=== PATIENT | male | born 1980 | race American Indian/Alaskan Native ===

== ENCOUNTER 2020-02-29 18:09 | Inpatient (IN) | payer OTHER ==
[2020-02-29] MEDS ORDERED: DEXTROSE 50% IN WATER (25GM) 50 ML SYRINGE IV ONE ×2 (18:51→20:23)
[2020-02-29] MEDS ORDERED: SODIUM CHLORIDE 0.9% 1000 ML 1,000 ML ONE (18:55)
[2020-02-29] MEDS ORDERED: SODIUM CHLORIDE 0.9% 1000 ML 1,000 ML IV ONE ×2 (19:04→19:39)
--- NOTE | 2020-02-29 19:17 | Emergency Department Report ---
HPI - General Chief Complaint: Medical Clearance Time Seen by Provider: 02/29/20 18:36 - HPI HPI: 40-year-old -Hungarian male presents to the emergency department via EMS after the patient was found by his roommates slightly altered and surrounded by both urine and blood. At the time of my examination the patient is awake and oriented to person, place and time. Patient says that he cut his left arm with a semi automatic sewing machine operator's knife on Saturday evening, 2 nights ago, because he was trying to "cut the infection out and I did it." The patient says that he previously had some type of knee infection that "spread throughout my body." 2 nights ago the patient once again started having some knee pain and allegedly some swelling and this is why he says he cut himself. He denies any past medical or psychiatric history. The patient denies wanting to end his life and is adamant that he cut himself to try and treat himself of this infection. He presents pale, hypotensive and hypoglycemic. He is a tobacco smoker but denies any illicit drug use. He does drink alcohol but says he did not consume any this evening. The patient says that he got out of the shower and "I collapsed" and then he asked his roommates to call 911. ED Past Medical Hx - Past Medical History Previous Medical History?: No - Surgical History Past Surgical History?: No - Social History Smoking Status: Current Every Day Smoker Substance Use Type: Alcohol - Medications Home Medications: Home Medications Medication Instructions Recorded Confirmed Last Taken Type No Known Home Medications [No 03/01/20 03/01/20 Unknown History Reported Home Medications] ED Review of Systems ROS: Stated complaint: KNEE PAIN/ETOH Other details as noted in HPI Comment: All other systems reviewed and negative Constitutional: weakness. denies: fever Eyes: denies: eye pain, vision change ENT: denies: ear pain, throat pain Respiratory: denies: cough, shortness of breath Cardiovascular: syncope (??). denies: chest pain Gastrointestinal: denies: abdominal pain, vomiting Genitourinary: denies: dysuria, discharge Musculoskeletal: denies: back pain, arthralgia Skin: other (lacerations). denies: rash, lesions Neurological: weakness. denies: headache Physical Exam - Physical Exam Vital Signs: Vital Signs 02/29/20 02/29/20 02/29/20 18:40 18:46 18:53 Pulse Rate 102 H Respiratory 16 Rate Blood Pressure 88/55 88/55 O2 Sat by Pulse 62 L Oximetry 02/29/20 02/29/20 19:00 19:06 Pulse Rate 96 H 93 H Respiratory 21 35 H Rate Blood Pressure 74/39 74/39 O2 Sat by Pulse Oximetry Physical Exam: GENERAL: Patient is ill-appearing. HENT: Normocephalic. Atraumatic. Patient has moist mucous membranes. EYES: Extraocular motions are intact. Pupils equal reactive to light bilaterally. NECK: Supple. Trachea is midline. CHEST/LUNGS: Clear to auscultation. There is no respiratory distress noted. HEART/CARDIOVASCULAR: Regular. There is mild tachycardia. There is no murmur. ABDOMEN: Abdomen is soft, nontender. Patient has normal bowel sounds. There is no abdominal distention. SKIN: Patient is pale and appears jaundiced. Patient has a large linear and moderately deep laceration just distal to the left antecubital fossa and another to the mid forearm. NEURO: The patient is awake, alert, and oriented. The patient is cooperative. The patient has no focal neurologic deficits. Normal speech. MUSCULOSKELETAL: There is no tenderness to palpation. There is no limitation range of motion. Radial pulse +2/4 and capillary refill less than 2 seconds to the affected left upper extremity. ED Course Vital Signs 02/29/20 02/29/20 02/29/20 18:40 18:46 18:53 Pulse Rate 102 H Respiratory 16 Rate Blood Pressure 88/55 88/55 O2 Sat by Pulse 62 L Oximetry 02/29/20 02/29/20 19:00 19:06 Pulse Rate 96 H 93 H Respiratory 21 35 H Rate Blood Pressure 74/39 74/39 O2 Sat by Pulse Oximetry - Consultations Consultation #1: 02/29/20 20:32 I spoke with the tapeman on-call, Dr. Travis, who has requested the patient be placed on a sodium bicarb drip on top of the hyperkalemia cocktail already ordered. He suggested getting an osmolality so we can check for any osmolar gap and [facility] will consult on this patient. ED Medical Decision Making - Lab Data Result diagrams: 03/03/20 04:38 03/03/20 04:38 - EKG Data -: EKG Interpreted by Me EKG shows normal: sinus rhythm, axis, intervals, QRS complexes (LVH), ST-T waves (T wave inversions inversions to the lateral leads V5 and V6) Rate: tachycardia (103 bpm) - EKG Data When compared to previous EKG there are: previous EKG unavailable Interpretation: other (Sinus rhythm with mild tachycardia, normal axis, normal intervals, LVH, T wave inversions to V5 and V6) - Radiology Data Radiology results: report reviewed ULTRASOUND ABDOMEN, LIMITED (RIGHT UPPER QUADRANT) INDICATION: liver failure, jaundice. COMPARISON: None available. FINDINGS: Pancreas: Poorly visualized secondary to bowel gas. Liver: Moderate coarse increased echotexture characteristic for steatosis. Liver measures 16.4 cm in length. Gallbladder: Moderate amount of gallbladder sludge without shadowing gallstones. Mildly thickened gallbladder wall measures 3 mm. Bile ducts: Normal. Common Bile Duct measures 1 mm. Free fluid: None. Additional Findings: None. IMPRESSION: 1. Moderate gallbladder sludge without visualized stones. 2. Pancreas poorly visualized. 3. Moderate hepatic steatosis ULTRASOUND RENAL INDICATION: acute renal failure. COMPARISON: No relevant prior imaging study available. FINDINGS: RIGHT KIDNEY: Size: 11.9 cm. Echogenicity: Normal. Cortical thickness: Normal. Hydronephrosis: None. Cyst or mass: None. Stones: None. LEFT KIDNEY: Size: 11.1 cm. Echogenicity: Normal. Cortical thickness: Normal. Hydronephrosis: None. Cyst or mass: None. Stones: None. Urinary Bladder: Moderately distended urinary bladder.. Free Fluid: Moderate amount of free fluid within left mid abdomen.. Additional Findings: None. IMPRESSION 1. No acute sonographic abnormality of the kidneys. 2. Moderate amount of fluid within left mid abdomen. - Medical Decision Making This patient presented to the emergency department after he was found slightly altered in a room with urine, blood, and a knife having cut himself in the arm. The patient denies any suicidal ideations and says that he cut himself in order to get out some infection he felt was inside of his body. The patient does have 2 different lacerations to the left upper extremity, one at the antecubital fossa and another to the mid forearm. The patient appeared pale and jaundiced. He had some hypotension and hypoglycemia. He was given IV fluid resuscitation, an amp of D50 and some orange juice. He did require a second liter of IV fluid before the blood pressure normalized. An EKG was done that showed some lateral T wave inversions but otherwise no morphology consistent with ST elevation [place]. Patient's blood work shows multiple abnormalities including acute renal failure, acute liver failure with elevated LFTs and coags, hyperkalemia with a potassium of 7, hyponatremia, leukocytosis of 26,000, anemia with a hemoglobin of about 8. Nephrology was contacted and consulted. The patient has received multiple medications for hyperkalemia including a sodium bicarbonate drip. A renal ultrasound was done that did not show any acute process. Abdominal ultrasound shows gallbladder sludge without cholecystitis or cholelithiasis, and moderate hepatic steatosis. Urinalysis did not show any UTI but there is a reading of large blood without any significant amount of RBC's. A CK level is pending but I have a high suspicion of rhabdomyolysis. Patient is also having a CT scan of the abdomen and pelvis without contrast and the results of that are currently pending. The patient will be admitted to the [facility] for further evaluation and treatment. A consult has been placed for nephrology and gastroenterology. The patient has been accepted for admission by the hospitalist, Dr. Car. Critical Care Time: Yes Critical care time in (mins) excluding proc time.: 45 Critical care attestation.: If time is entered above; I have spent that time in minutes in the direct care of this critically ill patient, excluding procedure time. Due to the immediate potential for life-threatening deterioration due to underlying renal, hepatic, and metabolic conditions, I spent 45 minutes of critical care time with the patient. Critical Care Time: 45 minutes ED Disposition Clinical Impression: Hyperkalemia, SIRS (systemic inflammatory response syndrome), Transaminitis, Lactic acidosis, Hyponatremia syndrome Acute renal failure Qualifiers: Acute renal failure type: unspecified Qualified Code(s): N17.9 - Acute kidney failure, unspecified Acute liver failure Qualifiers: Hepatic coma status: without hepatic coma Qualified Code(s): K72.00 - Acute and subacute hepatic failure without coma Anemia Qualifiers: Anemia type: unspecified type Qualified Code(s): D64.9 - Anemia, unspecified Disposition: OP ADMIT IP TO THIS HOSP Is pt being admited?: Yes Condition: Serious Time of Disposition: 23:27
[2020-02-29 19:42] LABS: Hematocrit 24.8 % (35.5-45.6); Hemoglobin 8.3 gm/dl (11.8-15.2); Mean Corpuscular HGB Conc 34 % (32-34); Mean Corpuscular Volume 95 fl (84-94); Platelet Count 409 K/mm3 (140-440)
[2020-02-29 20:00] LABS: Albumin 2.4 g/dL (3.9-5); Calcium 7.3 mg/dL (8.4-10.2)
[2020-02-29] MEDS ORDERED: SODIUM POLYSTYRENE 15 GM/60 ML ORAL LIQD PO ONE (20:22)
[2020-02-29] MEDS ORDERED: CALCIUM GLUCONATE 1,000 MG in SODIUM CHLORIDE 0.9% 100 ML IV ONE (20:22)
[2020-02-29] MEDS ORDERED: ALBUTEROL 2.5 MG/3 ML NEBU IH ONE (20:22)
[2020-02-29] MEDS ORDERED: INSULIN REGULAR, HUMAN 100 UNITS/1 ML IV ONE (20:23)
[2020-02-29] MEDS ORDERED: SODIUM BICARBONATE 150 MEQ in DEXTROSE 5% IN WATER 1,000 ML IV ONE (20:32)
[2020-02-29 21:25] LABS: Anisocytosis 1+; Basophils % (Manual) 0 % (0.0-1.8); Eosinophils % (Manual) 0 % (0.0-4.3); Macrocytosis Few; Monocytes % (Manual) 0 % (0.0-7.3); Total Cells Counted 100
[2020-02-29 21:26] LABS: Burr Cells Few; Large Platelets Few; Platelet Estimate Consistent w Auto; Schistocytes Rare
[2020-02-29] MEDS ORDERED: ONDANSETRON 4 MG/2 ML INJ ONE (21:26)
[2020-02-29] MEDS ORDERED: ONDANSETRON 4 MG/2 ML INJ IV ONE (21:27)
[2020-02-29 23:16] LABS: ABG Base Excess -5.3 mmol/L (-2.0-3.0); ABG HCO3 18.1 mmol/L (20.0-26.0); ABG Methemoglobin 0.4 % (0.0-1.5); ABG Oxygen Saturation 97.6 % (95.0-99.0); ABG PCO2 28.1 mm Hg; ABG PH 7.427 pH Units (7.350-7.450); ABG PO2 96.3 mm Hg (80.0-90.0)
--- NOTE | 2020-02-29 23:22 | Ultrasound Report ---
ULTRASOUND ABDOMEN, LIMITED (RIGHT UPPER QUADRANT) INDICATION: liver failure, jaundice. COMPARISON: None available. FINDINGS: Pancreas: Poorly visualized secondary to bowel gas. Liver: Moderate coarse increased echotexture characteristic for steatosis. Liver measures 16.4 cm in length. Gallbladder: Moderate amount of gallbladder sludge without shadowing gallstones. Mildly thickened gal lbladder wall measures 3 mm. Bile ducts: Normal. Common Bile Duct measures 1 mm. Free fluid: None. Additional Findings: None. IMPRESSION: 1. Moderate gallbladder sludge without visualized stones. 2. Pancreas poorly visualized. 3. Moderate hepatic steatosis Signer Name: Donovan Ga MD Signed: 02/29/2020 11:18 PM Workstation Name: [email or web address]
--- NOTE | 2020-02-29 23:23 | Ultrasound Report ---
ULTRASOUND RENAL INDICATION: acute renal failure. COMPARISON: No relevant prior imaging study available. FINDINGS: RIGHT KIDNEY: Size: 11.9 cm. Echogenicity: Normal. Cortical thickness: Normal. Hydronephrosis: None. Cyst or mass: None. Stones: None. LEFT KIDNEY: Size: 11.1 cm. Echogenicity: Normal. Cortical thickness: Normal. Hydronephrosis: None. Cyst or mass: None. Stones: None. Urinary Bladder: Moderately distended urinary bladder.. Free Fluid: Moderate amount of free fluid within left mid abdomen.. Additional Findings: None. IMPRESSION 1. No acute sonographic abnormality of the kidneys. 2. Moderate amount of fluid within left mid abdomen. Signer Name: Donovan Ga MD Signed: 02/29/2020 11:19 PM Workstation Name: [id number]
[2020-02-29] MEDS ORDERED: VANCOMYCIN/NS 1 GM/250 ML 1 GM/250 ML BAG IV ONE (23:25)
[2020-02-29] MEDS ORDERED: MAGNESIUM HYDROXIDE (MOM) ORAL LIQD UDC PO PRN (23:56)
[2020-02-29] MEDS ORDERED: ONDANSETRON 4 MG/2 ML INJ IV PRN (23:56)
[2020-03-01] MEDS ORDERED: VANCOMYCIN 1,500 MG in SODIUM CHLORIDE 0.9% 500 ML 500 ML IV ONE (00:05)
--- NOTE | 2020-03-01 00:08 | History and Physical Report ---
History of Present Illness Date of examination: 02/29/20 Date of admission: 02/29/20 23:27 Chief complaint: Altered mental status History of present illness: 40-year-old -Malaysian male with no significant past medical history was brought into the emergency room today by EMS because of changes in mental status. Roommate was said to have noticed that patient was smelling of urine and also was covered with blood and was also said to have collapsed after get ting out of the shower and therefore called EMS. Patient indicates that he used a home performance consultant knife over the past weekend to cut his left because he was trying to get rid of an infection in the left arm. He claims he had some infection in his left knee most probably spreading throughout his body including the left arm and therefore he tried to get rid of it. Patient denies any homicidal or suicidal ideations and denies having any mental illness. Upon arrival in the emergency room he was found to be pale, hypotensive and hypoglycemic. Work-up in the emergency room reveals hyperkalemia, renal and liver failure, and elevated CK levels. He was started on IV fluid, empiric IV antibiotics and medications given for his hyperkalemia. Past History Past Medical History: No medical history Past Surgical History: No surgical history Social history: no significant social history Family history: no significant family history Medications and Allergies Allergies Allergy/AdvReac Type Severity Reaction Status Date / Time No Known Allergies Allergy Unverified 02/29/20 18:25 Home Medications Medication Instructions Recorded Confirmed Last Taken Type Amoxicillin/Potassium Clav 1 each PO BID #20 tablet 05/22/18 Unknown Rx [Augmentin 875-125 Tablet] Ibuprofen 800 mg PO TID PRN #30 tablet 05/22/18 Unknown Rx Moxifloxacin HCl [Moxifloxacin] 1 drop OP TID 7 Days #3 ml 05/22/18 Unknown Rx Active Meds: Active Medications Sodium Bicarbonate 150 meq/ (Dextrose) 1,150 mls @ 75 mls/hr IV DIRECT ONE Stop: 03/01/20 11:51 Last Admin: 02/29/20 21:13 Dose: 75 mls/hr Documented by: Vancomycin HCl 1,500 mg/ (Sodium Chloride) 530 mls @ 333.333 mls/hr IV ONCE ONE Stop: 03/01/20 01:40 Review of Systems Constitutional: no fever, no chills Ears, nose, mouth and throat: no nasal congestion, no sore throat Cardiovascular: no chest pain, no syncope Respiratory: no cough, no shortness of breath Gastrointestinal: no abdominal pain, no nausea, no vomiting, no diarrhea, no BRBPR Genitourinary Male: no dysuria, no hematuria, no flank pain Musculoskeletal: no neck pain, no low back pain Integumentary: no rash, no pruritis Neurological: no headaches, no confusion Psychiatric: no anxiety, no depression Exam - Constitutional Vitals: Temp Pulse Resp BP Pulse Ox 96 F L 99 H 28 H 170/48 100 02/29/20 19:24 02/29/20 22:56 02/29/20 22:56 02/29/20 22:56 02/29/20 22:56 General appearance: Present: no acute distress, well-nourished - EENT Eyes: Present: PERRL, EOM intact ENT: hearing intact, clear oral mucosa, dentition normal - Neck Neck: Present: supple, normal ROM - Respiratory Respiratory effort: normal Respiratory: bilateral: CTA - Cardiovascular Rhythm: regular Heart Sounds: Present: S1 & S2. Absent: gallop, systolic murmur, diastolic mur mur, rub - Extremities Extremities: no ischemia, pulses intact, pulses symmetrical (Dressing over left elbow), No edema, Full ROM Extremity abnormal: other (Dressing over left elbow) Peripheral Pulses: within normal limits - Abdominal General gastrointestinal: Present: soft, non-tender, normal bowel sounds. Absent: mass - Integumentary Integumentary: Present: clear, warm, dry, normal turgor. Absent: jaundice, rash - Musculoskeletal Musculoskeletal: strength equal bilaterally - Psychiatric Psychiatric: appropriate mood/affect, intact judgment & insight, memory intact, cooperative - Neurologic Neurologic: CNII-XII intact, moves all extremities Results - Labs CBC & Chem 7: 02/29/20 19:11 02/29/20 19:11 Labs: Abnormal lab results 02/29/20 02/29/20 02/29/20 Range/Units 18:58 19:11 19:11 WBC 26.6 H (4.5-11.0) K/mm3 RBC 2.60 L (3.65-5.03) M/mm3 Hgb 8.3 L (11.8-15.2) gm/dl Hct 24.8 L (35.5-45.6) % MCV 95 H (84-94) fl Seg Neuts % (Manual) 94.0 H (40.0-70.0) % Lymphocytes % (Manual) 5.0 L (13.4-35.0) % Seg Neutrophils # Man 25.0 H (1.8-7.7) K/mm3 PT (12.2-14.9) Sec. INR (0.87-1.13) APTT (24.2-36.6) Sec. ABG pO2 (80.0-90.0) mm Hg ABG HCO3 (20.0-26.0) mmol/L ABG Base Excess (-2.0-3.0) mmol/L ABG Hemoglobin (14.0-18.0) gm/dl Sodium 124 L (137-145) mmol/L Potassium 7.0 H* (3.6-5.0) mmol/L Chloride 75.9 L (98-107) mmol/L Carbon Dioxide 8 L* (22-30) mmol/L BUN 45 H (9-20) mg/dL Creatinine 3.9 H (0.8-1.5) mg/dL Glucose 160 H (75-100) mg/dL POC Glucose < 40 L (70-105) Lactic Acid (0.7-2.0) mmol/L Calcium 7.3 L (8.4-10.2) mg/dL AST 1885 H (5-40) units/L ALT 680 H (7-56) units/L Total Protein 6.1 L (6.3-8.2) g/dL Albumin 2.4 L (3.9-5) g/dL Salicylates (2.8-20.0) mg/dL Acetaminophen (10.0-30.0) ug/mL 02/29/20 02/29/20 02/29/20 Range/Units 19:11 19:15 19:23 WBC (4.5-11.0) K/mm3 RBC (3.65-5.03) M/mm3 Hgb (11.8-15.2) gm/dl Hct (35.5-45.6) % MCV (84-94) fl Seg Neuts % (Manual) (40.0-70.0) % Lymphocytes % (Manual) (13.4-35.0) % Seg Neutrophils # Man (1.8-7.7) K/mm3 PT 30.3 H (12.2-14.9) Sec. INR 3.00 H (0.87-1.13) APTT 44.0 H (24.2-36.6) Sec. ABG pO2 (80.0-90.0) mm Hg ABG HCO3 (20.0-26.0) mmol/L ABG Base Excess (-2.0-3.0) mmol/L ABG Hemoglobin (14.0-18.0) gm/dl Sodium (137-145) mmol/L Potassium (3.6-5.0) mmol/L Chloride (98-107) mmol/L Carbon Dioxide (22-30) mmol/L BUN (9-20) mg/dL Creatinine (0.8-1.5) mg/dL Glucose (75-100) mg/dL POC Glucose 139 H (70-105) Lactic Acid 18.00 H* (0.7-2.0) mmol/L Calcium (8.4-10.2) mg/dL AST (5-40) units/L ALT (7-56) units/L Total Protein (6.3-8.2) g/dL Albumin (3.9-5) g/dL Salicylates (2.8-20.0) mg/dL Acetaminophen (10.0-30.0) ug/mL 02/29/20 02/29/20 02/29/20 Range/Units 20:35 20:35 20:35 WBC (4.5-11.0) K/mm3 RBC (3.65-5.03) M/mm3 Hgb (11.8-15.2) gm/dl Hct (35.5-45.6) % MCV (84-94) fl Seg Neuts % (Manual) (40.0-70.0) % Lymphocytes % (Manual) (13.4-35.0) % Seg Neutrophils # Man (1.8-7.7) K/mm3 PT (12.2-14.9) Sec. INR (0.87-1.13) APTT (24.2-36.6) Sec. ABG pO2 (80.0-90.0) mm Hg ABG HCO3 (20.0-26.0) mmol/L ABG Base Excess (-2.0-3.0) mmol/L ABG Hemoglobin (14.0-18.0) gm/dl Sodium (137-145) mmol/L Potassium (3.6-5.0) mmol/L Chloride (98-107) mmol/L Carbon Dioxide (22-30) mmol/L BUN (9-20) mg/dL Creatinine (0.8-1.5) mg/dL Glucose (75-100) mg/dL POC Glucose (70-105) Lactic Acid 10.80 H* (0.7-2.0) mmol/L Calcium (8.4-10.2) mg/dL AST (5-40) units/L ALT (7-56) units/L Total Protein (6.3-8.2) g/dL Albumin (3.9-5) g/dL Salicylates 1.7 L (2.8-20.0) mg/dL Acetaminophen < 5.0 L (10.0-30.0) ug/mL 02/29/20 Range/Units 23:09 WBC (4.5-11.0) K/mm3 RBC (3.65-5.03) M/mm3 Hgb (11.8-15.2) gm/dl Hct (35.5-45.6) % MCV (84-94) fl Seg Neuts % (Manual) (40.0-70.0) % Lymphocytes % (Manual) (13.4-35.0) % Seg Neutrophils # Man (1.8-7.7) K/mm3 PT (12.2-14.9) Sec. INR (0.87-1.13) APTT (24.2-36.6) Sec. ABG pO2 96.3 H (80.0-90.0) mm Hg ABG HCO3 18.1 L (20.0-26.0) mmol/L ABG Base Excess -5.3 L (-2.0-3.0) mmol/L ABG Hemoglobin 9.2 L (14.0-18.0) gm/dl Sodium (137-145) mmol/L Potassium (3.6-5.0) mmol/L Chloride (98-107) mmol/L Carbon Dioxide (22-30) mmol/L BUN (9-20) mg/dL Creatinine (0.8-1.5) mg/dL Glucose (75-100) mg/dL POC Glucose (70-105) Lactic Acid (0.7-2.0) mmol/L Calcium (8.4-10.2) mg/dL AST (5-40) units/L ALT (7-56) units/L Total Protein (6.3-8.2) g/dL Albumin (3.9-5) g/dL Salicylates (2.8-20.0) mg/dL Acetaminophen (10.0-30.0) ug/mL Assessment and Plan - Patient Problems (1) Sepsis Current Visit: Yes Status: Acute Plan to address problem: Patient placed on IV fluid and empiric IV antibiotics. We await blood culture results. (2) Acute liver failure Current Visit: Yes Status: Acute Qualifiers: Hepatic coma status: without hepatic coma Qualified Code(s): K72.00 - Acute and subacute hepatic failure without coma Plan to address problem: We will place a consult to gastroenterology for further evaluation. Will m onitor liver enzymes. (3) Acute renal failure Current Visit: Yes Status: Acute Qualifiers: Acute renal failure type: unspecified Qualified Code(s): N17.9 - Acute kidney failure, unspecified Plan to address problem: Probably prerenal. We will continue IV fluid and monitor BUN and creatinine. We appreciate evaluation by nephrology. (4) Anemia Current Visit: Yes Status: Acute Qualifiers: Anemia type: unspecified type Qualified Code(s): D64.9 - Anemia, unspecified Plan to address problem: Probably secondary to blood loss. Will monitor CBC. We will transfuse with packed red blood cells if needed. (5) Hyperkalemia Current Visit: Yes Status: Acute (6) Lactic acidosis Current Visit: Yes Status: Acute Plan to address problem: Probably secondary to underlying sepsis. We will continue to monitor chemistry. We will continue antibiotics and IV fluid. (7) Rhabdomyolysis Current Visit: Yes Status: Acute Plan to address problem: We will continue on IV fluid normal saline and monitor creatinine kinase levels. (8) DVT prophylaxis Current Visit: Yes Status: Acute Plan to address problem: Patient placed on sequential compression device. (9) Full code status Current Visit: Yes Status: Acute
[2020-03-01 00:10] LABS: Bilirubin,Urine NEG (Negative); Blood,Urine LG (Negative); Color,Urine Yellow (Yellow); Mucus,Urine 1+ /HPF; Urobilinogen,Urine < 2.0 mg/dL (<2.0)
[2020-03-01 00:16] LABS: Amphetamine Screen,Urine PRESUMPTIVE NEGATIVE; Benzodiazepines Screen,Urine PRESUMPTIVE NEGATIVE; Cannabinoid Screen,Urine PRESUMPTIVE NEGATIVE; Cocaine Screen,Urine PRESUMPTIVE NEGATIVE; Methadone Screen,Urine PRESUMPTIVE NEGATIVE; Opiate Screen,Urine PRESUMPTIVE NEGATIVE
[2020-03-01] MEDS ORDERED: MORPHINE 4 MG/1 ML INJ IV ONE (00:26)
[2020-03-01] MEDS ORDERED: ONDANSETRON 4 MG/2 ML INJ ONE (00:30)
[2020-03-01] MEDS ORDERED: MORPHINE 2 MG/1 ML INJ ONE (00:30)
--- NOTE | 2020-03-01 00:42 | Cat Scan Report ---
CT ABDOMEN AND PELVIS WITHOUT CONTRAST INDICATION: Pt complains of abd pain. Pt has renal failure, liver failure.. TECHNIQUE: Axial CT images were obtained through the abdomen and pelvis without IV contrast. All CT scans at [facility] location are performed using CT dose reduction for ALARA by means of automated exposure control. COMPARISON: None available. FINDINGS: LOWER CHEST: No significant abnormality. LIVER: No significant abnormality. GALLBLADDER: No significant abnormality. BILE DUCTS: No significant abnormality. PANCREAS: No significant abnormality. SPLEEN: No significant abnormality. ADRENALS: No significant abnormality. RIGHT KIDNEY and URETER: No significant abnormality. LEFT KIDNEY and URETER: No significant abnormality. STOMACH and SMALL BOWEL: Moderately dilated stomach suggestive for gastric outlet obstruction and/or gastroparesis. No bowel obstruction. COLON: No significant abnormality. APPENDIX: No significant abnormality. PERITONEUM: No free fluid. No free air. No fluid collection. LYMPH NODES: No significant adenopathy. AORTA and ARTERIES: No significant abnormality. IVC and VEINS: No significant abnormality. URINARY BLADDER: No significant abnormality. REPRODUCTIVE ORGANS: No significant abnormality. ADDITIONAL FINDINGS: None. SKELETAL SYSTEM: Moderate discogenic degenerative disease L5-S1. IMPRESSION: 1. Moderately dilated fluid-filled stomach may be secondary to gastroparesis or gastric outlet obstru ction. 2. No urinary tract calculi or hydronephrosis. Signer Name: Donovan Ga MD Signed: 03/01/2020 12:38 AM Workstation Name: [email or web address]
[2020-03-01] MEDS ORDERED: VANCOMYCIN PHARMACY TO DOSE IV SCH (01:00)
[2020-03-01] MEDS ORDERED: SODIUM CHLORIDE 0.9% 1000 ML 1,000 ML ONE (01:38)
[2020-03-01] MEDS: SODIUM CHLORIDE 0.9% 1000 ML 1,000 ML IV SCH ×2 (02:06→18:54)
[2020-03-01] MEDS ORDERED: SODIUM BICARB 8.4% 50 MEQ/50 ML SYRINGE IV ONE ×2 (04:50→08:31)
[2020-03-01] MEDS ORDERED: PIPERACIL-TAZO 2.25 GM/50 ML 2.25 GM/50 ML BAG IV SCH ×2 (06:00→14:00)
[2020-03-01] MEDS ORDERED: HEPARIN 5,000 UNIT/1 ML VIAL SUB-Q SCH ×2 (06:00→14:00)
[2020-03-01] MEDS ORDERED: PIPERACIL/TAZOBACTA 4.5/NS 100 4.5 GM/100 ML VIAL IV SCH (06:00)
[2020-03-01] MEDS ORDERED: HEPARIN 5,000 UNIT/1 ML VIAL ONE (06:18)
[2020-03-01] MEDS ORDERED: PIPERACIL-TAZO 2.25 GM/50 ML 2.25 GM/50 ML BAG IV ONE (06:18)
[2020-03-01 06:22] LABS: Hematocrit 25.5 % (35.5-45.6); Hemoglobin 8.7 gm/dl (11.8-15.2); Mean Corpuscular HGB Conc 34 % (32-34); Mean Corpuscular Volume 90 fl (84-94); Platelet Count 466 K/mm3 (140-440); Red Blood Count 2.83 M/mm3 (3.65-5.03); Red Cell Distribution Width 13.6 % (13.2-15.2)
[2020-03-01 06:34] LABS: INR 2.16 (0.87-1.13)
[2020-03-01 06:38] LABS: Calcium 6.9 mg/dL (8.4-10.2)
[2020-03-01 06:40] LABS: Albumin 2.8 g/dL (3.9-5)
[2020-03-01 06:41] LABS: Bilirubin,Direct < 0.2 mg/dL (0-0.2)
[2020-03-01 06:53] LABS: Alanine Aminotransferase 1090 units/L (7-56)
--- NOTE | 2020-03-01 07:57 | XRay Report ---
CHEST 1 VIEW INDICATION: cough. COMPARISON: None FINDINGS: Support devices: None. Heart: Within normal limits. Lungs/Pleura: No acute air space or interstitial disease. Additional findings: None. IMPRESSION: No acute findings. Signer Name: Igor Rose Jr, MD Signed: 03/01/2020 7:52 AM Workstation Name: [id number]
[2020-03-01] MEDS ORDERED: SODIUM BICARB 4.2% 5 MEQ/10 ML SYRINGE ONE (08:30)
[2020-03-01 08:36] LABS: Anisocytosis 1+; Band Neutrophils # (Manual) 1.6 K/mm3; Basophils % (Manual) 0 % (0.0-1.8); Eosinophils % (Manual) 0 % (0.0-4.3); Total Cells Counted 100
[2020-03-01 08:37] LABS: Hypochromasia 1+; Macrocytosis Few; Platelet Estimate Consistent w Auto; Target Cells 1+
[2020-03-01] MEDS ORDERED: HYDROmorphone 1 MG/1 ML INJ ONE ×2 (08:40→12:26)
[2020-03-01] MEDS: HYDROmorphone 1 MG/1 ML INJ IV PRN ×3 (08:50→18:53)
[2020-03-01] MEDS ORDERED: SODIUM POLYSTYRENE 15 GM/60 ML ORAL LIQD PR NR (10:11)
--- NOTE | 2020-03-01 10:14 | Consultation ---
History of Present Illness - Reason for Consult Consult date: 03/01/20 acute renal failure, hyperkalemia, metabolic acidosis Requesting physician: TOMMY MAURER - History of Present Illness 40-year-old -[place] male with no significant past medical history was brought into the emergency room today by EMS because of changes in mental status. Roommate was said to have noticed that patient was smelling of urine and also was covered with blood and was also said to have collapsed after getting out of the shower and therefore called EMS. Patient indicates that he used a assessment nurse knife over the past weekend to cut his left because he was trying to get rid of an infection in the left arm. He claims he had some infection in his left knee most probably spreading throughout his body including the left arm and therefore he tried to get rid of it. Patient denies any homicidal or suicidal ideations and denies having any mental illness. Upon arrival in the emergency room he was found to be pale, hypotensive and hypoglycemic. Work-up in the emergency room reveals hyperkalemia, renal and liver failure, and elevated CK levels. He was started on IV fluid, empiric IV antibiotics and medications given for his hyperkalemia. Past History Past Medical History: No medical history Past Surgical History: No surgical history Social history: no significant social history Family history: no significant family history Review of Systems Constitutional: no fever, no chills Ears, nose, mouth and throat: no nasal congestion, no sore throat Cardiovascular: no chest pain, no syncope Respiratory: no cough, no shortness of breath Gastrointestinal: no abdominal pain, no nausea, no vomiting, no diarrhea, no B RBPR Genitourinary Male: no dysuria, no hematuria, no flank pain Musculoskeletal: no neck pain, no low back pain Integumentary: no rash, no pruritis Neurological: no headaches, no confusion Psychiatric: no anxiety, no depression Past History Past Medical History: No medical history Past Surgical History: No surgical history Social history: no significant social history Family history: no significant family history Medications and Allergies Allergies Allergy/AdvReac Type Severity Reaction Status Date / Time No Known Allergies Allergy Unverified 02/29/20 18:25 Home Medications Medication Instructions Recorded Confirmed Last Taken Type Amoxicillin/Potassium Clav 1 each PO BID #20 tablet 05/22/18 Unknown Rx [Augmentin 875-125 Tablet] Ibuprofen 800 mg PO TID PRN #30 tablet 05/22/18 Unknown Rx Moxifloxacin HCl [Moxifloxacin] 1 drop OP TID 7 Days #3 ml 05/22/18 Unknown Rx Active Meds: Active Medications Heparin Sodium (Porcine) (Heparin) 5,000 unit SUB-Q Q8HR [facility] Last Admin: 03/01/20 08:24 Dose: 5,000 unit Documented by: Hydromorphone HCl (Dilaudid) 0.5 mg IV Q3H PRN PRN Reason: Pain , Severe (7-10) Last Admin: 03/01/20 08:50 Dose: 0.5 mg Documented by: Sodium Bicarbonate 150 meq/ (Dextrose) 1,150 mls @ 75 mls/hr IV DIRECT ONE Stop: 03/01/20 11:51 Last Admin: 02/29/20 21:13 Dose: 75 mls/hr Documented by: Sodium Chloride (Nacl 0.9% 1000 Ml) 1,000 mls @ 125 mls/hr IV DIRECT JOSE RAMON Last Admin: 03/01/20 02:06 Dose: 125 mls/hr Documented by: Piperacillin Sod/Tazobactam Sod (Zosyn/Ns 2.25 Gm/50ml) 2.25 gm in 50 mls @ 100 mls/hr IV Q6HR [facility] Last Admin: 03/01/20 08:25 Dose: 100 mls/hr Documented by: Magnesium Hydroxide (Milk Of Magnesia) 30 ml PO Q4H PRN PRN Reason: Constipation Ondansetron HCl (Zofran) 4 mg IV Q8H PRN PRN Reason: Nausea And Vomiting Last Admin: 03/01/20 00:33 Dose: 4 mg Documented by: Sodium Chloride (Sodium Chloride Flush Syringe 10 Ml) 10 ml IV BID [facility] Sodium Chloride (Sodium Chloride Flush Syringe 10 Ml) 10 ml IV PRN PRN PRN Reason: LINE FLUSH Sodium Polystyrene Sulfonate (Kionex) 60 gm UT ONCE ONE Stop: 03/01/20 10:12 Exam - Vital Signs Vital signs: Vital Signs Pulse Ox 62 L 02/29/20 18:40 - Physical Exam Narrative exam: General appearance: Present: no acute distress, well-nourished - EENT Eyes: Present: PERRL, EOM intact ENT: hearing intact, clear oral mucosa, dentition normal - Neck Neck: Present: supple, normal ROM - Respiratory Respiratory effort: normal Respiratory: bilateral: CTA - Cardiovascular Rhythm: regular Heart Sounds: Present: S1 & S2. Absent: gallop, systolic murmur, diastolic murmur, rub - Extremities Extremities: no ischemia, pulses intact, pulses symmetrical (Dressing over left elbow), No edema, Full ROM Extremity abnormal: other (Dressing over left elbow) Peripheral Pulses: within normal limits - Abdominal General gastrointestinal: Present: soft, non-tender, normal bowel sounds. Absent: mass - Integumentary Integumentary: Present: clear, warm, dry, normal turgor. Absent: jaundice, rash - Musculoskeletal Musculoskeletal: strength equal bilaterally - Psychiatric Psychiatric: appropriate mood/affect, intact judgment & insight, memory intact, cooperative - Neurologic Neurologic: CNII-XII intact, moves all extremities Results - Lab Results 03/01/20 05:49 03/01/20 05:49 Most recent lab results ABG pH 7.427 pH Units (7.350-7.450) 02/29/20 23:09 ABG pCO2 28.1 mm Hg 02/29/20 23:09 ABG pO2 96.3 mm Hg (80.0-90.0) H 02/29/20 23:09 ABG HCO3 18.1 mmol/L (20.0-26.0) L 02/29/20 23:09 ABG O2 Saturation 97.6 % (95.0-99.0) 02/29/20 23:09 Calcium 6.9 mg/dL (8.4-10.2) L 03/01/20 05:49 Assessment and Plan Impression: * BHARTI with atn * Metabolic acidosis * hyperkalemia * hyponatremia * acute liver failure * rhabdomyolysis * encephalopathy Plan: * follow up ethylene glycol leves, with anion and osm gap * intiate LEAD APPLIER for presumed injestion and refractory hyperkalemia * avoid nephrotoxins * strict i/os * daily lytes * follow up ck levels
[2020-03-01] MEDS ORDERED: EPOETIN ALFA 10,000 UNIT/1 ML INJ IV PRN (10:16)
[2020-03-01] MEDS ORDERED: SODIUM CHLORIDE 0.9% 100 ML IV PRN (10:16)
[2020-03-01] MEDS ORDERED: ALBUMIN HUMAN 25% (25 GM/100 ML) INJ IV PRN (10:16)
[2020-03-01 11:54] LABS: Hepatitis B Surface Antigen Non-Reactive (Negative); Hepatitis C Virus Antibody Non-Reactive (NonReactive)
[2020-03-01] MEDS ORDERED: LIDOCAINE 1%/EPINEPHRINE 1:100,000 VIAL (20 ML) INFILTRATI ONE (13:07)
[2020-03-01] MEDS ORDERED: HEPARIN/NS 5000 UNIT/500ML 500 ML IR ONE (13:07)
[2020-03-01] MEDS ORDERED: SODIUM CHLORIDE 0.9% 250ML 250 ML ONE (13:07)
[2020-03-01] MEDS: HEPARIN 10,000 UNITS/10 ML VIAL ONE ×3 (13:40→13:45)
[2020-03-01] MEDS ORDERED: METOCLOPRAMIDE 10 MG/2 ML INJ IV PRN (13:57)
[2020-03-01] MEDS ORDERED: ONDANSETRON 4 MG/2 ML INJ IV PRN (13:57)
[2020-03-01] MEDS ORDERED: ENOXAPARIN 40 MG/0.4 ML INJ SUB-Q SCH (14:00)
--- NOTE | 2020-03-01 14:14 | Operative Report ---
Operative Report Operative Report: EXAM: 1. Ultrasound-guided puncture of the right internal jugular vein 2. Fluoroscopic-guided placement of a right internal jugular nontunneled noncuffed hemodialysis catheter. DATE: 03/01/2020 INDICATION: Acute renal failure requiring hemodialysis. MEDICATIONS: Please see nursing report for full details. DEVICES: 15 cm dual lumen hemodialysis catheter LAW WRITER: AISHWARYA PHILLIPS MD CONTRAST: None PROCEDURE: The risks, benefits, and alternatives were discussed and informed consent was obtained. The patient was transported to the angiography suite in satisfactory/stable condition and was transported onto the angiography table. The patient's right internal jugular vein was assessed with ultrasound and determined to be patent prior to procedure. The patient was prepped and draped in a sterile fashion. The puncture site was anesthetized. The right internal jugular vein was patent on ultrasound. Under sonographic guidance, the right internal jugular vein was punctured with a 21-gauge micropuncture needle and a 0.018 inch wire was advanced through the needle. Needle was exchanged for transitional dilator. The inner dilator and wire was removed and a 0.035 inch wire was advanced through the transitional dilator into the inferior vena cava. Over the 0.035 inch wire, serial dilatation was performed. The catheter was advanced over the wire and positioned centrally under fluoroscopic guidance. 2-0 nylon suture was used to secure the catheter. The catheter was charged with heparin 1000 units/mL of space. Sterile dressing and Biopatch applied. The patient was transferred from the angiography suite back to the floor in stable condition. FNDINGS: 1. Excellent flow was obtained through the dialysis catheter with 20 mL syringes. 2. The catheter tip is in the right atrium. IMPRESSION: 1. Successful sonographically and fluoroscopically guided placement of a right internal jugular nontunneled noncuffed hemodialysis catheter.
[2020-03-01] MEDS ORDERED: CALCIUM GLUCONATE 2,000 MG in SODIUM CHLORIDE 0.9% 100 ML IV ONE (14:18)
--- NOTE | 2020-03-01 14:30 | Progress Note ---
Assessment and Plan The high probability OF a clinically significant sudden or life-threatening deterioration of the cardiorespiratory system and endocrine system required my full and direct attention, intervention and postoperative management. The aggregate critical care time was 40 minutes. The time is in addition to time spent performing reported procedures but includes the followin: Data review and interpretation 2: Patient assessment and monitoring of vital signs 3: Documentation 4:: Medication orders and management + - Patient Problems (1) Acute liver failure Current Visit: Yes Status: Acute Qualifiers: Hepatic coma status: without hepatic coma Qualified Code(s): K72.00 - Acute and subacute hepatic failure without coma Plan to address problem: Liver enzymes have worsened from 1885 of AST and ALT of 682 2867 and 1090 respectively Discussed with GI Possible ischemic injury to the liver secondary to exsanguination (2) Acute renal failure Current Visit: Yes Status: Acute Qualifiers: Acute renal failure type: unspecified Qualified Code(s): N17.9 - Acute kidney failure, unspecified Plan to address problem: ATN BUN/creatinine improved from 45 and 3.9-62 and 3.4 (3) Hyperkalemia Current Visit: Yes Status: Acute (4) Hyponatremia syndrome Current Visit: Yes Status: Acute Plan to address problem: Improved (5) Lactic acidosis Current Visit: Yes Status: Acute (6) Rhabdomyolysis Current Visit: Yes Status: Acute Qualifiers: Rhabdomyolysis type: non-traumatic Qualified Code(s): M62.82 - Rhabdomyolysis Plan to address problem: Creatinine kinase improving (7) Sepsis Current Visit: Yes Status: Acute Plan to address problem: Possibly from the left knee infection Leukocytosis IV Unasyn and IV vancomycin ID consult requested (8) Transaminitis Current Visit: Yes Status: Acute Plan to address problem: Improved (9) DVT prophylaxis Current Visit: Yes Status: Acute Plan to address problem: On heparin and GI prophylaxis Subjective Date of service: 03/01/20 Principal diagnosis: Hypertensive emergency, acute liver failure, acute renal renal failure, rha Interval history: 40-year-old -[place]ian male with no significant past medical history was brought into the emergency room today by EMS because of changes in mental status. Roommate was said to have noticed that patient was smelling of urine and also was covered with blood and was also said to have collapsed after getting out of the shower and therefore called EMS. Patient indicates that he used a manager of community relations knife over the past weekend to cut his left because he was trying to get rid of an infection in the left arm. He claims he had some infection in his left knee most probably spreading throughout his body including the left arm and therefore he tried to get rid of it. Patient denies any homicidal or suicidal ideations and denies having any mental illness. Upon arrival in the emergency room he was found to be pale, hypotensive and hypoglycemic. Work-up in the emergency room reveals hyperkalemia, renal and liver failure, and elevated CK levels. He was started on IV fluid, empiric IV antibiotics and medications given for his hyperkalemia. Patient has severe transaminitis Discussed with the GI Possible acute ischemic liver injury secondary to exsanguination Objective - Constitutional Vitals: Vital Signs - 12hr 03/01/20 03/01/20 03/01/20 02:26 02:30 03:00 Temperature Pulse Rate 95 H 95 H 91 H Respiratory 31 H 27 H 28 H Rate Blood Pressure 165/103 165/103 166/101 Blood Pressure [right arm] O2 Sat by Pulse 100 100 99 Oximetry 03/01/20 03/01/20 03/01/20 04:00 05:00 05:49 Temperature Pulse Rate 93 H Respiratory 27 H 11 L Rate Blood Pressure 162/90 180/100 Blood Pressure 145/97 [right arm] O2 Sat by Pulse 100 Oximetry 03/01/20 03/01/20 03/01/20 06:00 06:07 07:00 Temperature 99.5 F Pulse Rate 101 H 95 H Respiratory 15 27 H Rate Blood Pressure 180/100 180/100 Blood Pressure [right arm] O2 Sat by Pulse 78 L 100 Oximetry 03/01/20 03/01/20 03/01/20 08:00 08:22 08:50 Temperature Pulse Rate 102 H 96 H Respiratory 18 24 22 Rate Blood Pressure 180/100 Blood Pressure 157/82 [right arm] O2 Sat by Pulse 98 100 Oximetry 03/01/20 03/01/20 03/01/20 08:55 09:00 10:00 Temperature Pulse Rate 94 H 102 H Respiratory 22 22 17 Rate Blood Pressure 157/93 157/74 Blood Pressure [right arm] O2 Sat by Pulse 96 96 Oximetry 03/01/20 03/01/20 03/01/20 10:05 11:00 11:29 Temperature Pulse Rate 100 H 103 H Respiratory 20 30 H 20 Rate Blood Pressure 168/98 Blood Pressure 157/72 168/98 [right arm] O2 Sat by Pulse 100 98 99 Oximetry 03/01/20 03/01/20 12:00 13:00 Temperature Pulse Rate 100 H 106 H Respiratory 33 H 13 Rate Blood Pressure 161/81 160/88 Blood Pressure 160/86 [right arm] O2 Sat by Pulse 98 Oximetry General appearance: Present: no acute distress, well-nourished - EENT Eyes: PERRL, EOM intact ENT: hearing intact, clear oral mucosa Ears: bilateral: normal - Neck Neck: supple, normal ROM - Respiratory Respiratory effort: normal Respiratory: bilateral: CTA - Breasts Breasts: normal - Cardiovascular Rhythm: regular Heart Sounds: Present: S1 & S2. Absent: gallop, rub Extremities: pulses intact, No edema, normal color, Full ROM - Gastrointestinal General gastrointestinal: Present: soft, non-tender, non-distended, normal bowel sounds - Genitourinary Male genitourinary: normal - Integumentary Integumentary: clear, warm, dry - Musculoskeletal Musculoskeletal: 1, strength equal bilaterally - Neurologic Neurologic: moves all extremities - Psychiatric Psychiatric: memory intact, appropriate mood/affect, intact judgment & insight - Labs CBC & Chem 7: 03/08/20 04:16 03/08/20 04:16 Labs: Abnormal lab results 02/29/20 02/29/20 02/29/20 Range/Units 18:58 19:11 19:11 WBC 26.6 H (4.5-11.0) K/mm3 RBC 2.60 L (3.65-5.03) M/mm3 Hgb 8.3 L (11.8-15.2) gm/dl Hct 24.8 L (35.5-45.6) % MCV 95 H (84-94) fl Plt Count (140-440) K/mm3 Seg Neuts % (Manual) 94.0 H (40.0-70.0) % Lymphocytes % (Manual) 5.0 L (13.4-35.0) % Seg Neutrophils # Man 25.0 H (1.8-7.7) K/mm3 Lymphocytes # (Manual) (1.2-5.4) K/mm3 PT (12.2-14.9) Sec. INR (0.87-1.13) APTT (24.2-36.6) Sec. ABG pO2 (80.0-90.0) mm Hg ABG HCO3 (20.0-26.0) mmol/L ABG Base Excess (-2.0-3.0) mmol/L ABG Hemoglobin (14.0-18.0) gm/dl Sodium 124 L (137-145) mmol/L Potassium 7.0 H* (3.6-5.0) mmol/L Chloride 75.9 L (98-107) mmol/L Carbon Dioxide 8 L* (22-30) mmol/L BUN 45 H (9-20) mg/dL Creatinine 3.9 H (0.8-1.5) mg/dL Glucose 160 H (75-100) mg/dL POC Glucose < 40 L (70-105) Lactic Acid (0.7-2.0) mmol/L Calcium 7.3 L (8.4-10.2) mg/dL AST 1885 H (5-40) units/L ALT 680 H (7-56) units/L Total Creatine Kinase (55-170) units/L Total Protein 6.1 L (6.3-8.2) g/dL Albumin 2.4 L (3.9-5) g/dL Salicylates (2.8-20.0) mg/dL Acetaminophen (10.0-30.0) ug/mL 02/29/20 02/29/20 02/29/20 Range/Units 19:11 19:15 19:23 WBC (4.5-11.0) K/mm3 RBC (3.65-5.03) M/mm3 Hgb (11.8-15.2) gm/dl Hct (35.5-45.6) % MCV (84-94) fl Plt Count (140-440) K/mm3 Seg Neuts % (Manual) (40.0-70.0) % Lymphocytes % (Manual) (13.4-35.0) % Seg Neutrophils # Man (1.8-7.7) K/mm3 Lymphocytes # (Manual) (1.2-5.4) K/mm3 PT 30.3 H (12.2-14.9) Sec. INR 3.00 H (0.87-1.13) APTT 44.0 H (24.2-36.6) Sec. ABG pO2 (80.0-90.0) mm Hg ABG HCO3 (20.0-26.0) mmol/L ABG Base Excess (-2.0-3.0) mmol/L ABG Hemoglobin (14.0-18.0) gm/dl Sodium (137-145) mmol/L Potassium (3.6-5.0) mmol/L Chloride (98-107) mmol/L Carbon Dioxide (22-30) mmol/L BUN (9-20) mg/dL Creatinine (0.8-1.5) mg/dL Glucose (75-100) mg/dL POC Glucose 139 H (70-105) Lactic Acid 18.00 H* (0.7-2.0) mmol/L Calcium (8.4-10.2) mg/dL AST (5-40) units/L ALT (7-56) units/L Total Creatine Kinase (55-170) units/L Total Protein (6.3-8.2) g/dL Albumin (3.9-5) g/dL Salicylates (2.8-20.0) mg/dL Acetaminophen (10.0-30.0) ug/mL 02/29/20 02/29/20 02/29/20 Range/Units 20:35 20:35 20:35 WBC (4.5-11.0) K/mm3 RBC (3.65-5.03) M/mm3 Hgb (11.8-15.2) gm/dl Hct (35.5-45.6) % MCV (84-94) fl Plt Count (140-440) K/mm3 Seg Neuts % (Manual) (40.0-70.0) % Lymphocytes % (Manual) (13.4-35.0) % Seg Neutrophils # Man (1.8-7.7) K/mm3 Lymphocytes # (Manual) (1.2-5.4) K/mm3 PT (12.2-14.9) Sec. INR (0.87-1.13) APTT (24.2-36.6) Sec. ABG pO2 (80.0-90.0) mm Hg ABG HCO3 (20.0-26.0) mmol/L ABG Base Excess (-2.0-3.0) mmol/L ABG Hemoglobin (14.0-18.0) gm/dl Sodium (137-145) mmol/L Potassium (3.6-5.0) mmol/L Chloride (98-107) mmol/L Carbon Dioxide (22-30) mmol/L BUN (9-20) mg/dL Creatinine (0.8-1.5) mg/dL Glucose (75-100) mg/dL POC Glucose (70-105) Lactic Acid 10.80 H* (0.7-2.0) mmol/L Calcium (8.4-10.2) mg/dL AST (5-40) units/L ALT (7-56) units/L Total Creatine Kinase (55-170) units/L Total Protein (6.3-8.2) g/dL Albumin (3.9-5) g/dL Salicylates 1.7 L (2.8-20.0) mg/dL Acetaminophen < 5.0 L (10.0-30.0) ug/mL 02/29/20 02/29/20 02/29/20 Range/Units 23:09 23:20 23:41 WBC (4.5-11.0) K/mm3 RBC (3.65-5.03) M/mm3 Hgb (11.8-15.2) gm/dl Hct (35.5-45.6) % MCV (84-94) fl Plt Count (140-440) K/mm3 Seg Neuts % (Manual) (40.0-70.0) % Lymphocytes % (Manual) (13.4-35.0) % Seg Neutrophils # Man (1.8-7.7) K/mm3 Lymphocytes # (Manual) (1.2-5.4) K/mm3 PT (12.2-14.9) Sec. INR (0.87-1.13) APTT (24.2-36.6) Sec. ABG pO2 96.3 H (80.0-90.0) mm Hg ABG HCO3 18.1 L (20.0-26.0) mmol/L ABG Base Excess -5.3 L (-2.0-3.0) mmol/L ABG Hemoglobin 9.2 L (14.0-18.0) gm/dl Sodium (137-145) mmol/L Potassium (3.6-5.0) mmol/L Chloride (98-107) mmol/L Carbon Dioxide (22-30) mmol/L BUN (9-20) mg/dL Creatinine (0.8-1.5) mg/dL Glucose (75-100) mg/dL POC Glucose 122 H (70-105) Lactic Acid 5.50 H* (0.7-2.0) mmol/L Calcium (8.4-10.2) mg/dL AST (5-40) units/L ALT (7-56) units/L Total Creatine Kinase (55-170) units/L Total Protein (6.3-8.2) g/dL Albumin (3.9-5) g/dL Salicylates (2.8-20.0) mg/dL Acetaminophen (10.0-30.0) ug/mL 02/29/20 03/01/20 03/01/20 Range/Units 23:41 01:09 05:49 WBC 18.3 H (4.5-11.0) K/mm3 RBC 2.83 L (3.65-5.03) M/mm3 Hgb 8.7 L (11.8-15.2) gm/dl Hct 25.5 L (35.5-45.6) % MCV (84-94) fl Plt Count 466 H (140-440) K/mm3 Seg Neuts % (Manual) 87.0 H (40.0-70.0) % Lymphocytes % (Manual) 1.0 L (13.4-35.0) % Seg Neutrophils # Man 15.9 H (1.8-7.7) K/mm3 Lymphocytes # (Manual) 0.2 L (1.2-5.4) K/mm3 PT (12.2-14.9) Sec. INR (0.87-1.13) APTT (24.2-36.6) Sec. ABG pO2 (80.0-90.0) mm Hg ABG HCO3 (20.0-26.0) mmol/L ABG Base Excess (-2.0-3.0) mmol/L ABG Hemoglobin (14.0-18.0) gm/dl Sodium (137-145) mmol/L Potassium (3.6-5.0) mmol/L Chloride (98-107) mmol/L Carbon Dioxide (22-30) mmol/L BUN (9-20) mg/dL Creatinine (0.8-1.5) mg/dL Glucose (75-100) mg/dL POC Glucose (70-105) Lactic Acid 3.20 H* (0.7-2.0) mmol/L Calcium (8.4-10.2) mg/dL AST (5-40) units/L ALT (7-56) units/L Total Creatine Kinase 55761 H (55-170) units/L Total Protein (6.3-8.2) g/dL Albumin (3.9-5) g/dL Salicylates (2.8-20.0) mg/dL Acetaminophen (10.0-30.0) ug/mL 03/01/20 03/01/20 03/01/20 Range/Units 05:49 05:49 05:49 WBC (4.5-11.0) K/mm3 RBC (3.65-5.03) M/mm3 Hgb (11.8-15.2) gm/dl Hct (35.5-45.6) % MCV (84-94) fl Plt Count (140-440) K/mm3 Seg Neuts % (Manual) (40.0-70.0) % Lymphocytes % (Manual) (13.4-35.0) % Seg Neutrophils # Man (1.8-7.7) K/mm3 Lymphocytes # (Manual) (1.2-5.4) K/mm3 PT 23.5 H (12.2-14.9) Sec. INR 2.16 H (0.87-1.13) APTT (24.2-36.6) Sec. ABG pO2 (80.0-90.0) mm Hg ABG HCO3 (20.0-26.0) mmol/L ABG Base Excess (-2.0-3.0) mmol/L ABG Hemoglobin (14.0-18.0) gm/dl Sodium 129 L (137-145) mmol/L Potassium 6.3 H* (3.6-5.0) mmol/L Chloride 88.0 L (98-107) mmol/L Carbon Dioxide (22-30) mmol/L BUN 62 H (9-20) mg/dL Creatinine 3.4 H (0.8-1.5) mg/dL Glucose 108 H (75-100) mg/dL POC Glucose (70-105) Lactic Acid 2.30 H* (0.7-2.0) mmol/L Calcium 6.9 L (8.4-10.2) mg/dL AST (5-40) units/L ALT (7-56) units/L Total Creatine Kinase (55-170) units/L Total Protein (6.3-8.2) g/dL Albumin (3.9-5) g/dL Salicylates (2.8-20.0) mg/dL Acetaminophen (10.0-30.0) ug/mL 03/01/20 03/01/20 03/01/20 Range/Units 05:49 09:42 12:41 WBC (4.5-11.0) K/mm3 RBC (3.65-5.03) M/mm3 Hgb (11.8-15.2) gm/dl Hct (35.5-45.6) % MCV (84-94) fl Plt Count (140-440) K/mm3 Seg Neuts % (Manual) (40.0-70.0) % Lymphocytes % (Manual) (13.4-35.0) % Seg Neutrophils # Man (1.8-7.7) K/mm3 Lymphocytes # (Manual) (1.2-5.4) K/mm3 PT (12.2-14.9) Sec. INR (0.87-1.13) APTT (24.2-36.6) Sec. ABG pO2 (80.0-90.0) mm Hg ABG HCO3 (20.0-26.0) mmol/L ABG Base Excess (-2.0-3.0) mmol/L ABG Hemoglobin (14.0-18.0) gm/dl Sodium (137-145) mmol/L Potassium (3.6-5.0) mmol/L Chloride (98-107) mmol/L Carbon Dioxide (22-30) mmol/L BUN (9-20) mg/dL Creatinine (0.8-1.5) mg/dL Glucose (75-100) mg/dL POC Glucose (70-105) Lactic Acid 2.30 H* 2.70 H* (0.7-2.0) mmol/L Calcium (8.4-10.2) mg/dL AST 2867 H (5-40) units/L ALT 1090 H (7-56) units/L Total Creatine Kinase (55-170) units/L Total Protein 5.9 L (6.3-8.2) g/dL Albumin 2.8 L (3.9-5) g/dL Salicylates (2.8-20.0) mg/dL Acetaminophen (10.0-30.0) ug/mL
[2020-03-01] MEDS ORDERED: PANTOPRAZOLE 40 MG INJ IV SCH (15:00)
[2020-03-01] MEDS ORDERED: EPOETIN ALFA 10,000 UNIT/1 ML INJ ONE (15:09)
[2020-03-01] MEDS ORDERED: SODIUM CHLORIDE*PRIMING MACHINE ONLY FOR DIALYSIS MC ONE (15:09)
--- NOTE | 2020-03-01 16:56 | Consultation ---
History of Present Illness - Reason for Consult Consult date: 03/01/20 Reason for consult: MHE Requesting physician: TOMMY MAURER - Chief Complaint Chief complaint: Altered mental status - History of Present Psychiatric Illness Per ED Provider: 40-year-old -[place] male presents to the emergency department via EMS after the patient was found by his roommates slightly altered and surrounded by both urine and blood. At the time of my examination the patient is awake and oriented to person, place and time. 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 He denies any past medical or psychiatric history. The patient denies wanting to end his life and is adamant that he cut himself to try and treat himself of this infection. He presents pale, hypotensive and hypoglycemic. He is a tobacco smoker but denies any illicit drug use. He does drink alcohol but says he did not consume any this evening. The patient says that he got out of the shower and "I collapsed" and then he asked his roommates to call 911. Per ED admission Note: 53-year-old female with history of CHF, diabetes, hy pertension, presents to the ED with complaint of abdominal pain, nausea vomiting, and chest pain. Patient states she has been having lower abdominal pain and intermittent diarrhea over the last 2 weeks. She states she began having nausea, vomiting, and chest pain on yesterday. Patient states she is unable to keep anything down. She reports intermittent, substernal "heaviness." No aggravating or alleviating factors. Pt scheduled to have cardiac cath on 03/[address] Forbes. PSYCH HPI Patient was not in ER room, had been taking to radiology, pt admitted to floor but patient gone for dialysis. will evaluate tomorw PAST PSYCHIATRIC HISTORY unable to obtain PAST MEDICAL HISTORY: CKD and CHF Family Psychiatric History: None reported or documented SOCIAL HISTORY unable to obtain REVIEW OF SYSTEMS unable to obtian MENTAL STATUS EXAMINATION unable to obtian RECOMMENDATIONS Will evaluate tomorrow Medications and Allergies Allergies Allergy/AdvReac Type Severity Reaction Status Date / Time No Known Allergies Allergy Unverified 02/29/20 18:25 Home Medications Medication Instructions Recorded Confirmed Last Taken Type No Known Home Medications [No 03/01/20 03/01/20 Unknown History Reported Home Medications] Active Meds: Active Medications Acetaminophen (Tylenol) 650 mg PO Q4H PRN PRN Reason: Pain MILD(1-3)/Fever >100.5/OLIVERA Albumin Human (Alburx 25% (Albumin)) 25 gm IV NITZA PRN PRN Reason: Hypotension Carvedilol (Coreg) 6.25 mg PO BID JOSE RAMON Epoetin Brad (Procrit) 10,000 unit IV NITZA PRN PRN Reason: hemodialysis Last Admin: 03/01/20 15:14 Dose: 10,000 unit Documented by: Hydralazine HCl (Apresoline) 50 mg PO Q8HR JOSE RAMON Hydromorphone HCl (Dilaudid) 0.5 mg IV Q3H PRN PRN Reason: Pain , Severe (7-10) Last Admin: 03/01/20 12:44 Dose: 0.5 mg Documented by: Sodium Chloride (Nacl 0.9% 1000 Ml) 1,000 mls @ 125 mls/hr IV DIRECT JOSE RAMON Last Admin: 03/01/20 02:06 Dose: 125 mls/hr Documented by: Sodium Chloride (Nacl 0.9%) 100 mls @ 999 mls/hr IV NITZA PRN PRN Reason: Hypotension Piperacillin Sod/Tazobactam Sod (Zosyn/Ns 2.25 Gm/50ml) 2.25 gm in 50 mls @ 100 mls/hr IV Q8HR JOSE RAMON Magnesium Hydroxide (Milk Of Magnesia) 30 ml PO Q4H PRN PRN Reason: Constipation Metoclopramide HCl (Reglan) 10 mg IV Q6H PRN PRN Reason: Nausea And Vomiting Ondansetron HCl (Zofran) 4 mg IV Q8H PRN PRN Reason: Nausea And Vomiting Last Admin: 03/01/20 00:33 Dose: 4 mg Documented by: Ondansetron HCl (Zofran) 4 mg IV Q8H PRN PRN Reason: Nausea And Vomiting Oxycodone/Acetaminophen (Percocet 5/325) 1 tab PO Q6H PRN PRN Reason: Pain, Moderate (4-6) Pantoprazole Sodium (Protonix) 40 mg IV BID JOSE RAMON Sodium Chloride (Sodium Chloride Flush Syringe 10 Ml) 10 ml IV BID JOSE RAMON Last Admin: 03/01/20 12:44 Dose: 10 ml Documented by: Sodium Chloride (Sodium Chloride Flush Syringe 10 Ml) 10 ml IV PRN PRN PRN Reason: LINE FLUSH Sodium Chloride (Sodium Chloride Flush Syringe 10 Ml) 10 ml IV BID JOSE RAMON Sodium Chloride (Sodium Chloride Flush Syringe 10 Ml) 10 ml IV PRN PRN PRN Reason: LINE FLUSH Mental Status Exam - Vital signs Last Vital Signs Temp 100.9 F H 03/01/20 14:15 Pulse 97 H 03/01/20 16:30 Resp 18 03/01/20 15:42 BP 160/82 03/01/20 16:30 Pulse Ox 98 03/01/20 15:42 Results Result Diagrams: 03/01/20 05:49 03/01/20 05:49 Abnormal lab results 02/29/20 02/29/20 02/29/20 Range/Units 18:58 19:11 19:11 WBC 26.6 H (4.5-11.0) K/mm3 RBC 2.60 L (3.65-5.03) M/mm3 Hgb 8.3 L (11.8-15.2) gm/dl Hct 24.8 L (35.5-45.6) % MCV 95 H (84-94) fl Plt Count (140-440) K/mm3 Seg Neuts % (Manual) 94.0 H (40.0-70.0) % Lymphocytes % (Manual) 5.0 L (13.4-35.0) % Seg Neutrophils # Man 25.0 H (1.8-7.7) K/mm3 Lymphocytes # (Manual) (1.2-5.4) K/mm3 PT (12.2-14.9) Sec. INR (0.87-1.13) APTT (24.2-36.6) Sec. ABG pO2 (80.0-90.0) mm Hg ABG HCO3 (20.0-26.0) mmol/L ABG Base Excess (-2.0-3.0) mmol/L ABG Hemoglobin (14.0-18.0) gm/dl Sodium 124 L (137-145) mmol/L Potassium 7.0 H* (3.6-5.0) mmol/L Chloride 75.9 L (98-107) mmol/L Carbon Dioxide 8 L* (22-30) mmol/L BUN 45 H (9-20) mg/dL Creatinine 3.9 H (0.8-1.5) mg/dL Glucose 160 H (75-100) mg/dL POC Glucose < 40 L (70-105) Lactic Acid (0.7-2.0) mmol/L Calcium 7.3 L (8.4-10.2) mg/dL AST 1885 H (5-40) units/L ALT 680 H (7-56) units/L Total Creatine Kinase (55-170) units/L Total Protein 6.1 L (6.3-8.2) g/dL Albumin 2.4 L (3.9-5) g/dL Salicylates (2.8-20.0) mg/dL Acetaminophen (10.0-30.0) ug/mL 02/29/20 02/29/20 02/29/20 Range/Units 19:11 19:15 19:23 WBC (4.5-11.0) K/mm3 RBC (3.65-5.03) M/mm3 Hgb (11.8-15.2) gm/dl Hct (35.5-45.6) % MCV (84-94) fl Plt Count (140-440) K/mm3 Seg Neuts % (Manual) (40.0-70.0) % Lymphocytes % (Manual) (13.4-35.0) % Seg Neutrophils # Man (1.8-7.7) K/mm3 Lymphocytes # (Manual) (1.2-5.4) K/mm3 PT 30.3 H (12.2-14.9) Sec. INR 3.00 H (0.87-1.13) APTT 44.0 H (24.2-36.6) Sec. ABG pO2 (80.0-90.0) mm Hg ABG HCO3 (20.0-26.0) mmol/L ABG Base Excess (-2.0-3.0) mmol/L ABG Hemoglobin (14.0-18.0) gm/dl Sodium (137-145) mmol/L Potassium (3.6-5.0) mmol/L Chloride (98-107) mmol/L Carbon Dioxide (22-30) mmol/L BUN (9-20) mg/dL Creatinine (0.8-1.5) mg/dL Glucose (75-100) mg/dL POC Glucose 139 H (70-105) Lactic Acid 18.00 H* (0.7-2.0) mmol/L Calcium (8.4-10.2) mg/dL AST (5-40) units/L ALT (7-56) units/L Total Creatine Kinase (55-170) units/L Total Protein (6.3-8.2) g/dL Albumin (3.9-5) g/dL Salicylates (2.8-20.0) mg/dL Acetaminophen (10.0-30.0) ug/mL 02/29/20 02/29/20 02/29/20 Range/Units 20:35 20:35 20:35 WBC (4.5-11.0) K/mm3 RBC (3.65-5.03) M/mm3 Hgb (11.8-15.2) gm/dl Hct (35.5-45.6) % MCV (84-94) fl Plt Count (140-440) K/mm3 Seg Neuts % (Manual) (40.0-70.0) % Lymphocytes % (Manual) (13.4-35.0) % Seg Neutrophils # Man (1.8-7.7) K/mm3 Lymphocytes # (Manual) (1.2-5.4) K/mm3 PT (12.2-14.9) Sec. INR (0.87-1.13) APTT (24.2-36.6) Sec. ABG pO2 (80.0-90.0) mm Hg ABG HCO3 (20.0-26.0) mmol/L ABG Base Excess (-2.0-3.0) mmol/L ABG Hemoglobin (14.0-18.0) gm/dl Sodium (137-145) mmol/L Potassium (3.6-5.0) mmol/L Chloride (98-107) mmol/L Carbon Dioxide (22-30) mmol/L BUN (9-20) mg/dL Creatinine (0.8-1.5) mg/dL Glucose (75-100) mg/dL POC Glucose (70-105) Lactic Acid 10.80 H* (0.7-2.0) mmol/L Calcium (8.4-10.2) mg/dL AST (5-40) units/L ALT (7-56) units/L Total Creatine Kinase (55-170) units/L Total Protein (6.3-8.2) g/dL Albumin (3.9-5) g/dL Salicylates 1.7 L (2.8-20.0) mg/dL Acetaminophen < 5.0 L (10.0-30.0) ug/mL 02/29/20 02/29/20 02/29/20 Range/Units 23:09 23:20 23:41 WBC (4.5-11.0) K/mm3 RBC (3.65-5.03) M/mm3 Hgb (11.8-15.2) gm/dl Hct (35.5-45.6) % MCV (84-94) fl Plt Count (140-440) K/mm3 Seg Neuts % (Manual) (40.0-70.0) % Lymphocytes % (Manual) (13.4-35.0) % Seg Neutrophils # Man (1.8-7.7) K/mm3 Lymphocytes # (Manual) (1.2-5.4) K/mm3 PT (12.2-14.9) Sec. INR (0.87-1.13) APTT (24.2-36.6) Sec. ABG pO2 96.3 H (80.0-90.0) mm Hg ABG HCO3 18.1 L (20.0-26.0) mmol/L ABG Base Excess -5.3 L (-2.0-3.0) mmol/L ABG Hemoglobin 9.2 L (14.0-18.0) gm/dl Sodium (137-145) mmol/L Potassium (3.6-5.0) mmol/L Chloride (98-107) mmol/L Carbon Dioxide (22-30) mmol/L BUN (9-20) mg/dL Creatinine (0.8-1.5) mg/dL Glucose (75-100) mg/dL POC Glucose 122 H (70-105) Lactic Acid 5.50 H* (0.7-2.0) mmol/L Calcium (8.4-10.2) mg/dL AST (5-40) units/L ALT (7-56) units/L Total Creatine Kinase (55-170) units/L Total Protein (6.3-8.2) g/dL Albumin (3.9-5) g/dL Salicylates (2.8-20.0) mg/dL Acetaminophen (10.0-30.0) ug/mL 02/29/20 03/01/20 03/01/20 Range/Units 23:41 01:09 05:49 WBC 18.3 H (4.5-11.0) K/mm3 RBC 2.83 L (3.65-5.03) M/mm3 Hgb 8.7 L (11.8-15.2) gm/dl Hct 25.5 L (35.5-45.6) % MCV (84-94) fl Plt Count 466 H (140-440) K/mm3 Seg Neuts % (Manual) 87.0 H (40.0-70.0) % Lymphocytes % (Manual) 1.0 L (13.4-35.0) % Seg Neutrophils # Man 15.9 H (1.8-7.7) K/mm3 Lymphocytes # (Manual) 0.2 L (1.2-5.4) K/mm3 PT (12.2-14.9) Sec. INR (0.87-1.13) APTT (24.2-36.6) Sec. ABG pO2 (80.0-90.0) mm Hg ABG HCO3 (20.0-26.0) mmol/L ABG Base Excess (-2.0-3.0) mmol/L ABG Hemoglobin (14.0-18.0) gm/dl Sodium (137-145) mmol/L Potassium (3.6-5.0) mmol/L Chloride (98-107) mmol/L Carbon Dioxide (22-30) mmol/L BUN (9-20) mg/dL Creatinine (0.8-1.5) mg/dL Glucose (75-100) mg/dL POC Glucose (70-105) Lactic Acid 3.20 H* (0.7-2.0) mmol/L Calcium (8.4-10.2) mg/dL AST (5-40) units/L ALT (7-56) units/L Total Creatine Kinase 80201 H (55-170) units/L Total Protein (6.3-8.2) g/dL Albumin (3.9-5) g/dL Salicylates (2.8-20.0) mg/dL Acetaminophen (10.0-30.0) ug/mL 03/01/20 03/01/20 03/01/20 Range/Units 05:49 05:49 05:49 WBC (4.5-11.0) K/mm3 RBC (3.65-5.03) M/mm3 Hgb (11.8-15.2) gm/dl Hct (35.5-45.6) % MCV (84-94) fl Plt Count (140-440) K/mm3 Seg Neuts % (Manual) (40.0-70.0) % Lymphocytes % (Manual) (13.4-35.0) % Seg Neutrophils # Man (1.8-7.7) K/mm3 Lymphocytes # (Manual) (1.2-5.4) K/mm3 PT 23.5 H (12.2-14.9) Sec. INR 2.16 H (0.87-1.13) APTT (24.2-36.6) Sec. ABG pO2 (80.0-90.0) mm Hg ABG HCO3 (20.0-26.0) mmol/L ABG Base Excess (-2.0-3.0) mmol/L ABG Hemoglobin (14.0-18.0) gm/dl Sodium 129 L (137-145) mmol/L Potassium 6.3 H* (3.6-5.0) mmol/L Chloride 88.0 L (98-107) mmol/L Carbon Dioxide (22-30) mmol/L BUN 62 H (9-20) mg/dL Creatinine 3.4 H (0.8-1.5) mg/dL Glucose 108 H (75-100) mg/dL POC Glucose (70-105) Lactic Acid 2.30 H* (0.7-2.0) mmol/L Calcium 6.9 L (8.4-10.2) mg/dL AST (5-40) units/L ALT (7-56) units/L Total Creatine Kinase (55-170) units/L Total Protein (6.3-8.2) g/dL Albumin (3.9-5) g/dL Salicylates (2.8-20.0) mg/dL Acetaminophen (10.0-30.0) ug/mL 03/01/20 03/01/20 03/01/20 Range/Units 05:49 09:42 12:41 WBC (4.5-11.0) K/mm3 RBC (3.65-5.03) M/mm3 Hgb (11.8-15.2) gm/dl Hct (35.5-45.6) % MCV (84-94) fl Plt Count (140-440) K/mm3 Seg Neuts % (Manual) (40.0-70.0) % Lymphocytes % (Manual) (13.4-35.0) % Seg Neutrophils # Man (1.8-7.7) K/mm3 Lymphocytes # (Manual) (1.2-5.4) K/mm3 PT (12.2-14.9) Sec. INR (0.87-1.13) APTT (24.2-36.6) Sec. ABG pO2 (80.0-90.0) mm Hg ABG HCO3 (20.0-26.0) mmol/L ABG Base Excess (-2.0-3.0) mmol/L ABG Hemoglobin (14.0-18.0) gm/dl Sodium (137-145) mmol/L Potassium (3.6-5.0) mmol/L Chloride (98-107) mmol/L Carbon Dioxide (22-30) mmol/L BUN (9-20) mg/dL Creatinine (0.8-1.5) mg/dL Glucose (75-100) mg/dL POC Glucose (70-105) Lactic Acid 2.30 H* 2.70 H* (0.7-2.0) mmol/L Calcium (8.4-10.2) mg/dL AST 2867 H (5-40) units/L ALT 1090 H (7-56) units/L Total Creatine Kinase (55-170) units/L Total Protein 5.9 L (6.3-8.2) g/dL Albumin 2.8 L (3.9-5) g/dL Salicylates (2.8-20.0) mg/dL Acetaminophen (10.0-30.0) ug/mL 03/01/20 03/01/20 Range/Units 16:14 Unknown WBC (4.5-11.0) K/mm3 RBC (3.65-5.03) M/mm3 Hgb (11.8-15.2) gm/dl Hct (35.5-45.6) % MCV (84-94) fl Plt Count (140-440) K/mm3 Seg Neuts % (Manual) (40.0-70.0) % Lymphocytes % (Manual) (13.4-35.0) % Seg Neutrophils # Man (1.8-7.7) K/mm3 Lymphocytes # (Manual) (1.2-5.4) K/mm3 PT (12.2-14.9) Sec. INR (0.87-1.13) APTT (24.2-36.6) Sec. ABG pO2 (80.0-90.0) mm Hg ABG HCO3 (20.0-26.0) mmol/L ABG Base Excess (-2.0-3.0) mmol/L ABG Hemoglobin (14.0-18.0) gm/dl Sodium (137-145) mmol/L Potassium (3.6-5.0) mmol/L Chloride (98-107) mmol/L Carbon Dioxide (22-30) mmol/L BUN (9-20) mg/dL Creatinine (0.8-1.5) mg/dL Glucose (75-100) mg/dL POC Glucose (70-105) Lactic Acid 2.40 H* (0.7-2.0) mmol/L Calcium (8.4-10.2) mg/dL AST (5-40) units/L ALT (7-56) units/L Total Creatine Kinase 48645 H (55-170) units/L Total Protein (6.3-8.2) g/dL Albumin (3.9-5) g/dL Salicylates (2.8-20.0) mg/dL Acetaminophen (10.0-30.0) ug/mL All other labs normal.
--- NOTE | 2020-03-01 17:25 | Consultation ---
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 He states he has a 2 wk hx of L knee pain which gradually spread up his leg. He was treating himself with ibuprofen (2 bottles total) and cold compresses. He then felt like the infection spread through his body, and decided to bleed himself by cutting his L arm. He states that he felt better as regards his infection, but lost too much blood, and became weak and dizzy, and asked his roommate to call EMS. He was brought to the ER, and found to be acute renal failure, and diagnosed with rhabdomyolysis. His LFTs were elevated, and increasing, and GI consult is called. Pt denies prior hx of liver disease. He drinks EtOH in moderation. No abd pain, N/V, GI bleed. Meds reviewed. Past History Past Medical History: No medical history Past Surgical History: No surgical history Social history: no significant social history Family history: no significant family history Medications and Allergies Allergies Allergy/AdvReac Type Severity Reaction Status Date / Time No Known Allergies Allergy Unverified 02/29/20 18:25 Home Medications Medication Instructions Recorded Confirmed Last Taken Type No Known Home Medications [No 03/01/20 03/01/20 Unknown History Reported Home Medications] Active Meds: Active Medications Acetaminophen (Tylenol) 650 mg PO Q4H PRN PRN Reason: Pain MILD(1-3)/Fever >100.5/OLIVERA Albumin Human (Alburx 25% (Albumin)) 25 gm IV NITZA PRN PRN Reason: Hypotension Carvedilol (Coreg) 6.25 mg PO BID JOSE RAMON Epoetin Brad (Procrit) 10,000 unit IV NITZA PRN PRN Reason: hemodialysis Last Admin: 03/01/20 15:14 Dose: 10,000 unit Documented by: Hydralazine HCl (Apresoline) 50 mg PO Q8HR JOSE RAMON Hydromorphone HCl (Dilaudid) 0.5 mg IV Q3H PRN PRN Reason: Pain , Severe (7-10) Last Admin: 03/01/20 12:44 Dose: 0.5 mg Documented by: Sodium Chloride (Nacl 0.9% 1000 Ml) 1,000 mls @ 125 mls/hr IV DIRECT JOSE RAMON Last Admin: 03/01/20 02:06 Dose: 125 mls/hr Documented by: Sodium Chloride (Nacl 0.9%) 100 mls @ 999 mls/hr IV NITZA PRN PRN Reason: Hypotension Piperacillin Sod/Tazobactam Sod (Zosyn/Ns 2.25 Gm/50ml) 2.25 gm in 50 mls @ 100 mls/hr IV Q8HR [facility] Magnesium Hydroxide (Milk Of Magnesia) 30 ml PO Q4H PRN PRN Reason: Constipation Metoclopramide HCl (Reglan) 10 mg IV Q6H PRN PRN Reason: Nausea And Vomiting Ondansetron HCl (Zofran) 4 mg IV Q8H PRN PRN Reason: Nausea And Vomiting Last Admin: 03/01/20 00:33 Dose: 4 mg Documented by: Ondansetron HCl (Zofran) 4 mg IV Q8H PRN PRN Reason: Nausea And Vomiting Oxycodone/Acetaminophen (Percocet 5/325) 1 tab PO Q6H PRN PRN Reason: Pain, Moderate (4-6) Pantoprazole Sodium (Protonix) 40 mg IV BID [facility] Sodium Chloride (Sodium Chloride Flush Syringe 10 Ml) 10 ml IV BID [facility] Last Admin: 03/01/20 12:44 Dose: 10 ml Documented by: Sodium Chloride (Sodium Chloride Flush Syringe 10 Ml) 10 ml IV PRN PRN PRN Reason: LINE FLUSH Sodium Chloride (Sodium Chloride Flush Syringe 10 Ml) 10 ml IV BID [facility] Sodium Chloride (Sodium Chloride Flush Syringe 10 Ml) 10 ml IV PRN PRN PRN Reason: LINE FLUSH Review of Systems All systems: negative (as per HPI) Exam - Constitutional Vitals: Temp Pulse Resp BP Pulse Ox 100.9 F H 122 H 18 128/63 98 03/01/20 14:15 03/01/20 17:00 03/01/20 15:42 03/01/20 17:00 03/01/20 15:42 General appearance: Present: no acute distress (seen in dialysis unit) - EENT Eyes: Present: PERRL (Only the L pupil. R cornea cloudy after injury.), EOM intact ENT: hearing intact - Neck Neck: Present: supple - Respiratory Respiratory effort: normal Respiratory: bilateral: CTA - Cardiovascular Rhythm: regular Heart Sounds: Present: S1 & S2 - Extremities Extremities: abnormal (LLE is edematous and swollen at knee and proximally, and warm. RLE is normal.) - Abdominal General gastrointestinal: Present: soft, non-tender Results - Labs CBC & Chem 7: 03/01/20 05:49 03/01/20 05:49 Labs: Abnormal lab results 02/29/20 02/29/20 02/29/20 Range/Units 18:58 19:11 19:11 WBC 26.6 H (4.5-11.0) K/mm3 RBC 2.60 L (3.65-5.03) M/mm3 Hgb 8.3 L (11.8-15.2) gm/dl Hct 24.8 L (35.5-45.6) % MCV 95 H (84-94) fl Plt Count (140-440) K/mm3 Seg Neuts % (Manual) 94.0 H (40.0-70.0) % Lymphocytes % (Manual) 5.0 L (13.4-35.0) % Seg Neutrophils # Man 25.0 H (1.8-7.7) K/mm3 Lymphocytes # (Manual) (1.2-5.4) K/mm3 PT (12.2-14.9) Sec. INR (0.87-1.13) APTT (24.2-36.6) Sec. ABG pO2 (80.0-90.0) mm Hg ABG HCO3 (20.0-26.0) mmol/L ABG Base Excess (-2.0-3.0) mmol/L ABG Hemoglobin (14.0-18.0) gm/dl Sodium 124 L (137-145) mmol/L Potassium 7.0 H* (3.6-5.0) mmol/L Chloride 75.9 L (98-107) mmol/L Carbon Dioxide 8 L* (22-30) mmol/L BUN 45 H (9-20) mg/dL Creatinine 3.9 H (0.8-1.5) mg/dL Glucose 160 H (75-100) mg/dL POC Glucose < 40 L (70-105) Lactic Acid (0.7-2.0) mmol/L Calcium 7.3 L (8.4-10.2) mg/dL AST 1885 H (5-40) units/L ALT 680 H (7-56) units/L Total Creatine Kinase (55-170) units/L Total Protein 6.1 L (6.3-8.2) g/dL Albumin 2.4 L (3.9-5) g/dL Salicylates (2.8-20.0) mg/dL Acetaminophen (10.0-30.0) ug/mL 02/29/20 02/29/20 02/29/20 Range/Units 19:11 19:15 19:23 WBC (4.5-11.0) K/mm3 RBC (3.65-5.03) M/mm3 Hgb (11.8-15.2) gm/dl Hct (35.5-45.6) % MCV (84-94) fl Plt Count (140-440) K/mm3 Seg Neuts % (Manual) (40.0-70.0) % Lymphocytes % (Manual) (13.4-35.0) % Seg Neutrophils # Man (1.8-7.7) K/mm3 Lymphocytes # (Manual) (1.2-5.4) K/mm3 PT 30.3 H (12.2-14.9) Sec. INR 3.00 H (0.87-1.13) APTT 44.0 H (24.2-36.6) Sec. ABG pO2 (80.0-90.0) mm Hg ABG HCO3 (20.0-26.0) mmol/L ABG Base Excess (-2.0-3.0) mmol/L ABG Hemoglobin (14.0-18.0) gm/dl Sodium (137-145) mmol/L Potassium (3.6-5.0) mmol/L Chloride (98-107) mmol/L Carbon Dioxide (22-30) mmol/L BUN (9-20) mg/dL Creatinine (0.8-1.5) mg/dL Glucose (75-100) mg/dL POC Glucose 139 H (70-105) Lactic Acid 18.00 H* (0.7-2.0) mmol/L Calcium (8.4-10.2) mg/dL AST (5-40) units/L ALT (7-56) units/L Total Creatine Kinase (55-170) units/L Total Protein (6.3-8.2) g/dL Albumin (3.9-5) g/dL Salicylates (2.8-20.0) mg/dL Acetaminophen (10.0-30.0) ug/mL 02/29/20 02/29/20 02/29/20 Range/Units 20:35 20:35 20:35 WBC (4.5-11.0) K/mm3 RBC (3.65-5.03) M/mm3 Hgb (11.8-15.2) gm/dl Hct (35.5-45.6) % MCV (84-94) fl Plt Count (140-440) K/mm3 Seg Neuts % (Manual) (40.0-70.0) % Lymphocytes % (Manual) (13.4-35.0) % Seg Neutrophils # Man (1.8-7.7) K/mm3 Lymphocytes # (Manual) (1.2-5.4) K/mm3 PT (12.2-14.9) Sec. INR (0.87-1.13) APTT (24.2-36.6) Sec. ABG pO2 (80.0-90.0) mm Hg ABG HCO3 (20.0-26.0) mmol/L ABG Base Excess (-2.0-3.0) mmol/L ABG Hemoglobin (14.0-18.0) gm/dl Sodium (137-145) mmol/L Potassium (3.6-5.0) mmol/L Chloride (98-107) mmol/L Carbon Dioxide (22-30) mmol/L BUN (9-20) mg/dL Creatinine (0.8-1.5) mg/dL Glucose (75-100) mg/dL POC Glucose (70-105) Lactic Acid 10.80 H* (0.7-2.0) mmol/L Calcium (8.4-10.2) mg/dL AST (5-40) units/L ALT (7-56) units/L Total Creatine Kinase (55-170) units/L Total Protein (6.3-8.2) g/dL Albumin (3.9-5) g/dL Salicylates 1.7 L (2.8-20.0) mg/dL Acetaminophen < 5.0 L (10.0-30.0) ug/mL 02/29/20 02/29/20 02/29/20 Range/Units 23:09 23:20 23:41 WBC (4.5-11.0) K/mm3 RBC (3.65-5.03) M/mm3 Hgb (11.8-15.2) gm/dl Hct (35.5-45.6) % MCV (84-94) fl Plt Count (140-440) K/mm3 Seg Neuts % (Manual) (40.0-70.0) % Lymphocytes % (Manual) (13.4-35.0) % Seg Neutrophils # Man (1.8-7.7) K/mm3 Lymphocytes # (Manual) (1.2-5.4) K/mm3 PT (12.2-14.9) Sec. INR (0.87-1.13) APTT (24.2-36.6) Sec. ABG pO2 96.3 H (80.0-90.0) mm Hg ABG HCO3 18.1 L (20.0-26.0) mmol/L ABG Base Excess -5.3 L (-2.0-3.0) mmol/L ABG Hemoglobin 9.2 L (14.0-18.0) gm/dl Sodium (137-145) mmol/L Potassium (3.6-5.0) mmol/L Chloride (98-107) mmol/L Carbon Dioxide (22-30) mmol/L BUN (9-20) mg/dL Creatinine (0.8-1.5) mg/dL Glucose (75-100) mg/dL POC Glucose 122 H (70-105) Lactic Acid 5.50 H* (0.7-2.0) mmol/L Calcium (8.4-10.2) mg/dL AST (5-40) units/L ALT (7-56) units/L Total Creatine Kinase (55-170) units/L Total Protein (6.3-8.2) g/dL Albumin (3.9-5) g/dL Salicylates (2.8-20.0) mg/dL Acetaminophen (10.0-30.0) ug/mL 02/29/20 03/01/20 03/01/20 Range/Units 23:41 01:09 05:49 WBC 18.3 H (4.5-11.0) K/mm3 RBC 2.83 L (3.65-5.03) M/mm3 Hgb 8.7 L (11.8-15.2) gm/dl Hct 25.5 L (35.5-45.6) % MCV (84-94) fl Plt Count 466 H (140-440) K/mm3 Seg Neuts % (Manual) 87.0 H (40.0-70.0) % Lymphocytes % (Manual) 1.0 L (13.4-35.0) % Seg Neutrophils # Man 15.9 H (1.8-7.7) K/mm3 Lymphocytes # (Manual) 0.2 L (1.2-5.4) K/mm3 PT (12.2-14.9) Sec. INR (0.87-1.13) APTT (24.2-36.6) Sec. ABG pO2 (80.0-90.0) mm Hg ABG HCO3 (20.0-26.0) mmol/L ABG Base Excess (-2.0-3.0) mmol/L ABG Hemoglobin (14.0-18.0) gm/dl Sodium (137-145) mmol/L Potassium (3.6-5.0) mmol/L Chloride (98-107) mmol/L Carbon Dioxide (22-30) mmol/L BUN (9-20) mg/dL Creatinine (0.8-1.5) mg/dL Glucose (75-100) mg/dL POC Glucose (70-105) Lactic Acid 3.20 H* (0.7-2.0) mmol/L Calcium (8.4-10.2) mg/dL AST (5-40) units/L ALT (7-56) units/L Total Creatine Kinase 22145 H (55-170) units/L Total Protein (6.3-8.2) g/dL Albumin (3.9-5) g/dL Salicylates (2.8-20.0) mg/dL Acetaminophen (10.0-30.0) ug/mL 03/01/20 03/01/20 03/01/20 Range/Units 05:49 05:49 05:49 WBC (4.5-11.0) K/mm3 RBC (3.65-5.03) M/mm3 Hgb (11.8-15.2) gm/dl Hct (35.5-45.6) % MCV (84-94) fl Plt Count (140-440) K/mm3 Seg Neuts % (Manual) (40.0-70.0) % Lymphocytes % (Manual) (13.4-35.0) % Seg Neutrophils # Man (1.8-7.7) K/mm3 Lymphocytes # (Manual) (1.2-5.4) K/mm3 PT 23.5 H (12.2-14.9) Sec. INR 2.16 H (0.87-1.13) APTT (24.2-36.6) Sec. ABG pO2 (80.0-90.0) mm Hg ABG HCO3 (20.0-26.0) mmol/L ABG Base Excess (-2.0-3.0) mmol/L ABG Hemoglobin (14.0-18.0) gm/dl Sodium 129 L (137-145) mmol/L Potassium 6.3 H* (3.6-5.0) mmol/L Chloride 88.0 L (98-107) mmol/L Carbon Dioxide (22-30) mmol/L BUN 62 H (9-20) mg/dL Creatinine 3.4 H (0.8-1.5) mg/dL Glucose 108 H (75-100) mg/dL POC Glucose (70-105) Lactic Acid 2.30 H* (0.7-2.0) mmol/L Calcium 6.9 L (8.4-10.2) mg/dL AST (5-40) units/L ALT (7-56) units/L Total Creatine Kinase (55-170) units/L Total Protein (6.3-8.2) g/dL Albumin (3.9-5) g/dL Salicylates (2.8-20.0) mg/dL Acetaminophen (10.0-30.0) ug/mL 03/01/20 03/01/20 03/01/20 Range/Units 05:49 09:42 12:41 WBC (4.5-11.0) K/mm3 RBC (3.65-5.03) M/mm3 Hgb (11.8-15.2) gm/dl Hct (35.5-45.6) % MCV (84-94) fl Plt Count (140-440) K/mm3 Seg Neuts % (Manual) (40.0-70.0) % Lymphocytes % (Manual) (13.4-35.0) % Seg Neutrophils # Man (1.8-7.7) K/mm3 Lymphocytes # (Manual) (1.2-5.4) K/mm3 PT (12.2-14.9) Sec. INR (0.87-1.13) APTT (24.2-36.6) Sec. ABG pO2 (80.0-90.0) mm Hg ABG HCO3 (20.0-26.0) mmol/L ABG Base Excess (-2.0-3.0) mmol/L ABG Hemoglobin (14.0-18.0) gm/dl Sodium (137-145) mmol/L Potassium (3.6-5.0) mmol/L Chloride (98-107) mmol/L Carbon Dioxide (22-30) mmol/L BUN (9-20) mg/dL Creatinine (0.8-1.5) mg/dL Glucose (75-100) mg/dL POC Glucose (70-105) Lactic Acid 2.30 H* 2.70 H* (0.7-2.0) mmol/L Calcium (8.4-10.2) mg/dL AST 2867 H (5-40) units/L ALT 1090 H (7-56) units/L Total Creatine Kinase (55-170) units/L Total Protein 5.9 L (6.3-8.2) g/dL Albumin 2.8 L (3.9-5) g/dL Salicylates (2.8-20.0) mg/dL Acetaminophen (10.0-30.0) ug/mL 03/01/20 03/01/20 Range/Units 16:14 Unknown WBC (4.5-11.0) K/mm3 RBC (3.65-5.03) M/mm3 Hgb (11.8-15.2) gm/dl Hct (35.5-45.6) % MCV (84-94) fl Plt Count (140-440) K/mm3 Seg Neuts % (Manual) (40.0-70.0) % Lymphocytes % (Manual) (13.4-35.0) % Seg Neutrophils # Man (1.8-7.7) K/mm3 Lymphocytes # (Manual) (1.2-5.4) K/mm3 PT (12.2-14.9) Sec. INR (0.87-1.13) APTT (24.2-36.6) Sec. ABG pO2 (80.0-90.0) mm Hg ABG HCO3 (20.0-26.0) mmol/L ABG Base Excess (-2.0-3.0) mmol/L ABG Hemoglobin (14.0-18.0) gm/dl Sodium (137-145) mmol/L Potassium (3.6-5.0) mmol/L Chloride (98-107) mmol/L Carbon Dioxide (22-30) mmol/L BUN (9-20) mg/dL Creatinine (0.8-1.5) mg/dL Glucose (75-100) mg/dL POC Glucose (70-105) Lactic Acid 2.40 H* (0.7-2.0) mmol/L Calcium (8.4-10.2) mg/dL AST (5-40) units/L ALT (7-56) units/L Total Creatine Kinase 76799 H (55-170) units/L Total Protein (6.3-8.2) g/dL Albumin (3.9-5) g/dL Salicylates (2.8-20.0) mg/dL Acetaminophen (10.0-30.0) ug/mL - Imaging and Cardiology CT scan - abdomen: report reviewed (Stomach distended with fluid, o/w normal CT) US - abdomen: report reviewed (GB sludge, fatty liver) Assessment and Plan 1. Abnormal transaminases - etiology unclear. Could be acute ischemic he patopathy from blood loss, vs NSAID-induced toxicity. May well be related to LLE pathology. Hepatitis serologies negative. CT and U/S show no obvious obstruction or liver pathology other than fatty liver. INR has improved to 2.16, from 3. - monitor LFTs, and watch for improvement as other ailments treated - vit K and monitor INR - if worsens, check Doppler U/S to ensure adequate blood flow - will defer other serologic testing for now 2. LLE edema - ?infection. Defer to Hospitalist. 3. ARF - per Nephrology.
[2020-03-01] MEDS: carvediloL 6.25 MG TAB PO SCH (22:37)
[2020-03-01] MEDS: hydrALAZINE 25 MG TAB PO SCH (22:37)
[2020-03-02 02:51] LABS: Basophils % (Auto) 0.1 % (0.0-1.8); Eosinophils % (Auto) 0.1 % (0.0-4.3); Hematocrit 23.2 % (35.5-45.6); Lymphocytes # (Auto) 0.6 K/mm3 (1.2-5.4); Mean Corpuscular HGB Conc 34 % (32-34); Mean Corpuscular Volume 88 fl (84-94); Monocytes # (Auto) 0.9 K/mm3 (0.0-0.8); Monocytes % (Auto) 6.1 % (0.0-7.3); Platelet Count 456 K/mm3 (140-440); Red Blood Count 2.62 M/mm3 (3.65-5.03); Red Cell Distribution Width 13.6 % (13.2-15.2)
[2020-03-02 03:11] LABS: Albumin 2.3 g/dL (3.9-5); Calcium 7.9 mg/dL (8.4-10.2)
[2020-03-02] MEDS: oxyCODONE /ACETAMINOPHEN 5-325MG TAB PO PRN ×3 (03:27→20:45)
[2020-03-02] MEDS: ACETAMINOPHEN 325 MG TAB PO PRN ×2 (05:08→22:19)
--- NOTE | 2020-03-02 10:55 | Progress Note ---
Assessment and Plan 1. Abnormal transaminases - Much improved. Likely acute ischemic hepatopathy from blood loss, and AST elevation in part due to rhabdomyolysis. NSAID-induced toxicity is a remote possibility. Doubt related to LLE pathology. Hepatitis se rologies negative. CT and U/S show no obvious obstruction or liver pathology other than fatty liver. INR has improved to 2.16, from 3. - monitor LFTs, and watch for continued improvement as other ailments treated - continue treatment of underlying infection of LLE 2. LLE edema - ?infection. Defer to Hospitalist. 3. ARF - per Nephrology. No other GI recommendations. Please call as needed. May f/u with us as outpatient if LFTs fail to normalize. Subjective Date of service: 03/02/20 Principal diagnosis: Hypertensive emergency, acute liver failure, acute renal renal failure, rha Interval history: Pt feels better. Concerned about his LLE and timeline. Objective - Constitutional Vitals: Vital Signs - 12hr 03/01/20 03/01/20 03/01/20 23:35 23:46 23:50 Temperature 98.7 F Pulse Rate 97 H 72 84 Respiratory 18 17 Rate Blood Pressure 138/84 137/79 149/91 O2 Sat by Pulse 97 97 Oximetry 03/02/20 03/02/20 03/02/20 00:00 00:10 00:20 Temperature Pulse Rate 68 67 77 Respiratory 21 22 22 Rate Blood Pressure 143/86 143/86 143/86 O2 Sat by Pulse 99 99 99 Oximetry 03/02/20 03/02/20 03/02/20 00:30 00:40 01:48 Temperature Pulse Rate 75 102 H 73 Respiratory 21 23 13 Rate Blood Pressure 146/89 146/89 146/89 O2 Sat by Pulse 99 99 Oximetry 03/02/20 03/02/20 03/02/20 01:50 02:00 02:10 Temperature Pulse Rate 73 75 Respiratory 17 9 L 15 Rate Blood Pressure 146/89 146/89 146/89 O2 Sat by Pulse 99 99 Oximetry 03/02/20 03/02/20 03/02/20 02:20 02:30 02:40 Temperature Pulse Rate 76 74 Respiratory 22 16 25 H Rate Blood Pressure 146/89 146/89 100/56 O2 Sat by Pulse 100 96 Oximetry 03/02/20 03/02/20 03/02/20 02:50 03:00 07:36 Temperature 100.0 F H 99.0 F Pulse Rate 76 103 H 95 H Respiratory 26 H 16 16 Rate Blood Pressure 100/56 148/72 114/67 O2 Sat by Pulse 96 97 97 Oximetry General appearance: Present: no acute distress - EENT Eyes: PERRL, EOM intact ENT: hearing intact - Respiratory Respiratory effort: normal - Gastrointestinal General gastrointestinal: Present: soft, non-tender - Labs CBC & Chem 7: 03/02/20 02:30 03/02/20 02:30 Labs: Abnormal lab results 03/01/20 03/01/20 03/01/20 Range/Units 12:41 16:14 Unknown WBC (4.5-11.0) K/mm3 RBC (3.65-5.03) M/mm3 Hgb (11.8-15.2) gm/dl Hct (35.5-45.6) % Plt Count (140-440) K/mm3 Lymph % (Auto) (13.4-35.0) % Lymph # (1.2-5.4) K/mm3 Sherman # (0.0-0.8) K/mm3 Seg Neutrophils % (40.0-70.0) % Seg Neutrophils # (1.8-7.7) K/mm3 Sodium (137-145) mmol/L Chloride (98-107) mmol/L BUN (9-20) mg/dL Creatinine (0.8-1.5) mg/dL Glucose (75-100) mg/dL Lactic Acid 2.70 H* 2.40 H* (0.7-2.0) mmol/L Calcium (8.4-10.2) mg/dL AST (5-40) units/L ALT (7-56) units/L Total Creatine Kinase 95021 H (55-170) units/L Total Protein (6.3-8.2) g/dL Albumin (3.9-5) g/dL 03/02/20 03/02/20 03/02/20 Range/Units 02:30 02:30 02:30 WBC 14.4 H (4.5-11.0) K/mm3 RBC 2.62 L (3.65-5.03) M/mm3 Hgb 8.0 L (11.8-15.2) gm/dl Hct 23.2 L (35.5-45.6) % Plt Count 456 H (140-440) K/mm3 Lymph % (Auto) 4.0 L (13.4-35.0) % Lymph # 0.6 L (1.2-5.4) K/mm3 Sherman # 0.9 H (0.0-0.8) K/mm3 Seg Neutrophils % 89.7 H (40.0-70.0) % Seg Neutrophils # 12.9 H (1.8-7.7) K/mm3 Sodium 131 L (137-145) mmol/L Chloride 92.1 L (98-107) mmol/L BUN 36 H (9-20) mg/dL Creatinine 1.9 H (0.8-1.5) mg/dL Glucose 117 H (75-100) mg/dL Lactic Acid (0.7-2.0) mmol/L Calcium 7.9 L (8.4-10.2) mg/dL AST 1075 H (5-40) units/L ALT 621 H (7-56) units/L Total Creatine Kinase 45445 H (55-170) units/L Total Protein 6.0 L (6.3-8.2) g/dL Albumin 2.3 L (3.9-5) g/dL Medications & Allergies - Medications Allergies/Adverse Reactions: Allergies No Known Allergies Allergy (Unverified 02/29/20 18:25) Home Medications: Home Medications Medication Instructions Recorded Confirmed Last Taken Type No Known Home Medications [No 03/01/20 03/01/20 Unknown History Reported Home Medications] Active Medications: Generic Name Dose Route Start Last Admin Trade Name Braxton PRN Reason Stop Dose Admin Acetaminophen 650 mg 03/01/20 13:57 03/02/20 05:08 Tylenol PO 650 mg Q4H PRN Administration Pain MILD(1-3)/Fever >100.5/OLIVERA Albumin Human 25 gm 03/01/20 10:16 Alburx 25% (Albumin) IV NITZA PRN Hypotension Carvedilol 6.25 mg 03/01/20 15:00 03/01/20 22:37 Coreg PO 6.25 mg BID JOSE RAMON Administration Epoetin Brad 10,000 unit 03/01/20 10:16 03/01/20 15:14 Procrit IV 10,000 unit NITZA PRN Administration hemodialysis Hydralazine HCl 50 mg 03/01/20 15:00 03/01/20 22:37 Apresoline PO 50 mg Q8HR JOSE RAMON Administration Hydromorphone HCl 0.5 mg 03/01/20 08:35 03/01/20 18:53 Dilaudid IV 0.5 mg Q3H PRN Administration Pain , Severe (7-10) Sodium Chloride 1,000 mls @ 125 mls/hr 02/29/20 23:45 03/01/20 18:54 Nacl 0.9% 1000 Ml IV 125 mls/hr DIRECT JOSE RAMON Administration Sodium Chloride 100 mls @ 999 mls/hr 03/01/20 10:16 Nacl 0.9% IV NITZA PRN Hypotension Piperacillin Sod/Tazobactam Sod 2.25 gm in 50 mls @ 100 mls/hr 03/01/20 14:00 03/01/20 22:39 Zosyn/Ns 2.25 Gm/50ml IV 100 mls/hr Q8HR JOSE RAMON Administration Magnesium Hydroxide 30 ml 02/29/20 23:56 Milk Of Magnesia PO Q4H PRN Constipation Metoclopramide HCl 10 mg 03/01/20 13:57 Reglan IV Q6H PRN Nausea And Vomiting Ondansetron HCl 4 mg 02/29/20 23:56 03/01/20 00:33 Zofran IV 4 mg Q8H PRN Administration Nausea And Vomiting Ondansetron HCl 4 mg 03/01/20 13:57 Zofran IV Q8H PRN Nausea And Vomiting Oxycodone/Acetaminophen 1 tab 03/01/20 13:57 03/02/20 03:27 Percocet 5/325 PO 1 tab Q6H PRN Administration Pain, Moderate (4-6) Pantoprazole Sodium 40 mg 03/01/20 15:00 03/01/20 22:38 Protonix IV 40 mg BID JOSE RAMON Administration Sodium Chloride 10 ml 03/01/20 10:00 03/01/20 22:40 Sodium Chloride Flush Syringe 10 Ml IV 10 ml BID JOSE RAMON Administration Sodium Chloride 10 ml 02/29/20 23:56 Sodium Chloride Flush Syringe 10 Ml IV PRN PRN LINE FLUSH Sodium Chloride 10 ml 03/01/20 22:00 03/01/20 22:40 Sodium Chloride Flush Syringe 10 Ml IV Not Given BID JOSE RAMON Sodium Chloride 10 ml 03/01/20 13:57 Sodium Chloride Flush Syringe 10 Ml IV PRN PRN LINE FLUSH
--- NOTE | 2020-03-02 12:39 | Progress Note ---
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 and refractory hyperkalemia, better today, will follow up on ethylene glycol levels, hd prn, no indication for environmental compliance officer today * avoid nephrotoxins * strict i/os * daily lytes * follow up ck levels * continue bicarb gtt for rhabdomyolysis, co2 noted Subjective Date of service: 03/02/20 Principal diagnosis: Hypertensive emergency, acute liver failure, acute renal renal failure, rha Interval history: resting in bed today Objective - Exam Narrative Exam: General appearance: Present: no acute distress, well-nourished - EENT Eyes: Present: PERRL, EOM intact ENT: hearing intact, clear oral mucosa, dentition normal - Neck Neck: Present: supple, normal ROM - Respiratory Respiratory effort: normal Respiratory: bilateral: CTA - Cardiovascular Rhythm: regular Heart Sounds: Present: S1 & S2. Absent: gallop, systolic murmur, diastolic murmur, rub - Extremities Extremities: no ischemia, pulses intact, pulses symmetrical (Dressing over left elbow), No edema, Full ROM Extremity abnormal: other (Dressing over left elbow) Peripheral Pulses: within normal limits - Abdominal General gastrointestinal: Present: soft, non-tender, normal bowel sounds. Abs ent: mass - Integumentary Integumentary: Present: clear, warm, dry, normal turgor. Absent: jaundice, rash - Musculoskeletal Musculoskeletal: strength equal bilaterally - Psychiatric Psychiatric: appropriate mood/affect, intact judgment & insight, memory intact, cooperative - Neurologic Neurologic: CNII-XII intact, moves all extremities - Vital Signs Vital signs: Vital Signs - 12hr 03/02/20 03/02/20 03/02/20 00:40 01:48 01:50 Temperature Pulse Rate 102 H 73 73 Respiratory 23 13 17 Rate Blood Pressure 146/89 146/89 146/89 O2 Sat by Pulse 99 Oximetry 03/02/20 03/02/20 03/02/20 02:00 02:10 02:20 Temperature Pulse Rate 75 Respiratory 9 L 15 22 Rate Blood Pressure 146/89 146/89 146/89 O2 Sat by Pulse 99 99 100 Oximetry 03/02/20 03/02/20 03/02/20 02:30 02:40 02:50 Temperature Pulse Rate 76 74 76 Respiratory 16 25 H 26 H Rate Blood Pressure 146/89 100/56 100/56 O2 Sat by Pulse 96 96 Oximetry 03/02/20 03/02/20 03/02/20 03:00 07:36 11:24 Temperature 100.0 F H 99.0 F 98.0 F Pulse Rate 103 H 95 H 97 H Respiratory 16 16 20 Rate Blood Pressure 148/72 114/67 144/71 O2 Sat by Pulse 97 97 98 Oximetry - Lab 03/02/20 02:30 03/02/20 02:30 Most recent lab results ABG pH 7.427 pH Units (7.350-7.450) 02/29/20 23:09 ABG pCO2 28.1 mm Hg 02/29/20 23:09 ABG pO2 96.3 mm Hg (80.0-90.0) H 02/29/20 23:09 ABG HCO3 18.1 mmol/L (20.0-26.0) L 02/29/20 23:09 ABG O2 Saturation 97.6 % (95.0-99.0) 02/29/20 23:09 Calcium 7.9 mg/dL (8.4-10.2) L 03/02/20 02:30 Medications & Allergies - Medications Allergies/Adverse Reactions: Allergies No Known Allergies Allergy (Unverified 02/29/20 18:25) Home Medications: Home Medications Medication Instructions Recorded Confirmed Last Taken Type No Known Home Medications [No 03/01/20 03/01/20 Unknown History Reported Home Medications] Active Medications: Generic Name Dose Route Start Last Admin Trade Name Braxton PRN Reason Stop Dose Admin Acetaminophen 650 mg 03/01/20 13:57 03/02/20 05:08 Tylenol PO 650 mg Q4H PRN Administration Pain MILD(1-3)/Fever >100.5/OLIVERA Albumin Human 25 gm 03/01/20 10:16 Alburx 25% (Albumin) IV NITZA PRN Hypotension Carvedilol 6.25 mg 03/01/20 15:00 03/01/20 22:37 Coreg PO 6.25 mg BID JOSE RAMON Administration Epoetin Brad 10,000 unit 03/01/20 10:16 03/01/20 15:14 Procrit IV 10,000 unit NITZA PRN Administration hemodialysis Hydralazine HCl 50 mg 03/01/20 15:00 03/01/20 22:37 Apresoline PO 50 mg Q8HR JOSE RAMON Administration Hydromorphone HCl 0.5 mg 03/01/20 08:35 03/01/20 18:53 Dilaudid IV 0.5 mg Q3H PRN Administration Pain , Severe (7-10) Sodium Chloride 1,000 mls @ 125 mls/hr 02/29/20 23:45 03/01/20 18:54 Nacl 0.9% 1000 Ml IV 125 mls/hr DIRECT JOSE RAMON Administration Sodium Chloride 100 mls @ 999 mls/hr 03/01/20 10:16 Nacl 0.9% IV NITZA PRN Hypotension Vancomycin HCl 1 gm in 250 mls @ 167.007 mls/hr 03/02/20 22:00 Vancomycin/Ns 1 Gm/250 Ml IV Q24H JOSE RAMON Piperacillin Sod/Tazobactam Sod 4.5 gm in 100 mls @ 200 mls/hr 03/02/20 14:00 Zosyn/Ns 4.5gm/100ml IV Q8HR [facility] Protocol Magnesium Hydroxide 30 ml 02/29/20 23:56 Milk Of Magnesia PO Q4H PRN Constipation Metoclopramide HCl 10 mg 03/01/20 13:57 Reglan IV Q6H PRN Nausea And Vomiting Ondansetron HCl 4 mg 02/29/20 23:56 03/01/20 00:33 Zofran IV 4 mg Q8H PRN Administration Nausea And Vomiting Ondansetron HCl 4 mg 03/01/20 13:57 Zofran IV Q8H PRN Nausea And Vomiting Oxycodone/Acetaminophen 1 tab 03/01/20 13:57 03/02/20 03:27 Percocet 5/325 PO 1 tab Q6H PRN Administration Pain, Moderate (4-6) Pantoprazole Sodium 40 mg 03/01/20 15:00 03/01/20 22:38 Protonix IV 40 mg BID JOSE RAMON Administration Sodium Chloride 10 ml 03/01/20 10:00 03/01/20 22:40 Sodium Chloride Flush Syringe 10 Ml IV 10 ml BID JOSE RAMON Administration Sodium Chloride 10 ml 02/29/20 23:56 Sodium Chloride Flush Syringe 10 Ml IV PRN PRN LINE FLUSH Sodium Chloride 10 ml 03/01/20 22:00 03/01/20 22:40 Sodium Chloride Flush Syringe 10 Ml IV Not Given BID JOSE RAMON Sodium Chloride 10 ml 03/01/20 13:57 Sodium Chloride Flush Syringe 10 Ml IV PRN PRN LINE FLUSH
[2020-03-02] MEDS: carvediloL 6.25 MG TAB PO SCH ×3 (12:41→22:22)
[2020-03-02] MEDS ORDERED: SODIUM BICARBONATE 150 MEQ in DEXTROSE 5% IN WATER 1,000 ML IV SCH (13:00)
[2020-03-02] MEDS: hydrALAZINE 25 MG TAB PO SCH ×2 (13:43→22:23)
--- NOTE | 2020-03-02 15:53 | Progress Note ---
Subjective - Reason for Consult Consult date: 03/02/20 Reason for consult: MHE Requesting physician: TOMMY MAURER - Chief Complaint Chief complaint: PSYCH HPI Patient is a 40 year old unemployed, single male with no known past psychiatric history and no known prior medical conditions admitted for AMS, sepsis and rhabdomyolysis with psych consult for MHE. Patient reports residing in a home with other roommates, says he lost his job to [employer] some weeks ago and has been at home. He reports a tendon injury some couple of weeks back resulting in pain in his legs, had tried avoiding hospital due to covid and att empted home therapy. Patient states he did notice his left leg swelling, and had tried some home remedies including cutting himself but attributed it to his sickness because things were not very clear to him. Patient also denies history of drug use or depressed mood. Patient is currently alert and oriented, score above 25 on minimental status exam, has a negative UDS screen but positive clinical findings for sepsis Patient denies SI, HI and AVH. He reports family is in [place] and keeps communication. Pt provided information. PAST PSYCHIATRIC HISTORY Diagnoses: none reported Suicide attempts or Self-harm behavior: No Prior psychiatric hospitalizations: none reported Substance Abuse history: none reported Previous psychiatric medications tried: none reported Outpatient treatment: none reported PAST MEDICAL HISTORY: none reported ( new Diagnosis) Family Psychiatric History: None reported or documented SOCIAL HISTORY Marital Status: Single Living Arrangements: With roommates Employment Status: unemployed Access to guns/weapons: none reported Education: High school History of Abuse: None reported Legal History: DUI REVIEW OF SYSTEMS Constitutional: Negative for weight loss ENT: Negative for stridor Respiratory: Negative for cough or hemoptysis All other systems reviewed and are negative MENTAL STATUS EXAMINATION General Appearance and Behavior: Age appropriate, fair hygiene, wearing appropriate clothes, good eye contact, lying in bed, cooperative with questioning and polite Cooperation: Participating and cooperative Psychomotor Behavior: No Psychomotor agitation Mood: "good" Affect and affective range: congruent with mood Thought Process: logical Thought Content: Within reality Speech: normal volume, soft volume Suicidal Ideation: Denies SI Homicidal Ideation: Denies HI Impulse Control: Unimpaired Insight and Judgment: Good insight and judgment Memory: Intact Attention: normal Orientation: Alert, oriented, anxious. RECOMMENDATIONS Patient is currently alert and oriented, score above 25 on minimental status exam, has a negative UDS screen but positive clinical findings for sepsis. No thought disorder present at the moment during my interview Patient AMS most likely due to metabollic encephalopathy stemming from his untreated medical condition while he was at home. Severity of his medical condition worsen without seeking medical help may have resulted in altered ment al status. Patient diagnosed with sepsis, rhabdo and metabollic abnormality. I will continue to follow and reassess patient orientation and mental status as treatment improves to rule out underlying psych disorder if any that may be contributing to overall wellbeing MEDICATIONS:Continue your home meds Risks, benefits and alternatives of medications discussed with the patient, questions answered and consent obtained from patient. PSYCHOTHERAPY: Supportive psychotherapy provided MEDICAL: Per primary team DELIRIUM PRECAUTIONS: Please re-orient patient frequently, keep lights on during the day, and minimize benzodiazepines and opiates as these medications could worsen patient's confusion. 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 Please contact with any questions and/or concerns. Mental Status Exam - Vital signs Last Vital Signs Temp 98.0 F 03/02/20 11:24 Pulse 102 H 03/02/20 13:43 Resp 20 03/02/20 11:24 BP 144/71 03/02/20 11:24 Pulse Ox 98 03/02/20 11:24 Assessment and Plan - Patient Problems (1) Metabolic encephalopathy Current Visit: Yes Status: Acute
--- NOTE | 2020-03-02 17:45 | Progress Note ---
Assessment and Plan The high probability OF a clinically significant sudden or life-threatening deterioration of the cardiorespiratory system and endocrine system required my full and direct attention, intervention and postoperative management. The aggregate critical care time was 40 minutes. The time is in addition to time spent performing reported procedures but includes the followin: Data review and interpretation 2: Patient assessment and monitoring of vital signs 3: Documentation 4:: Medication orders and management Day #2 Worsening liver enzymes BHARTI improved Day #3 Liver enzymes improving BHARTI improved White blood cell count increasing + - Patient Problems (1) Acute liver failure Current Visit: Yes Status: Acute Qualifiers: Hepatic coma status: without hepatic coma Qualified Code(s): K72.00 - Acute and subacute hepatic failure without coma Plan to address problem: Liver enzymes have worsened from 1885 of AST and ALT of 682 2867 and 1090 respectively Discussed with GI Possible ischemic injury to the liver secondary to exsanguination (2) Acute renal failure Current Visit: Yes Status: Acute Qualifiers: Acute renal failure type: unspecified Qualified Code(s): N17.9 - Acute kidney failure, unspecified Plan to address problem: ATN BUN/creatinine improved from 45 and 3.9-62 and 3.4 (3) Hyperkalemia Current Visit: Yes Status: Acute (4) Hyponatremia syndrome Current Visit: Yes Status: Acute Plan to address problem: Improved (5) Lactic acidosis Current Visit: Yes Status: Acute (6) Rhabdomyolysis Current Visit: Yes Status: Acute Qualifiers: Rhabdomyolysis type: non-traumatic Qualified Code(s): M62.82 - Rhabdomyolysis Plan to address problem: Creatinine kinase improving (7) Sepsis Current Visit: Yes Status: Acute Plan to address problem: Possibly from the left knee infection Leukocytosis IV Unasyn and IV vancomycin ID consult requested (8) Transaminitis Current Visit: Yes Status: Acute Plan to address problem: Improved (9) DVT prophylaxis Current Visit: Yes Status: Acute Plan to address problem: On heparin and GI prophylaxis Subjective Date of service: 03/02/20 Principal diagnosis: Hypertensive emergency, acute liver failure, acute renal renal failure, rha Interval history: 40-year-old -Guyanese male with no significant past medical history was brought into the emergency room today by EMS because of changes in mental status. Roommate was said to have noticed that patient was smelling of urine and also was covered with blood and was also said to have collapsed after getting out of the shower and therefore called EMS. Patient indicates that he used a head athletic trainer knife over the past weekend to cut his left because he was trying to get rid of an infection in the left arm. He claims he had some infection in his left knee most probably spreading throughout his body including the left arm and therefore he tried to get rid of it. Patient denies any homicidal or suicidal ideations and denies having any mental illness. Upon arrival in the emergency room he was found to be pale, hypotensive and hypoglycemic. Work-up in the emergency room reveals hyperkalemia, renal and liver failure, and elevated CK levels. He was started on IV fluid, empiric IV antibiotics and medications given for his hyperkalemia. Patient has severe transaminitis Discussed with the GI Possible acute ischemic liver injury secondary to exsanguination Objective - Constitutional Vitals: Vital Signs - 12hr 03/02/20 03/02/20 03/02/20 07:36 08:27 11:24 Temperature 99.0 F 98.0 F Pulse Rate 95 H 97 H Respiratory 16 18 20 Rate Blood Pressure 114/67 144/71 O2 Sat by Pulse 97 98 Oximetry 03/02/20 03/02/20 03/02/20 12:41 13:43 15:51 Temperature 100.2 F H Pulse Rate 102 H 102 H 96 H Respiratory 20 Rate Blood Pressure 114/53 O2 Sat by Pulse 96 Oximetry General appearance: Present: no acute distress, well-nourished - EENT Eyes: PERRL, EOM intact ENT: hearing intact, clear oral mucosa Ears: bilateral: normal - Neck Neck: supple, normal ROM - Respiratory Respiratory effort: normal Respiratory: bilateral: CTA - Breasts Breasts: normal - Cardiovascular Heart rate: 78 Rhythm: regular Heart Sounds: Present: S1 & S2. Absent: gallop, rub Extremities: pulses intact, No edema, normal color, Full ROM - Gastrointestinal General gastrointestinal: Present: soft, non-tender, non-distended, normal bowel sounds - Genitourinary Male genitourinary: normal - Integumentary Integumentary: clear, warm, dry - Musculoskeletal Musculoskeletal: 1, strength equal bilaterally - Neurologic Neurologic: moves all extremities - Psychiatric Psychiatric: memory intact, appropriate mood/affect, intact judgment & insight - Labs CBC & Chem 7: 03/08/20 04:16 03/08/20 04:16 Labs: Abnormal lab results 03/02/20 03/02/20 03/02/20 Range/Units 02:30 02:30 02:30 WBC 14.4 H (4.5-11.0) K/mm3 RBC 2.62 L (3.65-5.03) M/mm3 Hgb 8.0 L (11.8-15.2) gm/dl Hct 23.2 L (35.5-45.6) % Plt Count 456 H (140-440) K/mm3 Lymph % (Auto) 4.0 L (13.4-35.0) % Lymph # 0.6 L (1.2-5.4) K/mm3 Roberts # 0.9 H (0.0-0.8) K/mm3 Seg Neutrophils % 89.7 H (40.0-70.0) % Seg Neutrophils # 12.9 H (1.8-7.7) K/mm3 Sodium 131 L (137-145) mmol/L Chloride 92.1 L (98-107) mmol/L BUN 36 H (9-20) mg/dL Creatinine 1.9 H (0.8-1.5) mg/dL Glucose 117 H (75-100) mg/dL Calcium 7.9 L (8.4-10.2) mg/dL AST 1075 H (5-40) units/L ALT 621 H (7-56) units/L Total Creatine Kinase 70620 H (55-170) units/L Total Protein 6.0 L (6.3-8.2) g/dL Albumin 2.3 L (3.9-5) g/dL 03/02/20 Range/Units 13:58 WBC (4.5-11.0) K/mm3 RBC (3.65-5.03) M/mm3 Hgb (11.8-15.2) gm/dl Hct (35.5-45.6) % Plt Count (140-440) K/mm3 Lymph % (Auto) (13.4-35.0) % Lymph # (1.2-5.4) K/mm3 Roberts # (0.0-0.8) K/mm3 Seg Neutrophils % (40.0-70.0) % Seg Neutrophils # (1.8-7.7) K/mm3 Sodium (137-145) mmol/L Chloride (98-107) mmol/L BUN (9-20) mg/dL Creatinine (0.8-1.5) mg/dL Glucose (75-100) mg/dL Calcium (8.4-10.2) mg/dL AST (5-40) units/L ALT (7-56) units/L Total Creatine Kinase 74420 H (55-170) units/L Total Protein (6.3-8.2) g/dL Albumin (3.9-5) g/dL
[2020-03-02] MEDS ORDERED: VANCOMYCIN/NS 1 GM/250 ML 1 GM/250 ML BAG IV SCH (22:00)
[2020-03-02] MEDS: PANTOPRAZOLE 40 MG TAB PO SCH (22:22)
[2020-03-02] MEDS: PIPERACIL/TAZOBACTA 4.5/NS 100 4.5 GM/100 ML VIAL IV SCH (22:26)
[2020-03-02] MEDS: HYDROmorphone 1 MG/1 ML INJ IV PRN (23:58)
[2020-03-03 04:59] LABS: Hemoglobin 6.4 gm/dl (11.8-15.2); Mean Corpuscular HGB Conc 35 % (32-34); Mean Corpuscular Volume 89 fl (84-94); Platelet Count 362 K/mm3 (140-440); Red Blood Count 2.08 M/mm3 (3.65-5.03); Red Cell Distribution Width 13.9 % (13.2-15.2)
[2020-03-03 05:02] LABS: Hematocrit 18.5 % (35.5-45.6)
[2020-03-03] MEDS ORDERED: SODIUM CHLORIDE 0.9% 500 ML 500 ML IV ONE (05:22)
[2020-03-03 05:23] LABS: Alanine Aminotransferase 418 units/L (7-56); Albumin 1.9 g/dL (3.9-5); BUN/Creatinine Ratio 21; Blood Urea Nitrogen 30 mg/dL (9-20); Calcium 7.6 mg/dL (8.4-10.2); Hemolysis Index 13
[2020-03-03] MEDS: hydrALAZINE 25 MG TAB PO SCH ×4 (05:37→22:45)
[2020-03-03] MEDS: PIPERACIL/TAZOBACTA 4.5/NS 100 4.5 GM/100 ML VIAL IV SCH ×3 (05:38→22:42)
[2020-03-03 06:15] LABS: Band Neutrophils # (Manual) 1.4 K/mm3; Basophils % (Manual) 0 % (0.0-1.8); Eosinophils % (Manual) 0 % (0.0-4.3); Total Cells Counted 100
[2020-03-03 06:21] LABS: Platelet Estimate Consistent w Auto
[2020-03-03] MEDS: oxyCODONE /ACETAMINOPHEN 5-325MG TAB PO PRN ×3 (09:00→22:43)
[2020-03-03] MEDS: PANTOPRAZOLE 40 MG TAB PO SCH ×2 (09:00→22:44)
[2020-03-03] MEDS: carvediloL 6.25 MG TAB PO SCH ×2 (09:00→22:44)
[2020-03-03] MEDS ORDERED: SODIUM CHLORIDE 0.9% 500 ML 500 ML ONE (09:08)
--- NOTE | 2020-03-03 09:55 | Progress Note ---
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, better today, will follow up on ethylene glycol levels, * will dc vasc cath today * replete k and mag prn * avoid nephrotoxins * strict i/os * daily lytes * cr is better today * follow up ck levels--better * continue bicarb gtt for rhabdomyolysis, ck improving, co2 noted Subjective Date of service: 03/03/20 Principal diagnosis: Hypertensive emergency, acute liver failure, acute renal renal failure, rha Interval history: resting in bed today Objective - Exam Narrative Exam: General appearance: Present: no acute distress, well-nourished - EENT Eyes: Present: PERRL, EOM intact ENT: hearing intact, clear oral mucosa, dentition normal - Neck Neck: Present: supple, normal ROM - Respiratory Respiratory effort: normal Respiratory: bilateral: CTA - Cardiovascular Rhythm: regular Heart Sounds: Present: S1 & S2. Absent: gallop, systolic murmur, diastolic murmur, rub - Extremities Extremities: no ischemia, pulses intact, pulses symmetrical (Dressing over left elbow), No edema, Full ROM Extremity abnormal: other (Dressing over left elbow) Peripheral Pulses: within normal limits - Abdominal General gastrointestinal: Present: soft, non-tender, normal bowel sounds. Absent: mass - Integumentary Integumentary: Present: clear, warm, dry, normal turgor. Absent: jaundice, rash - Musculoskeletal Musculoskeletal: strength equal bilaterally - Psychiatric Psychiatric: appropriate mood/affect, intact judgment & insight, memory intact, cooperative - Neurologic Neurologic: CNII-XII intact, moves all extremities - Vital Signs Vital signs: Vital Signs - 12hr 03/02/20 03/02/20 03/02/20 22:00 22:22 22:23 Temperature Pulse Rate 100 H 100 H 100 H Respiratory Rate Blood Pressure 105/45 105/45 O2 Sat by Pulse Oximetry 03/02/20 03/03/20 03/03/20 23:22 04:56 05:37 Temperature 100.0 F H 99.1 F Pulse Rate 96 H 103 H 103 H Respiratory 18 20 Rate Blood Pressure 106/45 122/44 122/44 O2 Sat by Pulse 95 97 Oximetry 03/03/20 09:00 Temperature Pulse Rate 102 H Respiratory Rate Blood Pressure O2 Sat by Pulse Oximetry - Lab 03/03/20 04:38 03/03/20 04:38 Most recent lab results ABG pH 7.427 pH Units (7.350-7.450) 02/29/20 23:09 ABG pCO2 28.1 mm Hg 02/29/20 23:09 ABG pO2 96.3 mm Hg (80.0-90.0) H 02/29/20 23:09 ABG HCO3 18.1 mmol/L (20.0-26.0) L 02/29/20 23:09 ABG O2 Saturation 97.6 % (95.0-99.0) 02/29/20 23:09 Calcium 7.6 mg/dL (8.4-10.2) L 03/03/20 04:38 Medications & Allergies - Medications Allergies/Adverse Reactions: Allergies No Known Allergies Allergy (Unverified 02/29/20 18:25) Home Medications: Home Medications Medication Instructions Recorded Confirmed Last Taken Type No Known Home Medications [No 03/01/20 03/01/20 Unknown History Reported Home Medications] Active Medications: Generic Name Dose Route Start Last Admin Trade Name rBaxton PRN Reason Stop Dose Admin Acetaminophen 650 mg 03/01/20 13:57 03/02/20 22:19 Tylenol PO 650 mg Q4H PRN Administration Pain MILD(1-3)/Fever >100.5/OLIVERA Albumin Human 25 gm 03/01/20 10:16 Alburx 25% (Albumin) IV NITZA PRN Hypotension Carvedilol 6.25 mg 03/01/20 15:00 03/03/20 09:00 Coreg PO 6.25 mg BID JOSE RAMON Administration Epoetin Brad 10,000 unit 03/01/20 10:16 03/01/20 15:14 Procrit IV 10,000 unit NITZA PRN Administration hemodialysis Hydralazine HCl 50 mg 03/01/20 15:00 03/03/20 05:37 Apresoline PO 50 mg Q8HR JOSE RAMON Administration Hydromorphone HCl 0.5 mg 03/01/20 08:35 03/02/20 23:58 Dilaudid IV 0.5 mg Q3H PRN Administration Pain , Severe (7-10) Sodium Chloride 100 mls @ 999 mls/hr 03/01/20 10:16 Nacl 0.9% IV NITZA PRN Hypotension Piperacillin Sod/Tazobactam Sod 4.5 gm in 100 mls @ 200 mls/hr 03/02/20 14:00 03/03/20 05:38 Zosyn/Ns 4.5gm/100ml IV 03/05/20 13:59 200 mls/hr Q8HR JOSE RAMON Administration Protocol Sodium Bicarbonate 150 meq/ 1,150 mls @ 75 mls/hr 03/02/20 13:00 03/02/20 14:27 Dextrose IV 75 mls/hr DIRECT JOSE RAMON Administration Magnesium Hydroxide 30 ml 02/29/20 23:56 Milk Of Magnesia PO Q4H PRN Constipation Metoclopramide HCl 10 mg 03/01/20 13:57 Reglan IV Q6H PRN Nausea And Vomiting Ondansetron HCl 4 mg 03/01/20 13:57 Zofran IV Q8H PRN Nausea And Vomiting Oxycodone/Acetaminophen 1 tab 03/01/20 13:57 03/03/20 09:00 Percocet 5/325 PO 1 tab Q6H PRN Administration Pain, Moderate (4-6) Pantoprazole Sodium 40 mg 03/02/20 22:00 03/03/20 09:00 Protonix PO 40 mg BID JOSE RAMON Administration Sodium Chloride 10 ml 03/01/20 22:00 03/03/20 09:01 Sodium Chloride Flush Syringe 10 Ml IV 10 ml BID JOSE RAMON Administration Sodium Chloride 10 ml 03/01/20 13:57 Sodium Chloride Flush Syringe 10 Ml IV PRN PRN LINE FLUSH
--- NOTE | 2020-03-03 13:27 | Progress Note ---
Subjective - Reason for Consult Consult date: 03/03/20 Reason for consult: MHE Requesting physician: TOMMY MAURER - Chief Complaint Chief complaint: PSYCH HPI REVIEW OF SYSTEMS Constitutional: Negative for weight loss ENT: Negative for stridor Respiratory: Negative for cough or hemoptysis All other systems reviewed and are negative MENTAL STATUS EXAMINATION General Appearance and Behavior: Age appropriate, fair hygiene, wearing appropriate clothes, good eye contact, lying in bed, cooperative with questioning and polite Cooperation: Participating and cooperative Psychomotor Behavior: No Psychomotor agitation Mood: "good" Affect and affective range: congruent with mood Thought Process: logical Thought Content: Within reality Speech: normal volume, soft volume Suicidal Ideation: Denies SI Homicidal Ideation: Denies HI Impulse Control: Unimpaired Insight and Judgment: Good insight and judgment Memory: Intact Attention: normal Orientation: Alert, oriented, anxious. RECOMMENDATIONS Patient records reviewed, Low Hg, anemic, Will sign off, consult request can be placed when medically stable if concerns for Psychological interference in beh avior Patient AMS most likely due to metabollic encephalopathy stemming from his untreated medical condition while he was at home. Severity of his medical condition worsen without seeking medical help may have resulted in altered mental status. Patient diagnosed with sepsis, rhabdo and metabollic abnormality. I will continue to follow and reassess patient orientation and mental status as treatment improves to rule out underlying psych disorder if any that may be contributing to overall wellbeing MEDICATIONS:Continue your home meds Risks, benefits and alternatives of medications discussed with the patient, questions answered and consent obtained from patient. PSYCHOTHERAPY: Supportive psychotherapy provided MEDICAL: Per primary team DELIRIUM PRECAUTIONS: Please re-orient patient frequently, keep lights on during the day, and minimize benzodiazepines and opiates as these medications could worsen patient's confusion. 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 C Thank you for the consult. Please contact with any questions and/or concerns. Mental Status Exam - Vital signs Last Vital Signs Temp 99.1 F 03/03/20 04:56 Pulse 102 H 03/03/20 09:00 Resp 20 03/03/20 04:56 BP 122/44 03/03/20 05:37 Pulse Ox 97 03/03/20 04:56 Assessment and Plan - Patient Problems (1) Metabolic encephalopathy Current Visit: Yes Status: Acute
[2020-03-03] MEDS: ACETAMINOPHEN 325 MG TAB PO PRN (15:07)
[2020-03-03] MEDS: POTASSIUM CHLORIDE IV SCH (15:12)
[2020-03-03] MEDS: DEXTROSE 5% IV SCH (15:12)
[2020-03-03] MEDS: WATER IV SCH (15:12)
[2020-03-03] MEDS: SODIUM BICARBONATE IV SCH (15:12)
--- NOTE | 2020-03-03 17:47 | Progress Note ---
Assessment and Plan The high probability OF a clinically significant sudden or life-threatening deterioration of the cardiorespiratory system and endocrine system required my full and direct attention, intervention and postoperative management. The aggregate critical care time was 40 minutes. The time is in addition to time spent performing reported procedures but includes the followin: Data review and interpretation 2: Patient assessment and monitoring of vital signs 3: Documentation 4:: Medication orders and management Day #2 Worsening liver enzymes BHARTI improved Day #3 Liver enzymes improving BHARTI improved White blood cell count increasing Day #4 liver enzymes are improving Improved to 635/418 creatinine kinase also improving + - Patient Problems (1) Acute liver failure Current Visit: Yes Status: Acute Qualifiers: Hepatic coma status: without hepatic coma Qualified Code(s): K72.00 - Acute and subacute hepatic failure without coma Plan to address problem: Liver enzymes have worsened from 1885 of AST and ALT of 682 2867 and 1090 respectively Discussed with GI Possible ischemic injury to the liver secondary to exsanguination Liver enzymes improving AST of 2867 2 615 ALT from 1092 418 (2) Acute renal failure Current Visit: Yes Status: Acute Qualifiers: Acute renal failure type: unspecified Qualified Code(s): N17.9 - Acute kidney failure, unspecified Plan to address problem: ATN BUN/creatinine improved from 45 and 3.9-62 and 3.4 Improved compared to yesterday (3) Hyperkalemia Current Visit: Yes Status: Acute (4) Hyponatremia syndrome Current Visit: Yes Status: Acute (5) Lactic acidosis Current Visit: Yes Status: Acute (6) Rhabdomyolysis Current Visit: Yes Status: Acute Qualifiers: Rhabdomyolysis type: non-traumatic Qualified Code(s): M62.82 - Rhabdomyolysis Plan to address problem: Creatinine kinase improving Improving from 23,000-9516 (7) Sepsis Current Visit: Yes Status: Acute Plan to address problem: Possibly from the left knee infection Leukocytosis IV Unasyn and IV vancomycin ID consult requested (8) Transaminitis Current Visit: Yes Status: Acute Plan to address problem: Improved (9) DVT prophylaxis Current Visit: Yes Status: Acute Plan to address problem: On heparin and GI prophylaxis Subjective Date of service: 03/03/20 Principal diagnosis: Hypertensive emergency, acute liver failure, acute renal renal failure, rha Interval history: 40-year-old -[place] male with no significant past medical history was brought into the emergency room today by EMS because of changes in mental status. Roommate was said to have noticed that patient was smelling of urine and also was covered with blood and was also said to have collapsed after getting out of the shower and therefore called EMS. 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 He claims he had some infection in his left knee most probably spreading throughout his body including the left arm and therefore he tried to get rid of it. Patient denies any homicidal or suicidal ideations and denies having any mental illness. Upon arrival in the emergency room he was found to be pale, hypotensive and hypoglycemic. Work-up in the emergency room reveals hyperkalemia, renal and liver failure, and elevated CK levels. He was started on IV fluid, empiric IV antibiotics and medications given for his hyperkalemia. Patient has severe transaminitis Discussed with the GI Possible acute ischemic liver injury secondary to exsanguination Symptomatically better Objective - Constitutional Vitals: Vital Signs - 12hr 03/03/20 03/03/20 03/03/20 09:00 10:00 14:32 Temperature 99.1 F Pulse Rate 102 H 114 H 106 H Respiratory 18 Rate Blood Pressure 123/55 O2 Sat by Pulse 98 Oximetry 03/03/20 03/03/20 03/03/20 14:39 14:54 15:18 Temperature 99.4 F 100.0 F H Pulse Rate 102 H 104 H 103 H Respiratory 16 18 Rate Blood Pressure 133/67 126/62 133/66 O2 Sat by Pulse 100 98 Oximetry General appearance: Present: no acute distress, well-nourished - EENT Eyes: PERRL, EOM intact ENT: hearing intact, clear oral mucosa Ears: bilateral: normal - Neck Neck: supple, normal ROM - Respiratory Respiratory effort: normal Respiratory: bilateral: CTA - Breasts Breasts: normal - Cardiovascular Heart rate: 78 Rhythm: regular Heart Sounds: Present: S1 & S2. Absent: gallop, rub Extremities: pulses intact, No edema, normal color, Full ROM - Gastrointestinal General gastrointestinal: Present: soft, non-tender, non-distended, normal bowel sounds - Genitourinary Male genitourinary: normal - Integumentary Integumentary: clear, warm, dry - Musculoskeletal Musculoskeletal: 1, strength equal bilaterally - Neurologic Neurologic: moves all extremities - Psychiatric Psychiatric: memory intact, appropriate mood/affect, intact judgment & insight - Labs CBC & Chem 7: 03/08/20 04:16 03/08/20 04:16 Labs: Abnormal lab results 02/29/20 03/03/20 03/03/20 Range/Units 19:11 04:38 04:38 WBC 15.2 H (4.5-11.0) K/mm3 RBC 2.08 L (3.65-5.03) M/mm3 Hgb 6.4 L (11.8-15.2) gm/dl Hct 18.5 L* (35.5-45.6) % MCHC 35 H (32-34) % Seg Neuts % (Manual) 77.0 H (40.0-70.0) % Lymphocytes % (Manual) 7.0 L (13.4-35.0) % Seg Neutrophils # Man 11.7 H (1.8-7.7) K/mm3 Lymphocytes # (Manual) 1.1 L (1.2-5.4) K/mm3 Monocytes # (Manual) 1.1 H (0.0-0.8) K/mm3 Sodium (137-145) mmol/L Potassium (3.6-5.0) mmol/L Chloride (98-107) mmol/L BUN (9-20) mg/dL Glucose (75-100) mg/dL Calcium (8.4-10.2) mg/dL AST (5-40) units/L ALT (7-56) units/L Total Creatine Kinase 9516 H (55-170) units/L Total Protein (6.3-8.2) g/dL Albumin (3.9-5) g/dL Crossmatch See Detail 03/03/20 Range/Units 04:38 WBC (4.5-11.0) K/mm3 RBC (3.65-5.03) M/mm3 Hgb (11.8-15.2) gm/dl Hct (35.5-45.6) % MCHC (32-34) % Seg Neuts % (Manual) (40.0-70.0) % Lymphocytes % (Manual) (13.4-35.0) % Seg Neutrophils # Man (1.8-7.7) K/mm3 Lymphocytes # (Manual) (1.2-5.4) K/mm3 Monocytes # (Manual) (0.0-0.8) K/mm3 Sodium 133 L (137-145) mmol/L Potassium 3.2 L D (3.6-5.0) mmol/L Chloride 94.0 L (98-107) mmol/L BUN 30 H (9-20) mg/dL Glucose 115 H (75-100) mg/dL Calcium 7.6 L (8.4-10.2) mg/dL AST 635 H (5-40) units/L ALT 418 H (7-56) units/L Total Creatine Kinase (55-170) units/L Total Protein 5.9 L (6.3-8.2) g/dL Albumin 1.9 L (3.9-5) g/dL Crossmatch
[2020-03-03] MEDS: HYDROmorphone 1 MG/1 ML INJ IV PRN (18:11)
[2020-03-04] MEDS: HYDROmorphone 1 MG/1 ML INJ IV PRN ×3 (02:38→17:02)
[2020-03-04] MEDS: ACETAMINOPHEN 325 MG TAB PO PRN ×4 (04:41→23:30)
[2020-03-04] MEDS: oxyCODONE /ACETAMINOPHEN 5-325MG TAB PO PRN ×2 (04:54→11:33)
[2020-03-04 05:33] LABS: Alanine Aminotransferase 300 units/L (7-56); Albumin 1.8 g/dL (3.9-5); BUN/Creatinine Ratio 15; Blood Urea Nitrogen 19 mg/dL (9-20); Hemolysis Index 3
[2020-03-04 05:39] LABS: Mean Corpuscular HGB Conc 34 % (32-34); Mean Corpuscular Volume 87 fl (84-94); Platelet Count 337 K/mm3 (140-440); Red Blood Count 2.26 M/mm3 (3.65-5.03); Red Cell Distribution Width 14.1 % (13.2-15.2)
[2020-03-04 05:40] LABS: Hematocrit 19.6 % (35.5-45.6); Hemoglobin 6.6 gm/dl (11.8-15.2)
[2020-03-04] MEDS ORDERED: SODIUM CHLORIDE 0.9% 500 ML 500 ML IV ONE (06:01)
[2020-03-04] MEDS: hydrALAZINE 25 MG TAB PO SCH ×4 (06:17→22:41)
[2020-03-04] MEDS: PIPERACIL/TAZOBACTA 4.5/NS 100 4.5 GM/100 ML VIAL IV SCH ×3 (06:18→22:36)
[2020-03-04 06:50] LABS: Basophils % (Manual) 0 % (0.0-1.8); Eosinophils % (Manual) 0 % (0.0-4.3); Hypochromasia 2+; Total Cells Counted 100
[2020-03-04 06:51] LABS: Platelet Estimate Consistent w Auto
[2020-03-04] MEDS: PANTOPRAZOLE 40 MG TAB PO SCH ×2 (09:07→22:30)
[2020-03-04] MEDS: carvediloL 6.25 MG TAB PO SCH ×2 (09:07→22:30)
--- NOTE | 2020-03-04 10:35 | Progress Note ---
Assessment and Plan Impression: * BHARTI with atn * Metabolic acidosis * hyperkalemia * hyponatremia * acute liver failure * rhabdomyolysis * anemia * encephalopathy * injestion--admits to drinking febreeze Plan: * follow up ethylene glycol leves, with anion and osm gap, admits to drinking febreeze * prn prbcs, ? 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 refractory hyperkalemia, better today, will follow up on ethylene glycol levels, no further hd needed * removed vasc cath * replete k and mag prn * avoid nephrotoxins * strict i/os * daily lytes * cr is better today * follow up ck levels--better * continue bicarb gtt for rhabdomyolysis, ck improving, co2 noted Subjective Date of service: 03/04/20 Principal diagnosis: Hypertensive emergency, acute liver failure, acute renal renal failure, rha Interval history: resting in bed today Objective - Exam Narrative Exam: General appearance: Present: no acute distress, well-nourished - EENT Eyes: Present: PERRL, EOM intact ENT: hearing intact, clear oral mucosa, dentition normal - Neck Neck: Present: supple, normal ROM - Respiratory Respiratory effort: normal Respiratory: bilateral: CTA - Cardiovascular Rhythm: regular Heart Sounds: Present: S1 & S2. Absent: gallop, systolic murmur, diastolic murmur, rub - Extremities Extremities: no ischemia, pulses intact, pulses symmetrical (Dressing over left elbow), No edema, Full ROM Extremity abnormal: other (Dressing over left elbow) Peripheral Pulses: within normal limits - Abdominal General gastrointestinal: Present: soft, non-tender, normal bowel sounds. Absent: mass - Integumentary Integumentary: Present: clear, warm, dry, normal turgor. Absent: jaundice, rash - Musculoskeletal Musculoskeletal: strength equal bilaterally - Psychiatric Psychiatric: appropriate mood/affect, intact judgment & insight, memory intact, cooperative - Neurologic Neurologic: CNII-XII intact, moves all extremities - Vital Signs Vital signs: Vital Signs - 12hr 03/03/20 03/03/20 03/03/20 22:44 22:45 23:36 Temperature 98.5 F Pulse Rate 106 H 106 H 116 H Respiratory 20 Rate Blood Pressure 135/62 135/62 122/50 O2 Sat by Pulse 96 Oximetry 03/04/20 03/04/20 03/04/20 01:31 04:21 06:17 Temperature 102.5 F H Pulse Rate 108 H Respiratory 20 20 Rate Blood Pressure 132/53 132/53 O2 Sat by Pulse 97 Oximetry 03/04/20 03/04/20 08:05 09:07 Temperature 99.7 F H Pulse Rate 112 H 112 H Respiratory 17 Rate Blood Pressure 130/65 130/65 O2 Sat by Pulse 94 Oximetry - Lab 03/04/20 04:36 03/04/20 04:36 Most recent lab results ABG pH 7.427 pH Units (7.350-7.450) 02/29/20 23:09 ABG pCO2 28.1 mm Hg 02/29/20 23:09 ABG pO2 96.3 mm Hg (80.0-90.0) H 02/29/20 23:09 ABG HCO3 18.1 mmol/L (20.0-26.0) L 02/29/20 23:09 ABG O2 Saturation 97.6 % (95.0-99.0) 02/29/20 23:09 Calcium 8.0 mg/dL (8.4-10.2) L 03/04/20 04:36 Medications & Allergies - Medications Allergies/Adverse Reactions: Allergies No Known Allergies Allergy (Unverified 02/29/20 18:25) Home Medications: Home Medications Medication Instructions Recorded Confirmed Last Taken Type No Known Home Medications [No 03/01/20 03/01/20 Unknown History Reported Home Medications] Active Medications: Generic Name Dose Route Start Last Admin Trade Name Jorgeq PRN Reason Stop Dose Admin Acetaminophen 650 mg 03/01/20 13:57 03/04/20 04:41 Tylenol PO 650 mg Q4H PRN Administration Pain MILD(1-3)/Fever >100.5/OLIVERA Albumin Human 25 gm 03/01/20 10:16 Alburx 25% (Albumin) IV NITZA PRN Hypotension Carvedilol 6.25 mg 03/01/20 15:00 03/04/20 09:07 Coreg PO 6.25 mg BID JOSE RAMON Administration Epoetin Brad 10,000 unit 03/01/20 10:16 03/01/20 15:14 Procrit IV 10,000 unit NITZA PRN Administration hemodialysis Hydralazine HCl 50 mg 03/01/20 15:00 03/04/20 06:17 Apresoline PO 50 mg Q8HR JOSE RAMON Administration Hydromorphone HCl 0.5 mg 03/01/20 08:35 03/04/20 09:07 Dilaudid IV 0.5 mg Q3H PRN Administration Pain , Severe (7-10) Sodium Chloride 100 mls @ 999 mls/hr 03/01/20 10:16 Nacl 0.9% IV NITZA PRN Hypotension Piperacillin Sod/Tazobactam Sod 4.5 gm in 100 mls @ 200 mls/hr 03/02/20 14:00 03/04/20 06:18 Zosyn/Ns 4.5gm/100ml IV 03/05/20 13:59 200 mls/hr Q8HR JOSE RAMON Administration Protocol Potassium Chloride 40 meq/ 1,120 mls @ 125 mls/hr 03/03/20 11:00 03/03/20 15:12 Sodium Bicarbonate 100 meq/ IV 125 mls/hr Dextrose DIRECT JOSE RAMON Administration Levofloxacin/Dextrose 750 mg in 150 mls @ 100 mls/hr 03/04/20 04:32 03/04/20 04:42 Levaquin 750mg/150ml IV 100 mls/hr Q24HR JOSE RAMON Administration Protocol Metoclopramide HCl 10 mg 03/01/20 13:57 Reglan IV Q6H PRN Nausea And Vomiting Ondansetron HCl 4 mg 03/01/20 13:57 Zofran IV Q8H PRN Nausea And Vomiting Oxycodone/Acetaminophen 1 tab 03/01/20 13:57 03/04/20 04:54 Percocet 5/325 PO 1 tab Q6H PRN Administration Pain, Moderate (4-6) Pantoprazole Sodium 40 mg 03/02/20 22:00 03/04/20 09:07 Protonix PO 40 mg BID JOSE RAMON Administration Sodium Chloride 10 ml 03/01/20 22:00 03/03/20 22:48 Sodium Chloride Flush Syringe 10 Ml IV 10 ml BID JOSE RAMON Administration Sodium Chloride 10 ml 03/01/20 13:57 Sodium Chloride Flush Syringe 10 Ml IV PRN PRN LINE FLUSH
[2020-03-04] MEDS ORDERED: SODIUM CHLORIDE 0.9% 500 ML 500 ML IV SCH (11:30)
[2020-03-04] MEDS: IBUPROFEN 400 MG TAB PO PRN (13:52)
[2020-03-04 17:49] LABS: Hematocrit 20.2 % (35.5-45.6); Mean Corpuscular HGB Conc 35 % (32-34); Mean Corpuscular Volume 89 fl (84-94); Platelet Count 355 K/mm3 (140-440); Red Blood Count 2.28 M/mm3 (3.65-5.03); Red Cell Distribution Width 14.1 % (13.2-15.2)
[2020-03-05] MEDS: SODIUM BICARBONATE IV SCH (02:15)
[2020-03-05] MEDS: DEXTROSE 5% IV SCH (02:15)
[2020-03-05] MEDS: WATER IV SCH (02:15)
[2020-03-05] MEDS: POTASSIUM CHLORIDE IV SCH (02:15)
[2020-03-05] MEDS: ACETAMINOPHEN 325 MG TAB PO PRN (03:43)
[2020-03-05] MEDS: hydrALAZINE 25 MG TAB PO SCH ×3 (05:35→21:23)
[2020-03-05] MEDS: PIPERACIL/TAZOBACTA 4.5/NS 100 4.5 GM/100 ML VIAL IV SCH (05:36)
[2020-03-05 07:30] LABS: Hematocrit 22.9 % (35.5-45.6); Hemoglobin 7.7 gm/dl (11.8-15.2); Mean Corpuscular HGB Conc 34 % (32-34); Mean Corpuscular Volume 86 fl (84-94); Platelet Count 386 K/mm3 (140-440); Red Blood Count 2.66 M/mm3 (3.65-5.03)
[2020-03-05 07:35] LABS: Alanine Aminotransferase 234 units/L (7-56); Albumin 2.1 g/dL (3.9-5); BUN/Creatinine Ratio 16; Blood Urea Nitrogen 18 mg/dL (9-20); Calcium 8.4 mg/dL (8.4-10.2); Hemolysis Index 0
--- NOTE | 2020-03-05 08:12 | Progress Note ---
Assessment and Plan Impression: * BHARTI with atn * Metabolic acidosis * hyperkalemia * hyponatremia * acute liver failure * rhabdomyolysis * anemia * encephalopathy * microscopic hematuria * injestion--admits to drinking febreeze Plan: * follow up ethylene glycol leves, with anion and osm gap, admits to drinking febreeze * prn prbcs, ? 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, better today, will follow up on ethylene glycol levels, no further hd needed * removed vasc cath * replete k and mag prn * avoid nephrotoxins * strict i/os * daily lytes * cr is better today * follow up ck levels--better * ivfs to continue until ck levels improved Subjective Date of service: 03/05/20 Principal diagnosis: Hypertensive emergency, acute liver failure, acute renal r enal failure, rha Interval history: resting in bed today Objective - Exam Narrative Exam: General appearance: Present: no acute distress, well-nourished - EENT Eyes: Present: PERRL, EOM intact ENT: hearing intact, clear oral mucosa, dentition normal - Neck Neck: Present: supple, normal ROM - Respiratory Respiratory effort: normal Respiratory: bilateral: CTA - Cardiovascular Rhythm: regular Heart Sounds: Present: S1 & S2. Absent: gallop, systolic murmur, diastolic murmur, rub - Extremities Extremities: no ischemia, pulses intact, pulses symmetrical (Dressing over left elbow), No edema, Full ROM Extremity abnormal: other (Dressing over left elbow) Peripheral Pulses: within normal limits - Abdominal General gastrointestinal: Present: soft, non-tender, normal bowel sounds. Absent: mass - Integumentary Integumentary: Present: clear, warm, dry, normal turgor. Absent: jaundice, rash - Musculoskeletal Musculoskeletal: strength equal bilaterally - Psychiatric Psychiatric: appropriate mood/affect, intact judgment & insight, memory intact, cooperative - Neurologic Neurologic: CNII-XII intact, moves all extremities - Vital Signs Vital signs: Vital Signs - 12hr 03/04/20 03/04/20 03/05/20 20:23 23:30 00:00 Temperature 98.6 F 101.6 F H 99.7 F H Pulse Rate 107 H 107 H 113 H Respiratory 18 22 20 Rate Blood Pressure 128/79 128/68 128/69 O2 Sat by Pulse 91 95 99 Oximetry 03/05/20 03/05/20 03:43 05:01 Temperature 98.6 F Pulse Rate 114 H Respiratory 20 18 Rate Blood Pressure 142/81 O2 Sat by Pulse 98 Oximetry - Lab 03/05/20 06:56 03/05/20 06:56 Most recent lab results ABG pH 7.427 pH Units (7.350-7.450) 02/29/20 23:09 ABG pCO2 28.1 mm Hg 02/29/20 23:09 ABG pO2 96.3 mm Hg (80.0-90.0) H 02/29/20 23:09 ABG HCO3 18.1 mmol/L (20.0-26.0) L 02/29/20 23:09 ABG O2 Saturation 97.6 % (95.0-99.0) 02/29/20 23:09 Calcium 8.4 mg/dL (8.4-10.2) 03/05/20 06:56 Medications & Allergies - Medications Allergies/Adverse Reactions: Allergies No Known Allergies Allergy (Unverified 02/29/20 18:25) Home Medications: Home Medications Medication Instructions Recorded Confirmed Last Taken Type No Known Home Medications [No 03/01/20 03/01/20 Unknown History Reported Home Medications] Active Medications: Generic Name Dose Route Start Last Admin Trade Name Braxton PRN Reason Stop Dose Admin Acetaminophen 650 mg 03/01/20 13:57 03/05/20 03:43 Tylenol PO 650 mg Q4H PRN Administration Pain MILD(1-3)/Fever >100.5/OLIVERA Albumin Human 25 gm 03/01/20 10:16 Alburx 25% (Albumin) IV NITZA PRN Hypotension Carvedilol 6.25 mg 03/01/20 15:00 03/04/20 22:30 Coreg PO 6.25 mg BID JOSE RAMON Administration Epoetin Brad 10,000 unit 03/01/20 10:16 03/01/20 15:14 Procrit IV 10,000 unit NITZA PRN Administration hemodialysis Hydralazine HCl 50 mg 03/01/20 15:00 03/05/20 05:35 Apresoline PO 50 mg Q8HR JOSE RAMON Administration Hydromorphone HCl 0.5 mg 03/01/20 08:35 03/04/20 17:02 Dilaudid IV 0.5 mg Q3H PRN Administration Pain , Severe (7-10) Sodium Chloride 100 mls @ 999 mls/hr 03/01/20 10:16 Nacl 0.9% IV NITZA PRN Hypotension Piperacillin Sod/Tazobactam Sod 4.5 gm in 100 mls @ 200 mls/hr 03/02/20 14:00 03/05/20 05:36 Zosyn/Ns 4.5gm/100ml IV 03/05/20 13:59 200 mls/hr Q8HR JOSE RAMON Administration Protocol Potassium Chloride 40 meq/ 1,120 mls @ 125 mls/hr 03/03/20 11:00 03/05/20 02:15 Sodium Bicarbonate 100 meq/ IV 125 mls/hr Dextrose DIRECT JOSE RAMON Administration Levofloxacin/Dextrose 750 mg in 150 mls @ 100 mls/hr 03/04/20 04:32 03/04/20 04:42 Levaquin 750mg/150ml IV 100 mls/hr Q24HR JOSE RAMON Administration Protocol Ibuprofen 400 mg 03/04/20 13:32 03/04/20 13:52 Ibuprofen PO 400 mg Q6H PRN Administration Non Cardiac Pain or Temp>100.5 Metoclopramide HCl 10 mg 03/01/20 13:57 Reglan IV Q6H PRN Nausea And Vomiting Ondansetron HCl 4 mg 03/01/20 13:57 Zofran IV Q8H PRN Nausea And Vomiting Oxycodone/Acetaminophen 1 tab 03/01/20 13:57 03/04/20 11:33 Percocet 5/325 PO 1 tab Q6H PRN Administration Pain, Moderate (4-6) Pantoprazole Sodium 40 mg 03/02/20 22:00 03/04/20 22:30 Protonix PO 40 mg BID JOSE RAMON Administration Sodium Chloride 10 ml 03/01/20 22:00 03/04/20 22:30 Sodium Chloride Flush Syringe 10 Ml IV 10 ml BID JOSE RAMON Administration Sodium Chloride 10 ml 03/01/20 13:57 Sodium Chloride Flush Syringe 10 Ml IV PRN PRN LINE FLUSH
[2020-03-05] MEDS: oxyCODONE /ACETAMINOPHEN 5-325MG TAB PO PRN (08:36)
[2020-03-05 09:32] LABS: Band Neutrophils # (Manual) 1.1 K/mm3; Basophils % (Manual) 0 % (0.0-1.8); Hypochromasia 2+; Total Cells Counted 100
[2020-03-05 09:33] LABS: Platelet Estimate Consistent w Auto
[2020-03-05] MEDS: PANTOPRAZOLE 40 MG TAB PO SCH ×2 (10:57→21:24)
[2020-03-05] MEDS: carvediloL 6.25 MG TAB PO SCH ×2 (10:57→21:24)
--- NOTE | 2020-03-05 12:37 | Consultation ---
History of Present Illness - Reason for Consult Consult date: 03/05/20 Reason for consult: psych consult - History of Present Psychiatric Illness Darius Mccullough is a 40y/o male patient who psych services were re-consulted. The patient was admitted after the roommate found him unresponsive and altered mental status, per medical record. During my interview the patient was lying in bed awake. He is a/ox 3. He is calm and cooperative. He is unsure why psych services were consulted. The patient states, "they asked me these same questions before. Is that just protocol?" He then says, "the EMT that came to my house last week asked me about psych problems." He says, "I've never had that." The patient denies any SI/HI, stating, "never." The patient also denies any psyc hiatric history in the past including past psych medications. He denies every seeing a psychiatrist in the past. He denies hallucinations of any kind. He describes his mood as "alright." He says he slept "okay with pain meds." He denies any illicit drug use, and says he drinks "occasionally." He says he "does tobacco sometimes." The patient refuses nicotine patch. PAST PSYCHIATRIC HISTORY Diagnoses: Denies Suicide attempts or Self-harm behavior: Denies Prior psychiatric hospitalizations: Denies Substance Abuse history: Denies Previous psychiatric medications tried: Denies Outpatient treatment: Denies PAST MEDICAL HISTORY: Family Psychiatric History: Not available SOCIAL HISTORY Marital Status: "single" Living Arrangements: [facility] Employment Status: Unemployed Access to guns/weapons: Denies Education: High School History of Abuse: None reported Legal History: Denies REVIEW OF SYSTEMS Constitutional: Negative for weight loss ENT: Negative for stridor Respiratory: Negative for cough or hemoptysis All other systems reviewed and are negative MENTAL STATUS EXAMINATION General Appearance: Dressed appropriately Behavior: Calm, cooperative. Good eye contact Mood: "alright" Affect: Congruent with stated mood Speech: Normal tone and pace Thought Process: Goal directed Thought Content: Suicidal Ideation: Denies Homicidal Ideation: Denies Hallucinations: Denies Delusions: Denies Insight/Judgment: Good Memory/Cognition: Good Assessment and Plan Altered Mental Status RECOMMENDATIONS No medications at this time Risks, benefits and alternatives of medications discussed with the patient, questions answered and consent obtained from patient. PSYCHOTHERAPY: Supportive psychotherapy provided MEDICAL: Per primary team DELIRIUM PRECAUTIONS: Please re-orient patient frequently, keep lights on during the day, and minimize benzodiazepines and opiates as these medications could worsen patient's confusion. 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 He may discharge home once medically clear. Will sign off. Thank you for the consult. Please contact with any questions and/or concerns. Medications and Allergies Allergies Allergy/AdvReac Type Severity Reaction Status Date / Time No Known Allergies Allergy Unverified 02/29/20 18:25 Home Medications Medication Instructions Recorded Confirmed Last Taken Type No Known Home Medications [No 03/01/20 03/01/20 Unknown History Reported Home Medications] Active Meds: Active Medications Acetaminophen (Tylenol) 650 mg PO Q4H PRN PRN Reason: Pain MILD(1-3)/Fever >100.5/OLIVERA Last Admin: 03/05/20 03:43 Dose: 650 mg Documented by: Albumin Human (Alburx 25% (Albumin)) 25 gm IV NITZA PRN PRN Reason: Hypotension Carvedilol (Coreg) 6.25 mg PO BID [facility] Last Admin: 03/05/20 10:57 Dose: 6.25 mg Documented by: Epoetin Brad (Procrit) 10,000 unit IV NITZA PRN PRN Reason: hemodialysis Last Admin: 03/01/20 15:14 Dose: 10,000 unit Documented by: Hydralazine HCl (Apresoline) 50 mg PO Q8HR [facility] Last Admin: 03/05/20 05:35 Dose: 50 mg Documented by: Hydromorphone HCl (Dilaudid) 0.5 mg IV Q3H PRN PRN Reason: Pain , Severe (7-10) Last Admin: 03/04/20 17:02 Dose: 0.5 mg Documented by: Sodium Chloride (Nacl 0.9%) 100 mls @ 999 mls/hr IV NITZA PRN PRN Reason: Hypotension Piperacillin Sod/Tazobactam Sod (Zosyn/Ns 4.5gm/100ml) 4.5 gm in 100 mls @ 200 mls/hr IV Q8HR [facility]; Protocol Stop: 03/05/20 13:59 Last Admin: 03/05/20 05:36 Dose: 200 mls/hr Documented by: Ibuprofen (Ibuprofen) 400 mg PO Q6H PRN PRN Reason: Non Cardiac Pain or Temp>100.5 Last Admin: 03/04/20 13:52 Dose: 400 mg Documented by: Metoclopramide HCl (Reglan) 10 mg IV Q6H PRN PRN Reason: Nausea And Vomiting Ondansetron HCl (Zofran) 4 mg IV Q8H PRN PRN Reason: Nausea And Vomiting Oxycodone/Acetaminophen (Percocet 5/325) 1 tab PO Q6H PRN PRN Reason: Pain, Moderate (4-6) Last Admin: 03/05/20 08:36 Dose: 1 tab Documented by: Pantoprazole Sodium (Protonix) 40 mg PO BID [facility] Last Admin: 03/05/20 10:57 Dose: 40 mg Documented by: Sodium Chloride (Sodium Chloride Flush Syringe 10 Ml) 10 ml IV BID [facility] Last Admin: 03/05/20 10:58 Dose: 10 ml Documented by: Sodium Chloride (Sodium Chloride Flush Syringe 10 Ml) 10 ml IV PRN PRN PRN Reason: LINE FLUSH Mental Status Exam - Vital signs Last Vital Signs Temp 100.2 F H 03/05/20 08:33 Pulse 111 H 03/05/20 11:00 Resp 20 03/05/20 08:33 BP 167/87 03/05/20 08:33 Pulse Ox 99 03/05/20 08:33 Results Result Diagrams: 03/05/20 06:56 03/05/20 06:56 Abnormal lab results 02/29/20 03/04/20 03/04/20 Range/Units 19:11 06:23 15:34 WBC (4.5-11.0) K/mm3 RBC (3.65-5.03) M/mm3 Hgb (11.8-15.2) gm/dl Hct (35.5-45.6) % MCHC (32-34) % Seg Neuts % (Manual) (40.0-70.0) % Lymphocytes % (Manual) (13.4-35.0) % Nucleated RBC % (0.0-0.9) % Seg Neutrophils # Man (1.8-7.7) K/mm3 Lymphocytes # (Manual) (1.2-5.4) K/mm3 Sodium (137-145) mmol/L Chloride (98-107) mmol/L Glucose (75-100) mg/dL AST (5-40) units/L ALT (7-56) units/L Alkaline Phosphatase (35-129) units/L Total Creatine Kinase 5262 H (55-170) units/L Total Protein (6.3-8.2) g/dL Albumin (3.9-5) g/dL Crossmatch See Detail See Detail 03/04/20 03/05/20 03/05/20 Range/Units 17:39 01:47 06:56 WBC 20.0 H 22.0 H (4.5-11.0) K/mm3 RBC 2.28 L 2.66 L (3.65-5.03) M/mm3 Hgb 7.0 L 7.7 L (11.8-15.2) gm/dl Hct 20.2 L 22.9 L (35.5-45.6) % MCHC 35 H (32-34) % Seg Neuts % (Manual) 89.0 H (40.0-70.0) % Lymphocytes % (Manual) 2.0 L (13.4-35.0) % Nucleated RBC % 1.0 H (0.0-0.9) % Seg Neutrophils # Man 19.6 H (1.8-7.7) K/mm3 Lymphocytes # (Manual) 0.4 L (1.2-5.4) K/mm3 Sodium (137-145) mmol/L Chloride (98-107) mmol/L Glucose (75-100) mg/dL AST (5-40) units/L ALT (7-56) units/L Alkaline Phosphatase (35-129) units/L Total Creatine Kinase 4224 H (55-170) units/L Total Protein (6.3-8.2) g/dL Albumin (3.9-5) g/dL Crossmatch 03/05/20 Range/Units 06:56 WBC (4.5-11.0) K/mm3 RBC (3.65-5.03) M/mm3 Hgb (11.8-15.2) gm/dl Hct (35.5-45.6) % MCHC (32-34) % Seg Neuts % (Manual) (40.0-70.0) % Lymphocytes % (Manual) (13.4-35.0) % Nucleated RBC % (0.0-0.9) % Seg Neutrophils # Man (1.8-7.7) K/mm3 Lymphocytes # (Manual) (1.2-5.4) K/mm3 Sodium 135 L (137-145) mmol/L Chloride 96.2 L (98-107) mmol/L Glucose 125 H (75-100) mg/dL AST 295 H (5-40) units/L ALT 234 H (7-56) units/L Alkaline Phosphatase 133 H (35-129) units/L Total Creatine Kinase (55-170) units/L Total Protein 6.2 L (6.3-8.2) g/dL Albumin 2.1 L (3.9-5) g/dL Crossmatch All other labs normal.
[2020-03-05] MEDS: HYDROmorphone 1 MG/1 ML INJ IV PRN (21:24)
[2020-03-06] MEDS: oxyCODONE /ACETAMINOPHEN 5-325MG TAB PO PRN ×4 (00:24→21:42)
[2020-03-06] MEDS: hydrALAZINE 25 MG TAB PO SCH ×3 (06:02→21:32)
[2020-03-06 06:30] LABS: Hematocrit 24.7 % (35.5-45.6); Hemoglobin 8.3 gm/dl (11.8-15.2); Mean Corpuscular HGB Conc 34 % (32-34); Mean Corpuscular Volume 87 fl (84-94); Platelet Count 442 K/mm3 (140-440); Red Blood Count 2.83 M/mm3 (3.65-5.03); Red Cell Distribution Width 15.1 % (13.2-15.2)
[2020-03-06 06:55] LABS: Alanine Aminotransferase 201 units/L (7-56); BUN/Creatinine Ratio 18; Blood Urea Nitrogen 18 mg/dL (9-20); Calcium 8.6 mg/dL (8.4-10.2); Hemolysis Index 5
[2020-03-06] MEDS ORDERED: FLU VACC QUAD 2019-20 (3 YR UP)/PF 60 MCG/0.5 ML SYRINGE IM ONE (08:12)
--- NOTE | 2020-03-06 09:03 | Progress Note ---
Assessment and Plan Day #2 Worsening liver enzymes BHARTI improved Day #3 Liver enzymes improving BHARTI improved White blood cell count increasing Day #4 liver enzymes are improving Improved to 635/418 creatinine kinase also improving Day #5 Complaining of left knee pain Started on IV antibiotics Possible septic arthritis Day #6 Liver enzymes in the 200 range Improved from 2000 CK near normal Left knee pain persists + - Patient Problems (1) Acute liver failure Current Visit: Yes Status: Acute Qualifiers: Hepatic coma status: without hepatic coma Qualified Code(s): K72.00 - Acute and subacute hepatic failure without coma (2) Acute renal failure Current Visit: Yes Status: Acute Qualifiers: Acute renal failure type: unspecified Qualified Code(s): N17.9 - Acute kidney failure, unspecified (3) DVT prophylaxis Current Visit: Yes Status: Acute (4) Hyperkalemia Current Visit: Yes Status: Acute (5) Hyponatremia syndrome Current Visit: Yes Status: Acute (6) Lactic acidosis Current Visit: Yes Status: Acute (7) Rhabdomyolysis Current Visit: Yes Status: Acute Qualifiers: Rhabdomyolysis type: non-traumatic Qualified Code(s): M62.82 - Rhabdomyolysis (8) Sepsis Current Visit: Yes Status: Acute (9) Transaminitis Current Visit: Yes Status: Acute Subjective Date of service: 03/04/20 Principal diagnosis: Hypertensive emergency, acute liver failure, acute renal renal failure, rha Interval history: 40-year-old -Finnish male with no significant past medical history was brought into the emergency room today by EMS because of changes in mental status. Roommate was said to have noticed that patient was smelling of urine and also was covered with blood and was also said to have collapsed after getting out of the shower and therefore called EMS. Patient indicates that he used a dye colorist dyer knife over the past weekend to cut his left because he was trying to get rid of an infection in the left arm. He claims he had some infection in his left knee most probably spreading throughout his body including the left arm and therefore he tried to get rid of it. Patient denies any homicidal or suicidal ideations and denies having any mental illness. Upon arrival in the emergency room he was found to be pale, hypotensive and hypoglycemic. Work-up in the emergency room reveals hyperkalemia, renal and liver failure, and elevated CK levels. He was started on IV fluid, empiric IV antibiotics and medications given for his hyperkalemia. Patient has severe transaminitis Discussed with the GI Possible acute ischemic liver injury secondary to exsanguination Symptomatically better Objective - Constitutional Vitals: Vital Signs - 12hr 03/05/20 03/05/20 03/05/20 21:23 21:24 22:00 Temperature Pulse Rate 103 H 103 H 103 H Respiratory Rate Blood Pressure 139/84 139/84 O2 Sat by Pulse Oximetry 03/05/20 03/06/20 03/06/20 23:48 04:56 04:59 Temperature 99.6 F 99.0 F Pulse Rate 103 H 100 H Respiratory 20 18 Rate Blood Pressure 153/86 152/90 O2 Sat by Pulse 99 100 Oximetry 03/06/20 06:02 Temperature Pulse Rate 100 H Respiratory Rate Blood Pressure 152/90 O2 Sat by Pulse Oximetry General appearance: Present: no acute distress, well-nourished - EENT Eyes: PERRL, EOM intact ENT: hearing intact, clear oral mucosa Ears: bilateral: normal - Neck Neck: supple, normal ROM - Respiratory Respiratory effort: normal Respiratory: bilateral: CTA - Breasts Breasts: normal - Cardiovascular Rhythm: regular Heart Sounds: Present: S1 & S2. Absent: gallop, rub Extremities: pulses intact, No edema, normal color, Full ROM - Gastrointestinal General gastrointestinal: Present: soft, non-tender, non-distended, normal bowel sounds - Genitourinary Male genitourinary: normal - Integumentary Integumentary: clear, warm, dry - Musculoskeletal Musculoskeletal: 1, strength equal bilaterally - Neurologic Neurologic: moves all extremities - Psychiatric Psychiatric: memory intact, appropriate mood/affect, intact judgment & insight - Labs CBC & Chem 7: 03/08/20 04:16 03/08/20 04:16 Labs: Abnormal lab results 03/05/20 03/06/20 03/06/20 Range/Units 06:56 05:49 05:49 WBC 26.1 H (4.5-11.0) K/mm3 RBC 2.83 L (3.65-5.03) M/mm3 Hgb 8.3 L (11.8-15.2) gm/dl Hct 24.7 L (35.5-45.6) % Plt Count 442 H (140-440) K/mm3 Seg Neuts % (Manual) 89.0 H (40.0-70.0) % Lymphocytes % (Manual) 2.0 L (13.4-35.0) % Nucleated RBC % 1.0 H (0.0-0.9) % Seg Neutrophils # Man 19.6 H (1.8-7.7) K/mm3 Lymphocytes # (Manual) 0.4 L (1.2-5.4) K/mm3 Sodium 135 L (137-145) mmol/L Glucose 102 H (75-100) mg/dL AST 215 H (5-40) units/L ALT 201 H (7-56) units/L Alkaline Phosphatase 141 H (35-129) units/L Total Creatine Kinase (55-170) units/L Albumin 2.0 L (3.9-5) g/dL 03/06/20 Range/Units 06:45 WBC (4.5-11.0) K/mm3 RBC (3.65-5.03) M/mm3 Hgb (11.8-15.2) gm/dl Hct (35.5-45.6) % Plt Count (140-440) K/mm3 Seg Neuts % (Manual) (40.0-70.0) % Lymphocytes % (Manual) (13.4-35.0) % Nucleated RBC % (0.0-0.9) % Seg Neutrophils # Man (1.8-7.7) K/mm3 Lymphocytes # (Manual) (1.2-5.4) K/mm3 Sodium (137-145) mmol/L Glucose (75-100) mg/dL AST (5-40) units/L ALT (7-56) units/L Alkaline Phosphatase (35-129) units/L Total Creatine Kinase 1165 H (55-170) units/L Albumin (3.9-5) g/dL
--- NOTE | 2020-03-06 09:05 | Progress Note ---
Assessment and Plan Day #2 Worsening liver enzymes BHARTI improved Day #3 Liver enzymes improving BHARTI improved White blood cell count increasing Day #4 liver enzymes are improving Improved to 635/418 creatinine kinase also improving Day #5 Complaining of left knee pain Started on IV antibiotics Possible septic arthritis + - Patient Problems (1) Acute liver failure Current Visit: Yes Status: Acute Qualifiers: Hepatic coma status: without hepatic coma Qualified Code(s): K72.00 - Acute and subacute hepatic failure without coma Plan to address problem: Liver enzymes have worsened from 1885 of AST and ALT of 682 2867 and 1090 respectively Discussed with GI Possible ischemic injury to the liver secondary to exsanguination Liver enzymes improving AST of 2867 2 615 ALT from 1092 418 Still improving (2) Acute renal failure Current Visit: Yes Status: Acute Qualifiers: Acute renal failure type: unspecified Qualified Code(s): N17.9 - Acute kidney failure, unspecified Plan to address problem: ATN BUN/creatinine improved from 45 and 3.9-62 and 3.4 Improved compared to yesterday Normal BUN/creatinine (3) Hyperkalemia Current Visit: Yes Status: Acute (4) Hyponatremia syndrome Current Visit: Yes Status: Acute Plan to address problem: Improved (5) Lactic acidosis Current Visit: Yes Status: Acute (6) Rhabdomyolysis Current Visit: Yes Status: Acute Qualifiers: Rhabdomyolysis type: non-traumatic Qualified Code(s): M62.82 - Rhabdomyolysis Plan to address problem: Creatinine kinase improving Improving from 23,000-9516 Improving every day (7) Sepsis Current Visit: Yes Status: Acute Plan to address problem: Possibly from the left knee infection Leukocytosis IV Unasyn and IV vancomycin ID consult requested (8) Transaminitis Current Visit: Yes Status: Acute Plan to address problem: Improved (9) DVT prophylaxis Current Visit: Yes Status: Acute Plan to address problem: On heparin and GI prophylaxis Subjective Date of service: 03/04/20 Principal diagnosis: Hypertensive emergency, acute liver failure, acute renal renal failure, rha Interval history: 40-year-old -Af[place] male with no significant past medical history was brought into the emergency room today by EMS because of changes in mental status. Roommate was said to have noticed that patient was smelling of urine and also was covered with blood and was also said to have collapsed after ge tting out of the shower and therefore called EMS. Patient indicates that he used a sanitation truck cleaner knife over the past weekend to cut his left because he was trying to get rid of an infection in the left arm. He claims he had some infection in his left knee most probably spreading throughout his body including the left arm and therefore he tried to get rid of it. Patient denies any homicidal or suicidal ideations and denies having any mental illness. Upon arrival in the emergency room he was found to be pale, hypotensive and hypoglycemic. Work-up in the emergency room reveals hyperkalemia, renal and liver failure, and elevated CK levels. He was started on IV fluid, empiric IV antibiotics and medications given for his hyperkalemia. Patient has severe transaminitis Discussed with the GI Possible acute ischemic liver injury secondary to exsanguination Symptomatically better Objective - Constitutional Vitals: Vital Signs - 12hr 03/05/20 03/05/20 03/05/20 21:23 21:24 22:00 Temperature Pulse Rate 103 H 103 H 103 H Respiratory Rate Blood Pressure 139/84 139/84 O2 Sat by Pulse Oximetry 03/05/20 03/06/20 03/06/20 23:48 04:56 04:59 Temperature 99.6 F 99.0 F Pulse Rate 103 H 100 H Respiratory 20 18 Rate Blood Pressure 153/86 152/90 O2 Sat by Pulse 99 100 Oximetry 03/06/20 06:02 Temperature Pulse Rate 100 H Respiratory Rate Blood Pressure 152/90 O2 Sat by Pulse Oximetry General appearance: Present: no acute distress, well-nourished - EENT Eyes: PERRL, EOM intact ENT: hearing intact, clear oral mucosa Ears: bilateral: normal - Neck Neck: supple, normal ROM - Respiratory Respiratory effort: normal Respiratory: bilateral: CTA - Breasts Breasts: normal - Cardiovascular Heart rate: 68 Rhythm: regular Heart Sounds: Present: S1 & S2. Absent: gallop, rub Extremities: no ischemia, pulses intact, No edema, normal color, Full ROM - Gastrointestinal General gastrointestinal: Present: soft, non-tender, non-distended, normal bowel sounds - Genitourinary Male genitourinary: normal - Integumentary Integumentary: clear, warm, dry - Musculoskeletal Musculoskeletal: 1, strength equal bilaterally - Neurologic Neurologic: moves all extremities - Psychiatric Psychiatric: memory intact, appropriate mood/affect, intact judgment & insight - Labs CBC & Chem 7: 03/08/20 04:16 03/08/20 04:16 Labs: Abnormal lab results 03/05/20 03/06/20 03/06/20 Range/Units 06:56 05:49 05:49 WBC 26.1 H (4.5-11.0) K/mm3 RBC 2.83 L (3.65-5.03) M/mm3 Hgb 8.3 L (11.8-15.2) gm/dl Hct 24.7 L (35.5-45.6) % Plt Count 442 H (140-440) K/mm3 Seg Neuts % (Manual) 89.0 H (40.0-70.0) % Lymphocytes % (Manual) 2.0 L (13.4-35.0) % Nucleated RBC % 1.0 H (0.0-0.9) % Seg Neutrophils # Man 19.6 H (1.8-7.7) K/mm3 Lymphocytes # (Manual) 0.4 L (1.2-5.4) K/mm3 Sodium 135 L (137-145) mmol/L Glucose 102 H (75-100) mg/dL AST 215 H (5-40) units/L ALT 201 H (7-56) units/L Alkaline Phosphatase 141 H (35-129) units/L Total Creatine Kinase (55-170) units/L Albumin 2.0 L (3.9-5) g/dL 03/06/20 Range/Units 06:45 WBC (4.5-11.0) K/mm3 RBC (3.65-5.03) M/mm3 Hgb (11.8-15.2) gm/dl Hct (35.5-45.6) % Plt Count (140-440) K/mm3 Seg Neuts % (Manual) (40.0-70.0) % Lymphocytes % (Manual) (13.4-35.0) % Nucleated RBC % (0.0-0.9) % Seg Neutrophils # Man (1.8-7.7) K/mm3 Lymphocytes # (Manual) (1.2-5.4) K/mm3 Sodium (137-145) mmol/L Glucose (75-100) mg/dL AST (5-40) units/L ALT (7-56) units/L Alkaline Phosphatase (35-129) units/L Total Creatine Kinase 1165 H (55-170) units/L Albumin (3.9-5) g/dL
--- NOTE | 2020-03-06 09:10 | Discharge Summary ---
Providers - Providers Date of Admission: 02/29/20 23:27 Date of discharge: 03/06/20 Attending physician: RODRIGUEZ PRIETO 02/29/20 20:26 Consult to Physician [CONS] Routine Comment: Consulting Provider: APARNA SHANNON Physician Instructions: Reason For Exam: hyperkalemia, acute renal failure 02/29/20 23:24 Consult to Physician [CONS] Routine Comment: Consulting Provider: VIMAL LAZO Physician Instructions: Reason For Exam: acute liver failure 02/29/20 23:57 Consult to Dietitian/Nutrition [CONS] Routine Physician Instructions: Reason For Exam: Reason for Consult: Diet education 03/01/20 10:09 Consult to Physician [CONS] Routine Comment: Consulting Provider: AISHWARYA GIRON Physician Instructions: Reason For Exam: vasc cath, refractory hyperkalemia with injestion 03/01/20 19:25 Consult to Wound/ET Nurse [CONS] Routine Reason For Exam: wound eval/left forearm lacerations 03/04/20 15:04 Consult to Mental Health [CONS] Routine Reason For Exam: psych clearance Primary care physician: MOLD YARN SUPERVISOR Hospitalization Condition: Serious Disposition: DC-30 STILL A PATIENT - Discharge Diagnoses (1) Acute liver failure Status: Acute Qualifiers: Hepatic coma status: without hepatic coma Qualified Code(s): K72.00 - Acute and subacute hepatic failure without coma (2) Acute renal failure Status: Acute Qualifiers: Acute renal failure type: unspecified Qualified Code(s): N17.9 - Acute kidney failure, unspecified (3) DVT prophylaxis Status: Acute (4) Hyperkalemia Status: Acute (5) Hyponatremia syndrome Status: Acute (6) Lactic acidosis Status: Acute (7) Rhabdomyolysis Status: Acute (8) Sepsis Status: Acute (9) Transaminitis Status: Acute Exam - Constitutional Vitals: Temp Pulse Resp BP Pulse Ox 99.0 F 100 H 18 152/90 100 03/06/20 04:59 03/06/20 06:02 03/06/20 04:56 03/06/20 06:02 03/06/20 04:56 Plan Follow up with: PRIMARY CAREMD [Primary Care Provider] - 7 Days
[2020-03-06] MEDS ORDERED: VANCOMYCIN 1,250 MG in SODIUM CHLORIDE 0.9% 250ML 250 ML IV SCH (09:45)
[2020-03-06] MEDS ORDERED: VANCOMYCIN PHARMACY TO DOSE IV SCH (10:00)
--- NOTE | 2020-03-06 10:02 | Progress Note ---
Assessment and Plan Impression: * BHARTI with atn * Metabolic acidosis * hyperkalemia * hyponatremia * acute liver failure * rhabdomyolysis * anemia * encephalopathy * microscopic hematuria * injestion--admits to drinking febreeze Plan: * follow up ethylene glycol levels normal, admits to drinking febreeze * prn prbcs, ? source of anemia * negative vasculitis workup * do not give NSAIDS, stopped ibuprofen * intiated [employer] for presumed injestion and refractory hyperkalemia, better today, will follow up on ethylene glycol levels, no further hd needed * removed vasc cath * replete k and mag prn * avoid nephrotoxins * strict i/os * daily lytes * cr is better today * follow up ck levels--better * can stop ivfs,-- ck levels improved * ok to dc from renal standpoint Subjective Date of service: 03/06/20 Principal diagnosis: Hypertensive emergency, acute liver failure, acute renal renal failure, rha Interval history: resting in bed today Objective - Exam Narrative Exam: General appearance: Present: no acute distress, well-nourished - EENT Eyes: Present: PERRL, EOM intact ENT: hearing intact, clear oral mucosa, dentition normal - Neck Neck: Present: supple, normal ROM - Respiratory Respiratory effort: normal Respiratory: bilateral: CTA - Cardiovascular Rhythm: regular Heart Sounds: Present: S1 & S2. Absent: gallop, systolic murmur, diastolic murmur, rub - Extremities Extremities: no ischemia, pulses intact, pulses symmetrical (Dressing over left elbow), No edema, Full ROM Extremity abnormal: other (Dressing over left elbow) Peripheral Pulses: within normal limits - Abdominal General gastrointestinal: Present: soft, non-tender, normal bowel sounds. Absent: mass - Integumentary Integumentary: Present: clear, warm, dry, normal turgor. Absent: jaundice, rash - Musculoskeletal Musculoskeletal: strength equal bilaterally - Psychiatric Psychiatric: appropriate mood/affect, intact judgment & insight, memory intact, cooperative - Neurologic Neurologic: CNII-XII intact, moves all extremities - Vital Signs Vital signs: Vital Signs - 12hr 03/05/20 03/06/20 03/06/20 23:48 04:56 04:59 Temperature 99.6 F 99.0 F Pulse Rate 103 H 100 H Respiratory 20 18 Rate Blood Pressure 153/86 152/90 O2 Sat by Pulse 99 100 Oximetry 03/06/20 06:02 Temperature Pulse Rate 100 H Respiratory Rate Blood Pressure 152/90 O2 Sat by Pulse Oximetry - Lab 03/06/20 05:49 03/06/20 05:49 Most recent lab results ABG pH 7.427 pH Units (7.350-7.450) 02/29/20 23:09 ABG pCO2 28.1 mm Hg 02/29/20 23:09 ABG pO2 96.3 mm Hg (80.0-90.0) H 02/29/20 23:09 ABG HCO3 18.1 mmol/L (20.0-26.0) L 02/29/20 23:09 ABG O2 Saturation 97.6 % (95.0-99.0) 02/29/20 23:09 Calcium 8.6 mg/dL (8.4-10.2) 03/06/20 05:49 Medications & Allergies - Medications Allergies/Adverse Reactions: Allergies No Known Allergies Allergy (Unverified 02/29/20 18:25) Home Medications: Home Medications Medication Instructions Recorded Confirmed Last Taken Type No Known Home Medications [No 03/01/20 03/01/20 Unknown History Reported Home Medications] Active Medications: Generic Name Dose Route Start Last Admin Trade Name Freq PRN Reason Stop Dose Admin Acetaminophen 650 mg 03/01/20 13:57 03/05/20 03:43 Tylenol PO 650 mg Q4H PRN Administration Pain MILD(1-3)/Fever >100.5/OLIVERA Albumin Human 25 gm 03/01/20 10:16 Alburx 25% (Albumin) IV NITZA PRN Hypotension Carvedilol 6.25 mg 03/01/20 15:00 03/05/20 21:24 Coreg PO 6.25 mg BID JOSE RAMON Administration Epoetin Brad 10,000 unit 03/01/20 10:16 03/01/20 15:14 Procrit IV 10,000 unit NITZA PRN Administration hemodialysis Hydralazine HCl 50 mg 03/01/20 15:00 03/06/20 06:02 Apresoline PO 50 mg Q8HR JOSE RAMON Administration Hydromorphone HCl 0.5 mg 03/01/20 08:35 03/05/20 21:24 Dilaudid IV 0.5 mg Q3H PRN Administration Pain , Severe (7-10) Sodium Chloride 100 mls @ 999 mls/hr 03/01/20 10:16 Nacl 0.9% IV NITZA PRN Hypotension Ampicillin Sodium/Sulbactam Sodium 3 gm in 100 mls @ 100 mls/hr 03/06/20 12:00 Unasyn/Ns 3 Gm/100 Ml IV Q6HR [facility] Protocol Vancomycin HCl 1,250 mg/ 275 mls @ 166.667 mls/hr 03/06/20 09:45 Sodium Chloride IV Q8H JOSE RAMON Ibuprofen 400 mg 03/04/20 13:32 03/04/20 13:52 Ibuprofen PO 400 mg Q6H PRN Administration Non Cardiac Pain or Temp>100.5 Metoclopramide HCl 10 mg 03/01/20 13:57 Reglan IV Q6H PRN Nausea And Vomiting Ondansetron HCl 4 mg 03/01/20 13:57 Zofran IV Q8H PRN Nausea And Vomiting Oxycodone/Acetaminophen 1 tab 03/01/20 13:57 03/06/20 06:02 Percocet 5/325 PO 1 tab Q6H PRN Administration Pain, Moderate (4-6) Pantoprazole Sodium 40 mg 03/02/20 22:00 03/05/20 21:24 Protonix PO 40 mg BID JOSE RAMON Administration Sodium Chloride 10 ml 03/01/20 22:00 03/06/20 00:25 Sodium Chloride Flush Syringe 10 Ml IV 10 ml BID JOSE RAMON Administration Sodium Chloride 10 ml 03/01/20 13:57 Sodium Chloride Flush Syringe 10 Ml IV PRN PRN LINE FLUSH
[2020-03-06 10:14] LABS: Anisocytosis 1+; Basophils % (Manual) 0 % (0.0-1.8); Total Cells Counted 100
[2020-03-06 10:15] LABS: Platelet Estimate Consistent w Auto
[2020-03-06] MEDS: PANTOPRAZOLE 40 MG TAB PO SCH ×2 (10:42→21:32)
[2020-03-06] MEDS: carvediloL 6.25 MG TAB PO SCH ×2 (10:42→21:33)
[2020-03-06] MEDS: PIPERACIL/TAZOBACTA 4.5/NS 100 4.5 GM/100 ML VIAL IV SCH (10:54)
[2020-03-06] MEDS: AMPICILLIN/SULBACTA 3GM/100ML 3 GM/100 ML BAG IV SCH ×2 (12:18→17:48)
[2020-03-06] MEDS: HYDROmorphone 1 MG/1 ML INJ IV PRN (20:08)
--- NOTE | 2020-03-06 20:33 | Progress Note ---
Assessment and Plan Day #2 Worsening liver enzymes BHARTI improved Day #3 Liver enzymes improving BHARTI improved White blood cell count increasing Day #4 liver enzymes are improving Improved to 635/418 creatinine kinase also improving Day #5 Complaining of left knee pain Started on IV antibiotics Possible septic arthritis Day #6 Liver enzymes in the 200 range Improved from 2000 CK near normal Left knee pain persists Day #7 Liver enzymes improved to AST/ALT of 215/201 Creatinine kinase improved to 1165 from 23,000 Acute kidney injury improved to normal Left knee pain persists Orthopedic consult pending ID consult if necessary + - Patient Problems (1) Septic arthritis Current Visit: Yes Status: Acute Qualifiers: Septic arthritis location: knee Laterality: left Plan to address problem: Initiated on IV vancomycin and Unasyn (2) Acute liver failure Current Visit: Yes Status: Acute Qualifiers: Hepatic coma status: without hepatic coma Qualified Code(s): K72.00 - Acute and subacute hepatic failure without coma Plan to address problem: Liver enzymes have worsened from 1885 of AST and ALT of 682 2867 and 1090 respectively Discussed with GI Possible ischemic injury to the liver secondary to exsanguination Liver enzymes improving AST of 2867 2 615 ALT from 1092 418 Still improving (3) Acute renal failure Current Visit: Yes Status: Acute Qualifiers: Acute renal failure type: unspecified Qualified Code(s): N17.9 - Acute kidney failure, unspecified Plan to address problem: ATN BUN/creatinine improved from 45 and 3.9-62 and 3.4 Improved compared to yesterday Normal BUN/creatinine (4) Hyperkalemia Current Visit: Yes Status: Acute Plan to address problem: Hyperkalemia resolved (5) Hyponatremia syndrome Current Visit: Yes Status: Acute Plan to address problem: Improved (6) Lactic acidosis Current Visit: Yes Status: Acute (7) Rhabdomyolysis Current Visit: Yes Status: Acute Qualifiers: Rhabdomyolysis type: non-traumatic Qualified Code(s): M62.82 - Rhabdomyolysis Plan to address problem: Creatinine kinase improving Improving from 23,000-9516 Improving every day Improved to 1165 from 23,000 (8) Sepsis Current Visit: Yes Status: Acute Plan to address problem: Possibly from the left knee infection Leukocytosis IV Unasyn and IV vancomycin ID consult requested (9) Transaminitis Current Visit: Yes Status: Acute Plan to address problem: Improved (10) DVT prophylaxis Current Visit: Yes Status: Acute Plan to address problem: On heparin and GI prophylaxis Subjective Date of service: 03/06/20 Principal diagnosis: Hypertensive emergency, acute liver failure, acute renal renal failure, rha Interval history: 40-year-old -Greek male with no significant past medical history was brought into the emergency room today by EMS because of changes in mental st atus. Roommate was said to have noticed that patient was smelling of urine and also was covered with blood and was also said to have collapsed after getting out of the shower and therefore called EMS. Patient indicates that he used a professor of architecture knife over the past weekend to cut his left because he was trying to get rid of an infection in the left arm. He claims he had some infection in his left knee most probably spreading throughout his body including the left arm and therefore he tried to get rid of it. Patient denies any homicidal or suicidal ideations and denies having any mental illness. Upon arrival in the emergency room he was found to be pale, hypotensive and hypoglycemic. Work-up in the emergency room reveals hyperkalemia, renal and liver failure, and elevated CK levels. He was started on IV fluid, empiric IV antibiotics and medications given for his hyperkalemia. Patient has severe transaminitis Discussed with the GI Possible acute ischemic liver injury secondary to exsanguination Symptomatically better Left knee pain persists Objective - Constitutional Vitals: Vital Signs - 12hr 03/06/20 03/06/20 03/06/20 15:13 15:45 15:50 Temperature 99.9 F H 98.5 F Pulse Rate 67 61 Respiratory 18 18 Rate Blood Pressure 141/75 125/50 O2 Sat by Pulse 87 Oximetry 03/06/20 20:08 Temperature Pulse Rate Respiratory 18 Rate Blood Pressure O2 Sat by Pulse Oximetry General appearance: Present: no acute distress, well-nourished - EENT Eyes: PERRL, EOM intact ENT: hearing intact, clear oral mucosa Ears: bilateral: normal - Neck Neck: supple, normal ROM - Respiratory Respiratory effort: normal Respiratory: bilateral: CTA - Breasts Breasts: normal - Cardiovascular Heart rate: 78 Rhythm: regular Heart Sounds: Present: S1 & S2. Absent: gallop, rub Extremities: pulses intact, No edema, normal color, Full ROM, abnormal (Left knee tender and painful range of motion warm to touch) Extremity abnormal: other - Gastrointestinal General gastrointestinal: Present: soft, non-tender, non-distended, normal bowel sounds - Genitourinary Male genitourinary: deferred, normal - Integumentary Integumentary: clear, warm, dry - Musculoskeletal Musculoskeletal: 1, strength equal bilaterally - Neurologic Neurologic: moves all extremities - Psychiatric Psychiatric: memory intact, appropriate mood/affect, intact judgment & insight - Labs CBC & Chem 7: 03/08/20 04:16 03/08/20 04:16 Labs: Abnormal lab results 03/06/20 03/06/20 03/06/20 Range/Units 05:49 05:49 06:45 WBC 26.1 H (4.5-11.0) K/mm3 RBC 2.83 L (3.65-5.03) M/mm3 Hgb 8.3 L (11.8-15.2) gm/dl Hct 24.7 L (35.5-45.6) % Plt Count 442 H (140-440) K/mm3 Seg Neuts % (Manual) 88.0 H (40.0-70.0) % Lymphocytes % (Manual) 7.0 L (13.4-35.0) % Seg Neutrophils # Man 23.0 H (1.8-7.7) K/mm3 Monocytes # (Manual) 1.0 H (0.0-0.8) K/mm3 Sodium 135 L (137-145) mmol/L Glucose 102 H (75-100) mg/dL AST 215 H (5-40) units/L ALT 201 H (7-56) units/L Alkaline Phosphatase 141 H (35-129) units/L Total Creatine Kinase 1165 H (55-170) units/L Albumin 2.0 L (3.9-5) g/dL
[2020-03-06] MEDS: VANCOMYCIN 1,250 MG in SODIUM CHLORIDE 0.9% 250ML 250 ML IV SCH (21:31)
[2020-03-07] MEDS: AMPICILLIN/SULBACTA 3GM/100ML 3 GM/100 ML BAG IV SCH ×4 (00:22→18:12)
[2020-03-07 05:01] LABS: Hematocrit 22.9 % (35.5-45.6); Hemoglobin 7.6 gm/dl (11.8-15.2); Mean Corpuscular HGB Conc 33 % (32-34); Mean Corpuscular Volume 86 fl (84-94); Platelet Count 510 K/mm3 (140-440); Red Blood Count 2.65 M/mm3 (3.65-5.03); Red Cell Distribution Width 15.3 % (13.2-15.2)
[2020-03-07 05:28] LABS: Alanine Aminotransferase 217 units/L (7-56); BUN/Creatinine Ratio 20; Blood Urea Nitrogen 18 mg/dL (9-20); Calcium 8.4 mg/dL (8.4-10.2); Hemolysis Index 1
[2020-03-07 06:09] LABS: Basophils % (Manual) 0 % (0.0-1.8); Eosinophils % (Manual) 0 % (0.0-4.3); Hypochromasia 2+; Total Cells Counted 100
[2020-03-07 06:10] LABS: Anisocytosis Few; Platelet Estimate Consistent w Auto
[2020-03-07] MEDS: hydrALAZINE 25 MG TAB PO SCH ×3 (06:53→21:40)
[2020-03-07] MEDS: VANCOMYCIN 1,250 MG in SODIUM CHLORIDE 0.9% 250ML 250 ML IV SCH ×3 (07:56→21:46)
--- NOTE | 2020-03-07 09:31 | Progress Note ---
Assessment and Plan Impression: * BHARTI with ATN * Metabolic acidosis * hyperkalemia * hyponatremia * acute liver failure * rhabdomyolysis * anemia * encephalopathy * microscopic hematuria * ingestion--admits to drinking febreze Plan: * follow up ethylene glycol levels normal after Febreze ingestion * CK downtrended * Reviewed other toxicologies * Renal function WNL now * negative vasculitis workup * avoid nephrotoxins including NSAIDs * S/p [employer] for presumed ingestion and refractory hyperkalemia, no further HD is needed based on repeat labs and clinical scenario * Vasc cath removed, appreciated * replete lytes prn * avoid nephrotoxins * strict i/os * Daily lytes * Anemia workup per primary * Liver workup/management per primary Subjective Date of service: 03/07/20 Principal diagnosis: Hypertensive emergency, acute liver failure, acute renal renal failure, rha Interval history: No acute events noted. Sleeping this AM Objective - Exam Narrative Exam: General appearance: no acute distress, well-nourished; sleeping with blanket covering face Eyes: PERRL, EOM intact ENT: hearing intact Neck: supple Respiratory: CTA Heart: regular rate noted Extremities: No edema, Full ROM Gastrointestinal: soft, non-tender Integumentary: clear, warm, dry, normal turgor Musculoskeletal: strength equal bilaterally Psychiatric: appropriate mood/affect, intact judgment & insight, memory intact, cooperative Neurologic: CNII-XII intact, moves all extremities spontaneously - Vital Signs Vital signs: Vital Signs - 12hr 03/06/20 03/06/20 03/06/20 21:32 21:33 21:42 Temperature Pulse Rate 97 H 97 H Respiratory 18 Rate Respiratory Rate [denies] Blood Pressure 135/87 135/87 Blood Pressure [right arm] O2 Sat by Pulse Oximetry 03/06/20 03/06/20 03/07/20 22:00 23:59 03:00 Temperature 99.5 F Pulse Rate 90 90 Respiratory 20 Rate Respiratory 20 Rate [denies] Blood Pressure Blood Pressure 136/79 [right arm] O2 Sat by Pulse 100 96 Oximetry 03/07/20 03/07/20 04:10 06:53 Temperature 99.6 F Pulse Rate 93 H 97 H Respiratory 20 Rate Respiratory Rate [denies] Blood Pressure 129/78 129/78 Blood Pressure [right arm] O2 Sat by Pulse 99 Oximetry - Lab 03/07/20 04:47 03/07/20 04:47 Most recent lab results ABG pH 7.427 pH Units (7.350-7.450) 02/29/20 23:09 ABG pCO2 28.1 mm Hg 02/29/20 23:09 ABG pO2 96.3 mm Hg (80.0-90.0) H 02/29/20 23:09 ABG HCO3 18.1 mmol/L (20.0-26.0) L 02/29/20 23:09 ABG O2 Saturation 97.6 % (95.0-99.0) 02/29/20 23:09 Calcium 8.4 mg/dL (8.4-10.2) 03/07/20 04:47 Medications & Allergies - Medications Allergies/Adverse Reactions: Allergies No Known Allergies Allergy (Unverified 02/29/20 18:25) Home Medications: Home Medications Medication Instructions Recorded Confirmed Last Taken Type No Known Home Medications [No 03/01/20 03/01/20 Unknown History Reported Home Medications] Active Medications: Generic Name Dose Route Start Last Admin Trade Name Braxton PRN Reason Stop Dose Admin Acetaminophen 650 mg 03/01/20 13:57 03/05/20 03:43 Tylenol PO 650 mg Q4H PRN Administration Pain MILD(1-3)/Fever >100.5/OLIVERA Albumin Human 25 gm 03/01/20 10:16 Alburx 25% (Albumin) IV NITZA PRN Hypotension Carvedilol 6.25 mg 03/01/20 15:00 03/06/20 21:33 Coreg PO 6.25 mg BID JOSE RAMON Administration Epoetin Brad 10,000 unit 03/01/20 10:16 03/01/20 15:14 Procrit IV 10,000 unit NITZA PRN Administration hemodialysis Hydralazine HCl 50 mg 03/01/20 15:00 03/07/20 06:53 Apresoline PO 50 mg Q8HR JOSE RAMON Administration Hydromorphone HCl 0.5 mg 03/01/20 08:35 03/06/20 20:08 Dilaudid IV 0.5 mg Q3H PRN Administration Pain , Severe (7-10) Sodium Chloride 100 mls @ 999 mls/hr 03/01/20 10:16 Nacl 0.9% IV NITZA PRN Hypotension Ampicillin Sodium/Sulbactam Sodium 3 gm in 100 mls @ 100 mls/hr 03/06/20 12:00 03/07/20 07:56 Unasyn/Ns 3 Gm/100 Ml IV Not Given Q6HR JOSE RAMON Protocol Vancomycin HCl 1,250 mg/ 275 mls @ 166.667 mls/hr 03/06/20 21:00 03/07/20 07:56 Sodium Chloride IV Not Given Q8H JOSE RAMON Ibuprofen 400 mg 03/04/20 13:32 03/04/20 13:52 Ibuprofen PO 400 mg Q6H PRN Administration Non Cardiac Pain or Temp>100.5 Metoclopramide HCl 10 mg 03/01/20 13:57 Reglan IV Q6H PRN Nausea And Vomiting Ondansetron HCl 4 mg 03/01/20 13:57 Zofran IV Q8H PRN Nausea And Vomiting Oxycodone/Acetaminophen 1 tab 03/01/20 13:57 03/06/20 21:42 Percocet 5/325 PO 1 tab Q6H PRN Administration Pain, Moderate (4-6) Pantoprazole Sodium 40 mg 03/02/20 22:00 03/06/20 21:32 Protonix PO 40 mg BID JOSE RAMON Administration Sodium Chloride 10 ml 03/01/20 22:00 03/06/20 21:34 Sodium Chloride Flush Syringe 10 Ml IV 10 ml BID JOSE RAMON Administration Sodium Chloride 10 ml 03/01/20 13:57 03/07/20 00:23 Sodium Chloride Flush Syringe 10 Ml IV 10 ml PRN PRN Administration LINE FLUSH
[2020-03-07] MEDS: oxyCODONE /ACETAMINOPHEN 5-325MG TAB PO PRN ×2 (09:34→18:12)
[2020-03-07] MEDS: carvediloL 6.25 MG TAB PO SCH ×2 (09:34→21:39)
[2020-03-07] MEDS: PANTOPRAZOLE 40 MG TAB PO SCH ×2 (09:34→21:38)
--- NOTE | 2020-03-07 20:42 | Progress Note ---
Assessment and Plan Day #7 - Patient Problems (1) Septic arthritis Current Visit: Yes Status: Acute Qualifiers: Septic arthritis location: knee Laterality: left Plan to address problem: Left knee septic arthritis Orthopedic consult requested IV Unasyn and IV vancomycin initiated yesterday (2) Acute liver failure Current Visit: Yes Status: Acute Qualifiers: Hepatic coma status: without hepatic coma Qualified Code(s): K72.00 - Acute and subacute hepatic failure without coma Plan to address problem: Improved Liver enzymes improved from around 18 100-200 (3) Acute renal failure Current Visit: Yes Status: Acute Qualifiers: Acute renal failure type: unspecified Qualified Code(s): N17.9 - Acute kidney failure, unspecified (4) Hyperkalemia Current Visit: Yes Status: Acute (5) Hyponatremia syndrome Current Visit: Yes Status: Acute (6) Lactic acidosis Current Visit: Yes Status: Acute (7) Rhabdomyolysis Current Visit: Yes Status: Acute (8) Sepsis Current Visit: Yes Status: Acute Plan to address problem: Possibly from the left knee infection Leukocytosis IV Unasyn and IV vancomycin ID consult requested (9) Transaminitis Current Visit: Yes Status: Acute Plan to address problem: Improved (10) DVT prophylaxis Current Visit: Yes Status: Acute Plan to address problem: On heparin and GI prophylaxis Subjective Date of service: 03/07/20 Principal diagnosis: Hypertensive emergency, acute liver failure, acute renal renal failure, rha Interval history: Patient admitted for acute liver failure secondary to ischemia because of exsanguination, hypertensive emergency and acute kidney injury improving but developed left knee swelling and severe pain. Patient being treated for septic arthritis of the left knee orthopedics consult requested Objective - Constitutional Vitals: Vital Signs - 12hr 03/07/20 09:52 Pulse Rate 101 H Respiratory 20 Rate [denies] General appearance: Present: no acute distress, well-nourished - EENT Eyes: PERRL, EOM intact ENT: hearing intact, clear oral mucosa Ears: bilateral: normal - Neck Neck: supple, normal ROM - Respiratory Respiratory effort: normal Respiratory: bilateral: CTA - Breasts Breasts: normal - Cardiovascular Rhythm: regular Heart Sounds: Present: S1 & S2. Absent: gallop, rub Extremities: pulses intact, No edema, normal color, Full ROM, abnormal (Left knee swollen and warm to touch and painful range of motion) - Gastrointestinal General gastrointestinal: Present: soft, non-tender, non-distended, normal bowel sounds - Genitourinary Male genitourinary: normal - Integumentary Integumentary: clear, warm, dry - Musculoskeletal Musculoskeletal: 1, strength equal bilaterally - Neurologic Neurologic: moves all extremities - Psychiatric Psychiatric: memory intact, appropriate mood/affect, intact judgment & insight - Labs CBC & Chem 7: 03/08/20 04:16 03/08/20 04:16 Labs: Abnormal lab results 03/07/20 03/07/20 Range/Units 04:47 04:47 WBC 28.3 H (4.5-11.0) K/mm3 RBC 2.65 L (3.65-5.03) M/mm3 Hgb 7.6 L (11.8-15.2) gm/dl Hct 22.9 L (35.5-45.6) % RDW 15.3 H (13.2-15.2) % Plt Count 510 H (140-440) K/mm3 Seg Neuts % (Manual) 89.0 H (40.0-70.0) % Lymphocytes % (Manual) 8.0 L (13.4-35.0) % Seg Neutrophils # Man 25.2 H (1.8-7.7) K/mm3 Sodium 136 L (137-145) mmol/L AST 237 H (5-40) units/L ALT 217 H (7-56) units/L Alkaline Phosphatase 151 H (35-129) units/L Albumin 2.0 L (3.9-5) g/dL
[2020-03-07] MEDS: IBUPROFEN 400 MG TAB PO PRN (21:38)
[2020-03-08] MEDS: AMPICILLIN/SULBACTA 3GM/100ML 3 GM/100 ML BAG IV SCH ×4 (01:40→18:05)
[2020-03-08 04:46] LABS: Hemoglobin 6.9 gm/dl (11.8-15.2); Mean Corpuscular HGB Conc 33 % (32-34); Mean Corpuscular Volume 89 fl (84-94); Platelet Count 595 K/mm3 (140-440); Red Blood Count 2.38 M/mm3 (3.65-5.03); Red Cell Distribution Width 15.4 % (13.2-15.2)
[2020-03-08 05:07] LABS: Alanine Aminotransferase 211 units/L (7-56); Albumin 2.2 g/dL (3.9-5); BUN/Creatinine Ratio 19; Blood Urea Nitrogen 17 mg/dL (9-20); Calcium 8.3 mg/dL (8.4-10.2); Hemolysis Index 0
[2020-03-08 05:43] LABS: Band Neutrophils # (Manual) 0.3 K/mm3; Basophils % (Manual) 0 % (0.0-1.8); Total Cells Counted 100
[2020-03-08 05:44] LABS: Anisocytosis 1+
[2020-03-08 05:45] LABS: Hypochromasia 1+; Large Platelets Few; Platelet Estimate Consistent w Auto; Target Cells Few
[2020-03-08] MEDS: hydrALAZINE 25 MG TAB PO SCH ×4 (06:07→21:29)
[2020-03-08] MEDS: oxyCODONE /ACETAMINOPHEN 5-325MG TAB PO PRN ×3 (06:07→22:24)
[2020-03-08] MEDS: VANCOMYCIN 1,250 MG in SODIUM CHLORIDE 0.9% 250ML 250 ML IV SCH ×3 (06:12→20:17)
--- NOTE | 2020-03-08 09:08 | Progress Note ---
Assessment and Plan Impression: * BHARTI with ATN * Metabolic acidosis * hyperkalemia * hyponatremia * acute liver failure * rhabdomyolysis * anemia * encephalopathy * microscopic hematuria * ingestion--admits to drinking febreze Plan: * follow up ethylene glycol levels normal after Febreze ingestion * CK downtrended * Reviewed other toxicologies * Renal function WNL now * negative vasculitis workup * avoid nephrotoxins including NSAIDs * S/p [employer] for presumed ingestion and refractory hyperkalemia, no further HD is needed based on repeat labs and clinical scenario * Vasc cath removed, appreciated * replete lytes prn * avoid nephrotoxins * strict i/os * Daily lytes * Anemia workup per primary; transfuse PRBCs prn given hemoglobin <7 * Liver workup/management per primary * Abx per primary, awaiting ortho recs Subjective Date of service: 03/08/20 Principal diagnosis: Hypertensive emergency, acute liver failure, acute renal renal failure, rha Interval history: No acute events noted. Having joint pains concerning for septic arthritis, ortho consulted Objective - Exam Narrative Exam: General appearance: no acute distress, well-nourished; sleeping with blanket covering face Eyes: PERRL, EOM intact ENT: hearing intact Neck: supple Respiratory: CTA Heart: regular rate noted Extremities: No edema, Full ROM Gastrointestinal: soft, non-tender Integumentary: clear, warm, dry, normal turgor Musculoskeletal: strength equal bilaterally Psychiatric: appropriate mood/affect, intact judgment & insight, memory intact, cooperative Neurologic: CNII-XII intact, moves all extremities spontaneously - Vital Signs Vital signs: Vital Signs - 12hr 03/07/20 03/07/20 03/07/20 21:38 21:39 21:40 Temperature Pulse Rate 97 H 97 H Respiratory 18 Rate Blood Pressure 139/71 139/71 O2 Sat by Pulse Oximetry 03/07/20 03/07/20 03/08/20 22:00 23:04 06:07 Temperature 99.7 F H Pulse Rate 97 H 89 89 Respiratory 18 20 Rate Blood Pressure 133/59 133/59 O2 Sat by Pulse 97 Oximetry - Lab 03/08/20 04:16 03/08/20 04:16 Most recent lab results ABG pH 7.427 pH Units (7.350-7.450) 02/29/20 23:09 ABG pCO2 28.1 mm Hg 02/29/20 23:09 ABG pO2 96.3 mm Hg (80.0-90.0) H 02/29/20 23:09 ABG HCO3 18.1 mmol/L (20.0-26.0) L 02/29/20 23:09 ABG O2 Saturation 97.6 % (95.0-99.0) 02/29/20 23:09 Calcium 8.3 mg/dL (8.4-10.2) L 03/08/20 04:16 Medications & Allergies - Medications Allergies/Adverse Reactions: Allergies No Known Allergies Allergy (Unverified 02/29/20 18:25) Home Medications: Home Medications Medication Instructions Recorded Confirmed Last Taken Type No Known Home Medications [No 03/01/20 03/01/20 Unknown History Reported Home Medications] Active Medications: Generic Name Dose Route Start Last Admin Trade Name Freq PRN Reason Stop Dose Admin Acetaminophen 650 mg 03/01/20 13:57 03/05/20 03:43 Tylenol PO 650 mg Q4H PRN Administration Pain MILD(1-3)/Fever >100.5/OLIVERA Albumin Human 25 gm 03/01/20 10:16 Alburx 25% (Albumin) IV NITZA PRN Hypotension Carvedilol 6.25 mg 03/01/20 15:00 03/07/20 21:39 Coreg PO 6.25 mg BID JOSE RAMON Administration Epoetin Brad 10,000 unit 03/01/20 10:16 03/01/20 15:14 Procrit IV 10,000 unit NITZA PRN Administration hemodialysis Hydralazine HCl 50 mg 03/01/20 15:00 03/08/20 06:07 Apresoline PO 50 mg Q8HR JOSE RAMON Administration Hydromorphone HCl 0.5 mg 03/01/20 08:35 03/06/20 20:08 Dilaudid IV 0.5 mg Q3H PRN Administration Pain , Severe (7-10) Sodium Chloride 100 mls @ 999 mls/hr 03/01/20 10:16 Nacl 0.9% IV NITZA PRN Hypotension Ampicillin Sodium/Sulbactam Sodium 3 gm in 100 mls @ 100 mls/hr 03/06/20 12:00 03/08/20 06:05 Unasyn/Ns 3 Gm/100 Ml IV 100 mls/hr Q6HR JOSE RAMON Administration Protocol Vancomycin HCl 1,250 mg/ 275 mls @ 166.667 mls/hr 03/06/20 21:00 03/08/20 06: 12 Sodium Chloride IV 166.667 mls/hr Q8H JOSE RAMON Administration Ibuprofen 400 mg 03/04/20 13:32 03/07/20 21:38 Ibuprofen PO 400 mg Q6H PRN Administration Non Cardiac Pain or Temp>100.5 Metoclopramide HCl 10 mg 03/01/20 13:57 Reglan IV Q6H PRN Nausea And Vomiting Ondansetron HCl 4 mg 03/01/20 13:57 Zofran IV Q8H PRN Nausea And Vomiting Oxycodone/Acetaminophen 1 tab 03/01/20 13:57 03/08/20 06:07 Percocet 5/325 PO 1 tab Q6H PRN Administration Pain, Moderate (4-6) Pantoprazole Sodium 40 mg 03/02/20 22:00 03/07/20 21:38 Protonix PO 40 mg BID JOSE RAMON Administration Sodium Chloride 10 ml 03/01/20 22:00 03/07/20 21:41 Sodium Chloride Flush Syringe 10 Ml IV 10 ml BID JOSE RAMON Administration Sodium Chloride 10 ml 03/01/20 13:57 03/08/20 06:12 Sodium Chloride Flush Syringe 10 Ml IV 10 ml PRN PRN Administration LINE FLUSH
[2020-03-08] MEDS: HYDROmorphone 1 MG/1 ML INJ IV PRN ×7 (10:01→17:20)
[2020-03-08] MEDS: PANTOPRAZOLE 40 MG TAB PO SCH ×2 (10:01→21:29)
[2020-03-08] MEDS: carvediloL 6.25 MG TAB PO SCH ×2 (10:01→21:29)
--- NOTE | 2020-03-08 10:05 | Consultation ---
History of Present Illness - HPI Consult date: 03/08/20 Consult reason: joint pain (40-year-old male who complains of left knee pain swelling and stiffness) Past History Past Medical History: No medical history Past Surgical History: No surgical history Social history: no significant social history Family history: no significant family history Medications and Allergies Allergies Allergy/AdvReac Type Severity Reaction Status Date / Time No Known Allergies Allergy Unverified 02/29/20 18:25 Home Medications Medication Instructions Recorded Confirmed Last Taken Type No Known Home Medications [No 03/01/20 03/01/20 Unknown History Reported Home Medications] Active Meds: Active Medications Acetaminophen (Tylenol) 650 mg PO Q4H PRN PRN Reason: Pain MILD(1-3)/Fever >100.5/OLIVERA Last Admin: 03/05/20 03:43 Dose: 650 mg Documented by: Albumin Human (Alburx 25% (Albumin)) 25 gm IV NITZA PRN PRN Reason: Hypotension Carvedilol (Coreg) 6.25 mg PO BID [facility] Last Admin: 03/07/20 21:39 Dose: 6.25 mg Documented by: Epoetin Brad (Procrit) 10,000 unit IV NITZA PRN PRN Reason: hemodialysis Last Admin: 03/01/20 15:14 Dose: 10,000 unit Documented by: Hydralazine HCl (Apresoline) 50 mg PO Q8HR [facility] Last Admin: 03/08/20 06:07 Dose: 50 mg Documented by: Hydromorphone HCl (Dilaudid) 0.5 mg IV Q3H PRN PRN Reason: Pain , Severe (7-10) Last Admin: 03/06/20 20:08 Dose: 0.5 mg Documented by: Sodium Chloride (Nacl 0.9%) 100 mls @ 999 mls/hr IV NITZA PRN PRN Reason: Hypotension Ampicillin Sodium/Sulbactam Sodium (Unasyn/Ns 3 Gm/100 Ml) 3 gm in 100 mls @ 100 mls/hr IV Q6HR [facility]; Protocol Last Admin: 03/08/20 06:05 Dose: 100 mls/hr Documented by: Vancomycin HCl 1,250 mg/ (Sodium Chloride) 275 mls @ 166.667 mls/hr IV Q8H [facility] Last Admin: 03/08/20 06:12 Dose: 166.667 mls/hr Documented by: Ibuprofen (Ibuprofen) 400 mg PO Q6H PRN PRN Reason: Non Cardiac Pain or Temp>100.5 Last Admin: 03/07/20 21:38 Dose: 400 mg Documented by: Metoclopramide HCl (Reglan) 10 mg IV Q6H PRN PRN Reason: Nausea And Vomiting Ondansetron HCl (Zofran) 4 mg IV Q8H PRN PRN Reason: Nausea And Vomiting Oxycodone/Acetaminophen (Percocet 5/325) 1 tab PO Q6H PRN PRN Reason: Pain, Moderate (4-6) Last Admin: 03/08/20 06:07 Dose: 1 tab Documented by: Pantoprazole Sodium (Protonix) 40 mg PO BID [facility] Last Admin: 03/07/20 21:38 Dose: 40 mg Documented by: Sodium Chloride (Sodium Chloride Flush Syringe 10 Ml) 10 ml IV BID [facility] Last Admin: 03/07/20 21:41 Dose: 10 ml Documented by: Sodium Chloride (Sodium Chloride Flush Syringe 10 Ml) 10 ml IV PRN PRN PRN Reason: LINE FLUSH Last Admin: 03/08/20 06:12 Dose: 10 ml Documented by: Physical Examination - Physical exam Narrative exam: On physical exam significant musculoskeletal findings relates to the left lower extremity patient is noted to have the knee in a flexed position there is moderate swelling overlying the distal thigh proximal calf region passive range of motion decreased secondary to pain there is some fluctuance noted in the anterior compartment of the leg there is good pulses distally Eyes: PERRL ENT: Positive: clear oral mucosa Respiratory effort: normal Respiratory: bilateral: CTA Rhythm: regular Heart Sounds: Positive: S1 & S2 General gastrointestinal: Positive: soft, non-tender, non-distended, normal bowel sounds Integumentary: clear, warm, dry Neurologic: Positive: CNII-XII intact, moves all extremities, gait normal. Negative: focal deficits - Cervical Spine Neck pain: none Tenderness with palpation: none Full ROM: yes ROM: flexion: normal ROM: extension: normal ROM: rotation right: normal ROM: rotation left: normal ROM: lateral flexion right: normal ROM: lateral flexion left: normal - Lumbar Spine Back pain: none Tenderness with palpation: none Appearance: normal Full ROM: yes ROM: flexion: normal ROM: extension: normal ROM: rotation right: normal ROM: rotation left: normal ROM: lateral flexion right: normal ROM: lateral flexion left: normal Assessment and Plan Left knee pain and swelling rule out sepsis Left knee aspirated with small amount of blood, with fluid will be sent to microbiology for analysis He may require surgical lavage
[2020-03-08] MEDS ORDERED: SODIUM CHLORIDE 0.9% 500 ML 500 ML IV NR (10:11)
--- NOTE | 2020-03-08 10:52 | XRay Report ---
LEFT KNEE 3 VIEWS INDICATION: pain and swelling. COMPARISON: No relevant prior imaging study available. FINDINGS: There is scattered soft tissue gas about the left knee primarily in the posterior soft tissues. This is both superficial and deep. In addition, there is suggestion of gas anteriorly within the joint spa ce. There is associated diffuse soft tissue swelling. No acute fracture or dislocation. There is subtle loss of cortex along the lateral tibial plateau per ipherally. IMPRESSION: 1. Diffuse soft tissue swelling with soft tissue gas. These findings are concerning for infection. Th ere is suggestion of a trace amount of intra-articular gas as well which would suggest septic joint. 2. There is subtle loss of cortex along the periphery of the lateral tibial plateau. While this could be artifactual related to adjacent soft tissue gas, this is concerning for osteomyelitis. MRI without and with intravenous contrast is recommended. Signer Name: Amado Gipson MD Signed: 03/08/2020 10:47 AM Workstation Name: [id number]
--- NOTE | 2020-03-08 11:58 | Consultation ---
History of Present Illness - Reason for Consult Consult date: 03/08/20 persistent leukocytosis Requesting physician: MINNIE AGUSTIN - History of Present Illness 40 years old male without any medical history, admitted on 02/29/2020 due to 3- week history of intermittent fever and left leg edema, erythema and tenderness, associated with weakness, urine odor and syncope. Patient denies any trauma. 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 He reported his been fighting a left knee infection for several weeks. He believes the infection is spreading throughout his left arm. He seems like patient used a email marketing assistant knife, the weekend before admission, to cut off the left arm infection. On arrival, temperature 96, HR 102, O2 sats 62, RR 16, BP 88/55. Initial WBC 26. Hemoglobin 8.3. Platelets 409. Blood culture 02/29/2020 no growth. INR was 3. Sodium 124. Potassium 7. Albumin 3.9. Lactate 18. AST 1885. ALT 680. Urinalysis negative. Chest x-ray no acute changes. CT of abdomen showed distended stomach. Ultrasound shows gallbladder sludge, steatosis. X-ray of the neck shows diffuse soft tissue swelling and gas issue on intra-articularly. Patient was finally taken to the OR on 03/08/2020 found to have a left septic knee joint. Review of Systems: positive in bold print General: Malaise Cutaneous: rash, pruritus Head: headaches or injury Eyes: changes in vision, eye pain, double vision Ears: ear pain, ear discharge, ringing or hearing loss Nose: nose bleeding, stuffiness Mouth & throat: bleeding gums, horseness, no dental problems, or swollen glands Neck: no pain, node enlargement/lumps, tyroid enlargement or tenderness Respiratory: SOB, cough, CARY, wheezing, sputum, hemoptysis, pleuritic chest pain Cardiovascular: chest pain, leg edema, cyanosis, CARY, orthopnea Musculoskeletal: Left leg and arm edema, erythema and tenderness Gastrointestinal: nausea, vomiting, hematemesis, diarrhea, constipation, melena, bright red blood in stools, fecal incontinence, jaundice Genitourinary/Reproductive: frequent urination, dysuria, hematuria, incontinence Neurogical: seizures, headaches, weakness, paresthesias, loss of speech or vision; memory loss, vertigo, tremors, numbness Psychiatric: stable mood; excessive anxiety, sadness or moodiness Ge Past History Past Medical History: No medical history Past Surgical History: No surgical history Social history: no significant social history Family history: no significant family history Medications and Allergies Allergies Allergy/AdvReac Type Severity Reaction Status Date / Time No Known Allergies Allergy Unverified 02/29/20 18:25 Home Medications Medication Instructions Recorded Confirmed Last Taken Type No Known Home Medications [No 03/01/20 03/01/20 Unknown History Reported Home Medications] Active Meds: Active Medications Acetaminophen (Tylenol) 650 mg PO Q4H PRN PRN Reason: Pain MILD(1-3)/Fever >100.5/OLIVERA Last Admin: 03/05/20 03:43 Dose: 650 mg Documented by: Albumin Human (Alburx 25% (Albumin)) 25 gm IV NITZA PRN PRN Reason: Hypotension Carvedilol (Coreg) 6.25 mg PO BID JOSE RAMON Last Admin: 03/08/20 10:01 Dose: 6.25 mg Documented by: Epoetin Brad (Procrit) 10,000 unit IV NITZA PRN PRN Reason: hemodialysis Last Admin: 03/01/20 15:14 Dose: 10,000 unit Documented by: Hydralazine HCl (Apresoline) 50 mg PO Q8HR JOSE RAMON Last Admin: 03/08/20 06:07 Dose: 50 mg Documented by: Hydromorphone HCl (Dilaudid) 0.5 mg IV Q3H PRN PRN Reason: Pain , Severe (7-10) Last Admin: 03/08/20 10:01 Dose: 0.5 mg Documented by: Sodium Chloride (Nacl 0.9%) 100 mls @ 999 mls/hr IV NITZA PRN PRN Reason: Hypotension Ampicillin Sodium/Sulbactam Sodium (Unasyn/Ns 3 Gm/100 Ml) 3 gm in 100 mls @ 100 mls/hr IV Q6HR JOSE RAMON; Protocol Last Admin: 03/08/20 11:06 Dose: 100 mls/hr Documented by: Vancomycin HCl 1,250 mg/ (Sodium Chloride) 275 mls @ 166.667 mls/hr IV Q8H JOSE RAMON Last Admin: 03/08/20 06:12 Dose: 166.667 mls/hr Documented by: Ibuprofen (Ibuprofen) 400 mg PO Q6H PRN PRN Reason: Non Cardiac Pain or Temp>100.5 Last Admin: 03/07/20 21:38 Dose: 400 mg Documented by: Metoclopramide HCl (Reglan) 10 mg IV Q6H PRN PRN Reason: Nausea And Vomiting Ondansetron HCl (Zofran) 4 mg IV Q8H PRN PRN Reason: Nausea And Vomiting Oxycodone/Acetaminophen (Percocet 5/325) 1 tab PO Q6H PRN PRN Reason: Pain, Moderate (4-6) Last Admin: 03/08/20 11:55 Dose: 1 tab Documented by: Pantoprazole Sodium (Protonix) 40 mg PO BID [facility] Last Admin: 03/08/20 10:01 Dose: 40 mg Documented by: Sodium Chloride (Sodium Chloride Flush Syringe 10 Ml) 10 ml IV BID [facility] Last Admin: 03/08/20 10:01 Dose: 10 ml Documented by: Sodium Chloride (Sodium Chloride Flush Syringe 10 Ml) 10 ml IV PRN PRN PRN Reason: LINE FLUSH Last Admin: 03/08/20 06:12 Dose: 10 ml Documented by: Physical Examination - Physical Exam Narrative exam: General appearance: Alert in NAD Eyes: anicteric sclerae, moist conjunctivae; no lid-lag; left corneal opacity HENT: Atraumatic; oropharynx clear with moist mucous membranes and no oral thrush; normal hard and soft palate. Lungs: CTA, with normal respiratory effort and no intercostal retractions CV: RRR no murmur Abdomen: Soft, non-tender; no masses or hepatosplenomegaly Extremities: Extensive left leg edema, erythema and tenderness surrounding the left knee Skin: No rash. Psych: Appropriate affect, alert and oriented to person, place and time. Neuro: alert and oriented x 3. Moving all extermities - Constitutional Vitals: Vital Signs Temp Pulse Resp BP Pulse Ox 99.7 F H 89 20 133/59 97 03/07/20 23:04 03/08/20 06:07 03/08/20 06:07 03/08/20 06:07 03/07/20 23:04 Temperature -Last 24 Hours Temperature 99.7 F Temperature 99.0 F Results - Labs CBC & Chem 7: 03/08/20 04:16 03/08/20 04:16 Labs: Abnormal lab results 03/04/20 03/08/20 03/08/20 Range/Units 06:23 04:16 04:16 WBC 28.1 H (4.5-11.0) K/mm3 RBC 2.38 L (3.65-5.03) M/mm3 Hgb 6.9 L (11.8-15.2) gm/dl Hct 21.0 L (35.5-45.6) % RDW 15.4 H (13.2-15.2) % Plt Count 595 H (140-440) K/mm3 Seg Neuts % (Manual) 83.0 H (40.0-70.0) % Lymphocytes % (Manual) 4.0 L (13.4-35.0) % Monocytes % (Manual) 10.0 H (0.0-7.3) % Seg Neutrophils # Man 23.3 H (1.8-7.7) K/mm3 Lymphocytes # (Manual) 1.1 L (1.2-5.4) K/mm3 Monocytes # (Manual) 2.8 H (0.0-0.8) K/mm3 Calcium 8.3 L (8.4-10.2) mg/dL AST 195 H (5-40) units/L ALT 211 H (7-56) units/L Alkaline Phosphatase 155 H (35-129) units/L Total Creatine Kinase (55-170) units/L Albumin 2.2 L (3.9-5) g/dL Crossmatch See Detail 03/08/20 Range/Units 04:16 WBC (4.5-11.0) K/mm3 RBC (3.65-5.03) M/mm3 Hgb (11.8-15.2) gm/dl Hct (35.5-45.6) % RDW (13.2-15.2) % Plt Count (140-440) K/mm3 Seg Neuts % (Manual) (40.0-70.0) % Lymphocytes % (Manual) (13.4-35.0) % Monocytes % (Manual) (0.0-7.3) % Seg Neutrophils # Man (1.8-7.7) K/mm3 Lymphocytes # (Manual) (1.2-5.4) K/mm3 Monocytes # (Manual) (0.0-0.8) K/mm3 Calcium (8.4-10.2) mg/dL AST (5-40) units/L ALT (7-56) units/L Alkaline Phosphatase (35-129) units/L Total Creatine Kinase 346 H (55-170) units/L Albumin (3.9-5) g/dL Crossmatch Assessment and Plan Cultures: Blood culture 02/29/2020 no growth. Assessment: 40 years old male without any medical history, admitted on 02/29/2020 due to 3-week history of intermittent fever and left leg edema, erythema and tenderness, associated with weakness, urine odor and syncope: #Severe sepsis: Present on admission with hypothermia, tachycardia, hypotension, leukocytosis, severely elevated lactate; secondary to severe left knee infection. #Left knee septic arthritis with extensive leg cellulitis ? Necrotic site infection: Patient was taken to the operating room underwent drainage knee washout on 03/08/2020 #Elevated LFTs: Likely due to sepsis, shock liver #Anemia #Coagulopathy: Likely due to sepsis #Hyponatremia: Per primary team #Acute kidney injury: Secondary to sepsis, resolved Recommendations: Follow-up OR cultures Continue vancomycin with PK consult Stop Unasyn Start cefepime 2 g IV every 12 hours Start clindamycin 900 g IV every 8 hours Will follow. Yvette Das MD Infectious Diseases [employer] [facility] M [phone] O [phone]
[2020-03-08] MEDS ORDERED: ONDANSETRON 4 MG/2 ML INJ IV PRN (13:30)
--- NOTE | 2020-03-08 13:30 | Anesthesia Day of Surgery ---
Anesthesia Day of Surgery - Day of Surgery Patient Examined: Yes Patient H&P Reviewed: Yes Patient is NPO: Yes (last solids/liquids 03/08/20 0830)
--- NOTE | 2020-03-08 13:30 | Anesthesia Consultation ---
Anesthesia Consult and Med Hx Date of service: 03/08/20 - Airway Anesthetic Teeth Evaluation: Good ROM Head & Neck: Adequate Mental/Hyoid Distance: Adequate Mallampati Class: Class III Intubation Access Assessment: Possibly Difficult - Pulmonary Exam CTA: Yes - Cardiac Exam Cardiac Exam: RRR - Pre-Operative Health Status ASA Pre-Surgery Classification: ASA3 Proposed Anesthetic Plan: General - Pulmonary Hx Smoking: Yes (2-4 cigars/day) Hx Respiratory Symptoms: No - Cardiovascular System Hx Hypertension: No Hx Heart Attack/AMI: No Hx Percutaneous Transluminal Coronary Angioplasty (PTCA): No Hx Cardia Arrhythmia: No - Central Nervous System CVA: No - Gastrointestinal Hx Gastroesophageal Reflux Disease: No - Endocrine Hx Renal Disease: Yes (acute renal failure on admission now improved) Hx Liver Disease: Yes (acute liver failure on admission; improving) Hx Insulin Dependent Diabetes: No Hx Non-Insulin Dependent Diabetes: No Hx Thyroid Disease: No - Hematic Hx Anemia: Yes - Other Systems Hx Obesity: No - Additional Comments Anesthesia Medical History Comments: No significant PMH prior to admission. Admitted after syncopal episode and found to have sepsis, anemia, acute liver and renal failure, significant elecatrolyte derrangements. Neg tox screen. Kidney and renal function improving. Scheduled for knee arthroscopy for septic arthritis. Hb 6.9 so 1 unit pRBCs ordered.
[2020-03-08] MEDS ORDERED: MIDAZOLAM 2 MG/2 ML INJ IV NR (14:00)
[2020-03-08] MEDS ORDERED: BUPIVACAINE-EPINEPHRINE/PF 0.5%-1:200,000 (30 ML) VIAL INFILTRATI ONE (14:18)
[2020-03-08] MEDS ORDERED: methylPREDNISolone ACETATE 40 MG/1 ML INJ ONE (14:19)
[2020-03-08] MEDS ORDERED: propofoL 200 MG/20 ML VIAL IV ONE (14:34)
[2020-03-08] MEDS ORDERED: HYDROmorphone 1 MG/1 ML INJ ONE (14:34)
[2020-03-08] MEDS ORDERED: LIDOCAINE MPF (2%) 20 MG/1 ML VIAL 5 ML ONE (14:35)
--- NOTE | 2020-03-08 15:37 | Event Note ---
Date: 03/08/20 Intraoperative consultation called by Dr. Lay. Per Dr. Lay the patient was found to have a septic left knee with a left knee x-ray showing soft tissue gas anterior and posterior to the knee. Question concerning underlying abscess. When I presented to the operating room, the patient was already intubated and under general anesthesia. His left lower extremity was noted to be edematous, cellulitic. There was no obvious fluctuant areas. Using the bedside mind ray ultrasound, I examined the left lower extremity. There was evidence of severe soft tissue edema. In the area of the popliteal fossa, there was a possibility for a deep fluid collection. Therefore, using ultrasound guidance a 18-gauge spinal needle was inserted into that area. Great care was taken to avoid the surrounding blood vessels. No fluid was able to be aspirated. Likely, soft tissue gas is related to the septic left knee. Dr. Lay did aspirate the knee at the bedside and there was pus in the aspirate. Dr. Lay to perform left knee arthroscopy and debridement. If the patient does not improve clinically after this, recommend a CT scan of the left lower extremity. Pt was left in the OR stable condition.
[2020-03-08] MEDS ORDERED: SODIUM CHLORIDE 0.9% IRRIG SOLN 3000 ML IR ONE (15:50)
--- NOTE | 2020-03-08 16:15 | Progress Note ---
History Interval history: No new issues overnight Hospitalist Physical - Constitutional Vitals: Temp Pulse Resp BP Pulse Ox 100.2 F H 97 H 18 123/63 97 03/08/20 14:45 03/08/20 14:45 03/08/20 14:45 03/08/20 14:45 03/08/20 14:45 General appearance: Present: no acute distress, well-nourished - EENT Eyes: Present: PERRL, EOM intact ENT: hearing intact, clear oral mucosa, dentition normal - Neck Neck: Present: supple, normal ROM - Respiratory Respiratory effort: normal Respiratory: bilateral: CTA - Cardiovascular Rhythm: regular Heart Sounds: Present: S1 & S2. Absent: gallop, rub - Extremities Extremities: no ischemia, No edema, Full ROM - Abdominal General gastrointestinal: soft, non-tender, non-distended, normal bowel sounds - Integumentary Integumentary: Present: clear, warm, dry - Neurologic Neurologic: CNII-XII intact, moves all extremities Results - Labs CBC & Chem 7: 03/08/20 04:16 03/08/20 04:16 Labs: Laboratory Last Values WBC 28.1 K/mm3 (4.5-11.0) H 03/08/20 04:16 RBC 2.38 M/mm3 (3.65-5.03) L 03/08/20 04:16 Hgb 6.9 gm/dl (11.8-15.2) L 03/08/20 04:16 Hct 21.0 % (35.5-45.6) L 03/08/20 04:16 MCV 89 fl (84-94) 03/08/20 04:16 MCH 29 pg (28-32) 03/08/20 04:16 MCHC 33 % (32-34) 03/08/20 04:16 RDW 15.4 % (13.2-15.2) H 03/08/20 04:16 Plt Count 595 K/mm3 (140-440) H 03/08/20 04:16 Lymph % (Auto) 4.0 % (13.4-35.0) L 03/02/20 02:30 Peach % (Auto) 6.1 % (0.0-7.3) 03/02/20 02:30 Eos % (Auto) 0.1 % (0.0-4.3) 03/02/20 02:30 Baso % (Auto) 0.1 % (0.0-1.8) 03/02/20 02:30 Lymph # 0.6 K/mm3 (1.2-5.4) L 03/02/20 02:30 Peach # 0.9 K/mm3 (0.0-0.8) H 03/02/20 02:30 Eos # 0.0 K/mm3 (0.0-0.4) 03/02/20 02:30 Baso # 0.0 K/mm3 (0.0-0.1) 03/02/20 02:30 Add Manual Diff Complete 03/08/20 04:16 Total Counted 100 03/08/20 04:16 Seg Neutrophils % Contract Processor 03/05/20 06:56 Seg Neuts % (Manual) 83.0 % (40.0-70.0) H 03/08/20 04:16 Band Neutrophils % 1.0 % 03/08/20 04:16 Lymphocytes % (Manual) 4.0 % (13.4-35.0) L 03/08/20 04:16 Reactive Lymphs % (Man) 0 % 03/08/20 04:16 Monocytes % (Manual) 10.0 % (0.0-7.3) H 03/08/20 04:16 Eosinophils % (Manual) 1.0 % (0.0-4.3) 03/08/20 04:16 Basophils % (Manual) 0 % (0.0-1.8) 03/08/20 04:16 Metamyelocytes % 1.0 % 03/08/20 04:16 Myelocytes % 0 % 03/08/20 04:16 Promyelocytes % 0 % 03/08/20 04:16 Blast Cells % 0 % 03/08/20 04:16 Nucleated RBC % Not Reportable 03/08/20 04:16 Seg Neutrophils # 12.9 K/mm3 (1.8-7.7) H 03/02/20 02:30 Seg Neutrophils # Man 23.3 K/mm3 (1.8-7.7) H 03/08/20 04:16 Band Neutrophils # 0.3 K/mm3 03/08/20 04:16 Lymphocytes # (Manual) 1.1 K/mm3 (1.2-5.4) L 03/08/20 04:16 Abs React Lymphs (Man) 0.0 K/mm3 03/08/20 04:16 Monocytes # (Manual) 2.8 K/mm3 (0.0-0.8) H 03/08/20 04:16 Eosinophils # (Manual) 0.3 K/mm3 (0.0-0.4) 03/08/20 04:16 Basophils # (Manual) 0.0 K/mm3 (0.0-0.1) 03/08/20 04:16 Metamyelocytes # 0.3 K/mm3 03/08/20 04:16 Myelocytes # 0.0 K/mm3 03/08/20 04:16 Promyelocytes # 0.0 K/mm3 03/08/20 04:16 Blast Cells # 0.0 K/mm3 03/08/20 04:16 WBC Morphology Not Reportable 03/08/20 04:16 Hypersegmented Neuts Not Reportable 03/08/20 04:16 Hyposegmented Neuts Not Reportable 03/08/20 04:16 Hypogranular Neuts Not Reportable 03/08/20 04:16 Smudge Cells Not Reportable 03/08/20 04:16 Toxic Granulation Not Reportable 03/08/20 04:16 Toxic Vacuolation Not Reportable 03/08/20 04:16 Dohle Bodies Not Reportable 03/08/20 04:16 Pelger-Huet Anomaly Not Reportable 03/08/20 04:16 Lizbeth Rods Not Reportable 03/08/20 04:16 Platelet Estimate Consistent w auto 03/08/20 04:16 Clumped Platelets Not Reportable 03/08/20 04:16 Plt Clumps, EDTA Not Reportable 03/08/20 04:16 Large Platelets Few 03/08/20 04:16 Giant Platelets Not Reportable 03/08/20 04:16 Platelet Satelliting Not Reportable 03/08/20 04:16 Plt Morphology Comment Not Reportable 03/08/20 04:16 RBC Morphology Not Reportable 03/08/20 04:16 Dimorphic RBCs Not Reportable 03/08/20 04:16 Polychromasia Not Reportable 03/08/20 04:16 Hypochromasia 1+ 03/08/20 04:16 Poikilocytosis Not Reportable 03/08/20 04:16 Anisocytosis 1+ 03/08/20 04:16 Microcytosis Not Reportable 03/08/20 04:16 Macrocytosis Not Reportable 03/08/20 04:16 Spherocytes Not Reportable 03/08/20 04:16 Pappenheimer Bodies Not Reportable 03/08/20 04:16 Sickle Cells Not Reportable 03/08/20 04:16 Target Cells Few 03/08/20 04:16 Tear Drop Cells Not Reportable 03/08/20 04:16 Ovalocytes Not Reportable 03/08/20 04:16 Helmet Cells Not Reportable 03/08/20 04:16 [place] Bodies Not Reportable 03/08/20 04:16 [place] Rings Not Reportable 03/08/20 04:16 Vinny Cells Not Reportable 03/08/20 04:16 Bite Cells Not Reportable 03/08/20 04:16 Crenated Cell Not Reportable 03/08/20 04:16 Elliptocytes Not Reportable 03/08/20 04:16 Acanthocytes (Spur) Not Reportable 03/08/20 04:16 Rouleaux Not Reportable 03/08/20 04:16 Hemoglobin C Crystals Not Reportable 03/08/20 04:16 Schistocytes Not Reportable 03/08/20 04:16 Malaria parasites Not Reportable 03/08/20 04:16 Hilario Bodies Not Reportable 03/08/20 04:16 Hem Pathologist Commnt No 03/08/20 04:16 PT 23.5 Sec. (12.2-14.9) H 03/01/20 05:49 INR 2.16 (0.87-1.13) H 03/01/20 05:49 APTT 44.0 Sec. (24.2-36.6) H 02/29/20 19:11 ABG pH 7.427 pH Units (7.350-7.450) 02/29/20 23:09 ABG pCO2 28.1 mm Hg 02/29/20 23:09 ABG pO2 96.3 mm Hg (80.0-90.0) H 02/29/20 23:09 ABG HCO3 18.1 mmol/L (20.0-26.0) L 02/29/20 23:09 ABG O2 Saturation 97.6 % (95.0-99.0) 02/29/20 23:09 ABG O2 Content 12.6 (0.0-44) 02/29/20 23:09 ABG Base Excess -5.3 mmol/L (-2.0-3.0) L 02/29/20 23:09 ABG Hemoglobin 9.2 gm/dl (14.0-18.0) L 02/29/20 23:09 ABG Carboxyhemoglobin 1.1 % (0.0-5.0) 02/29/20 23:09 ABG Methemoglobin 0.4 % (0.0-1.5) 02/29/20 23:09 Oxyhemoglobin 96.2 % (95.0-99.0) 02/29/20 23:09 FiO2 36 % 02/29/20 23:09 Sodium 137 mmol/L (137-145) 03/08/20 04:16 Potassium 4.3 mmol/L (3.6-5.0) 03/08/20 04:16 Chloride 101.2 mmol/L (98-107) 03/08/20 04:16 Carbon Dioxide 24 mmol/L (22-30) 03/08/20 04:16 Anion Gap 16 mmol/L 03/08/20 04:16 BUN 17 mg/dL (9-20) 03/08/20 04:16 Creatinine 0.9 mg/dL (0.8-1.5) 03/08/20 04:16 Estimated GFR > 60 ml/min 03/08/20 04:16 BUN/Creatinine Ratio 19 % 03/08/20 04:16 Glucose 90 mg/dL (75-100) 03/08/20 04:16 POC Glucose 122 (70-105) H 02/29/20 23:20 Hemoglobin A1c 4.7 % (4-6) 03/01/20 05:49 Osmolality 286 Mosm/kg 03/02/20 13:28 Lactic Acid 1.90 mmol/L (0.7-2.0) 03/01/20 21:23 Calcium 8.3 mg/dL (8.4-10.2) L 03/08/20 04:16 Total Bilirubin 0.30 mg/dL (0.1-1.2) 03/08/20 04:16 Direct Bilirubin < 0.2 mg/dL (0-0.2) 03/01/20 05:49 Indirect Bilirubin 0.0 mg/dL 03/01/20 05:49 AST 195 units/L (5-40) H 03/08/20 04:16 ALT 211 units/L (7-56) H 03/08/20 04:16 Alkaline Phosphatase 155 units/L (35-129) H 03/08/20 04:16 Ammonia 43.0 umol/L (25-60) 03/01/20 01:09 Total Creatine Kinase 346 units/L (55-170) H 03/08/20 04:16 Total Protein 6.3 g/dL (6.3-8.2) 03/08/20 04:16 Albumin 2.2 g/dL (3.9-5) L 03/08/20 04:16 Albumin/Globulin Ratio 0.5 % 03/08/20 04:16 Urine Color Yellow (Yellow) 02/29/20 23:30 Urine Turbidity Slightly-cloudy (Clear) 02/29/20 23:30 Urine pH 5.0 (5.0-7.0) 02/29/20 23:30 Ur Specific O'Brien 1.016 (1.003-1.030) 02/29/20 23:30 Urine Protein 30 mg/dl mg/dL (Negative) 02/29/20 23:30 Urine Glucose (UA) 50 mg/dL (Negative) 02/29/20 23:30 Urine Ketones Neg mg/dL (Negative) 02/29/20 23:30 Urine Blood Lg (Negative) 02/29/20 23:30 Urine Nitrite Neg (Negative) 02/29/20 23:30 Urine Bilirubin Neg (Negative) 02/29/20 23:30 Urine Urobilinogen < 2.0 mg/dL (<2.0) 02/29/20 23:30 Ur Leukocyte Esterase Neg (Negative) 02/29/20 23:30 Urine WBC (Auto) 6.0 /HPF (0.0-6.0) 02/29/20 23:30 Urine RBC (Auto) 2.0 /HPF (0.0-6.0) 02/29/20 23:30 Urine Mucus 1+ /HPF 02/29/20 23:30 Vancomycin Trough 16.2 ug/mL (5.0-20.0) 03/08/20 12:18 Salicylates 1.7 mg/dL (2.8-20.0) L 02/29/20 20:35 Urine Opiates Screen Presumptive negative 02/29/20 23:30 Urine Methadone Screen Presumptive negative 02/29/20 23:30 Acetaminophen < 5.0 ug/mL (10.0-30.0) L 02/29/20 20:35 Ur Barbiturates Screen Presumptive negative 02/29/20 23:30 Ur Phencyclidine Scrn Presumptive negative 02/29/20 23:30 Ur Amphetamines Screen Presumptive negative 02/29/20 23:30 U Benzodiazepines Scrn Presumptive negative 02/29/20 23:30 Urine Cocaine Screen Presumptive negative 02/29/20 23:30 U Marijuana (THC) Screen Presumptive negative 02/29/20 23:30 Drugs of Abuse Note Disclamer 02/29/20 23:30 Ethylene Glycol <10.0 mcg/mL (<10.0) 03/01/20 12:41 Plasma/Serum Alcohol < 0.01 % (0-0.07) 02/29/20 19:11 Hepatitis A IgM Ab Non-reactive (NonReactive) 03/01/20 09:42 Hep Bs Antigen Non-reactive (Negative) 03/01/20 09:42 Hep B Core IgM Ab Non-reactive (NonReactive) 03/01/20 09:42 Hepatitis C Antibody Non-reactive (NonReactive) 03/01/20 09:42 Blood Type O POSITIVE 03/08/20 12:18 Antibody Screen Negative 03/08/20 12:18 Crossmatch See Detail 03/08/20 12:18 Microbiology: Microbiology 03/08/20 09:40 Knee - Left Wound Culture - Preliminary Paredes/IV: Voiding Method Urinal IV Catheter Type [Right Hand] INT / Saline Lock IV Catheter Type [Right INT / Saline Lock Antecubital] IV Catheter Type [Right INT / Saline Lock Forearm] IV Catheter Type [Left Hand] Peripheral IV Active Medications - Current Medications Current Medications: Generic Name Dose Route Start Last Admin Trade Name Freq PRN Reason Stop Dose Admin Acetaminophen 650 mg 03/01/20 13:57 03/05/20 03:43 Tylenol PO 650 mg Q4H PRN Administration Pain MILD(1-3)/Fever >100.5/OLIVERA Albumin Human 25 gm 03/01/20 10:16 Alburx 25% (Albumin) IV NITZA PRN Hypotension Carvedilol 6.25 mg 03/01/20 15:00 03/08/20 10:01 Coreg PO 6.25 mg BID JOSE RAMON Administration Epoetin Brad 10,000 unit 03/01/20 10:16 03/01/20 15:14 Procrit IV 10,000 unit NITZA PRN Administration hemodialysis Hydralazine HCl 50 mg 03/01/20 15:00 03/08/20 14:46 Apresoline PO Not Given Q8HR JOSE RAMON Hydromorphone HCl 0.5 mg 03/01/20 08:35 03/08/20 10:01 Dilaudid IV 0.5 mg Q3H PRN Administration Pain , Severe (7-10) Hydromorphone HCl 0.25 mg 03/08/20 13:30 Dilaudid IV 03/08/20 23:59 Q10MIN PRN Pain, Moderate (4-6) Sodium Chloride 100 mls @ 999 mls/hr 03/01/20 10:16 Nacl 0.9% IV NITZA PRN Hypotension Ampicillin Sodium/Sulbactam Sodium 3 gm in 100 mls @ 100 mls/hr 03/06/20 12:00 03/08/20 11:06 Unasyn/Ns 3 Gm/100 Ml IV 100 mls/hr Q6HR JOSE RAMON Administration Protocol Vancomycin HCl 1,250 mg/ 275 mls @ 166.667 mls/hr 03/06/20 21:00 03/08/20 12:03 Sodium Chloride IV 166.667 mls/hr Q8H JOSE RAMON Administration Sodium Chloride 1,000 mls @ 100 mls/hr 03/08/20 13:30 Nacl 0.9% 1000 Ml IV DIRECT JOSE RAMON Ibuprofen 400 mg 03/04/20 13:32 03/07/20 21:38 Ibuprofen PO 400 mg Q6H PRN Administration Non Cardiac Pain or Temp>100.5 Metoclopramide HCl 10 mg 03/01/20 13:57 Reglan IV Q6H PRN Nausea And Vomiting Midazolam HCl 2 mg 03/08/20 14:00 Versed IV 03/08/20 23:59 PREOP NR Ondansetron HCl 4 mg 03/01/20 13:57 Zofran IV Q8H PRN Nausea And Vomiting Ondansetron HCl 4 mg 03/08/20 13:30 Zofran IV ONCE PRN Nausea And Vomiting Oxycodone/Acetaminophen 1 tab 03/01/20 13:57 03/08/20 11:55 Percocet 5/325 PO 1 tab Q6H PRN Administration Pain, Moderate (4-6) Pantoprazole Sodium 40 mg 03/02/20 22:00 03/08/20 10:01 Protonix PO 40 mg BID JOSE RAMON Administration Sodium Chloride 10 ml 03/01/20 22:00 03/08/20 10:01 Sodium Chloride Flush Syringe 10 Ml IV 10 ml BID JOSE RAMON Administration Sodium Chloride 10 ml 03/01/20 13:57 03/08/20 06:12 Sodium Chloride Flush Syringe 10 Ml IV 10 ml PRN PRN Administration LINE FLUSH Nutrition/Malnutrition Assess - Dietary Evaluation Nutrition/Malnutrition Findings: Nutrition Notes Start: 03/01/20 08:14 Freq: Status: Active Protocol: Document 03/08/20 12:25 LM (Rec: 03/08/20 12:27 LM [id number]) Nutrition Notes Initial or Follow up Brief Note Current Diagnosis Acute Kidney Injury,Sepsis Other Pertinent Diagnosis Acute liver failure, Anemia Current Diet NPO Subjective/Other Information Pt stated he is eating well and has recently gained wt back to UBW of 160-163 lb. Nutrition Intervention Revisit per MD consult or patient Sign Off request:
--- NOTE | 2020-03-08 16:27 | Procedure Note ---
Date of procedure: 03/08/20 Pre-op diagnosis: Septic joint left knee Post-op diagnosis: same Procedure: Arthroscopy left knee with debridement and irrigation followed by incision and drainage left proximal tibia Procedure Patient was brought to the operating room and placed on the OR table in a supine position following induction with MAC anesthesia the patient's left lower extremity was prepped and draped in the usual sterile manner. A timeout procedure was done to identify the patient and the correct operative site. The leg was exsanguinated followed by inflation of the pneumatic tourniquet to 300 mmHg. Stab wounds were made along the medial and lateral parapatellar region patient was noted to have abundant purulent material coming from within the wound at knee joint this was then aspirated cultures were taken and was sent to microbiology next the knee joint was then copiously irrigated with 10 L of normal saline solution examination of the knee joint revealed no obvious meniscal pathology or ligament damage patient was noted to have some fluctuance in the proximal aspect of the anterior compartment therefore an incision was made roughly 3 to 4 cm in length this was then opened and irrigated this area was then packed with iodoform gauze the arthroscope was then removed from the knee joint routine postop dressings were applied the patient tolerated the procedure there were no complications Anesthesia: MAC Surgeon: DANIEL HANNA Estimated blood loss: minimal Pathology: list (Fluid was sent to microbiology for culture and sensitivity) Specimen disposition: to lab Condition: stable Disposition: PACU
--- NOTE | 2020-03-08 17:40 | Post Anesthesia Evaluation ---
- Post Anesthesia Evaluation Patient Participated: Yes Airway Patent: Yes Stable Respiratory Function: Yes Nausea/Vomiting: No Temp > 96.8F: Yes Pain Manageable: Yes Adequeate Hydration: Yes Anesthesia Complications: No
[2020-03-08] MEDS: CEFEPIME/NS 2 GM/100 ML 2 GM/100 ML BAG IV SCH (21:29)
[2020-03-08] MEDS: CLINDAMYCIN 600 MG/50 mL 600 MG/50 ML BAG IV SCH (21:40)
[2020-03-08 22:49] LABS: Albumin 1.6 g/dL (3.8-4.8)
[2020-03-09] MEDS: VANCOMYCIN 1,250 MG in SODIUM CHLORIDE 0.9% 250ML 250 ML IV SCH ×3 (04:16→20:21)
[2020-03-09] MEDS: ACETAMINOPHEN 325 MG TAB PO PRN (04:17)
[2020-03-09 05:08] LABS: Hematocrit 25.7 % (35.5-45.6); Hemoglobin 8.5 gm/dl (11.8-15.2); Mean Corpuscular HGB Conc 33 % (32-34); Mean Corpuscular Volume 85 fl (84-94); Platelet Count 770 K/mm3 (140-440); Red Blood Count 3.01 M/mm3 (3.65-5.03); Red Cell Distribution Width 15.4 % (13.2-15.2)
[2020-03-09] MEDS: CLINDAMYCIN 600 MG/50 mL 600 MG/50 ML BAG IV SCH ×3 (05:21→22:23)
[2020-03-09] MEDS: CEFEPIME/NS 2 GM/100 ML 2 GM/100 ML BAG IV SCH ×3 (05:21→22:23)
[2020-03-09] MEDS: hydrALAZINE 25 MG TAB PO SCH ×3 (05:22→21:37)
[2020-03-09 05:28] LABS: Alanine Aminotransferase 150 units/L (7-56); Albumin 1.9 g/dL (3.9-5); BUN/Creatinine Ratio 19; Blood Urea Nitrogen 15 mg/dL (9-20); Calcium 8.1 mg/dL (8.4-10.2); Hemolysis Index 0
[2020-03-09 06:45] LABS: Total Cells Counted 100
[2020-03-09 06:46] LABS: Band Neutrophils # (Manual) 1.4 K/mm3; Basophils % (Manual) 0 % (0.0-1.8); Eosinophils % (Manual) 0 % (0.0-4.3)
[2020-03-09 06:54] LABS: Anisocytosis Few; Hypochromasia Rare
[2020-03-09 06:55] LABS: Platelet Estimate Consistent w Auto; Target Cells Rare
--- NOTE | 2020-03-09 09:33 | Progress Note ---
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 and refractory hyperkalemia, no further HD is needed based on repeat labs and clinical scenario * Vasc cath removed, appreciated * replete lytes prn * avoid nephrotoxins * strict i/os * Daily lytes * Anemia workup per primary * Liver workup/management per primary * Abx per primary, s/p ortho procedure, recs appreciated Subjective Date of service: 03/09/20 Principal diagnosis: Hypertensive emergency, acute liver failure, acute renal renal failure, rha Interval history: Patient not in room at time of rounds; 24 hour chart reviewed, had left knee I&D Objective - Exam Narrative Exam: no examination today as patient not in room - Vital Signs Vital signs: Vital Signs - 12hr 03/08/20 03/09/20 03/09/20 23:21 00:00 04:06 Temperature 99.4 F 100.7 F H Pulse Rate 106 H 102 H 98 H Respiratory 16 15 Rate Blood Pressure 145/74 147/78 O2 Sat by Pulse 97 97 Oximetry 03/09/20 03/09/20 07:53 08:10 Temperature 98.6 F Pulse Rate 91 H Respiratory 20 18 Rate Blood Pressure 124/72 O2 Sat by Pulse 95 Oximetry - Lab 03/09/20 04:40 03/09/20 04:40 Most recent lab results ABG pH 7.427 pH Units (7.350-7.450) 02/29/20 23:09 ABG pCO2 28.1 mm Hg 02/29/20 23:09 ABG pO2 96.3 mm Hg (80.0-90.0) H 02/29/20 23:09 ABG HCO3 18.1 mmol/L (20.0-26.0) L 02/29/20 23:09 ABG O2 Saturation 97.6 % (95.0-99.0) 02/29/20 23:09 Calcium 8.1 mg/dL (8.4-10.2) L 03/09/20 04:40 Medications & Allergies - Medications Allergies/Adverse Reactions: Allergies No Known Allergies Allergy (Unverified 02/29/20 18:25) Home Medications: Home Medications Medication Instructions Recorded Confirmed Last Taken Type No Known Home Medications [No 03/01/20 03/01/20 Unknown History Reported Home Medications] Active Medications: Generic Name Dose Route Start Last Admin Trade Name Freq PRN Reason Stop Dose Admin Acetaminophen 650 mg 03/01/20 13:57 03/09/20 04:17 Tylenol PO 650 mg Q4H PRN Administration Pain MILD(1-3)/Fever >100.5/OLIVERA Albumin Human 25 gm 03/01/20 10:16 Alburx 25% (Albumin) IV NITZA PRN Hypotension Carvedilol 6.25 mg 03/01/20 15:00 03/08/20 21:29 Coreg PO 6.25 mg BID JOSE RAMON Administration Hydralazine HCl 50 mg 03/01/20 15:00 03/09/20 05:22 Apresoline PO 50 mg Q8HR JOSE RAMON Administration Hydromorphone HCl 0.5 mg 03/01/20 08:35 03/08/20 10:01 Dilaudid IV 0.5 mg Q3H PRN Administration Pain , Severe (7-10) Vancomycin HCl 1,250 mg/ 275 mls @ 166.667 mls/hr 03/06/20 21:00 03/09/20 04 :16 Sodium Chloride IV 166.667 mls/hr Q8H JOSE RAMON Administration Sodium Chloride 1,000 mls @ 100 mls/hr 03/08/20 13:30 Nacl 0.9% 1000 Ml IV DIRECT JOSE RAMON Cefepime HCl 2 gm in 100 mls @ 200 mls/hr 03/08/20 22:00 03/09/20 05:21 Cefepime/Ns 2 Gm/100 Ml IV 200 mls/hr Q8HR JOSE RAMON Administration Protocol Clindamycin HCl 600 mg in 50 mls @ 100 mls/hr 03/08/20 22:00 03/09/20 05:21 Cleocin 600 Mg/50 Ml IV 100 mls/hr Q8HR JOSE RAMON Administration Protocol Ibuprofen 400 mg 03/04/20 13:32 03/07/20 21:38 Ibuprofen PO 400 mg Q6H PRN Administration Non Cardiac Pain or Temp>100.5 Metoclopramide HCl 10 mg 03/01/20 13:57 Reglan IV Q6H PRN Nausea And Vomiting Ondansetron HCl 4 mg 03/01/20 13:57 Zofran IV Q8H PRN Nausea And Vomiting Oxycodone/Acetaminophen 1 tab 03/01/20 13:57 03/08/20 22:24 Percocet 5/325 PO 1 tab Q6H PRN Administration Pain, Moderate (4-6) Pantoprazole Sodium 40 mg 03/02/20 22:00 03/08/20 21:29 Protonix PO 40 mg BID JOSE RAMON Administration Sodium Chloride 10 ml 03/01/20 22:00 03/08/20 21:30 Sodium Chloride Flush Syringe 10 Ml IV 10 ml BID JOSE RAMON Administration Sodium Chloride 10 ml 03/01/20 13:57 03/08/20 06:12 Sodium Chloride Flush Syringe 10 Ml IV 10 ml PRN PRN Administration LINE FLUSH
--- NOTE | 2020-03-09 09:39 | Magnetic Resonance Report ---
MRI left knee without contrast INDICATION: pain,swelling,and gas w/n soft tissues Patient motion, best images possible. Generalize d knee pain with subcutaneous gas and questioned intra-articular gas demonstrated on radiographs from yesterday COMPARISON: Knee radiographs from yesterday FINDINGS: The exam is limited by motion artifact. Despite the above limitation, there is extensive subcutaneous gas about the knee with mild generalize d soft tissue swelling especially laterally. A small amount of intra-articular gas is also present as well as a moderate-sized joint effusion. No organized abscess formation on this limited noncontrast examination. There is extensive intramuscular edema primarily along the lateral 180 degrees of the kn ee to include the lateral gastrocnemius, semitendinosus, and lateral quadriceps musculature (i.e. vas tus lateralis, etc). There is no dania bone destruction. Mild nonspecific bone marrow edema seen in t he posterior aspect of the lateral femoral condyle and also along the medial patellar pole but this i s not a typical pattern for transient lateral patellar dislocation. There is mild tricompartmental degenerative arthrosis as well as extensive degenerative signal within the lateral meniscus and irregular tearing reaching the superior articular surface in the anterior h orn proximal to the root. The medial meniscus is intact. There is intermediate fluid signal in the AC L which is otherwise intact. This could represent mucoid change or a sprain if there is a trauma hist ory. The PCL and extensor mechanism are intact. IMPRESSION: 1. Primarily soft tissue findings as outlined above, with extensive subcutaneous gas, soft tissue swe lling, and intramuscular edema worrisome for myositis. There are couple areas of mild bone marrow oleg ma which are nonspecific with no dania bone destruction identified. Given the presence of intra-artic ular gas and the joint effusion, consider joint aspiration to exclude evolving septic joint. 2. Considerable degenerative change within the lateral meniscus which reaches the superior jugular harris rface in the anterior horn region proximal to the root worrisome for an irregular tear. Signer Name: Darrell Apple MD Signed: 03/09/2020 9:35 AM Workstation Name: [id number]
[2020-03-09] MEDS: PANTOPRAZOLE 40 MG TAB PO SCH ×2 (09:59→21:36)
[2020-03-09] MEDS: carvediloL 6.25 MG TAB PO SCH ×2 (09:59→21:36)
[2020-03-09] MEDS: HYDROmorphone 1 MG/1 ML INJ IV PRN (10:00)
--- NOTE | 2020-03-09 10:00 | Progress Note ---
Assessment and Plan Assessment and plan: Chest pain. Check CTA of chest rule out PE or other pathology. Check troponin, EKG. Severe sepsis. Present on admission with hypothermia, tachycardia, hypotension, leukocytosis, severely elevated lactate; secondary to severe left knee infection. Left knee septic arthritis with extensive leg cellulitis ? Necrotic site infection. Patient was taken to the operating room underwent drainage knee washout on 03/08/2020 Elevated LFTs. Likely due to sepsis, shock liver Anemia. Coagulopathy. Likely due to sepsis Hyponatremia.continue IV fluid hydration and follow-up BMP Acute kidney injury. Secondary to sepsis, resolved. Creatinine stable. History Interval history: No new issues overnight Hospitalist Physical - Constitutional Vitals: Temp Pulse Resp BP Pulse Ox 98.6 F 91 H 18 124/72 95 03/09/20 07:53 03/09/20 07:53 03/09/20 08:10 03/09/20 07:53 03/09/20 07:53 General appearance: Present: no acute distress, well-nourished - EENT Eyes: Present: PERRL, EOM intact ENT: hearing intact, clear oral mucosa, dentition normal - Neck Neck: Present: supple, normal ROM - Respiratory Respiratory effort: normal Respiratory: bilateral: CTA - Cardiovascular Rhythm: regular Heart Sounds: Present: S1 & S2. Absent: gallop, rub - Extremities Extremities: no ischemia, No edema, Full ROM - Abdominal General gastrointestinal: soft, non-tender, non-distended, normal bowel sounds - Integumentary Integumentary: Present: clear, warm, dry - Neurologic Neurologic: CNII-XII intact, moves all extremities Results - Labs CBC & Chem 7: 03/09/20 04:40 03/09/20 04:40 Labs: Laboratory Last Values WBC 28.2 K/mm3 (4.5-11.0) H 03/09/20 04:40 RBC 3.01 M/mm3 (3.65-5.03) L 03/09/20 04:40 Hgb 8.5 gm/dl (11.8-15.2) L 03/09/20 04:40 Hct 25.7 % (35.5-45.6) L 03/09/20 04:40 MCV 85 fl (84-94) 03/09/20 04:40 MCH 28 pg (28-32) 03/09/20 04:40 MCHC 33 % (32-34) 03/09/20 04:40 RDW 15.4 % (13.2-15.2) H 03/09/20 04:40 Plt Count 770 K/mm3 (140-440) H 03/09/20 04:40 Lymph % (Auto) 4.0 % (13.4-35.0) L 03/02/20 02:30 Mcdonough % (Auto) 6.1 % (0.0-7.3) 03/02/20 02:30 Eos % (Auto) 0.1 % (0.0-4.3) 03/02/20 02:30 Baso % (Auto) 0.1 % (0.0-1.8) 03/02/20 02:30 Lymph # 0.6 K/mm3 (1.2-5.4) L 03/02/20 02:30 Mcdonough # 0.9 K/mm3 (0.0-0.8) H 03/02/20 02:30 Eos # 0.0 K/mm3 (0.0-0.4) 03/02/20 02:30 Baso # 0.0 K/mm3 (0.0-0.1) 03/02/20 02:30 Add Manual Diff Complete 03/09/20 04:40 Total Counted 100 03/09/20 04:40 Seg Neutrophils % Material Flow Engineer 03/05/20 06:56 Seg Neuts % (Manual) 83.0 % (40.0-70.0) H 03/09/20 04:40 Band Neutrophils % 5.0 % 03/09/20 04:40 Lymphocytes % (Manual) 8.0 % (13.4-35.0) L 03/09/20 04:40 Reactive Lymphs % (Man) 0 % 03/09/20 04:40 Monocytes % (Manual) 4.0 % (0.0-7.3) 03/09/20 04:40 Eosinophils % (Manual) 0 % (0.0-4.3) 03/09/20 04:40 Basophils % (Manual) 0 % (0.0-1.8) 03/09/20 04:40 Metamyelocytes % 0 % 03/09/20 04:40 Myelocytes % 0 % 03/09/20 04:40 Promyelocytes % 0 % 03/09/20 04:40 Blast Cells % 0 % 03/09/20 04:40 Nucleated RBC % Not Reportable 03/09/20 04:40 Seg Neutrophils # 12.9 K/mm3 (1.8-7.7) H 03/02/20 02:30 Seg Neutrophils # Man 23.4 K/mm3 (1.8-7.7) H 03/09/20 04:40 Band Neutrophils # 1.4 K/mm3 03/09/20 04:40 Lymphocytes # (Manual) 2.3 K/mm3 (1.2-5.4) 03/09/20 04:40 Abs React Lymphs (Man) 0.0 K/mm3 03/09/20 04:40 Monocytes # (Manual) 1.1 K/mm3 (0.0-0.8) H 03/09/20 04:40 Eosinophils # (Manual) 0.0 K/mm3 (0.0-0.4) 03/09/20 04:40 Basophils # (Manual) 0.0 K/mm3 (0.0-0.1) 03/09/20 04:40 Metamyelocytes # 0.0 K/mm3 03/09/20 04:40 Myelocytes # 0.0 K/mm3 03/09/20 04:40 Promyelocytes # 0.0 K/mm3 03/09/20 04:40 Blast Cells # 0.0 K/mm3 03/09/20 04:40 WBC Morphology Not Reportable 03/09/20 04:40 Hypersegmented Neuts Not Reportable 03/09/20 04:40 Hyposegmented Neuts Not Reportable 03/09/20 04:40 Hypogranular Neuts Not Reportable 03/09/20 04:40 Smudge Cells Not Reportable 03/09/20 04:40 Toxic Granulation Not Reportable 03/09/20 04:40 Toxic Vacuolation Not Reportable 03/09/20 04:40 Dohle Bodies Not Reportable 03/09/20 04:40 Pelger-Huet Anomaly Not Reportable 03/09/20 04:40 Lizbeth Rods Not Reportable 03/09/20 04:40 Platelet Estimate Consistent w auto 03/09/20 04:40 Clumped Platelets Not Reportable 03/09/20 04:40 Plt Clumps, EDTA Not Reportable 03/09/20 04:40 Large Platelets Not Reportable 03/09/20 04:40 Giant Platelets Not Reportable 03/09/20 04:40 Platelet Satelliting Not Reportable 03/09/20 04:40 Plt Morphology Comment Not Reportable 03/09/20 04:40 RBC Morphology Not Reportable 03/09/20 04:40 Dimorphic RBCs Not Reportable 03/09/20 04:40 Polychromasia Rare 03/09/20 04:40 Hypochromasia Rare 03/09/20 04:40 Poikilocytosis Not Reportable 03/09/20 04:40 Anisocytosis Few 03/09/20 04:40 Microcytosis Not Reportable 03/09/20 04:40 Macrocytosis Not Reportable 03/09/20 04:40 Spherocytes Not Reportable 03/09/20 04:40 Pappenheimer Bodies Not Reportable 03/09/20 04:40 Sickle Cells Not Reportable 03/09/20 04:40 Target Cells Rare 03/09/20 04:40 Tear Drop Cells Not Reportable 03/09/20 04:40 Ovalocytes Not Reportable 03/09/20 04:40 Helmet Cells Not Reportable 03/09/20 04:40 [place] Bodies Not Reportable 03/09/20 04:40 [place] Rings Not Reportable 03/09/20 04:40 [place] Cells Not Reportable 03/09/20 04:40 Bite Cells Not Reportable 03/09/20 04:40 Crenated Cell Not Reportable 03/09/20 04:40 Elliptocytes Not Reportable 03/09/20 04:40 Acanthocytes (Spur) Not Reportable 03/09/20 04:40 Rouleaux Not Reportable 03/09/20 04:40 Hemoglobin C Crystals Not Reportable 03/09/20 04:40 Schistocytes Not Reportable 03/09/20 04:40 Malaria parasites Not Reportable 03/09/20 04:40 Hilario Bodies Not Reportable 03/09/20 04:40 Hem Pathologist Commnt No 03/09/20 04:40 PT 23.5 Sec. (12.2-14.9) H 03/01/20 05:49 INR 2.16 (0.87-1.13) H 03/01/20 05:49 APTT 44.0 Sec. (24.2-36.6) H 02/29/20 19:11 ABG pH 7.427 pH Units (7.350-7.450) 02/29/20 23:09 ABG pCO2 28.1 mm Hg 02/29/20 23:09 ABG pO2 96.3 mm Hg (80.0-90.0) H 02/29/20 23:09 ABG HCO3 18.1 mmol/L (20.0-26.0) L 02/29/20 23:09 ABG O2 Saturation 97.6 % (95.0-99.0) 02/29/20 23:09 ABG O2 Content 12.6 (0.0-44) 02/29/20 23:09 ABG Base Excess -5.3 mmol/L (-2.0-3.0) L 02/29/20 23:09 ABG Hemoglobin 9.2 gm/dl (14.0-18.0) L 02/29/20 23:09 ABG Carboxyhemoglobin 1.1 % (0.0-5.0) 02/29/20 23:09 ABG Methemoglobin 0.4 % (0.0-1.5) 02/29/20 23:09 Oxyhemoglobin 96.2 % (95.0-99.0) 02/29/20 23:09 FiO2 36 % 02/29/20 23:09 Sodium 134 mmol/L (137-145) L 03/09/20 04:40 Potassium 4.6 mmol/L (3.6-5.0) 03/09/20 04:40 Chloride 100.1 mmol/L (98-107) 03/09/20 04:40 Carbon Dioxide 23 mmol/L (22-30) 03/09/20 04:40 Anion Gap 16 mmol/L 03/09/20 04:40 BUN 15 mg/dL (9-20) 03/09/20 04:40 Creatinine 0.8 mg/dL (0.8-1.5) 03/09/20 04:40 Estimated GFR > 60 ml/min 03/09/20 04:40 BUN/Creatinine Ratio 19 % 03/09/20 04:40 Glucose 95 mg/dL (75-100) 03/09/20 04:40 POC Glucose 122 (70-105) H 02/29/20 23:20 Hemoglobin A1c 4.7 % (4-6) 03/01/20 05:49 Osmolality 286 Mosm/kg 03/02/20 13:28 Lactic Acid 1.90 mmol/L (0.7-2.0) 03/01/20 21:23 Calcium 8.1 mg/dL (8.4-10.2) L 03/09/20 04:40 Total Bilirubin 0.40 mg/dL (0.1-1.2) 03/09/20 04:40 Direct Bilirubin < 0.2 mg/dL (0-0.2) 03/01/20 05:49 Indirect Bilirubin 0.0 mg/dL 03/01/20 05:49 AST 88 units/L (5-40) H 03/09/20 04:40 ALT 150 units/L (7-56) H 03/09/20 04:40 Alkaline Phosphatase 154 units/L (35-129) H 03/09/20 04:40 Ammonia 43.0 umol/L (25-60) 03/01/20 01:09 Total Creatine Kinase 346 units/L (55-170) H 03/08/20 04:16 Serum Total Protein 5.2 g/dL (6.1-8.1) L 03/05/20 09:02 Total Protein 6.6 g/dL (6.3-8.2) 03/09/20 04:40 Albumin 1.9 g/dL (3.9-5) L 03/09/20 04:40 Albumin/Globulin Ratio 0.4 % 03/09/20 04:40 Odyvb-4-Yjvfjnnap 0.8 g/dL (0.2-0.3) H 03/05/20 09:02 Lqpek-4-Tuaolvpyv 1.1 g/dL (0.5-0.9) H 03/05/20 09:02 Beta Globulins 0.4 g/dL (0.2-0.5) 03/05/20 09:02 Gamma Globulins 1.0 g/dL (0.8-1.7) 03/05/20 09:02 Abnorm Protein Band 1 see below 03/05/20 09:02 PEP Interpretation see below H 03/05/20 09:02 Urine Color Yellow (Yellow) 02/29/20 23:30 Urine Turbidity Slightly-cloudy (Clear) 02/29/20 23:30 Urine pH 5.0 (5.0-7.0) 02/29/20 23:30 Ur Specific [place] 1.016 (1.003-1.030) 02/29/20 23:30 Urine Protein 30 mg/dl mg/dL (Negative) 02/29/20 23:30 Urine Glucose (UA) 50 mg/dL (Negative) 02/29/20 23:30 Urine Ketones Neg mg/dL (Negative) 02/29/20 23:30 Urine Blood Lg (Negative) 02/29/20 23:30 Urine Nitrite Neg (Negative) 02/29/20 23:30 Urine Bilirubin Neg (Negative) 02/29/20 23:30 Urine Urobilinogen < 2.0 mg/dL (<2.0) 02/29/20 23:30 Ur Leukocyte Esterase Neg (Negative) 02/29/20 23:30 Urine WBC (Auto) 6.0 /HPF (0.0-6.0) 02/29/20 23:30 Urine RBC (Auto) 2.0 /HPF (0.0-6.0) 02/29/20 23:30 Urine Mucus 1+ /HPF 02/29/20 23:30 Vancomycin Trough 16.2 ug/mL (5.0-20.0) 03/08/20 12:18 Salicylates 1.7 mg/dL (2.8-20.0) L 02/29/20 20:35 Urine Opiates Screen Presumptive negative 02/29/20 23:30 Urine Methadone Screen Presumptive negative 02/29/20 23:30 Acetaminophen < 5.0 ug/mL (10.0-30.0) L 02/29/20 20:35 Ur Barbiturates Screen Presumptive negative 02/29/20 23:30 Ur Phencyclidine Scrn Presumptive negative 02/29/20 23:30 Ur Amphetamines Screen Presumptive negative 02/29/20 23:30 U Benzodiazepines Scrn Presumptive negative 02/29/20 23:30 Urine Cocaine Screen Presumptive negative 02/29/20 23:30 U Marijuana (THC) Screen Presumptive negative 02/29/20 23:30 Drugs of Abuse Note Disclamer 02/29/20 23:30 Ethylene Glycol <10.0 mcg/mL (<10.0) 03/01/20 12:41 Plasma/Serum Alcohol < 0.01 % (0-0.07) 02/29/20 19:11 Complement C3 173 mg/dL (82-185) 03/05/20 09:02 Complement C4 27 mg/dL (15-53) 03/05/20 09:02 Hepatitis A IgM Ab Non-reactive (NonReactive) 03/01/20 09:42 Hep Bs Antigen Non-reactive (Negative) 03/01/20 09:42 Hep B Core IgM Ab Non-reactive (NonReactive) 03/01/20 09:42 Hepatitis C Antibody Non-reactive (NonReactive) 03/01/20 09:42 Blood Type O POSITIVE 03/08/20 12:18 Antibody Screen Negative 03/08/20 12:18 Crossmatch See Detail 03/08/20 12:18 Microbiology: Microbiology 03/08/20 09:40 Knee - Left Wound Culture - Preliminary Paredes/IV: Voiding Method Urinal IV Catheter Type [Right Hand] INT / Saline Lock IV Catheter Type [Right INT / Saline Lock Antecubital] IV Catheter Type [Right INT / Saline Lock Forearm] IV Catheter Type [Left Hand] Peripheral IV Active Medications - Current Medications Current Medications: Generic Name Dose Route Start Last Admin Trade Name Freq PRN Reason Stop Dose Admin Acetaminophen 650 mg 03/01/20 13:57 03/09/20 04:17 Tylenol PO 650 mg Q4H PRN Administration Pain MILD(1-3)/Fever >100.5/OLIVERA Albumin Human 25 gm 03/01/20 10:16 Alburx 25% (Albumin) IV NITZA PRN Hypotension Carvedilol 6.25 mg 03/01/20 15:00 03/08/20 21:29 Coreg PO 6.25 mg BID JOSE RAMON Administration Hydralazine HCl 50 mg 03/01/20 15:00 03/09/20 05:22 Apresoline PO 50 mg Q8HR JOSE RAMON Administration Hydromorphone HCl 0.5 mg 03/01/20 08:35 03/08/20 10:01 Dilaudid IV 0.5 mg Q3H PRN Administration Pain , Severe (7-10) Vancomycin HCl 1,250 mg/ 275 mls @ 166.667 mls/hr 03/06/20 21:00 03/09/20 04:16 Sodium Chloride IV 166.667 mls/hr Q8H JOSE RAMON Administration Sodium Chloride 1,000 mls @ 100 mls/hr 03/08/20 13:30 Nacl 0.9% 1000 Ml IV DIRECT JOSE RAMON Cefepime HCl 2 gm in 100 mls @ 200 mls/hr 03/08/20 22:00 03/09/20 05:21 Cefepime/Ns 2 Gm/100 Ml IV 200 mls/hr Q8HR JOSE RAMON Administration Protocol Clindamycin HCl 600 mg in 50 mls @ 100 mls/hr 03/08/20 22:00 03/09/20 05:21 Cleocin 600 Mg/50 Ml IV 100 mls/hr Q8HR JOSE RAMON Administration Protocol Ibuprofen 400 mg 03/04/20 13:32 03/07/20 21:38 Ibuprofen PO 400 mg Q6H PRN Administration Non Cardiac Pain or Temp>100.5 Metoclopramide HCl 10 mg 03/01/20 13:57 Reglan IV Q6H PRN Nausea And Vomiting Ondansetron HCl 4 mg 03/01/20 13:57 Zofran IV Q8H PRN Nausea And Vomiting Oxycodone/Acetaminophen 1 tab 03/01/20 13:57 03/08/20 22:24 Percocet 5/325 PO 1 tab Q6H PRN Administration Pain, Moderate (4-6) Pantoprazole Sodium 40 mg 03/02/20 22:00 03/08/20 21:29 Protonix PO 40 mg BID JOSE RAMON Administration Sodium Chloride 10 ml 03/01/20 22:00 03/08/20 21:30 Sodium Chloride Flush Syringe 10 Ml IV 10 ml BID JOSE RAMON Administration Sodium Chloride 10 ml 03/01/20 13:57 03/08/20 06:12 Sodium Chloride Flush Syringe 10 Ml IV 10 ml PRN PRN Administration LINE FLUSH Nutrition/Malnutrition Assess - Dietary Evaluation Nutrition/Malnutrition Findings: Nutrition Notes Start: 03/01/20 08:14 Freq: Status: Active Protocol: Document 03/08/20 12:25 LM (Rec: 03/08/20 12:27 LM [id number]) Nutrition Notes Initial or Follow up Brief Note Current Diagnosis Acute Kidney Injury,Sepsis Other Pertinent Diagnosis Acute liver failure, Anemia Current Diet NPO Subjective/Other Information Pt stated he is eating well and has recently gained wt back to UBW of 160-163 lb. Nutrition Intervention Revisit per MD consult or patient Sign Off request:
--- NOTE | 2020-03-09 11:38 | Progress Note ---
Assessment and Plan Cultures: Blood culture 02/29/2020 no growth. OR culture 03/08/2020 pending Assessment: 40 years old male without any medical history, admitted on 02/29/2020 due to 3-week history of intermittent fever and left leg edema, erythema and tenderness, associated with weakness, urine odor and syncope: #Severe sepsis: remains with fever/high leukocytosis; secondary to severe left knee infection. #Left knee septic arthritis with extensive leg cellulitis ? Necrotizing infection: Patient was taken to the operating room underwent drainage knee washout on 03/08/2020, culture pending #Elevated LFTs: Likely due to sepsis, shock liver #Anemia #Coagulopathy: Likely due to sepsis #Hyponatremia: Per primary team #Acute kidney injury: Secondary to sepsis, resolved #Chest pain and tachycardia: unclear source Recommendations: discussed with Dr Cochran re: chest pain, getting chest CTA will check TTE Follow-up OR cultures Continue vancomycin with PK consult Continue cefepime 2 g IV every 12 hours Continue clindamycin 600 g IV every 8 hours Will follow. Yvette Das MD Infectious Diseases Supervisor [employer] [facility] M [phone] O [phone] Subjective Date of service: 03/09/20 Principal diagnosis: Hypertensive emergency, acute liver failure, acute renal renal failure, rha Interval history: Feels sick c/o severe chest/ribs pain bilateral 10 of 10 more with inspiration tmax 100.7 Objective - Exam Narrative Exam: General appearance: Alert in NAD Eyes: anicteric sclerae, moist conjunctivae; no lid-lag; left corneal opacity HENT: Atraumatic; oropharynx clear with moist mucous membranes and no oral thrush; normal hard and soft palate. Lungs: CTA, with normal respiratory effort and no intercostal retractions CV: RRR no murmur Abdomen: Soft, non-tender; no masses or hepatosplenomegaly Extremities: Extensive left leg edema, erythema and tenderness surrounding the left knee with surg wound with dressings, left arm with dressings Skin: No rash. Psych: +anxious Neuro: alert and oriented x 3. Moving all extermities - Constitutional Vitals: Vital Signs Temp Pulse Resp BP Pulse Ox 98.6 F 91 H 18 124/72 95 03/09/20 07:53 03/09/20 07:53 03/09/20 08:10 03/09/20 07:53 03/09/20 07:53 Temperature -Last 24 Hours Temperature 98.6 F Temperature 100.7 F Temperature 99.4 F Temperature 97.4 F Temperature 99.4 F Temperature 98.4 F Temperature 99.4 F Temperature 99.9 F Temperature 100.2 F Temperature 100.4 F Temperature 100.5 F Temperature 100.6 F Temperature 100.2 F Temperature 100.6 F - Labs CBC & Chem 7: 03/09/20 04:40 03/09/20 04:40 Labs: Abnormal lab results 03/04/20 03/05/20 03/08/20 Range/Units 06:23 09:02 12:18 WBC (4.5-11.0) K/mm3 RBC (3.65-5.03) M/mm3 Hgb (11.8-15.2) gm/dl Hct (35.5-45.6) % RDW (13.2-15.2) % Plt Count (140-440) K/mm3 Seg Neuts % (Manual) (40.0-70.0) % Lymphocytes % (Manual) (13.4-35.0) % Seg Neutrophils # Man (1.8-7.7) K/mm3 Monocytes # (Manual) (0.0-0.8) K/mm3 Sodium (137-145) mmol/L Calcium (8.4-10.2) mg/dL AST (5-40) units/L ALT (7-56) units/L Alkaline Phosphatase (35-129) units/L Total Creatine Kinase (55-170) units/L Serum Total Protein 5.2 L (6.1-8.1) g/dL Albumin 1.6 L (3.8-4.8) g/dL Ldnqg-7-Tbiiyldtj 0.8 H (0.2-0.3) g/dL Liwsi-8-Fnnjftcxq 1.1 H (0.5-0.9) g/dL PEP Interpretation see below H Crossmatch See Detail See Detail 03/09/20 03/09/20 03/09/20 Range/Units 04:40 04:40 04:40 WBC 28.2 H (4.5-11.0) K/mm3 RBC 3.01 L (3.65-5.03) M/mm3 Hgb 8.5 L (11.8-15.2) gm/dl Hct 25.7 L (35.5-45.6) % RDW 15.4 H (13.2-15.2) % Plt Count 770 H (140-440) K/mm3 Seg Neuts % (Manual) 83.0 H (40.0-70.0) % Lymphocytes % (Manual) 8.0 L (13.4-35.0) % Seg Neutrophils # Man 23.4 H (1.8-7.7) K/mm3 Monocytes # (Manual) 1.1 H (0.0-0.8) K/mm3 Sodium 134 L (137-145) mmol/L Calcium 8.1 L (8.4-10.2) mg/dL AST 88 H (5-40) units/L ALT 150 H (7-56) units/L Alkaline Phosphatase 154 H (35-129) units/L Total Creatine Kinase 194 H (55-170) units/L Serum Total Protein (6.1-8.1) g/dL Albumin 1.9 L (3.8-4.8) g/dL Ibzqz-9-Dynlfmokb (0.2-0.3) g/dL Dandt-1-Wymauluve (0.5-0.9) g/dL PEP Interpretation Crossmatch
--- NOTE | 2020-03-09 11:40 | Consultation ---
History of Present Illness Consult date: 03/09/20 Requesting physician: MINNIE AGUSTIN Consult reason: chest pain History of present illness: The pt is a 40 years old male without any medical history, admitted on 02/29/2020 due to 3-week history of intermittent fever and left leg edema, erythema and tenderness, associated with weakness, urine odor and syncope. Subsequently diagnosed with sepsis, left knee septic arthritis with extensive leg cellulitis ? necrotic site infection, elevated LFTs, coagulopathy, BHARTI. Patient was taken to the operating room underwent drainage knee washout on 03/08/2020. Pt reportedly c/o chest pain this AM and thus cardiology has been consulted. On evaluation, pt denies any occurrence of chest pain. He states that he underwent MRI yesterday and experienced some lumbar back pain secondary to lying flat. Past History Past Medical History: No medical history Past Surgical History: No surgical history Social history: no significant social history Family history: no significant family history Medications and Allergies Allergies Allergy/AdvReac Type Severity Reaction Status Date / Time No Known Allergies Allergy Unverified 02/29/20 18:25 Home Medications Medication Instructions Recorded Confirmed Last Taken Type No Known Home Medications [No 03/01/20 03/01/20 Unknown History Reported Home Medications] Active Meds: Active Medications Acetaminophen (Tylenol) 650 mg PO Q4H PRN PRN Reason: Pain MILD(1-3)/Fever >100.5/OLIVERA Last Admin: 03/09/20 04:17 Dose: 650 mg Documented by: Albumin Human (Alburx 25% (Albumin)) 25 gm IV NITZA PRN PRN Reason: Hypotension Carvedilol (Coreg) 6.25 mg PO BID [facility] Last Admin: 03/09/20 09:59 Dose: 6.25 mg Documented by: Hydralazine HCl (Apresoline) 50 mg PO Q8HR [facility] Last Admin: 03/09/20 05:22 Dose: 50 mg Documented by: Hydromorphone HCl (Dilaudid) 0.5 mg IV Q3H PRN PRN Reason: Pain , Severe (7-10) Last Admin: 03/09/20 10:00 Dose: 0.5 mg Documented by: Vancomycin HCl 1,250 mg/ (Sodium Chloride) 275 mls @ 166.667 mls/hr IV Q8H [facility] Last Admin: 03/09/20 04:16 Dose: 166.667 mls/hr Documented by: Sodium Chloride (Nacl 0.9% 1000 Ml) 1,000 mls @ 100 mls/hr IV DIRECT JOSE RAMON Cefepime HCl (Cefepime/Ns 2 Gm/100 Ml) 2 gm in 100 mls @ 200 mls/hr IV Q8HR JOSE RAMON; Protocol Last Admin: 03/09/20 05:21 Dose: 200 mls/hr Documented by: Clindamycin HCl (Cleocin 600 Mg/50 Ml) 600 mg in 50 mls @ 100 mls/hr IV Q8HR JOSE RAMON; Protocol Last Admin: 03/09/20 05:21 Dose: 100 mls/hr Documented by: Ibuprofen (Ibuprofen) 400 mg PO Q6H PRN PRN Reason: Non Cardiac Pain or Temp>100.5 Last Admin: 03/07/20 21:38 Dose: 400 mg Documented by: Metoclopramide HCl (Reglan) 10 mg IV Q6H PRN PRN Reason: Nausea And Vomiting Ondansetron HCl (Zofran) 4 mg IV Q8H PRN PRN Reason: Nausea And Vomiting Oxycodone/Acetaminophen (Percocet 5/325) 1 tab PO Q6H PRN PRN Reason: Pain, Moderate (4-6) Last Admin: 03/08/20 22:24 Dose: 1 tab Documented by: Pantoprazole Sodium (Protonix) 40 mg PO BID [facility] Last Admin: 03/09/20 09:59 Dose: 40 mg Documented by: Sodium Chloride (Sodium Chloride Flush Syringe 10 Ml) 10 ml IV BID [facility] Last Admin: 03/08/20 21:30 Dose: 10 ml Documented by: Sodium Chloride (Sodium Chloride Flush Syringe 10 Ml) 10 ml IV PRN PRN PRN Reason: LINE FLUSH Last Admin: 03/08/20 06:12 Dose: 10 ml Documented by: Review of Systems Constitutional: no weight loss, no weight gain Ears, nose, mouth and throat: no ear pain, no nose pain, no sinus pressure, no sinus pain Cardiovascular: no chest pain, no orthopnea, no palpitations, no rapid/irregular heart beat, no edema, no syncope, no lightheadedness, no shortness of breath, no paroxysmal nocturnal dyspnea, no high blood pressure Respiratory: no cough, no shortness of breath, no dyspnea on exertion, no congestion, no wheezing, no pain on inspiration Gastrointestinal: no abdominal pain, no nausea, no vomiting, no diarrhea, no constipation, no change in bowel habits Genitourinary Male: no dysuria, no hematuria, no flank pain, no discharge, no urinary frequency, no urinary hesitancy Musculoskeletal: other (left knee pain), no neck stiffness, no neck pain, no shooting arm pain, no arm numbness/tingling, no low back pain, no shooting leg pain Neurological: no head injury, no paralysis, no weakness, no parathesias, no numbness, no tingling, no seizures, no syncope Psychiatric: no anxiety Endocrine: no cold intolerance, no heat intolerance Hematologic/Lymphatic: no easy bruising, no easy bleeding Allergic/Immunologic: no urticaria Physical Examination Vital Signs Pulse Ox 62 L 02/29/20 18:40 General appearance: no acute distress HEENT: Positive: PERRL, Normocephaly, Mucus Membranes Moist Neck: Positive: neck supple, trachea midline Cardiac: Positive: Reg Rate and Rhythm, S1/S2 Lungs: Positive: Decreased Breath Sounds Neuro: Positive: Grossly Intact Abdomen: Negative: Tender Skin: Negative: Rash Musculoskeletal: other (left knee in dressing) Results 03/09/20 04:40 03/09/20 04:40 Cardiac Enzymes 03/09/20 Range/Units 04:40 AST 88 H (5-40) units/L CBC 03/09/20 Range/Units 04:40 WBC 28.2 H (4.5-11.0) K/mm3 RBC 3.01 L (3.65-5.03) M/mm3 Hgb 8.5 L (11.8-15.2) gm/dl Hct 25.7 L (35.5-45.6) % Plt Count 770 H (140-440) K/mm3 Comprehensive Metabolic Panel 03/05/20 03/09/20 Range/Units 09:02 04:40 Sodium 134 L (137-145) mmol/L Potassium 4.6 (3.6-5.0) mmol/L Chloride 100.1 (98-107) mmol/L Carbon Dioxide 23 (22-30) mmol/L BUN 15 (9-20) mg/dL Creatinine 0.8 (0.8-1.5) mg/dL Glucose 95 (75-100) mg/dL Calcium 8.1 L (8.4-10.2) mg/dL AST 88 H (5-40) units/L ALT 150 H (7-56) units/L Alkaline Phosphatase 154 H (35-129) units/L Total Protein 6.6 (6.3-8.2) g/dL Albumin 1.6 L 1.9 L (3.8-4.8) g/dL - Imaging and Cardiology Echo: pending EKG: report reviewed, image reviewed EKG interpretations - Telemetry EKG Rhythm: Sinus Rhythm - EKG Sinus rhythms and dysrhythmias: sinus rhythm Chamber hypertrophy or enlargement: left ventricular hypertro Assessment and Plan Pt reportedly c/o chest pain this AM and thus cardiology has been consulted. On evaluation, pt denies any occurrence of chest pain. F/u ECG and Tanya. Obtain echo. Will follow. The patient has been seen in conjunction with Dr. King who agrees with the assessment and plan of care. - Patient Problems (1) Sepsis Current Visit: Yes Status: Acute (2) Septic arthritis Current Visit: Yes Status: Acute Qualifiers: Septic arthritis location: knee Laterality: left (3) Cellulitis Current Visit: Yes Status: Suspected (4) Transaminitis Current Visit: Yes Status: Acute (5) Coagulopathy Current Visit: Yes Status: Acute (6) Anemia Current Visit: Yes Status: Acute Qualifiers: Anemia type: unspecified type Qualified Code(s): D64.9 - Anemia, unspecified
[2020-03-09] MEDS: oxyCODONE /ACETAMINOPHEN 5-325MG TAB PO PRN (18:22)
[2020-03-10 00:10] LABS: Myeloperoxidase Antibody <1.0 AI (<1.0)
[2020-03-10] MEDS: oxyCODONE /ACETAMINOPHEN 5-325MG TAB PO PRN ×4 (04:06→22:16)
[2020-03-10] MEDS: VANCOMYCIN 1,250 MG in SODIUM CHLORIDE 0.9% 250ML 250 ML IV SCH ×3 (04:08→21:27)
[2020-03-10] MEDS: hydrALAZINE 25 MG TAB PO SCH ×3 (05:45→21:26)
[2020-03-10] MEDS: CEFEPIME/NS 2 GM/100 ML 2 GM/100 ML BAG IV SCH ×3 (05:50→21:27)
[2020-03-10] MEDS: CLINDAMYCIN 600 MG/50 mL 600 MG/50 ML BAG IV SCH ×3 (06:19→21:27)
[2020-03-10] MEDS: PANTOPRAZOLE 40 MG TAB PO SCH ×2 (09:49→21:27)
[2020-03-10] MEDS: carvediloL 6.25 MG TAB PO SCH ×2 (09:49→21:26)
--- NOTE | 2020-03-10 10:16 | Progress Note ---
Assessment and Plan Cultures: Blood culture 02/29/2020 no growth. OR culture 03/08/2020 no growth today Assessment: 40 years old male without any medical history, admitted on 02/29/2020 due to 3-week history of intermittent fever and left leg edema, erythema and tenderness, associated with weakness, urine odor and syncope: #Severe sepsis: remains with fever/high leukocytosis; secondary to severe left knee infection. Leukocytosis is not better. #Left knee septic arthritis with extensive leg cellulitis, myositis? Necrotizing infection: Patient was taken to the operating room underwent drainage knee washout on 03/08/2020, culture pending #Elevated LFTs: Likely due to sepsis, shock liver #Anemia #Coagulopathy: Likely due to sepsis #Hyponatremia: Per primary team #Acute kidney injury: Secondary to sepsis, resolved #Chest pain and tachycardia: unclear source Recommendations: f/u wound cultures Obtain HIV Cards on board Follow-up OR cultures Continue vancomycin with PK consult Continue cefepime 2 g IV every 12 hours Continue clindamycin 600 g IV every 8 hours Will follow. Yvette Das MD Infectious Diseases Adhesive Band[employer] Machine [employer] [facility] ([facility]) M [phone] O [phone] Subjective Date of service: 03/10/20 Principal diagnosis: Hypertensive emergency, acute liver failure, acute renal renal failure, rha Interval history: Feels better no chest pain no fever Objective - Exam Narrative Exam: General appearance: Alert in NAD Eyes: anicteric sclerae, moist conjunctivae; no lid-lag; left corneal opacity HENT: Atraumatic; oropharynx clear with moist mucous membranes and no oral thrush; normal hard and soft palate. Lungs: CTA, with normal respiratory effort and no intercostal retractions CV: RRR no murmur Abdomen: Soft, non-tender; no masses or hepatosplenomegaly Extremities: Extensive left leg edema, erythema and tenderness surrounding the left knee with surg wound with dressings, left arm with dressings Skin: No rash. Psych: no agitated Neuro: alert and oriented x 3. Moving all extermities - Constitutional Vitals: Vital Signs Temp Pulse Resp BP Pulse Ox 98.5 F 83 20 119/70 98 03/10/20 07:47 03/10/20 09:49 03/10/20 07:47 03/10/20 09:49 03/10/20 07:47 Temperature -Last 24 Hours Temperature 98.5 F Temperature 97.4 F Temperature 98.6 F Temperature 98.5 F Temperature 97.9 F Temperature 99.2 F Temperature 99.0 F - Labs CBC & Chem 7: 03/09/20 04:40 03/09/20 04:40 Labs: Abnormal lab results 03/09/20 Range/Units 04:40 Total Creatine Kinase 194 H (55-170) units/L
--- NOTE | 2020-03-10 11:31 | Progress Note ---
Assessment and Plan ECG with NAF. Tanya negative for AMI x 3 sets. tte reviewed - EF 55-60%, no significant findings. Currently stable cardiac status. Pt denies any occurrence of chest pain. Nothing further to add from cardiac perspective. Will sign off. The patient has been seen in conjunction with Dr. King who agrees with the assessment and plan of care. - Patient Problems (1) Sepsis Current Visit: Yes Status: Acute (2) Septic arthritis Current Visit: Yes Status: Acute Qualifiers: Septic arthritis location: knee Laterality: left (3) Cellulitis Current Visit: Yes Status: Suspected (4) Transaminitis Current Visit: Yes Status: Acute (5) Coagulopathy Current Visit: Yes Status: Acute (6) Anemia Current Visit: Yes Status: Acute Qualifiers: Anemia type: unspecified type Qualified Code(s): D64.9 - Anemia, uns pecified Subjective Date of service: 03/10/20 Principal diagnosis: Hypertensive emergency, acute liver failure, acute renal renal failure, rha Interval history: pt resting in bed, no cardiac complaints. in SR on tele. Objective Last Vital Signs Temp 98.5 F 03/10/20 07:47 Pulse 83 03/10/20 09:49 Resp 20 03/10/20 07:47 BP 119/70 03/10/20 09:49 Pulse Ox 98 03/10/20 07:47 - Physical Examination General: No Apparent Distress HEENT: Positive: PERRL, Normocephaly, Mucus Membranes Moist Neck: Positive: neck supple, trachea midline Cardiac: Positive: Reg Rate and Rhythm, S1/S2 Lungs: Positive: Decreased Breath Sounds Neuro: Positive: Grossly Intact Abdomen: Negative: Tender Skin: Negative: Rash Musculoskeletal: other (left knee in dressing) - Imaging and Cardiology EKG: report reviewed, image reviewed Echo: report reviewed - Telemetry EKG Rhythm: Sinus Rhythm - EKG Sinus rhythms and dysrhythmias: sinus rhythm Chamber hypertrophy or enlargement: left ventricular hypertro
--- NOTE | 2020-03-10 11:48 | Progress Note ---
Assessment and Plan Infected left leg/knee, status post irrigation debridement left knee/LEG We will add wound VAC continue IV antibiotics and observation Subjective Date of service: 03/10/20 Principal diagnosis: Hypertensive emergency, acute liver failure, acute renal renal failure, rha Interval history: c/o left leg pain, otherwise ok Objective Vital signs: Vital Signs - 12hr 03/10/20 03/10/20 03/10/20 03:16 05:45 07:47 Temperature 97.4 F L 98.5 F Pulse Rate 88 90 83 Respiratory 18 20 Rate Blood Pressure 135/88 135/88 119/70 O2 Sat by Pulse 98 98 Oximetry 03/10/20 09:49 Temperature Pulse Rate 83 Respiratory Rate Blood Pressure 119/70 O2 Sat by Pulse Oximetry Narrative Exam: Postop dressings removed along with iodoform packing patient still has copious amounts of purulent drainage - Labs CBC & BMP: 03/09/20 04:40 03/09/20 04:40
--- NOTE | 2020-03-10 12:12 | Progress Note ---
Assessment and Plan Assessment and plan: Self mutilation. Recall psychiatry for further evaluation. Severe sepsis. Present on admission with hypothermia, tachycardia, hypotension, leukocytosis, severely elevated lactate; secondary to severe left knee infection. Left knee septic arthritis with extensive leg cellulitis ? Necrotic site infection. Patient was taken to the operating room underwent drainage knee washout on 03/08/2020 Elevated LFTs. Likely due to sepsis, shock liver Anemia. Coagulopathy. Likely due to sepsis Hyponatremia.continue IV fluid hydration and follow-up BMP Acute kidney injury. Secondary to sepsis, resolved. Creatinine stable. History Interval history: No new issues overnight. However, patient with lacerations to his left upper extremity that were self-induced. Patient denies any suicidal ideation. Patient states that he was attempting to get poison out of his system. Hospitalist Physical - Constitutional Vitals: Temp Pulse Resp BP Pulse Ox 98.5 F 83 20 119/70 98 03/10/20 07:47 03/10/20 09:49 03/10/20 07:47 03/10/20 09:49 03/10/20 07:47 General appearance: Present: no acute distress - EENT Eyes: Present: PERRL, EOM intact ENT: hearing intact, clear oral mucosa, dentition normal - Neck Neck: Present: supple, normal ROM - Respiratory Respiratory effort: normal Respiratory: bilateral: CTA - Cardiovascular Rhythm: regular Heart Sounds: Present: S1 & S2. Absent: gallop, rub - Extremities Extremities: no ischemia, No edema, Full ROM - Abdominal General gastrointestinal: soft, non-tender, non-distended, normal bowel sounds - Integumentary Integumentary: Present: clear, warm, dry - Neurologic Neurologic: CNII-XII intact, moves all extremities HEART Score - HEART Score Troponin: Troponin T 0.010 ng/mL (0.00-0.029) 03/09/20 23:47 Results - Labs CBC & Chem 7: 03/09/20 04:40 03/09/20 04:40 Labs: Laboratory Last Values WBC 28.2 K/mm3 (4.5-11.0) H 03/09/20 04:40 RBC 3.01 M/mm3 (3.65-5.03) L 03/09/20 04:40 Hgb 8.5 gm/dl (11.8-15.2) L 03/09/20 04:40 Hct 25.7 % (35.5-45.6) L 03/09/20 04:40 MCV 85 fl (84-94) 03/09/20 04:40 MCH 28 pg (28-32) 03/09/20 04:40 MCHC 33 % (32-34) 03/09/20 04:40 RDW 15.4 % (13.2-15.2) H 03/09/20 04:40 Plt Count 770 K/mm3 (140-440) H 03/09/20 04:40 Lymph % (Auto) 4.0 % (13.4-35.0) L 03/02/20 02:30 [place] % (Auto) 6.1 % (0.0-7.3) 03/02/20 02:30 Eos % (Auto) 0.1 % (0.0-4.3) 03/02/20 02:30 Baso % (Auto) 0.1 % (0.0-1.8) 03/02/20 02:30 Lymph # 0.6 K/mm3 (1.2-5.4) L 03/02/20 02:30 [place] # 0.9 K/mm3 (0.0-0.8) H 03/02/20 02:30 Eos # 0.0 K/mm3 (0.0-0.4) 03/02/20 02:30 Baso # 0.0 K/mm3 (0.0-0.1) 03/02/20 02:30 Add Manual Diff Complete 03/09/20 04:40 Total Counted 100 03/09/20 04:40 Seg Neutrophils % Hr Generalist 03/05/20 06:56 Seg Neuts % (Manual) 83.0 % (40.0-70.0) H 03/09/20 04:40 Band Neutrophils % 5.0 % 03/09/20 04:40 Lymphocytes % (Manual) 8.0 % (13.4-35.0) L 03/09/20 04:40 Reactive Lymphs % (Man) 0 % 03/09/20 04:40 Monocytes % (Manual) 4.0 % (0.0-7.3) 03/09/20 04:40 Eosinophils % (Manual) 0 % (0.0-4.3) 03/09/20 04:40 Basophils % (Manual) 0 % (0.0-1.8) 03/09/20 04:40 Metamyelocytes % 0 % 03/09/20 04:40 Myelocytes % 0 % 03/09/20 04:40 Promyelocytes % 0 % 03/09/20 04:40 Blast Cells % 0 % 03/09/20 04:40 Nucleated RBC % Not Reportable 03/09/20 04:40 Seg Neutrophils # 12.9 K/mm3 (1.8-7.7) H 03/02/20 02:30 Seg Neutrophils # Man 23.4 K/mm3 (1.8-7.7) H 03/09/20 04:40 Band Neutrophils # 1.4 K/mm3 03/09/20 04:40 Lymphocytes # (Manual) 2.3 K/mm3 (1.2-5.4) 03/09/20 04:40 Abs React Lymphs (Man) 0.0 K/mm3 03/09/20 04:40 Monocytes # (Manual) 1.1 K/mm3 (0.0-0.8) H 03/09/20 04:40 Eosinophils # (Manual) 0.0 K/mm3 (0.0-0.4) 03/09/20 04:40 Basophils # (Manual) 0.0 K/mm3 (0.0-0.1) 03/09/20 04:40 Metamyelocytes # 0.0 K/mm3 03/09/20 04:40 Myelocytes # 0.0 K/mm3 03/09/20 04:40 Promyelocytes # 0.0 K/mm3 03/09/20 04:40 Blast Cells # 0.0 K/mm3 03/09/20 04:40 WBC Morphology Not Reportable 03/09/20 04:40 Hypersegmented Neuts Not Reportable 03/09/20 04:40 Hyposegmented Neuts Not Reportable 03/09/20 04:40 Hypogranular Neuts Not Reportable 03/09/20 04:40 Smudge Cells Not Reportable 03/09/20 04:40 Toxic Granulation Not Reportable 03/09/20 04:40 Toxic Vacuolation Not Reportable 03/09/20 04:40 Dohle Bodies Not Reportable 03/09/20 04:40 Pelger-Huet Anomaly Not Reportable 03/09/20 04:40 Lizbeth Rods Not Reportable 03/09/20 04:40 Platelet Estimate Consistent w auto 03/09/20 04:40 Clumped Platelets Not Reportable 03/09/20 04:40 Plt Clumps, EDTA Not Reportable 03/09/20 04:40 Large Platelets Not Reportable 03/09/20 04:40 Giant Platelets Not Reportable 03/09/20 04:40 Platelet Satelliting Not Reportable 03/09/20 04:40 Plt Morphology Comment Not Reportable 03/09/20 04:40 RBC Morphology Not Reportable 03/09/20 04:40 Dimorphic RBCs Not Reportable 03/09/20 04:40 Polychromasia Rare 03/09/20 04:40 Hypochromasia Rare 03/09/20 04:40 Poikilocytosis Not Reportable 03/09/20 04:40 Anisocytosis Few 03/09/20 04:40 Microcytosis Not Reportable 03/09/20 04:40 Macrocytosis Not Reportable 03/09/20 04:40 Spherocytes Not Reportable 03/09/20 04:40 Pappenheimer Bodies Not Reportable 03/09/20 04:40 Sickle Cells Not Reportable 03/09/20 04:40 Target Cells Rare 03/09/20 04:40 Tear Drop Cells Not Reportable 03/09/20 04:40 Ovalocytes Not Reportable 03/09/20 04:40 Helmet Cells Not Reportable 03/09/20 04:40 [place] Bodies Not Reportable 03/09/20 04:40 [place] Rings Not Reportable 03/09/20 04:40 [place] Cells Not Reportable 03/09/20 04:40 Bite Cells Not Reportable 03/09/20 04:40 Crenated Cell Not Reportable 03/09/20 04:40 Elliptocytes Not Reportable 03/09/20 04:40 Acanthocytes (Spur) Not Reportable 03/09/20 04:40 Rouleaux Not Reportable 03/09/20 04:40 Hemoglobin C Crystals Not Reportable 03/09/20 04:40 Schistocytes Not Reportable 03/09/20 04:40 Malaria parasites Not Reportable 03/09/20 04:40 Hilario Bodies Not Reportable 03/09/20 04:40 Hem Pathologist Commnt No 03/09/20 04:40 PT 23.5 Sec. (12.2-14.9) H 03/01/20 05:49 INR 2.16 (0.87-1.13) H 03/01/20 05:49 APTT 44.0 Sec. (24.2-36.6) H 02/29/20 19:11 ABG pH 7.427 pH Units (7.350-7.450) 02/29/20 23:09 ABG pCO2 28.1 mm Hg 02/29/20 23:09 ABG pO2 96.3 mm Hg (80.0-90.0) H 02/29/20 23:09 ABG HCO3 18.1 mmol/L (20.0-26.0) L 02/29/20 23:09 ABG O2 Saturation 97.6 % (95.0-99.0) 02/29/20 23:09 ABG O2 Content 12.6 (0.0-44) 02/29/20 23:09 ABG Base Excess -5.3 mmol/L (-2.0-3.0) L 02/29/20 23:09 ABG Hemoglobin 9.2 gm/dl (14.0-18.0) L 02/29/20 23:09 ABG Carboxyhemoglobin 1.1 % (0.0-5.0) 02/29/20 23:09 ABG Methemoglobin 0.4 % (0.0-1.5) 02/29/20 23:09 Oxyhemoglobin 96.2 % (95.0-99.0) 02/29/20 23:09 FiO2 36 % 02/29/20 23:09 Sodium 134 mmol/L (137-145) L 03/09/20 04:40 Potassium 4.6 mmol/L (3.6-5.0) 03/09/20 04:40 Chloride 100.1 mmol/L (98-107) 03/09/20 04:40 Carbon Dioxide 23 mmol/L (22-30) 03/09/20 04:40 Anion Gap 16 mmol/L 03/09/20 04:40 BUN 15 mg/dL (9-20) 03/09/20 04:40 Creatinine 0.8 mg/dL (0.8-1.5) 03/09/20 04:40 Estimated GFR > 60 ml/min 03/09/20 04:40 BUN/Creatinine Ratio 19 % 03/09/20 04:40 Glucose 95 mg/dL (75-100) 03/09/20 04:40 POC Glucose 122 (70-105) H 02/29/20 23:20 Hemoglobin A1c 4.7 % (4-6) 03/01/20 05:49 Osmolality 286 Mosm/kg 03/02/20 13:28 Lactic Acid 1.90 mmol/L (0.7-2.0) 03/01/20 21:23 Calcium 8.1 mg/dL (8.4-10.2) L 03/09/20 04:40 Total Bilirubin 0.40 mg/dL (0.1-1.2) 03/09/20 04:40 Direct Bilirubin < 0.2 mg/dL (0-0.2) 03/01/20 05:49 Indirect Bilirubin 0.0 mg/dL 03/01/20 05:49 AST 88 units/L (5-40) H 03/09/20 04:40 ALT 150 units/L (7-56) H 03/09/20 04:40 Alkaline Phosphatase 154 units/L (35-129) H 03/09/20 04:40 Ammonia 43.0 umol/L (25-60) 03/01/20 01:09 Total Creatine Kinase 145 units/L (55-170) 03/10/20 09:20 Troponin T 0.010 ng/mL (0.00-0.029) 03/09/20 23:47 Serum Total Protein 5.2 g/dL (6.1-8.1) L 03/05/20 09:02 Total Protein 6.6 g/dL (6.3-8.2) 03/09/20 04:40 Albumin 1.9 g/dL (3.9-5) L 03/09/20 04:40 Albumin/Globulin Ratio 0.4 % 03/09/20 04:40 Udbru-1-Jryxusbbp 0.8 g/dL (0.2-0.3) H 03/05/20 09:02 Zuflj-8-Pnyjbierj 1.1 g/dL (0.5-0.9) H 03/05/20 09:02 Beta Globulins 0.4 g/dL (0.2-0.5) 03/05/20 09:02 Gamma Globulins 1.0 g/dL (0.8-1.7) 03/05/20 09:02 Abnorm Protein Band 1 see below 03/05/20 09:02 PEP Interpretation see below H 03/05/20 09:02 Urine Color Yellow (Yellow) 02/29/20 23:30 Urine Turbidity Slightly-cloudy (Clear) 02/29/20 23:30 Urine pH 5.0 (5.0-7.0) 02/29/20 23:30 Ur Specific [place] 1.016 (1.003-1.030) 02/29/20 23:30 Urine Protein 30 mg/dl mg/dL (Negative) 02/29/20 23:30 Urine Glucose (UA) 50 mg/dL (Negative) 02/29/20 23:30 Urine Ketones Neg mg/dL (Negative) 02/29/20 23:30 Urine Blood Lg (Negative) 02/29/20 23:30 Urine Nitrite Neg (Negative) 02/29/20 23:30 Urine Bilirubin Neg (Negative) 02/29/20 23:30 Urine Urobilinogen < 2.0 mg/dL (<2.0) 02/29/20 23:30 Ur Leukocyte Esterase Neg (Negative) 02/29/20 23:30 Urine WBC (Auto) 6.0 /HPF (0.0-6.0) 02/29/20 23:30 Urine RBC (Auto) 2.0 /HPF (0.0-6.0) 02/29/20 23:30 Urine Mucus 1+ /HPF 02/29/20 23:30 Vancomycin Trough 16.2 ug/mL (5.0-20.0) 03/08/20 12:18 Salicylates 1.7 mg/dL (2.8-20.0) L 02/29/20 20:35 Urine Opiates Screen Presumptive negative 02/29/20 23:30 Urine Methadone Screen Presumptive negative 02/29/20 23:30 Acetaminophen < 5.0 ug/mL (10.0-30.0) L 02/29/20 20:35 Ur Barbiturates Screen Presumptive negative 02/29/20 23:30 Ur Phencyclidine Scrn Presumptive negative 02/29/20 23:30 Ur Amphetamines Screen Presumptive negative 02/29/20 23:30 U Benzodiazepines Scrn Presumptive negative 02/29/20 23:30 Urine Cocaine Screen Presumptive negative 02/29/20 23:30 U Marijuana (THC) Screen Presumptive negative 02/29/20 23:30 Drugs of Abuse Note Disclamer 02/29/20 23:30 Ethylene Glycol <10.0 mcg/mL (<10.0) 03/01/20 12:41 Plasma/Serum Alcohol < 0.01 % (0-0.07) 02/29/20 19:11 Proteinase 3 (PR3) Ab <1.0 AI (<1.0) 03/05/20 09:02 Myeloperoxidase Ab <1.0 AI (<1.0) 03/05/20 09:02 Complement C3 173 mg/dL (82-185) 03/05/20 09:02 Complement C4 27 mg/dL (15-53) 03/05/20 09:02 Hepatitis A IgM Ab Non-reactive (NonReactive) 03/01/20 09:42 Hep Bs Antigen Non-reactive (Negative) 03/01/20 09:42 Hep B Core IgM Ab Non-reactive (NonReactive) 03/01/20 09:42 Hepatitis C Antibody Non-reactive (NonReactive) 03/01/20 09:42 Blood Type O POSITIVE 03/08/20 12:18 Antibody Screen Negative 03/08/20 12:18 Crossmatch See Detail 03/08/20 12:18 Microbiology: Microbiology 03/08/20 09:40 Knee - Left Wound Culture - Preliminary 03/08/20 Unknown Knee - Left Surgical Culture - Preliminary 03/08/20 Unknown Knee - Left Surgical Culture - Preliminary - Diagnostic Impressions Diagnostic Impressions: Echocardiogram 03/09/20 10:46 Transthoracic Echocardiogram Indication: Chest pain BP: 124/72 HR: 93 Conclusions *The left ventricular chamber size is normal. *Global left ventricular wall motion and contractility are within normal limits. *The left atrial chamber size is normal. *Normal left ventricular diastolic filling is observed. Findings Left Ventricle: The left ventricular chamber size is normal. Global left ventricular wall motion and contractility are within normal limits. Global left ventricular systolic function is normal. The estimated ejection fraction is 55-60%. Normal left ventricular diastolic filling is observed. Left Atrium: The left atrial chamber size is normal. Right Ventricle: The right ventricular cavity size is normal. Right Atrium: The right atrial cavity size is normal. Aortic Valve: The aortic valve structure is normal. There is no evidence of aortic regurgitation. Mitral Valve: The mitral valve leaflets appear normal. There is trace of mitral regurgitation. Tricuspid Valve: The tricuspid valve leaflets are normal. There is trace tricuspid regurgitation. The right ventricular systolic pressure is calculated at 28 mmHg. Pulmonic Valve: The pulmonic valve appears normal. Pericardium: There is no pericardial effusion. Venous: The inferior vena cava appears normal. Measurements Chambers 2D Name Value Normal Range IVSd (2D) 1.08 cm (0.6 - 1.1) LVPWd (2D) 1.06 cm (0.6 - 1.1) LVIDd (2D) 4.16 cm (3.7 - 5.6) LVIDs (2D) 2.46 cm (2 - 3.8) LV FS (2D) 40.83 % - EF Teichholz (2D) 72.05 % - Ao root diameter (2D) 2.56 cm (2 - 3.7) Volumes/Mass Name Value Normal Range LA ESV SP 4CH (A/L) 25.95 ml - LA ESV SP 2CH (A/L) 43.57 ml - LA ESV BP (A/L) 34.1 ml - LA ESV BP (A/L) index 17.76 ml/m2 - LA ESV SP 4CH (MOD) 24.25 ml - LA ESV SP 2CH (MOD) 42.02 ml - LA ESV BP (MOD) 32.2 ml - LA ESV BP (MOD) index 16.77 ml/m2 - Diastolic/Systolic Function Name Value Normal Range MV E-wave Vmax 1.24 m/sec - MV deceleration time 187.68 msec - MV A-wave Vmax 0.93 m/sec - MV E:A ratio 1.33 ratio - Aortic Valve Name Value Normal Range AV Vmax 2.25 m/sec - AV VTI 35.51 cm - AV peak gradient 20.34 mmHg - AV mean gradient 11.33 mmHg - LVOT diameter 2.02 cm - LVOT Vmax 1.73 m/sec - LVOT VTI 29.56 cm - LVOT peak gradient 11.92 mmHg - LVOT mean gradient 7.59 mmHg - SV LVOT 94.78 ml - LINUS (continuity Vmax) 2.46 cm2 - LINUS (continuity VTI) 2.67 cm2 - Mitral Valve Name Value Normal Range MR Vmax 5.05 m/sec - Tricuspid Valve Name Value Normal Range TR Vmax 2.5 m/sec - TR peak gradient 25 mmHg - RAP 3 mmHg - RVSP 28 mmHg - Pulmonic Valve/Qp:Qs Name Value Normal Range PV Vmax 1.73 m/sec - PV peak gradient 11.91 mmHg - PV acceleration time 87.54 msec - Paredes/IV: Voiding Method Urinal IV Catheter Type [Right arm] Peripheral IV IV Catheter Type [Right Hand] INT / Saline Lock IV Catheter Type [Right INT / Saline Lock Antecubital] IV Catheter Type [Right INT / Saline Lock Forearm] IV Catheter Type [Left Hand] Peripheral IV Active Medications - Current Medications Current Medications: Generic Name Dose Route Start Last Admin Trade Name Freq PRN Reason Stop Dose Admin Acetaminophen 650 mg 03/01/20 13:57 03/09/20 04:17 Tylenol PO 650 mg Q4H PRN Administration Pain MILD(1-3)/Fever >100.5/OLIVERA Albumin Human 25 gm 03/01/20 10:16 Alburx 25% (Albumin) IV NITZA PRN Hypotension Carvedilol 6.25 mg 03/01/20 15:00 03/10/20 09:49 Coreg PO 6.25 mg BID JOSE RAMON Administration Hydralazine HCl 50 mg 03/01/20 15:00 03/10/20 05:45 Apresoline PO 50 mg Q8HR JOSE RAMON Administration Hydromorphone HCl 0.5 mg 03/01/20 08:35 03/09/20 10:00 Dilaudid IV 0.5 mg Q3H PRN Administration Pain , Severe (7-10) Vancomycin HCl 1,250 mg/ 275 mls @ 166.667 mls/hr 03/06/20 21:00 03/10/20 04:08 Sodium Chloride IV 166.667 mls/hr Q8H JOSE RAMON Administration Sodium Chloride 1,000 mls @ 100 mls/hr 03/08/20 13:30 Nacl 0.9% 1000 Ml IV DIRECT JOSE RAMON Cefepime HCl 2 gm in 100 mls @ 200 mls/hr 03/08/20 22:00 03/10/20 05:50 Cefepime/Ns 2 Gm/100 Ml IV 200 mls/hr Q8HR JOSE RAMON Administration Protocol Clindamycin HCl 600 mg in 50 mls @ 100 mls/hr 03/08/20 22:00 03/10/20 06:19 Cleocin 600 Mg/50 Ml IV 100 mls/hr Q8HR JOSE RAMON Administration Protocol Ibuprofen 400 mg 03/04/20 13:32 03/07/20 21:38 Ibuprofen PO 400 mg Q6H PRN Administration Non Cardiac Pain or Temp>100.5 Metoclopramide HCl 10 mg 03/01/20 13:57 Reglan IV Q6H PRN Nausea And Vomiting Ondansetron HCl 4 mg 03/01/20 13:57 Zofran IV Q8H PRN Nausea And Vomiting Oxycodone/Acetaminophen 1 tab 03/01/20 13:57 03/10/20 09:56 Percocet 5/325 PO 1 tab Q6H PRN Administration Pain, Moderate (4-6) Pantoprazole Sodium 40 mg 03/02/20 22:00 03/10/20 09:49 Protonix PO 40 mg BID JOSE RAMON Administration Sodium Chloride 10 ml 03/01/20 22:00 03/10/20 09:49 Sodium Chloride Flush Syringe 10 Ml IV 10 ml BID JOSE RAMON Administration Sodium Chloride 10 ml 03/01/20 13:57 03/09/20 20:26 Sodium Chloride Flush Syringe 10 Ml IV 10 ml PRN PRN Administration LINE FLUSH Nutrition/Malnutrition Assess - Dietary Evaluation Nutrition/Malnutrition Findings: Nutrition Notes Start: 03/01/20 08:14 Freq: Status: Active Protocol: Document 03/08/20 12:25 LM (Rec: 03/08/20 12:27 LM [email or web address]) Nutrition Notes Initial or Follow up Brief Note Current Diagnosis Acute Kidney Injury,Sepsis Other Pertinent Diagnosis Acute liver failure, Anemia Current Diet NPO Subjective/Other Information Pt stated he is eating well and has recently gained wt back to UBW of 160-163 lb. Nutrition Intervention Revisit per MD consult or patient Sign Off request:
[2020-03-10 12:46] LABS: ANA Screen, IFA Negative (Negative)
[2020-03-10] MEDS: SODIUM CHLORIDE 0.9% 1000 ML 1,000 ML IV SCH (21:28)
[2020-03-11] MEDS: hydrALAZINE 25 MG TAB PO SCH ×3 (05:13→21:22)
[2020-03-11] MEDS: CEFEPIME/NS 2 GM/100 ML 2 GM/100 ML BAG IV SCH ×4 (05:14→23:30)
[2020-03-11] MEDS: VANCOMYCIN 1,250 MG in SODIUM CHLORIDE 0.9% 250ML 250 ML IV SCH ×4 (05:14→23:30)
[2020-03-11] MEDS: CLINDAMYCIN 600 MG/50 mL 600 MG/50 ML BAG IV SCH ×2 (05:14→13:32)
[2020-03-11] MEDS: oxyCODONE /ACETAMINOPHEN 5-325MG TAB PO PRN ×3 (05:31→21:23)
[2020-03-11] MEDS: carvediloL 6.25 MG TAB PO SCH ×2 (09:31→21:22)
[2020-03-11] MEDS: PANTOPRAZOLE 40 MG TAB PO SCH ×2 (09:31→21:22)
[2020-03-11] MEDS ORDERED: SODIUM CHLORIDE 0.9% 1000 ML 0 ML ONE (10:19)
[2020-03-11] MEDS ORDERED: LISINOPRIL 10 MG TAB ONE (10:41)
[2020-03-11] MEDS ORDERED: ASPIRIN 81 MG TAB CHEW ONE (10:41)
[2020-03-11] MEDS ORDERED: carvediloL 6.25 MG TAB ONE (10:41)
[2020-03-11] MEDS ORDERED: NITROGLYCERIN DRIP 0 MG/0 ML BOTTLE ONE (10:42)
--- NOTE | 2020-03-11 13:29 | Progress Note ---
Assessment and Plan Cultures: Blood culture 02/29/2020 no growth. OR culture 03/08/2020 no growth today Assessment: 40 years old male without any medical history, admitted on 02/29/2020 due to 3-week history of intermittent fever and left leg edema, erythema and tenderness, associated with weakness, urine odor and syncope: #Severe sepsis: remains with fever/high leukocytosis; secondary to severe left knee infection. Leukocytosis is not better. #Left knee septic arthritis with extensive leg cellulitis, myositis? Necrotizing infection: Patient was taken to the operating room underwent drainage knee washout on 03/08/2020, culture NO growth. On exam still purulence #Elevated LFTs: Likely due to sepsis, shock liver #Anemia #Coagulopathy: Likely due to sepsis #Hyponatremia: Per primary team #Acute kidney injury: Secondary to sepsis, resolved #Chest pain and tachycardia: unclear source Recommendations: monitor leukocytosis which is NOT better, will discuss with ortho patient may need further debridement Obtain HIV - pending Follow-up OR cultures so far negative Continue vancomycin with PK consult Continue cefepime 2 g IV every 12 hours stop clindamycin Will follow. Yvette Das MD Infectious Diseases [employer] [facility] M [phone] O [phone] Subjective Date of service: 03/11/20 Principal diagnosis: Hypertensive emergency, acute liver failure, acute renal renal failure, rha Interval history: Feels better no chest pain no fever Objective - Exam Narrative Exam: General appearance: Alert in NAD Eyes: anicteric sclerae, moist conjunctivae; no lid-lag; left corneal opacity HENT: Atraumatic; oropharynx clear with moist mucous membranes and no oral thrush; normal hard and soft palate. Lungs: CTA, with normal respiratory effort and no intercostal retractions CV: RRR no murmur Abdomen: Soft, non-tender; no masses or hepatosplenomegaly Extremities: Extensive left leg edema, erythema and tenderness surrounding the left knee with surg wound with dressings, left arm with dressings Skin: No rash. Psych: no agitated Neuro: alert and oriented x 3. Moving all extermities - Constitutional Vitals: Vital Signs Temp Pulse Resp BP Pulse Ox 98.0 F 88 18 144/67 97 03/11/20 07:59 03/11/20 09:31 03/11/20 07:59 03/11/20 09:31 03/11/20 04:12 Temperature -Last 24 Hours Temperature 98.0 F Temperature 98.4 F Temperature 98.6 F Temperature 98.2 F Temperature 98.2 F - Labs CBC & Chem 7: 03/09/20 04:40 03/09/20 04:40
--- NOTE | 2020-03-11 13:45 | Progress Note ---
Assessment and Plan Assessment and plan: Self mutilation. Recall psychiatry for further evaluation. Severe sepsis. Present on admission with hypothermia, tachycardia, hypotension, leukocytosis, severely elevated lactate; secondary to severe left knee infection. Left knee septic arthritis with extensive leg cellulitis ? Necrotic site infection. Patient was taken to the operating room underwent drainage knee washout on 03/08/2020 Elevated LFTs. Likely due to sepsis, shock liver Anemia. Coagulopathy. Likely due to sepsis Hyponatremia.continue IV fluid hydration and follow-up BMP Acute kidney injury. Secondary to sepsis, resolved. Creatinine stable. 03/11/2020. Continue to monitor leukocytosis which has not improved. We will fo llow-up OR cultures and HIV testing. Continue vancomycin and cefepime per ID recommendations. Clindamycin has been stopped. Ortho to consider further debridement and wound VAC. History Interval history: No new issues overnight. Hospitalist Physical - Constitutional Vitals: Temp Pulse Resp BP Pulse Ox 98.6 F 88 18 116/60 97 03/11/20 11:30 03/11/20 13:35 03/11/20 11:30 03/11/20 13:35 03/11/20 04:12 General appearance: Present: no acute distress - EENT Eyes: Present: PERRL, EOM intact ENT: hearing intact, clear oral mucosa, dentition normal - Neck Neck: Present: supple, normal ROM - Respiratory Respiratory effort: normal Respiratory: bilateral: CTA - Cardiovascular Rhythm: regular Heart Sounds: Present: S1 & S2. Absent: gallop, rub - Extremities Extremities: no ischemia, No edema, Full ROM - Abdominal General gastrointestinal: soft, non-tender, non-distended, normal bowel sounds - Integumentary Integumentary: Present: clear, warm, dry - Neurologic Neurologic: CNII-XII intact, moves all extremities HEART Score - HEART Score Troponin: Troponin T 0.010 ng/mL (0.00-0.029) 03/09/20 23:47 Results - Labs CBC & Chem 7: 03/09/20 04:40 03/09/20 04:40 Labs: Laboratory Last Values WBC 28.2 K/mm3 (4.5-11.0) H 03/09/20 04:40 RBC 3.01 M/mm3 (3.65-5.03) L 03/09/20 04:40 Hgb 8.5 gm/dl (11.8-15.2) L 03/09/20 04:40 Hct 25.7 % (35.5-45.6) L 03/09/20 04:40 MCV 85 fl (84-94) 03/09/20 04:40 MCH 28 pg (28-32) 03/09/20 04:40 MCHC 33 % (32-34) 03/09/20 04:40 RDW 15.4 % (13.2-15.2) H 03/09/20 04:40 Plt Count 770 K/mm3 (140-440) H 03/09/20 04:40 Lymph % (Auto) 4.0 % (13.4-35.0) L 03/02/20 02:30 Gilliam % (Auto) 6.1 % (0.0-7.3) 03/02/20 02:30 Eos % (Auto) 0.1 % (0.0-4.3) 03/02/20 02:30 Baso % (Auto) 0.1 % (0.0-1.8) 03/02/20 02:30 Lymph # 0.6 K/mm3 (1.2-5.4) L 03/02/20 02:30 Gilliam # 0.9 K/mm3 (0.0-0.8) H 03/02/20 02:30 Eos # 0.0 K/mm3 (0.0-0.4) 03/02/20 02:30 Baso # 0.0 K/mm3 (0.0-0.1) 03/02/20 02:30 Add Manual Diff Complete 03/09/20 04:40 Total Counted 100 03/09/20 04:40 Seg Neutrophils % Mail Service Coordinator 03/05/20 06:56 Seg Neuts % (Manual) 83.0 % (40.0-70.0) H 03/09/20 04:40 Band Neutrophils % 5.0 % 03/09/20 04:40 Lymphocytes % (Manual) 8.0 % (13.4-35.0) L 03/09/20 04:40 Reactive Lymphs % (Man) 0 % 03/09/20 04:40 Monocytes % (Manual) 4.0 % (0.0-7.3) 03/09/20 04:40 Eosinophils % (Manual) 0 % (0.0-4.3) 03/09/20 04:40 Basophils % (Manual) 0 % (0.0-1.8) 03/09/20 04:40 Metamyelocytes % 0 % 03/09/20 04:40 Myelocytes % 0 % 03/09/20 04:40 Promyelocytes % 0 % 03/09/20 04:40 Blast Cells % 0 % 03/09/20 04:40 Nucleated RBC % Not Reportable 03/09/20 04:40 Seg Neutrophils # 12.9 K/mm3 (1.8-7.7) H 03/02/20 02:30 Seg Neutrophils # Man 23.4 K/mm3 (1.8-7.7) H 03/09/20 04:40 Band Neutrophils # 1.4 K/mm3 03/09/20 04:40 Lymphocytes # (Manual) 2.3 K/mm3 (1.2-5.4) 03/09/20 04:40 Abs React Lymphs (Man) 0.0 K/mm3 03/09/20 04:40 Monocytes # (Manual) 1.1 K/mm3 (0.0-0.8) H 03/09/20 04:40 Eosinophils # (Manual) 0.0 K/mm3 (0.0-0.4) 03/09/20 04:40 Basophils # (Manual) 0.0 K/mm3 (0.0-0.1) 03/09/20 04:40 Metamyelocytes # 0.0 K/mm3 03/09/20 04:40 Myelocytes # 0.0 K/mm3 03/09/20 04:40 Promyelocytes # 0.0 K/mm3 03/09/20 04:40 Blast Cells # 0.0 K/mm3 03/09/20 04:40 WBC Morphology Not Reportable 03/09/20 04:40 Hypersegmented Neuts Not Reportable 03/09/20 04:40 Hyposegmented Neuts Not Reportable 03/09/20 04:40 Hypogranular Neuts Not Reportable 03/09/20 04:40 Smudge Cells Not Reportable 03/09/20 04:40 Toxic Granulation Not Reportable 03/09/20 04:40 Toxic Vacuolation Not Reportable 03/09/20 04:40 Dohle Bodies Not Reportable 03/09/20 04:40 Pelger-Huet Anomaly Not Reportable 03/09/20 04:40 Lizbeth Rods Not Reportable 03/09/20 04:40 Platelet Estimate Consistent w auto 03/09/20 04:40 Clumped Platelets Not Reportable 03/09/20 04:40 Plt Clumps, EDTA Not Reportable 03/09/20 04:40 Large Platelets Not Reportable 03/09/20 04:40 Giant Platelets Not Reportable 03/09/20 04:40 Platelet Satelliting Not Reportable 03/09/20 04:40 Plt Morphology Comment Not Reportable 03/09/20 04:40 RBC Morphology Not Reportable 03/09/20 04:40 Dimorphic RBCs Not Reportable 03/09/20 04:40 Polychromasia Rare 03/09/20 04:40 Hypochromasia Rare 03/09/20 04:40 Poikilocytosis Not Reportable 03/09/20 04:40 Anisocytosis Few 03/09/20 04:40 Microcytosis Not Reportable 03/09/20 04:40 Macrocytosis Not Reportable 03/09/20 04:40 Spherocytes Not Reportable 03/09/20 04:40 Pappenheimer Bodies Not Reportable 03/09/20 04:40 Sickle Cells Not Reportable 03/09/20 04:40 Target Cells Rare 03/09/20 04:40 Tear Drop Cells Not Reportable 03/09/20 04:40 Ovalocytes Not Reportable 03/09/20 04:40 Helmet Cells Not Reportable 03/09/20 04:40 Garcia-Thayer Bodies Not Reportable 03/09/20 04:40 Langley Rings Not Reportable 03/09/20 04:40 Vinny Cells Not Reportable 03/09/20 04:40 Bite Cells Not Reportable 03/09/20 04:40 Crenated Cell Not Reportable 03/09/20 04:40 Elliptocytes Not Reportable 03/09/20 04:40 Acanthocytes (Spur) Not Reportable 03/09/20 04:40 Rouleaux Not Reportable 03/09/20 04:40 Hemoglobin C Crystals Not Reportable 03/09/20 04:40 Schistocytes Not Reportable 03/09/20 04:40 Malaria parasites Not Reportable 03/09/20 04:40 Hilario Bodies Not Reportable 03/09/20 04:40 Hem Pathologist Commnt No 03/09/20 04:40 PT 23.5 Sec. (12.2-14.9) H 03/01/20 05:49 INR 2.16 (0.87-1.13) H 03/01/20 05:49 APTT 44.0 Sec. (24.2-36.6) H 02/29/20 19:11 ABG pH 7.427 pH Units (7.350-7.450) 02/29/20 23:09 ABG pCO2 28.1 mm Hg 02/29/20 23:09 ABG pO2 96.3 mm Hg (80.0-90.0) H 02/29/20 23:09 ABG HCO3 18.1 mmol/L (20.0-26.0) L 02/29/20 23:09 ABG O2 Saturation 97.6 % (95.0-99.0) 02/29/20 23:09 ABG O2 Content 12.6 (0.0-44) 02/29/20 23:09 ABG Base Excess -5.3 mmol/L (-2.0-3.0) L 02/29/20 23:09 ABG Hemoglobin 9.2 gm/dl (14.0-18.0) L 02/29/20 23:09 ABG Carboxyhemoglobin 1.1 % (0.0-5.0) 02/29/20 23:09 ABG Methemoglobin 0.4 % (0.0-1.5) 02/29/20 23:09 Oxyhemoglobin 96.2 % (95.0-99.0) 02/29/20 23:09 FiO2 36 % 02/29/20 23:09 Sodium 134 mmol/L (137-145) L 03/09/20 04:40 Potassium 4.6 mmol/L (3.6-5.0) 03/09/20 04:40 Chloride 100.1 mmol/L (98-107) 03/09/20 04:40 Carbon Dioxide 23 mmol/L (22-30) 03/09/20 04:40 Anion Gap 16 mmol/L 03/09/20 04:40 BUN 15 mg/dL (9-20) 03/09/20 04:40 Creatinine 0.8 mg/dL (0.8-1.5) 03/09/20 04:40 Estimated GFR > 60 ml/min 03/09/20 04:40 BUN/Creatinine Ratio 19 % 03/09/20 04:40 Glucose 95 mg/dL (75-100) 03/09/20 04:40 POC Glucose 122 (70-105) H 02/29/20 23:20 Hemoglobin A1c 4.7 % (4-6) 03/01/20 05:49 Osmolality 286 Mosm/kg 03/02/20 13:28 Lactic Acid 1.90 mmol/L (0.7-2.0) 03/01/20 21:23 Calcium 8.1 mg/dL (8.4-10.2) L 03/09/20 04:40 Total Bilirubin 0.40 mg/dL (0.1-1.2) 03/09/20 04:40 Direct Bilirubin < 0.2 mg/dL (0-0.2) 03/01/20 05:49 Indirect Bilirubin 0.0 mg/dL 03/01/20 05:49 AST 88 units/L (5-40) H 03/09/20 04:40 ALT 150 units/L (7-56) H 03/09/20 04:40 Alkaline Phosphatase 154 units/L (35-129) H 03/09/20 04:40 Ammonia 43.0 umol/L (25-60) 03/01/20 01:09 Total Creatine Kinase 145 units/L (55-170) 03/10/20 09:20 Troponin T 0.010 ng/mL (0.00-0.029) 03/09/20 23:47 Serum Total Protein 5.2 g/dL (6.1-8.1) L 03/05/20 09:02 Total Protein 6.6 g/dL (6.3-8.2) 03/09/20 04:40 Albumin 1.9 g/dL (3.9-5) L 03/09/20 04:40 Albumin/Globulin Ratio 0.4 % 03/09/20 04:40 [id number]-7-Jksaikkcl 0.8 g/dL (0.2-0.3) H 03/05/20 09:02 Mrrfz-0-Sgapoiexe 1.1 g/dL (0.5-0.9) H 03/05/20 09:02 Beta Globulins 0.4 g/dL (0.2-0.5) 03/05/20 09:02 Gamma Globulins 1.0 g/dL (0.8-1.7) 03/05/20 09:02 Abnorm Protein Band 1 see below 03/05/20 09:02 PEP Interpretation see below H 03/05/20 09:02 Urine Color Yellow (Yellow) 02/29/20 23:30 Urine Turbidity Slightly-cloudy (Clear) 02/29/20 23:30 Urine pH 5.0 (5.0-7.0) 02/29/20 23:30 Ur Specific [place] 1.016 (1.003-1.030) 02/29/20 23:30 Urine Protein 30 mg/dl mg/dL (Negative) 02/29/20 23:30 Urine Glucose (UA) 50 mg/dL (Negative) 02/29/20 23:30 Urine Ketones Neg mg/dL (Negative) 02/29/20 23:30 Urine Blood Lg (Negative) 02/29/20 23:30 Urine Nitrite Neg (Negative) 02/29/20 23:30 Urine Bilirubin Neg (Negative) 02/29/20 23:30 Urine Urobilinogen < 2.0 mg/dL (<2.0) 02/29/20 23:30 Ur Leukocyte Esterase Neg (Negative) 02/29/20 23:30 Urine WBC (Auto) 6.0 /HPF (0.0-6.0) 02/29/20 23:30 Urine RBC (Auto) 2.0 /HPF (0.0-6.0) 02/29/20 23:30 Urine Mucus 1+ /HPF 02/29/20 23:30 Vancomycin Trough 16.2 ug/mL (5.0-20.0) 03/08/20 12:18 Salicylates 1.7 mg/dL (2.8-20.0) L 02/29/20 20:35 Urine Opiates Screen Presumptive negative 02/29/20 23:30 Urine Methadone Screen Presumptive negative 02/29/20 23:30 Acetaminophen < 5.0 ug/mL (10.0-30.0) L 02/29/20 20:35 Ur Barbiturates Screen Presumptive negative 02/29/20 23:30 Ur Phencyclidine Scrn Presumptive negative 02/29/20 23:30 Ur Amphetamines Screen Presumptive negative 02/29/20 23:30 U Benzodiazepines Scrn Presumptive negative 02/29/20 23:30 Urine Cocaine Screen Presumptive negative 02/29/20 23:30 U Marijuana (THC) Screen Presumptive negative 02/29/20 23:30 Drugs of Abuse Note Disclamer 02/29/20 23:30 Ethylene Glycol <10.0 mcg/mL (<10.0) 03/01/20 12:41 Plasma/Serum Alcohol < 0.01 % (0-0.07) 02/29/20 19:11 NORMA Screen Negative (Negative) 03/05/20 09:02 Proteinase 3 (PR3) Ab <1.0 AI (<1.0) 03/05/20 09:02 Myeloperoxidase Ab <1.0 AI (<1.0) 03/05/20 09:02 Complement C3 173 mg/dL (82-185) 03/05/20 09:02 Complement C4 27 mg/dL (15-53) 03/05/20 09:02 Hepatitis A IgM Ab Non-reactive (NonReactive) 03/01/20 09:42 Hep Bs Antigen Non-reactive (Negative) 03/01/20 09:42 Hep B Core IgM Ab Non-reactive (NonReactive) 03/01/20 09:42 Hepatitis C Antibody Non-reactive (NonReactive) 03/01/20 09:42 Blood Type O POSITIVE 03/08/20 12:18 Antibody Screen Negative 03/08/20 12:18 Crossmatch See Detail 03/08/20 12:18 Microbiology: Microbiology 03/08/20 Unknown Knee - Left Surgical Culture - Preliminary 03/08/20 Unknown Knee - Left Surgical Culture - Preliminary 03/08/20 09:40 Knee - Left Wound Culture - Final - Diagnostic Impressions Diagnostic Impressions: Echocardiogram 03/09/20 10:46 Transthoracic Echocardiogram Indication: Chest pain BP: 124/72 HR: 93 Conclusions *The left ventricular chamber size is normal. *Global left ventricular wall motion and contractility are within normal limits. *The left atrial chamber size is normal. *Normal left ventricular diastolic filling is observed. Findings Left Ventricle: The left ventricular chamber size is normal. Global left ventricular wall motion and contractility are within normal limits. Global left ventricular systolic function is normal. The estimated ejection fraction is 55-60%. Normal left ventricular diastolic filling is observed. Left Atrium: The left atrial chamber size is normal. Right Ventricle: The right ventricular cavity size is normal. Right Atrium: The right atrial cavity size is normal. Aortic Valve: The aortic valve structure is normal. There is no evidence of aortic regurgitation. Mitral Valve: The mitral valve leaflets appear normal. There is trace of mitral regurgitation. Tricuspid Valve: The tricuspid valve leaflets are normal. There is trace tricuspid regurgitation. The right ventricular systolic pressure is calculated at 28 mmHg. Pulmonic Valve: The pulmonic valve appears normal. Pericardium: There is no pericardial effusion. Venous: The inferior vena cava appears normal. Measurements Chambers 2D Name Value Normal Range IVSd (2D) 1.08 cm (0.6 - 1.1) LVPWd (2D) 1.06 cm (0.6 - 1.1) LVIDd (2D) 4.16 cm (3.7 - 5.6) LVIDs (2D) 2.46 cm (2 - 3.8) LV FS (2D) 40.83 % - EF Teichholz (2D) 72.05 % - Ao root diameter (2D) 2.56 cm (2 - 3.7) Volumes/Mass Name Value Normal Range LA ESV SP 4CH (A/L) 25.95 ml - LA ESV SP 2CH (A/L) 43.57 ml - LA ESV BP (A/L) 34.1 ml - LA ESV BP (A/L) index 17.76 ml/m2 - LA ESV SP 4CH (MOD) 24.25 ml - LA ESV SP 2CH (MOD) 42.02 ml - LA ESV BP (MOD) 32.2 ml - LA ESV BP (MOD) index 16.77 ml/m2 - Diastolic/Systolic Function Name Value Normal Range MV E-wave Vmax 1.24 m/sec - MV deceleration time 187.68 msec - MV A-wave Vmax 0.93 m/sec - MV E:A ratio 1.33 ratio - Aortic Valve Name Value Normal Range AV Vmax 2.25 m/sec - AV VTI 35.51 cm - AV peak gradient 20.34 mmHg - AV mean gradient 11.33 mmHg - LVOT diameter 2.02 cm - LVOT Vmax 1.73 m/sec - LVOT VTI 29.56 cm - LVOT peak gradient 11.92 mmHg - LVOT mean gradient 7.59 mmHg - SV LVOT 94.78 ml - LINUS (continuity Vmax) 2.46 cm2 - LINUS (continuity VTI) 2.67 cm2 - Mitral Valve Name Value Normal Range MR Vmax 5.05 m/sec - Tricuspid Valve Name Value Normal Range TR Vmax 2.5 m/sec - TR peak gradient 25 mmHg - RAP 3 mmHg - RVSP 28 mmHg - Pulmonic Valve/Qp:Qs Name Value Normal Range PV Vmax 1.73 m/sec - PV peak gradient 11.91 mmHg - PV acceleration time 87.54 msec - Paredes/IV: Voiding Method Bedpan IV Catheter Type [Right arm] Peripheral IV IV Catheter Type [Right Hand] INT / Saline Lock IV Catheter Type [Right INT / Saline Lock Antecubital] IV Catheter Type [Right INT / Saline Lock Forearm] IV Catheter Type [Left Hand] Peripheral IV Active Medications - Current Medications Current Medications: Generic Name Dose Route Start Last Admin Trade Name Freq PRN Reason Stop Dose Admin Acetaminophen 650 mg 03/01/20 13:57 03/09/20 04:17 Tylenol PO 650 mg Q4H PRN Administration Pain MILD(1-3)/Fever >100.5/OLIVERA Albumin Human 25 gm 03/01/20 10:16 Alburx 25% (Albumin) IV NITZA PRN Hypotension Carvedilol 6.25 mg 03/01/20 15:00 03/11/20 09:31 Coreg PO 6.25 mg BID JOSE RAMON Administration Hydralazine HCl 50 mg 03/01/20 15:00 03/11/20 13:35 Apresoline PO 50 mg Q8HR JOSE RAMON Administration Hydromorphone HCl 0.5 mg 03/01/20 08:35 03/09/20 10:00 Dilaudid IV 0.5 mg Q3H PRN Administration Pain , Severe (7-10) Vancomycin HCl 1,250 mg/ 275 mls @ 166.667 mls/hr 03/06/20 21:00 03/11/20 13:33 Sodium Chloride IV 166.667 mls/hr Q8H JOSE RAMON Administration Sodium Chloride 1,000 mls @ 100 mls/hr 03/08/20 13:30 03/10/20 21:28 Nacl 0.9% 1000 Ml IV 100 mls/hr DIRECT JOSE RAMON Administration Cefepime HCl 2 gm in 100 mls @ 200 mls/hr 03/08/20 22:00 03/11/20 13:33 Cefepime/Ns 2 Gm/100 Ml IV 200 mls/hr Q8HR JOSE RAMON Administration Protocol Ibuprofen 400 mg 03/04/20 13:32 03/07/20 21:38 Ibuprofen PO 400 mg Q6H PRN Administration Non Cardiac Pain or Temp>100.5 Metoclopramide HCl 10 mg 03/01/20 13:57 Reglan IV Q6H PRN Nausea And Vomiting Ondansetron HCl 4 mg 03/01/20 13:57 Zofran IV Q8H PRN Nausea And Vomiting Oxycodone/Acetaminophen 1 tab 03/01/20 13:57 03/11/20 12:09 Percocet 5/325 PO 1 tab Q6H PRN Administration Pain, Moderate (4-6) Pantoprazole Sodium 40 mg 03/02/20 22:00 03/11/20 09:31 Protonix PO 40 mg BID JOSE RAMON Administration Sodium Chloride 10 ml 03/01/20 22:00 03/11/20 09:32 Sodium Chloride Flush Syringe 10 Ml IV 10 ml BID JOSE RAMON Administration Sodium Chloride 10 ml 03/01/20 13:57 03/09/20 20:26 Sodium Chloride Flush Syringe 10 Ml IV 10 ml PRN PRN Administration LINE FLUSH Nutrition/Malnutrition Assess - Dietary Evaluation Nutrition/Malnutrition Findings: Nutrition Notes Start: 03/01/20 08:14 Freq: Status: Active Protocol: Document 03/08/20 12:25 LM (Rec: 03/08/20 12:27 LM [email or web address]) Nutrition Notes Initial or Follow up Brief Note Current Diagnosis Acute Kidney Injury,Sepsis Other Pertinent Diagnosis Acute liver failure, Anemia Current Diet NPO Subjective/Other Information Pt stated he is eating well and has recently gained wt back to UBW of 160-163 lb. Nutrition Intervention Revisit per MD consult or patient Sign Off request:
--- NOTE | 2020-03-11 14:47 | Progress Note ---
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 and refractory hyperkalemia, no further HD is needed based on repeat labs and clinical scenario * Vasc cath removed, appreciated * replete lytes prn * avoid nephrotoxins * strict i/os * Daily lytes * Anemia workup per primary * Liver workup/management per primary * Abx per primary, s/p ortho procedure, recs appreciated Subjective Date of service: 03/11/20 Principal diagnosis: Hypertensive emergency, acute liver failure, acute renal renal failure, rha Interval history: no major changes noted Objective - Exam Narrative Exam: General appearance: no acute distress, well-nourished; sleeping Eyes: PERRL, EOM intact ENT: hearing intact Neck: supple Respiratory: CTA Heart: regular rate noted Extremities: No edema, Full ROM Gastrointestinal: soft, non-tender Integumentary: clear, warm, dry, normal turgor Musculoskeletal: strength equal bilaterally Psychiatric: appropriate mood/affect, intact judgment & insight, memory intact, cooperative Neurologic: CNII-XII intact, moves all extremities spontaneously - Vital Signs Vital signs: Vital Signs - 12hr 03/11/20 03/11/20 03/11/20 04:12 05:13 07:59 Temperature 98.4 F 98.0 F Pulse Rate 80 80 Respiratory 16 18 Rate Blood Pressure 125/68 125/68 144/67 O2 Sat by Pulse 97 Oximetry 03/11/20 03/11/20 03/11/20 09:31 11:30 13:35 Temperature 98.6 F Pulse Rate 88 88 Respiratory 18 Rate Blood Pressure 144/67 116/60 116/60 O2 Sat by Pulse Oximetry - Lab 03/09/20 04:40 03/09/20 04:40 Most recent lab results ABG pH 7.427 pH Units (7.350-7.450) 02/29/20 23:09 ABG pCO2 28.1 mm Hg 02/29/20 23:09 ABG pO2 96.3 mm Hg (80.0-90.0) H 02/29/20 23:09 ABG HCO3 18.1 mmol/L (20.0-26.0) L 02/29/20 23:09 ABG O2 Saturation 97.6 % (95.0-99.0) 02/29/20 23:09 Calcium 8.1 mg/dL (8.4-10.2) L 03/09/20 04:40 Medications & Allergies - Medications Allergies/Adverse Reactions: Allergies No Known Allergies Allergy (Unverified 02/29/20 18:25) Home Medications: Home Medications Medication Instructions Recorded Confirmed Last Taken Type No Known Home Medications [No 03/01/20 03/01/20 Unknown History Reported Home Medications] Active Medications: Generic Name Dose Route Start Last Admin Trade Name Freq PRN Reason Stop Dose Admin Acetaminophen 650 mg 03/01/20 13:57 03/09/20 04:17 Tylenol PO 650 mg Q4H PRN Administration Pain MILD(1-3)/Fever >100.5/OLIVERA Albumin Human 25 gm 03/01/20 10:16 Alburx 25% (Albumin) IV NITZA PRN Hypotension Carvedilol 6.25 mg 03/01/20 15:00 03/11/20 09:31 Coreg PO 6.25 mg BID JOSE RAMON Administration Hydralazine HCl 50 mg 03/01/20 15:00 03/11/20 13:35 Apresoline PO 50 mg Q8HR JOSE RAMON Administration Hydromorphone HCl 0.5 mg 03/01/20 08:35 03/09/20 10:00 Dilaudid IV 0.5 mg Q3H PRN Administration Pain , Severe (7-10) Vancomycin HCl 1,250 mg/ 275 mls @ 166.667 mls/hr 03/06/20 21:00 03/11/20 13:33 Sodium Chloride IV 166.667 mls/hr Q8H JOSE RAMON Administration Sodium Chloride 1,000 mls @ 100 mls/hr 03/08/20 13:30 03/10/20 21:28 Nacl 0.9% 1000 Ml IV 100 mls/hr DIRECT JOSE RAMON Administration Cefepime HCl 2 gm in 100 mls @ 200 mls/hr 03/08/20 22:00 03/11/20 13:33 Cefepime/Ns 2 Gm/100 Ml IV 200 mls/hr Q8HR JOSE RAMON Administration Protocol Ibuprofen 400 mg 03/04/20 13:32 03/07/20 21:38 Ibuprofen PO 400 mg Q6H PRN Administration Non Cardiac Pain or Temp>100.5 Metoclopramide HCl 10 mg 03/01/20 13:57 Reglan IV Q6H PRN Nausea And Vomiting Ondansetron HCl 4 mg 03/01/20 13:57 Zofran IV Q8H PRN Nausea And Vomiting Oxycodone/Acetaminophen 1 tab 03/01/20 13:57 03/11/20 12:09 Percocet 5/325 PO 1 tab Q6H PRN Administration Pain, Moderate (4-6) Pantoprazole Sodium 40 mg 03/02/20 22:00 03/11/20 09:31 Protonix PO 40 mg BID JOSE RAMON Administration Sodium Chloride 10 ml 03/01/20 22:00 03/11/20 09:32 Sodium Chloride Flush Syringe 10 Ml IV 10 ml BID JOSE RAMON Administration Sodium Chloride 10 ml 03/01/20 13:57 03/09/20 20:26 Sodium Chloride Flush Syringe 10 Ml IV 10 ml PRN PRN Administration LINE FLUSH
[2020-03-12] MEDS: VANCOMYCIN 1,250 MG in SODIUM CHLORIDE 0.9% 250ML 250 ML IV SCH ×4 (05:17→23:03)
[2020-03-12] MEDS: hydrALAZINE 25 MG TAB PO SCH ×3 (05:17→21:13)
[2020-03-12] MEDS: CEFEPIME/NS 2 GM/100 ML 2 GM/100 ML BAG IV SCH ×4 (05:17→21:14)
[2020-03-12] MEDS: oxyCODONE /ACETAMINOPHEN 5-325MG TAB PO PRN ×2 (05:18→21:13)
--- NOTE | 2020-03-12 09:31 | Progress Note ---
Assessment and Plan Assessment and plan: Self mutilation. Recall psychiatry for further evaluation. Severe sepsis. Present on admission with hypothermia, tachycardia, hypotension, leukocytosis, severely elevated lactate; secondary to severe left knee infection. Left knee septic arthritis with extensive leg cellulitis ? Necrotic site infection. Patient was taken to the operating room underwent drainage knee washout on 03/08/2020 Elevated LFTs. Likely due to sepsis, shock liver Anemia. Coagulopathy. Likely due to sepsis Hyponatremia.continue IV fluid hydration and follow-up BMP Acute kidney injury. Secondary to sepsis, resolved. Creatinine stable. 03/11/2020. Continue to monitor leukocytosis which has not improved. We will fo llow-up OR cultures and HIV testing. Continue vancomycin and cefepime per ID recommendations. Clindamycin has been stopped. Ortho to consider further debridement and wound VAC. 03/12/2020. Follow-up CBC today for worsening leukocytosis. Ortho to consider further debridement and wound VAC. Continue antibiotics per ID recommendations. History Interval history: No new issues overnight. Hospitalist Physical - Constitutional Vitals: Temp Pulse Resp BP Pulse Ox 97.9 F 78 18 135/78 99 03/12/20 05:03 03/12/20 05:17 03/12/20 05:03 03/12/20 05:17 03/12/20 05:03 General appearance: Present: no acute distress - EENT Eyes: Present: PERRL, EOM intact ENT: hearing intact, clear oral mucosa, dentition normal - Neck Neck: Present: supple, normal ROM - Respiratory Respiratory effort: normal Respiratory: bilateral: CTA - Cardiovascular Rhythm: regular Heart Sounds: Present: S1 & S2. Absent: gallop, rub - Extremities Extremities: no ischemia, No edema, Full ROM - Abdominal General gastrointestinal: soft, non-tender, non-distended, normal bowel sounds - Integumentary Integumentary: Present: clear, warm, dry - Neurologic Neurologic: CNII-XII intact, moves all extremities HEART Score - HEART Score Troponin: Troponin T 0.010 ng/mL (0.00-0.029) 03/09/20 23:47 Results - Labs CBC & Chem 7: 03/09/20 04:40 03/09/20 04:40 Labs: Laboratory Last Values WBC 28.2 K/mm3 (4.5-11.0) H 03/09/20 04:40 RBC 3.01 M/mm3 (3.65-5.03) L 03/09/20 04:40 Hgb 8.5 gm/dl (11.8-15.2) L 03/09/20 04:40 Hct 25.7 % (35.5-45.6) L 03/09/20 04:40 MCV 85 fl (84-94) 03/09/20 04:40 MCH 28 pg (28-32) 03/09/20 04:40 MCHC 33 % (32-34) 03/09/20 04:40 RDW 15.4 % (13.2-15.2) H 03/09/20 04:40 Plt Count 770 K/mm3 (140-440) H 03/09/20 04:40 Lymph % (Auto) 4.0 % (13.4-35.0) L 03/02/20 02:30 [place] % (Auto) 6.1 % (0.0-7.3) 03/02/20 02:30 Eos % (Auto) 0.1 % (0.0-4.3) 03/02/20 02:30 Baso % (Auto) 0.1 % (0.0-1.8) 03/02/20 02:30 Lymph # 0.6 K/mm3 (1.2-5.4) L 03/02/20 02:30 [place] # 0.9 K/mm3 (0.0-0.8) H 03/02/20 02:30 Eos # 0.0 K/mm3 (0.0-0.4) 03/02/20 02:30 Baso # 0.0 K/mm3 (0.0-0.1) 03/02/20 02:30 Add Manual Diff Complete 03/09/20 04:40 Total Counted 100 03/09/20 04:40 Seg Neutrophils % Inspecting And Testing Lead Hand 03/05/20 06:56 Seg Neuts % (Manual) 83.0 % (40.0-70.0) H 03/09/20 04:40 Band Neutrophils % 5.0 % 03/09/20 04:40 Lymphocytes % (Manual) 8.0 % (13.4-35.0) L 03/09/20 04:40 Reactive Lymphs % (Man) 0 % 03/09/20 04:40 Monocytes % (Manual) 4.0 % (0.0-7.3) 03/09/20 04:40 Eosinophils % (Manual) 0 % (0.0-4.3) 03/09/20 04:40 Basophils % (Manual) 0 % (0.0-1.8) 03/09/20 04:40 Metamyelocytes % 0 % 03/09/20 04:40 Myelocytes % 0 % 03/09/20 04:40 Promyelocytes % 0 % 03/09/20 04:40 Blast Cells % 0 % 03/09/20 04:40 Nucleated RBC % Not Reportable 03/09/20 04:40 Seg Neutrophils # 12.9 K/mm3 (1.8-7.7) H 03/02/20 02:30 Seg Neutrophils # Man 23.4 K/mm3 (1.8-7.7) H 03/09/20 04:40 Band Neutrophils # 1.4 K/mm3 03/09/20 04:40 Lymphocytes # (Manual) 2.3 K/mm3 (1.2-5.4) 03/09/20 04:40 Abs React Lymphs (Man) 0.0 K/mm3 03/09/20 04:40 Monocytes # (Manual) 1.1 K/mm3 (0.0-0.8) H 03/09/20 04:40 Eosinophils # (Manual) 0.0 K/mm3 (0.0-0.4) 03/09/20 04:40 Basophils # (Manual) 0.0 K/mm3 (0.0-0.1) 03/09/20 04:40 Metamyelocytes # 0.0 K/mm3 03/09/20 04:40 Myelocytes # 0.0 K/mm3 03/09/20 04:40 Promyelocytes # 0.0 K/mm3 03/09/20 04:40 Blast Cells # 0.0 K/mm3 03/09/20 04:40 WBC Morphology Not Reportable 03/09/20 04:40 Hypersegmented Neuts Not Reportable 03/09/20 04:40 Hyposegmented Neuts Not Reportable 03/09/20 04:40 Hypogranular Neuts Not Reportable 03/09/20 04:40 Smudge Cells Not Reportable 03/09/20 04:40 Toxic Granulation Not Reportable 03/09/20 04:40 Toxic Vacuolation Not Reportable 03/09/20 04:40 Dohle Bodies Not Reportable 03/09/20 04:40 Pelger-Huet Anomaly Not Reportable 03/09/20 04:40 Lizbeth Rods Not Reportable 03/09/20 04:40 Platelet Estimate Consistent w auto 03/09/20 04:40 Clumped Platelets Not Reportable 03/09/20 04:40 Plt Clumps, EDTA Not Reportable 03/09/20 04:40 Large Platelets Not Reportable 03/09/20 04:40 Giant Platelets Not Reportable 03/09/20 04:40 Platelet Satelliting Not Reportable 03/09/20 04:40 Plt Morphology Comment Not Reportable 03/09/20 04:40 RBC Morphology Not Reportable 03/09/20 04:40 Dimorphic RBCs Not Reportable 03/09/20 04:40 Polychromasia Rare 03/09/20 04:40 Hypochromasia Rare 03/09/20 04:40 Poikilocytosis Not Reportable 03/09/20 04:40 Anisocytosis Few 03/09/20 04:40 Microcytosis Not Reportable 03/09/20 04:40 Macrocytosis Not Reportable 03/09/20 04:40 Spherocytes Not Reportable 03/09/20 04:40 Pappenheimer Bodies Not Reportable 03/09/20 04:40 Sickle Cells Not Reportable 03/09/20 04:40 Target Cells Rare 03/09/20 04:40 Tear Drop Cells Not Reportable 03/09/20 04:40 Ovalocytes Not Reportable 03/09/20 04:40 Helmet Cells Not Reportable 03/09/20 04:40 [place] Bodies Not Reportable 03/09/20 04:40 [place] Rings Not Reportable 03/09/20 04:40 [place] Cells Not Reportable 03/09/20 04:40 Bite Cells Not Reportable 03/09/20 04:40 Crenated Cell Not Reportable 03/09/20 04:40 Elliptocytes Not Reportable 03/09/20 04:40 Acanthocytes (Spur) Not Reportable 03/09/20 04:40 Rouleaux Not Reportable 03/09/20 04:40 Hemoglobin C Crystals Not Reportable 03/09/20 04:40 Schistocytes Not Reportable 03/09/20 04:40 Malaria parasites Not Reportable 03/09/20 04:40 Hilario Bodies Not Reportable 03/09/20 04:40 Hem Pathologist Commnt No 03/09/20 04:40 PT 23.5 Sec. (12.2-14.9) H 03/01/20 05:49 INR 2.16 (0.87-1.13) H 03/01/20 05:49 APTT 44.0 Sec. (24.2-36.6) H 02/29/20 19:11 ABG pH 7.427 pH Units (7.350-7.450) 02/29/20 23:09 ABG pCO2 28.1 mm Hg 02/29/20 23:09 ABG pO2 96.3 mm Hg (80.0-90.0) H 02/29/20 23:09 ABG HCO3 18.1 mmol/L (20.0-26.0) L 02/29/20 23:09 ABG O2 Saturation 97.6 % (95.0-99.0) 02/29/20 23:09 ABG O2 Content 12.6 (0.0-44) 02/29/20 23:09 ABG Base Excess -5.3 mmol/L (-2.0-3.0) L 02/29/20 23:09 ABG Hemoglobin 9.2 gm/dl (14.0-18.0) L 02/29/20 23:09 ABG Carboxyhemoglobin 1.1 % (0.0-5.0) 02/29/20 23:09 ABG Methemoglobin 0.4 % (0.0-1.5) 02/29/20 23:09 Oxyhemoglobin 96.2 % (95.0-99.0) 02/29/20 23:09 FiO2 36 % 02/29/20 23:09 Sodium 134 mmol/L (137-145) L 03/09/20 04:40 Potassium 4.6 mmol/L (3.6-5.0) 03/09/20 04:40 Chloride 100.1 mmol/L (98-107) 03/09/20 04:40 Carbon Dioxide 23 mmol/L (22-30) 03/09/20 04:40 Anion Gap 16 mmol/L 03/09/20 04:40 BUN 15 mg/dL (9-20) 03/09/20 04:40 Creatinine 0.8 mg/dL (0.8-1.5) 03/09/20 04:40 Estimated GFR > 60 ml/min 03/09/20 04:40 BUN/Creatinine Ratio 19 % 03/09/20 04:40 Glucose 95 mg/dL (75-100) 03/09/20 04:40 POC Glucose 122 (70-105) H 02/29/20 23:20 Hemoglobin A1c 4.7 % (4-6) 03/01/20 05:49 Osmolality 286 Mosm/kg 03/02/20 13:28 Lactic Acid 1.90 mmol/L (0.7-2.0) 03/01/20 21:23 Calcium 8.1 mg/dL (8.4-10.2) L 03/09/20 04:40 Total Bilirubin 0.40 mg/dL (0.1-1.2) 03/09/20 04:40 Direct Bilirubin < 0.2 mg/dL (0-0.2) 03/01/20 05:49 Indirect Bilirubin 0.0 mg/dL 03/01/20 05:49 AST 88 units/L (5-40) H 03/09/20 04:40 ALT 150 units/L (7-56) H 03/09/20 04:40 Alkaline Phosphatase 154 units/L (35-129) H 03/09/20 04:40 Ammonia 43.0 umol/L (25-60) 03/01/20 01:09 Total Creatine Kinase 145 units/L (55-170) 03/10/20 09:20 Troponin T 0.010 ng/mL (0.00-0.029) 03/09/20 23:47 Serum Total Protein 5.2 g/dL (6.1-8.1) L 03/05/20 09:02 Total Protein 6.6 g/dL (6.3-8.2) 03/09/20 04:40 Albumin 1.9 g/dL (3.9-5) L 03/09/20 04:40 Albumin/Globulin Ratio 0.4 % 03/09/20 04:40 Ptsch-9-Zxzloluvy 0.8 g/dL (0.2-0.3) H 03/05/20 09:02 Kmhiz-2-Gvpailnnd 1.1 g/dL (0.5-0.9) H 03/05/20 09:02 Beta Globulins 0.4 g/dL (0.2-0.5) 03/05/20 09:02 Gamma Globulins 1.0 g/dL (0.8-1.7) 03/05/20 09:02 Abnorm Protein Band 1 see below 03/05/20 09:02 PEP Interpretation see below H 03/05/20 09:02 Urine Color Yellow (Yellow) 02/29/20 23:30 Urine Turbidity Slightly-cloudy (Clear) 02/29/20 23:30 Urine pH 5.0 (5.0-7.0) 02/29/20 23:30 Ur Specific [place] 1.016 (1.003-1.030) 02/29/20 23:30 Urine Protein 30 mg/dl mg/dL (Negative) 02/29/20 23:30 Urine Glucose (UA) 50 mg/dL (Negative) 02/29/20 23:30 Urine Ketones Neg mg/dL (Negative) 02/29/20 23:30 Urine Blood Lg (Negative) 02/29/20 23:30 Urine Nitrite Neg (Negative) 02/29/20 23:30 Urine Bilirubin Neg (Negative) 02/29/20:30 Urine Urobilinogen < 2.0 mg/dL (<2.0) 02/29/20 23:30 Ur Leukocyte Esterase Neg (Negative) 02/29/20 23:30 Urine WBC (Auto) 6.0 /HPF (0.0-6.0) 02/29/20 23:30 Urine RBC (Auto) 2.0 /HPF (0.0-6.0) 02/29/20 23:30 Urine Mucus 1+ /HPF 02/29/20 23:30 Vancomycin Trough 16.2 ug/mL (5.0-20.0) 03/08/20 12:18 Salicylates 1.7 mg/dL (2.8-20.0) L 02/29/20 20:35 Urine Opiates Screen Presumptive negative 02/29/20 23:30 Urine Methadone Screen Presumptive negative 02/29/20 23:30 Acetaminophen < 5.0 ug/mL (10.0-30.0) L 02/29/20 20:35 Ur Barbiturates Screen Presumptive negative 02/29/20 23:30 Ur Phencyclidine Scrn Presumptive negative 02/29/20 23:30 Ur Amphetamines Screen Presumptive negative 02/29/20 23:30 U Benzodiazepines Scrn Presumptive negative 02/29/20 23:30 Urine Cocaine Screen Presumptive negative 02/29/20 23:30 U Marijuana (THC) Screen Presumptive negative 02/29/20 23:30 Drugs of Abuse Note Disclamer 02/29/20 23:30 Ethylene Glycol <10.0 mcg/mL (<10.0) 03/01/20 12:41 Plasma/Serum Alcohol < 0.01 % (0-0.07) 02/29/20 19:11 NORMA Screen Negative (Negative) 03/05/20 09:02 Proteinase 3 (PR3) Ab <1.0 AI (<1.0) 03/05/20 09:02 Myeloperoxidase Ab <1.0 AI (<1.0) 03/05/20 09:02 Complement C3 173 mg/dL (82-185) 03/05/20 09:02 Complement C4 27 mg/dL (15-53) 03/05/20 09:02 Hepatitis A IgM Ab Non-reactive (NonReactive) 03/01/20 09:42 Hep Bs Antigen Non-reactive (Negative) 03/01/20 09:42 Hep B Core IgM Ab Non-reactive (NonReactive) 03/01/20 09:42 Hepatitis C Antibody Non-reactive (NonReactive) 03/01/20 09:42 Blood Type O POSITIVE 03/08/20 12:18 Antibody Screen Negative 03/08/20 12:18 Crossmatch See Detail 03/08/20 12:18 Microbiology: Microbiology 03/08/20 Unknown Knee - Left Surgical Culture - Preliminary 03/08/20 Unknown Knee - Left Surgical Culture - Preliminary 03/08/20 09:40 Knee - Left Wound Culture - Final - Diagnostic Impressions Diagnostic Impressions: Echocardiogram 03/09/20 10:46 Transthoracic Echocardiogram Indication: Chest pain BP: 124/72 HR: 93 Conclusions *The left ventricular chamber size is normal. *Global left ventricular wall motion and contractility are within normal limits. *The left atrial chamber size is normal. *Normal left ventricular diastolic filling is observed. Findings Left Ventricle: The left ventricular chamber size is normal. Global left ventricular wall motion and contractility are within normal limits. Global left ventricular systolic function is normal. The estimated ejection fraction is 55-60%. Normal left ventricular diastolic filling is observed. Left Atrium: The left atrial chamber size is normal. Right Ventricle: The right ventricular cavity size is normal. Right Atrium: The right atrial cavity size is normal. Aortic Valve: The aortic valve structure is normal. There is no evidence of aortic regurgitation. Mitral Valve: The mitral valve leaflets appear normal. There is trace of mitral regurgitation. Tricuspid Valve: The tricuspid valve leaflets are normal. There is trace tricuspid regurgitation. The right ventricular systolic pressure is calculated at 28 mmHg. Pulmonic Valve: The pulmonic valve appears normal. Pericardium: There is no pericardial effusion. Venous: The inferior vena cava appears normal. Measurements Chambers 2D Name Value Normal Range IVSd (2D) 1.08 cm (0.6 - 1.1) LVPWd (2D) 1.06 cm (0.6 - 1.1) LVIDd (2D) 4.16 cm (3.7 - 5.6) LVIDs (2D) 2.46 cm (2 - 3.8) LV FS (2D) 40.83 % - EF Teichholz (2D) 72.05 % - Ao root diameter (2D) 2.56 cm (2 - 3.7) Volumes/Mass Name Value Normal Range LA ESV SP 4CH (A/L) 25.95 ml - LA ESV SP 2CH (A/L) 43.57 ml - LA ESV BP (A/L) 34.1 ml - LA ESV BP (A/L) index 17.76 ml/m2 - LA ESV SP 4CH (MOD) 24.25 ml - LA ESV SP 2CH (MOD) 42.02 ml - LA ESV BP (MOD) 32.2 ml - LA ESV BP (MOD) index 16.77 ml/m2 - Diastolic/Systolic Function Name Value Normal Range MV E-wave Vmax 1.24 m/sec - MV deceleration time 187.68 msec - MV A-wave Vmax 0.93 m/sec - MV E:A ratio 1.33 ratio - Aortic Valve Name Value Normal Range AV Vmax 2.25 m/sec - AV VTI 35.51 cm - AV peak gradient 20.34 mmHg - AV mean gradient 11.33 mmHg - LVOT diameter 2.02 cm - LVOT Vmax 1.73 m/sec - LVOT VTI 29.56 cm - LVOT peak gradient 11.92 mmHg - LVOT mean gradient 7.59 mmHg - SV LVOT 94.78 ml - LINUS (continuity Vmax) 2.46 cm2 - LINUS (continuity VTI) 2.67 cm2 - Mitral Valve Name Value Normal Range MR Vmax 5.05 m/sec - Tricuspid Valve Name Value Normal Range TR Vmax 2.5 m/sec - TR peak gradient 25 mmHg - RAP 3 mmHg - RVSP 28 mmHg - Pulmonic Valve/Qp:Qs Name Value Normal Range PV Vmax 1.73 m/sec - PV peak gradient 11.91 mmHg - PV acceleration time 87.54 msec - Paredes/IV: Voiding Method Urinal IV Catheter Type [Right arm] Peripheral IV IV Catheter Type [Right Hand] INT / Saline Lock IV Catheter Type [Right INT / Saline Lock Antecubital] IV Catheter Type [Right INT / Saline Lock Forearm] IV Catheter Type [Left Hand] Peripheral IV Active Medications - Current Medications Current Medications: Generic Name Dose Route Start Last Admin Trade Name Freq PRN Reason Stop Dose Admin Acetaminophen 650 mg 03/01/20 13:57 03/09/20 04:17 Tylenol PO 650 mg Q4H PRN Administration Pain MILD(1-3)/Fever >100.5/OLIVERA Albumin Human 25 gm 03/01/20 10:16 Alburx 25% (Albumin) IV NITZA PRN Hypotension Carvedilol 6.25 mg 03/01/20 15:00 03/11/20 21:22 Coreg PO 6.25 mg BID JOSE RAMON Administration Hydralazine HCl 50 mg 03/01/20 15:00 03/12/20 05:17 Apresoline PO 50 mg Q8HR JOSE RAMON Administration Hydromorphone HCl 0.5 mg 03/01/20 08:35 03/09/20 10:00 Dilaudid IV 0.5 mg Q3H PRN Administration Pain , Severe (7-10) Vancomycin HCl 1,250 mg/ 275 mls @ 166.667 mls/hr 03/06/20 21:00 03/12/20 07:25 Sodium Chloride IV Not Given Q8H JOSE RAMON Sodium Chloride 1,000 mls @ 100 mls/hr 03/08/20 13:30 03/10/20 21:28 Nacl 0.9% 1000 Ml IV 100 mls/hr DIRECT JOSE RAMON Administration Cefepime HCl 2 gm in 100 mls @ 200 mls/hr 03/08/20 22:00 03/12/20 07:25 Cefepime/Ns 2 Gm/100 Ml IV Not Given Q8HR JOSE RAMON Protocol Ibuprofen 400 mg 03/04/20 13:32 03/07/20 21:38 Ibuprofen PO 400 mg Q6H PRN Administration Non Cardiac Pain or Temp>100.5 Metoclopramide HCl 10 mg 03/01/20 13:57 Reglan IV Q6H PRN Nausea And Vomiting Ondansetron HCl 4 mg 03/01/20 13:57 Zofran IV Q8H PRN Nausea And Vomiting Oxycodone/Acetaminophen 1 tab 03/01/20 13:57 03/12/20 05:18 Percocet 5/325 PO 1 tab Q6H PRN Administration Pain, Moderate (4-6) Pantoprazole Sodium 40 mg 03/02/20 22:00 03/11/20 21:22 Protonix PO 40 mg BID JOSE RAMON Administration Sodium Chloride 10 ml 03/01/20 22:00 03/11/20 21:24 Sodium Chloride Flush Syringe 10 Ml IV 10 ml BID JOSE RAMON Administration Sodium Chloride 10 ml 03/01/20 13:57 03/09/20 20:26 Sodium Chloride Flush Syringe 10 Ml IV 10 ml PRN PRN Administration LINE FLUSH Nutrition/Malnutrition Assess - Dietary Evaluation Nutrition/Malnutrition Findings: Nutrition Notes Start: 03/01/20 08:14 Freq: Status: Active Protocol: Document 03/08/20 12:25 LM (Rec: 03/08/20 12:27 LM [id number]) Nutrition Notes Initial or Follow up Brief Note Current Diagnosis Acute Kidney Injury,Sepsis Other Pertinent Diagnosis Acute liver failure, Anemia Current Diet NPO Subjective/Other Information Pt stated he is eating well and has recently gained wt back to UBW of 160-163 lb. Nutrition Intervention Revisit per MD consult or patient Sign Off request:
[2020-03-12 10:00] LABS: Basophils # (Auto) 0.1 K/mm3 (0.0-0.1); Basophils % (Auto) 0.9 % (0.0-1.8); Eosinophils # (Auto) 0.1 K/mm3 (0.0-0.4); Eosinophils % (Auto) 1.2 % (0.0-4.3); Hematocrit 22.5 % (35.5-45.6); Hemoglobin 8.3 gm/dl (11.8-15.2); Lymphocytes # (Auto) 1.6 K/mm3 (1.2-5.4); Lymphocytes % (Auto) 16.9 % (13.4-35.0); Mean Corpuscular HGB Conc 37 % (32-34); Mean Corpuscular Volume 88 fl (84-94); Monocytes # (Auto) 1.1 K/mm3 (0.0-0.8); Monocytes % (Auto) 11.5 % (0.0-7.3); Platelet Count 889 K/mm3 (140-440); Red Blood Count 2.57 M/mm3 (3.65-5.03); Red Cell Distribution Width 15.6 % (13.2-15.2)
[2020-03-12] MEDS: carvediloL 6.25 MG TAB PO SCH ×2 (10:39→21:12)
[2020-03-12] MEDS: PANTOPRAZOLE 40 MG TAB PO SCH ×2 (10:39→21:13)
--- NOTE | 2020-03-12 12:09 | Progress Note ---
Assessment and Plan Left septic joint with abscess formation anterior compartment appears to be improving with dressing changes and IV antibiotics Continue present management Subjective Principal diagnosis: Hypertensive emergency, acute liver failure, acute renal renal failure, rha Interval history: No major complaints noted from patient Objective Vital signs: Vital Signs - 12hr 03/12/20 03/12/20 05:03 05:17 Temperature 97.9 F Pulse Rate 79 78 Respiratory 18 Rate Blood Pressure 135/78 135/78 O2 Sat by Pulse 99 Oximetry Narrative Exam: Left leg -less drainage still with purulent material expressed manually, good passive range of motion at the knee joint - Labs CBC & BMP: 03/12/20 09:41 03/09/20 04:40 Labs: Abnormal lab results 03/12/20 Range/Units 09:41 RBC 2.57 L (3.65-5.03) M/mm3 Hgb 8.3 L (11.8-15.2) gm/dl Hct 22.5 L (35.5-45.6) % MCH 33 H (28-32) pg MCHC 37 H (32-34) % RDW 15.6 H (13.2-15.2) % Plt Count 889 H (140-440) K/mm3 [place] % (Auto) 11.5 H (0.0-7.3) % [place] # 1.1 H (0.0-0.8) K/mm3
--- NOTE | 2020-03-12 12:54 | Progress Note ---
Assessment and Plan Impression: * BHARTI with ATN * Metabolic acidosis * hyperkalemia * hyponatremia * acute liver failure * rhabdomyolysis * anemia * encephalopathy * microscopic hematuria * ingestion--admits to drinking febreze * septic knee Plan: * labs stable, reviewed 03/09, renal function WNL now, no new chemistries this AM * negative vasculitis workup * avoid nephrotoxins including NSAIDs * S/p [employer] for presumed ingestion and refractory hyperkalemia, no further HD is needed based on repeat labs and clinical scenario * Vasc cath removed, appreciated * replete lytes prn * avoid nephrotoxins * strict i/os * Daily lytes * Anemia workup per primary * Liver workup/management per primary * Abx per primary, s/p ortho procedure, recs appreciated * Shall follow patient peripherally Subjective Date of service: 03/12/20 Principal diagnosis: Hypertensive emergency, acute liver failure, acute renal renal failure, rha Interval history: Patient is comfortable today. Denies any shortness of breath. No nausea vomiting or diarrhea. Objective - Vital Signs Vital signs: Vital Signs - 12hr 03/12/20 03/12/20 03/12/20 05:03 05:17 08:55 Temperature 97.9 F 99.1 F Pulse Rate 79 78 76 Respiratory 18 18 Rate Blood Pressure 135/78 135/78 119/74 O2 Sat by Pulse 99 98 Oximetry - General Appearance General appearance: well-developed, well-nourished, appears stated age EENT: PERRL, mucous membranes moist Neck: no JVD, no thyromegaly, no carotid bruit, supple Respiratory: Present: Clear to Ascultation, Normal Exam Cardiology: regular Gastrointestinal: normal, normoactive bowel sounds Integumentary: no rash, other (No edema) - Lab 03/12/20 09:41 03/09/20 04:40 Most recent lab results ABG pH 7.427 pH Units (7.350-7.450) 02/29/20 23:09 ABG pCO2 28.1 mm Hg 02/29/20 23:09 ABG pO2 96.3 mm Hg (80.0-90.0) H 02/29/20 23:09 ABG HCO3 18.1 mmol/L (20.0-26.0) L 02/29/20 23:09 ABG O2 Saturation 97.6 % (95.0-99.0) 02/29/20 23:09 Calcium 8.1 mg/dL (8.4-10.2) L 03/09/20 04:40 Medications & Allergies - Medications Allergies/Adverse Reactions: Allergies No Known Allergies Allergy (Unverified 02/29/20 18:25) Home Medications: Home Medications Medication Instructions Recorded Confirmed Last Taken Type No Known Home Medications [No 03/01/20 03/01/20 Unknown History Reported Home Medications] Active Medications: Generic Name Dose Route Start Last Admin Trade Name Freq PRN Reason Stop Dose Admin Acetaminophen 650 mg 03/01/20 13:57 03/09/20 04:17 Tylenol PO 650 mg Q4H PRN Administration Pain MILD(1-3)/Fever >100.5/OLIVERA Albumin Human 25 gm 03/01/20 10:16 Alburx 25% (Albumin) IV NITZA PRN Hypotension Carvedilol 6.25 mg 03/01/20 15:00 03/12/20 10:39 Coreg PO 6.25 mg BID JOSE RAMON Administration Hydralazine HCl 50 mg 03/01/20 15:00 03/12/20 05:17 Apresoline PO 50 mg Q8HR JOSE RAMON Administration Hydromorphone HCl 0.5 mg 03/01/20 08:35 03/09/20 10:00 Dilaudid IV 0.5 mg Q3H PRN Administration Pain , Severe (7-10) Vancomycin HCl 1,250 mg/ 275 mls @ 166.667 mls/hr 03/06/20 21:00 03/12/20 07:25 Sodium Chloride IV Not Given Q8H [facility] Sodium Chloride 1,000 mls @ 100 mls/hr 03/08/20 13:30 03/10/20 21:28 Nacl 0.9% 1000 Ml IV 100 mls/hr DIRECT JOSE RAMON Administration Cefepime HCl 2 gm in 100 mls @ 200 mls/hr 03/08/20 22:00 03/12/20 07:25 Cefepime/Ns 2 Gm/100 Ml IV Not Given Q8HR [facility] Protocol Ibuprofen 400 mg 03/04/20 13:32 03/07/20 21:38 Ibuprofen PO 400 mg Q6H PRN Administration Non Cardiac Pain or Temp>100.5 Metoclopramide HCl 10 mg 03/01/20 13:57 Reglan IV Q6H PRN Nausea And Vomiting Ondansetron HCl 4 mg 03/01/20 13:57 Zofran IV Q8H PRN Nausea And Vomiting Oxycodone/Acetaminophen 1 tab 03/01/20 13:57 03/12/20 05:18 Percocet 5/325 PO 1 tab Q6H PRN Administration Pain, Moderate (4-6) Pantoprazole Sodium 40 mg 03/02/20 22:00 03/12/20 10:39 Protonix PO 40 mg BID JOSE RAMON Administration Sodium Chloride 10 ml 03/01/20 22:00 03/11/20 21:24 Sodium Chloride Flush Syringe 10 Ml IV 10 ml BID JOSE RAMON Administration Sodium Chloride 10 ml 03/01/20 13:57 03/09/20 20:26 Sodium Chloride Flush Syringe 10 Ml IV 10 ml PRN PRN Administration LINE FLUSH
[2020-03-12] MEDS: SODIUM CHLORIDE 0.9% 1000 ML 1,000 ML IV SCH (15:29)
[2020-03-12] MEDS: IBUPROFEN 400 MG TAB PO PRN (22:35)
[2020-03-13] MEDS: SODIUM CHLORIDE 0.9% 1000 ML 1,000 ML IV SCH ×2 (00:35→09:57)
[2020-03-13] MEDS: VANCOMYCIN 1,250 MG in SODIUM CHLORIDE 0.9% 250ML 250 ML IV SCH ×2 (05:51→22:14)
[2020-03-13] MEDS: oxyCODONE /ACETAMINOPHEN 5-325MG TAB PO PRN ×2 (05:52→22:13)
[2020-03-13] MEDS: hydrALAZINE 25 MG TAB PO SCH ×3 (05:52→21:50)
[2020-03-13] MEDS: CEFEPIME/NS 2 GM/100 ML 2 GM/100 ML BAG IV SCH ×3 (05:52→22:14)
[2020-03-13 06:11] LABS: Basophils # (Auto) 0.1 K/mm3 (0.0-0.1); Eosinophils # (Auto) 0.2 K/mm3 (0.0-0.4); Eosinophils % (Auto) 2.7 % (0.0-4.3); Hematocrit 25.6 % (35.5-45.6); Hemoglobin 8.6 gm/dl (11.8-15.2); Lymphocytes # (Auto) 1.8 K/mm3 (1.2-5.4); Lymphocytes % (Auto) 22.1 % (13.4-35.0); Mean Corpuscular HGB Conc 34 % (32-34); Mean Corpuscular Volume 87 fl (84-94); Monocytes # (Auto) 1.2 K/mm3 (0.0-0.8); Monocytes % (Auto) 14.4 % (0.0-7.3); Platelet Count 896 K/mm3 (140-440); Red Blood Count 2.94 M/mm3 (3.65-5.03); Red Cell Distribution Width 15.1 % (13.2-15.2)
[2020-03-13 06:28] LABS: BUN/Creatinine Ratio 23; Blood Urea Nitrogen 16 mg/dL (9-20); Calcium 8.9 mg/dL (8.4-10.2); Hemolysis Index 3
--- NOTE | 2020-03-13 09:35 | Progress Note ---
Assessment and Plan Assessment and plan: Self mutilation. Recall psychiatry for further evaluation. Severe sepsis. Present on admission with hypothermia, tachycardia, hypotension, leukocytosis, severely elevated lactate; secondary to severe left knee infection. Left knee septic arthritis with extensive leg cellulitis ? Necrotic site infection. Patient was taken to the operating room underwent drainage knee washout on 03/08/2020 Elevated LFTs. Likely due to sepsis, shock liver Anemia. Coagulopathy. Likely due to sepsis Hyponatremia.continue IV fluid hydration and follow-up BMP Acute kidney injury. Secondary to sepsis, resolved. Creatinine stable. 03/11/2020. Continue to monitor leukocytosis which has not improved. We will fo llow-up OR cultures and HIV testing. Continue vancomycin and cefepime per ID recommendations. Clindamycin has been stopped. Ortho to consider further debridement and wound VAC. 03/12/2020. Follow-up CBC today for worsening leukocytosis. Ortho to consider further debridement and wound VAC. Continue antibiotics per ID recommendations. 03/13/2020. Orthopedic's report Left septic joint with abscess formation anterior compartment appears to be improving with dressing changes and IV antibiotics. We will continue present management. ID following. History Interval history: No new issues overnight. Hospitalist Physical - Constitutional Vitals: Temp Pulse Resp BP Pulse Ox 98.2 F 84 18 125/72 97 03/13/20 07:42 03/13/20 07:42 03/13/20 07:42 03/13/20 07:42 03/13/20 07:42 General appearance: Present: no acute distress - EENT Eyes: Present: PERRL, EOM intact ENT: hearing intact, clear oral mucosa, dentition normal - Neck Neck: Present: supple, normal ROM - Respiratory Respiratory effort: normal Respiratory: bilateral: CTA - Cardiovascular Rhythm: regular Heart Sounds: Present: S1 & S2. Absent: gallop, rub - Extremities Extremities: no ischemia, No edema, Full ROM - Abdominal General gastrointestinal: soft, non-tender, non-distended, normal bowel sounds - Integumentary Integumentary: Present: clear, warm, dry - Neurologic Neurologic: CNII-XII intact, moves all extremities HEART Score - HEART Score Troponin: Troponin T 0.010 ng/mL (0.00-0.029) 03/09/20 23:47 Results - Labs CBC & Chem 7: 03/13/20 05:42 03/13/20 05:42 Labs: Laboratory Last Values WBC 8.1 K/mm3 (4.5-11.0) 03/13/20 05:42 RBC 2.94 M/mm3 (3.65-5.03) L 03/13/20 05:42 Hgb 8.6 gm/dl (11.8-15.2) L 03/13/20 05:42 Hct 25.6 % (35.5-45.6) L 03/13/20 05:42 MCV 87 fl (84-94) 03/13/20 05:42 MCH 29 pg (28-32) 03/13/20 05:42 MCHC 34 % (32-34) 03/13/20 05:42 RDW 15.1 % (13.2-15.2) 03/13/20 05:42 Plt Count 896 K/mm3 (140-440) H 03/13/20 05:42 Lymph % (Auto) 22.1 % (13.4-35.0) 03/13/20 05:42 Walsh % (Auto) 14.4 % (0.0-7.3) H 03/13/20 05:42 Eos % (Auto) 2.7 % (0.0-4.3) 03/13/20 05:42 Baso % (Auto) 1.0 % (0.0-1.8) 03/13/20 05:42 Lymph # 1.8 K/mm3 (1.2-5.4) 03/13/20 05:42 Walsh # 1.2 K/mm3 (0.0-0.8) H 03/13/20 05:42 Eos # 0.2 K/mm3 (0.0-0.4) 03/13/20 05:42 Baso # 0.1 K/mm3 (0.0-0.1) 03/13/20 05:42 Add Manual Diff Complete 03/09/20 04:40 Total Counted 100 03/09/20 04:40 Seg Neutrophils % 59.8 % (40.0-70.0) 03/13/20 05:42 Seg Neuts % (Manual) 83.0 % (40.0-70.0) H 03/09/20 04:40 Band Neutrophils % 5.0 % 03/09/20 04:40 Lymphocytes % (Manual) 8.0 % (13.4-35.0) L 03/09/20 04:40 Reactive Lymphs % (Man) 0 % 03/09/20 04:40 Monocytes % (Manual) 4.0 % (0.0-7.3) 03/09/20 04:40 Eosinophils % (Manual) 0 % (0.0-4.3) 03/09/20 04:40 Basophils % (Manual) 0 % (0.0-1.8) 03/09/20 04:40 Metamyelocytes % 0 % 03/09/20 04:40 Myelocytes % 0 % 03/09/20 04:40 Promyelocytes % 0 % 03/09/20 04:40 Blast Cells % 0 % 03/09/20 04:40 Nucleated RBC % Not Reportable 03/09/20 04:40 Seg Neutrophils # 4.9 K/mm3 (1.8-7.7) 03/13/20 05:42 Seg Neutrophils # Man 23.4 K/mm3 (1.8-7.7) H 03/09/20 04:40 Band Neutrophils # 1.4 K/mm3 03/09/20 04:40 Lymphocytes # (Manual) 2.3 K/mm3 (1.2-5.4) 03/09/20 04:40 Abs React Lymphs (Man) 0.0 K/mm3 03/09/20 04:40 Monocytes # (Manual) 1.1 K/mm3 (0.0-0.8) H 03/09/20 04:40 Eosinophils # (Manual) 0.0 K/mm3 (0.0-0.4) 03/09/20 04:40 Basophils # (Manual) 0.0 K/mm3 (0.0-0.1) 03/09/20 04:40 Metamyelocytes # 0.0 K/mm3 03/09/20 04:40 Myelocytes # 0.0 K/mm3 03/09/20 04:40 Promyelocytes # 0.0 K/mm3 03/09/20 04:40 Blast Cells # 0.0 K/mm3 03/09/20 04:40 WBC Morphology Not Reportable 03/09/20 04:40 Hypersegmented Neuts Not Reportable 03/09/20 04:40 Hyposegmented Neuts Not Reportable 03/09/20 04:40 Hypogranular Neuts Not Reportable 03/09/20 04:40 Smudge Cells Not Reportable 03/09/20 04:40 Toxic Granulation Not Reportable 03/09/20 04:40 Toxic Vacuolation Not Reportable 03/09/20 04:40 Dohle Bodies Not Reportable 03/09/20 04:40 Pelger-Huet Anomaly Not Reportable 03/09/20 04:40 Lizbeth Rods Not Reportable 03/09/20 04:40 Platelet Estimate Consistent w auto 03/09/20 04:40 Clumped Platelets Not Reportable 03/09/20 04:40 Plt Clumps, EDTA Not Reportable 03/09/20 04:40 Large Platelets Not Reportable 03/09/20 04:40 Giant Platelets Not Reportable 03/09/20 04:40 Platelet Satelliting Not Reportable 03/09/20 04:40 Plt Morphology Comment Not Reportable 03/09/20 04:40 RBC Morphology Not Reportable 03/09/20 04:40 Dimorphic RBCs Not Reportable 03/09/20 04:40 Polychromasia Rare 03/09/20 04:40 Hypochromasia Rare 03/09/20 04:40 Poikilocytosis Not Reportable 03/09/20 04:40 Anisocytosis Few 03/09/20 04:40 Microcytosis Not Reportable 03/09/20 04:40 Macrocytosis Not Reportable 03/09/20 04:40 Spherocytes Not Reportable 03/09/20 04:40 Pappenheimer Bodies Not Reportable 03/09/20 04:40 Sickle Cells Not Reportable 03/09/20 04:40 Target Cells Rare 03/09/20 04:40 Tear Drop Cells Not Reportable 03/09/20 04:40 Ovalocytes Not Reportable 03/09/20 04:40 Helmet Cells Not Reportable 03/09/20 04:40 [place] Bodies Not Reportable 03/09/20 04:40 [place] Rings Not Reportable 03/09/20 04:40 Vinny Cells Not Reportable 03/09/20 04:40 Bite Cells Not Reportable 03/09/20 04:40 Crenated Cell Not Reportable 03/09/20 04:40 Elliptocytes Not Reportable 03/09/20 04:40 Acanthocytes (Spur) Not Reportable 03/09/20 04:40 Rouleaux Not Reportable 03/09/20 04:40 Hemoglobin C Crystals Not Reportable 03/09/20 04:40 Schistocytes Not Reportable 03/09/20 04:40 Malaria parasites Not Reportable 03/09/20 04:40 Hilario Bodies Not Reportable 03/09/20 04:40 Hem Pathologist Commnt No 03/09/20 04:40 PT 23.5 Sec. (12.2-14.9) H 03/01/20 05:49 INR 2.16 (0.87-1.13) H 03/01/20 05:49 APTT 44.0 Sec. (24.2-36.6) H 02/29/20 19:11 ABG pH 7.427 pH Units (7.350-7.450) 02/29/20 23:09 ABG pCO2 28.1 mm Hg 02/29/20 23:09 ABG pO2 96.3 mm Hg (80.0-90.0) H 02/29/20 23:09 ABG HCO3 18.1 mmol/L (20.0-26.0) L 02/29/20 23:09 ABG O2 Saturation 97.6 % (95.0-99.0) 02/29/20 23:09 ABG O2 Content 12.6 (0.0-44) 02/29/20 23:09 ABG Base Excess -5.3 mmol/L (-2.0-3.0) L 02/29/20 23:09 ABG Hemoglobin 9.2 gm/dl (14.0-18.0) L 02/29/20 23:09 ABG Carboxyhemoglobin 1.1 % (0.0-5.0) 02/29/20 23:09 ABG Methemoglobin 0.4 % (0.0-1.5) 02/29/20 23:09 Oxyhemoglobin 96.2 % (95.0-99.0) 02/29/20 23:09 FiO2 36 % 02/29/20 23:09 Sodium 138 mmol/L (137-145) 03/13/20 05:42 Potassium 4.9 mmol/L (3.6-5.0) 03/13/20 05:42 Chloride 102.1 mmol/L (98-107) 03/13/20 05:42 Carbon Dioxide 23 mmol/L (22-30) 03/13/20 05:42 Anion Gap 18 mmol/L 03/13/20 05:42 BUN 16 mg/dL (9-20) 03/13/20 05:42 Creatinine 0.7 mg/dL (0.8-1.5) L 03/13/20 05:42 Estimated GFR > 60 ml/min 03/13/20 05:42 BUN/Creatinine Ratio 23 % 03/13/20 05:42 Glucose 87 mg/dL (75-100) 03/13/20 05:42 POC Glucose 122 (70-105) H 02/29/20 23:20 Hemoglobin A1c 4.7 % (4-6) 03/01/20 05:49 Osmolality 286 Mosm/kg 03/02/20 13:28 Lactic Acid 1.90 mmol/L (0.7-2.0) 03/01/20 21:23 Calcium 8.9 mg/dL (8.4-10.2) 03/13/20 05:42 Total Bilirubin 0.40 mg/dL (0.1-1.2) 03/09/20 04:40 Direct Bilirubin < 0.2 mg/dL (0-0.2) 03/01/20 05:49 Indirect Bilirubin 0.0 mg/dL 03/01/20 05:49 AST 88 units/L (5-40) H 03/09/20 04:40 ALT 150 units/L (7-56) H 03/09/20 04:40 Alkaline Phosphatase 154 units/L (35-129) H 03/09/20 04:40 Ammonia 43.0 umol/L (25-60) 03/01/20 01:09 Total Creatine Kinase 145 units/L (55-170) 03/10/20 09:20 Troponin T 0.010 ng/mL (0.00-0.029) 03/09/20 23:47 Serum Total Protein 5.2 g/dL (6.1-8.1) L 03/05/20 09:02 Total Protein 6.6 g/dL (6.3-8.2) 03/09/20 04:40 Albumin 1.9 g/dL (3.9-5) L 03/09/20 04:40 Albumin/Globulin Ratio 0.4 % 03/09/20 04:40 Oqlgq-4-Umylvszkx 0.8 g/dL (0.2-0.3) H 03/05/20 09:02 Kvgva-3-Lgvrcytel 1.1 g/dL (0.5-0.9) H 03/05/20 09:02 Beta Globulins 0.4 g/dL (0.2-0.5) 03/05/20 09:02 Gamma Globulins 1.0 g/dL (0.8-1.7) 03/05/20 09:02 Abnorm Protein Band 1 see below 03/05/20 09:02 PEP Interpretation see below H 03/05/20 09:02 Urine Color Yellow (Yellow) 02/29/20 23:30 Urine Turbidity Slightly-cloudy (Clear) 02/29/20 23:30 Urine pH 5.0 (5.0-7.0) 02/29/20 23:30 Ur Specific [place] 1.016 (1.003-1.030) 02/29/20 23:30 Urine Protein 30 mg/dl mg/dL (Negative) 02/29/20 23:30 Urine Glucose (UA) 50 mg/dL (Negative) 02/29/20 23:30 Urine Ketones Neg mg/dL (Negative) 02/29/20 23:30 Urine Blood Lg (Negative) 02/29/20 23:30 Urine Nitrite Neg (Negative) 02/29/20 23:30 Urine Bilirubin Neg (Negative) 02/29/20 23:30 Urine Urobilinogen < 2.0 mg/dL (<2.0) 02/29/20 23:30 Ur Leukocyte Esterase Neg (Negative) 02/29/20 23:30 Urine WBC (Auto) 6.0 /HPF (0.0-6.0) 02/29/20 23:30 Urine RBC (Auto) 2.0 /HPF (0.0-6.0) 02/29/20 23:30 Urine Mucus 1+ /HPF 02/29/20 23:30 Vancomycin Trough 23.4 ug/mL (5.0-20.0) H 03/12/20 21:02 Salicylates 1.7 mg/dL (2.8-20.0) L 02/29/20 20:35 Urine Opiates Screen Presumptive negative 02/29/20 23:30 Urine Methadone Screen Presumptive negative 02/29/20 23:30 Acetaminophen < 5.0 ug/mL (10.0-30.0) L 02/29/20 20:35 Ur Barbiturates Screen Presumptive negative 02/29/20 23:30 Ur Phencyclidine Scrn Presumptive negative 02/29/20 23:30 Ur Amphetamines Screen Presumptive negative 02/29/20 23:30 U Benzodiazepines Scrn Presumptive negative 02/29/20 23:30 Urine Cocaine Screen Presumptive negative 02/29/20 23:30 U Marijuana (THC) Screen Presumptive negative 02/29/20 23:30 Drugs of Abuse Note Disclamer 02/29/20 23:30 Ethylene Glycol <10.0 mcg/mL (<10.0) 03/01/20 12:41 Plasma/Serum Alcohol < 0.01 % (0-0.07) 02/29/20 19:11 NORMA Screen Negative (Negative) 03/05/20 09:02 Proteinase 3 (PR3) Ab <1.0 AI (<1.0) 03/05/20 09:02 Myeloperoxidase Ab <1.0 AI (<1.0) 03/05/20 09:02 Complement C3 173 mg/dL (82-185) 03/05/20 09:02 Complement C4 27 mg/dL (15-53) 03/05/20 09:02 Hepatitis A IgM Ab Non-reactive (NonReactive) 03/01/20 09:42 Hep Bs Antigen Non-reactive (Negative) 03/01/20 09:42 Hep B Core IgM Ab Non-reactive (NonReactive) 03/01/20 09:42 Hepatitis C Antibody Non-reactive (NonReactive) 03/01/20 09:42 Blood Type O POSITIVE 03/08/20 12:18 Antibody Screen Negative 03/08/20 12:18 Crossmatch See Detail 03/08/20 12:18 Microbiology: Microbiology 03/08/20 Unknown Knee - Left Anaerobic Culture - Preliminary 03/08/20 Unknown Knee - Left Anaerobic Culture - Preliminary 03/08/20 Unknown Knee - Left Surgical Culture - Final 03/08/20 Unknown Knee - Left Surgical Culture - Final - Diagnostic Impressions Diagnostic Impressions: Echocardiogram 03/09/20 10:46 Transthoracic Echocardiogram Indication: Chest pain BP: 124/72 HR: 93 Conclusions *The left ventricular chamber size is normal. *Global left ventricular wall motion and contractility are within normal limits. *The left atrial chamber size is normal. *Normal left ventricular diastolic filling is observed. Findings Left Ventricle: The left ventricular chamber size is normal. Global left ventricular wall motion and contractility are within normal limits. Global left ventricular systolic function is normal. The estimated ejection fraction is 55-60%. Normal left ventricular diastolic filling is observed. Left Atrium: The left atrial chamber size is normal. Right Ventricle: The right ventricular cavity size is normal. Right Atrium: The right atrial cavity size is normal. Aortic Valve: The aortic valve structure is normal. There is no evidence of aortic regurgitation. Mitral Valve: The mitral valve leaflets appear normal. There is trace of mitral regurgitation. Tricuspid Valve: The tricuspid valve leaflets are normal. There is trace tricuspid regurgitation. The right ventricular systolic pressure is calculated at 28 mmHg. Pulmonic Valve: The pulmonic valve appears normal. Pericardium: There is no pericardial effusion. Venous: The inferior vena cava appears normal. Measurements Chambers 2D Name Value Normal Range IVSd (2D) 1.08 cm (0.6 - 1.1) LVPWd (2D) 1.06 cm (0.6 - 1.1) LVIDd (2D) 4.16 cm (3.7 - 5.6) LVIDs (2D) 2.46 cm (2 - 3.8) LV FS (2D) 40.83 % - EF Teichholz (2D) 72.05 % - Ao root diameter (2D) 2.56 cm (2 - 3.7) Volumes/Mass Name Value Normal Range LA ESV SP 4CH (A/L) 25.95 ml - LA ESV SP 2CH (A/L) 43.57 ml - LA ESV BP (A/L) 34.1 ml - LA ESV BP (A/L) index 17.76 ml/m2 - LA ESV SP 4CH (MOD) 24.25 ml - LA ESV SP 2CH (MOD) 42.02 ml - LA ESV BP (MOD) 32.2 ml - LA ESV BP (MOD) index 16.77 ml/m2 - Diastolic/Systolic Function Name Value Normal Range MV E-wave Vmax 1.24 m/sec - MV deceleration time 187.68 msec - MV A-wave Vmax 0.93 m/sec - MV E:A ratio 1.33 ratio - Aortic Valve Name Value Normal Range AV Vmax 2.25 m/sec - AV VTI 35.51 cm - AV peak gradient 20.34 mmHg - AV mean gradient 11.33 mmHg - LVOT diameter 2.02 cm - LVOT Vmax 1.73 m/sec - LVOT VTI 29.56 cm - LVOT peak gradient 11.92 mmHg - LVOT mean gradient 7.59 mmHg - SV LVOT 94.78 ml - LINUS (continuity Vmax) 2.46 cm2 - LINUS (continuity VTI) 2.67 cm2 - Mitral Valve Name Value Normal Range MR Vmax 5.05 m/sec - Tricuspid Valve Name Value Normal Range TR Vmax 2.5 m/sec - TR peak gradient 25 mmHg - RAP 3 mmHg - RVSP 28 mmHg - Pulmonic Valve/Qp:Qs Name Value Normal Range PV Vmax 1.73 m/sec - PV peak gradient 11.91 mmHg - PV acceleration time 87.54 msec - Paredes/IV: Voiding Method Urinal IV Catheter Type [Right arm] Peripheral IV IV Catheter Type [Right Hand] INT / Saline Lock IV Catheter Type [Right INT / Saline Lock Antecubital] IV Catheter Type [Right INT / Saline Lock Forearm] IV Catheter Type [Left Hand] Peripheral IV Active Medications - Current Medications Current Medications: Generic Name Dose Route Start Last Admin Trade Name Freq PRN Reason Stop Dose Admin Acetaminophen 650 mg 03/01/20 13:57 03/09/20 04:17 Tylenol PO 650 mg Q4H PRN Administration Pain MILD(1-3)/Fever >100.5/OLIVERA Albumin Human 25 gm 03/01/20 10:16 Alburx 25% (Albumin) IV NITZA PRN Hypotension Carvedilol 6.25 mg 03/01/20 15:00 03/12/20 21:12 Coreg PO 6.25 mg BID JOSE RAMON Administration Hydralazine HCl 50 mg 03/01/20 15:00 03/13/20 05:52 Apresoline PO 50 mg Q8HR JOSE RAMON Administration Hydromorphone HCl 0.5 mg 03/01/20 08:35 03/09/20 10:00 Dilaudid IV 0.5 mg Q3H PRN Administration Pain , Severe (7-10) Sodium Chloride 1,000 mls @ 100 mls/hr 03/08/20 13:30 03/13/20 00:35 Nacl 0.9% 1000 Ml IV 100 mls/hr DIRECT JOSE RAMON Administration Cefepime HCl 2 gm in 100 mls @ 200 mls/hr 03/08/20 22:00 03/13/20 06:31 Cefepime/Ns 2 Gm/100 Ml IV Infused Q8HR JOSE RAMON Infusion Protocol Vancomycin HCl 1,250 mg/ 275 mls @ 166.667 mls/hr 03/13/20 21:00 Sodium Chloride IV Q12H JOSE RAMON Ibuprofen 400 mg 03/04/20 13:32 03/12/20 22:35 Ibuprofen PO 400 mg Q6H PRN Administration Non Cardiac Pain or Temp>100.5 Metoclopramide HCl 10 mg 03/01/20 13:57 Reglan IV Q6H PRN Nausea And Vomiting Ondansetron HCl 4 mg 03/01/20 13:57 Zofran IV Q8H PRN Nausea And Vomiting Oxycodone/Acetaminophen 1 tab 03/01/20 13:57 03/13/20 05:52 Percocet 5/325 PO 1 tab Q6H PRN Administration Pain, Moderate (4-6) Pantoprazole Sodium 40 mg 03/02/20 22:00 03/12/20 21:13 Protonix PO 40 mg BID JOSE RAMON Administration Sodium Chloride 10 ml 03/01/20 22:00 03/12/20 21:17 Sodium Chloride Flush Syringe 10 Ml IV 10 ml BID JOSE RAMON Administration Sodium Chloride 10 ml 03/01/20 13:57 03/09/20 20:26 Sodium Chloride Flush Syringe 10 Ml IV 10 ml PRN PRN Administration LINE FLUSH Nutrition/Malnutrition Assess - Dietary Evaluation Nutrition/Malnutrition Findings: Nutrition Notes Start: 03/01/20 08:14 Freq: Status: Active Protocol: Document 03/08/20 12:25 LM (Rec: 03/08/20 12:27 LM [id number]) Nutrition Notes Initial or Follow up Brief Note Current Diagnosis Acute Kidney Injury,Sepsis Other Pertinent Diagnosis Acute liver failure, Anemia Current Diet NPO Subjective/Other Information Pt stated he is eating well and has recently gained wt back to UBW of 160-163 lb. Nutrition Intervention Revisit per MD consult or patient Sign Off request:
[2020-03-13] MEDS: PANTOPRAZOLE 40 MG TAB PO SCH ×2 (09:56→21:49)
[2020-03-13] MEDS: carvediloL 6.25 MG TAB PO SCH ×2 (09:56→21:50)
[2020-03-14 04:26] LABS: Hematocrit 24.6 % (35.5-45.6); Hemoglobin 8.3 gm/dl (11.8-15.2); Mean Corpuscular HGB Conc 34 % (32-34); Mean Corpuscular Volume 88 fl (84-94); Platelet Count 829 K/mm3 (140-440); Red Blood Count 2.78 M/mm3 (3.65-5.03); Red Cell Distribution Width 15.5 % (13.2-15.2)
[2020-03-14 04:48] LABS: BUN/Creatinine Ratio 18; Blood Urea Nitrogen 16 mg/dL (9-20)
[2020-03-14 04:49] LABS: Calcium 8.6 mg/dL (8.4-10.2); Hemolysis Index 10
[2020-03-14] MEDS: hydrALAZINE 25 MG TAB PO SCH ×3 (05:49→21:38)
[2020-03-14] MEDS: CEFEPIME/NS 2 GM/100 ML 2 GM/100 ML BAG IV SCH ×2 (05:50→13:13)
[2020-03-14 05:54] LABS: Anisocytosis 1+; Basophils % (Manual) 0 % (0.0-1.8); Total Cells Counted 100
[2020-03-14 05:55] LABS: Platelet Estimate Consistent w Auto
[2020-03-14] MEDS: PANTOPRAZOLE 40 MG TAB PO SCH ×2 (09:00→21:39)
[2020-03-14] MEDS: carvediloL 6.25 MG TAB PO SCH ×2 (09:01→21:39)
--- NOTE | 2020-03-14 09:26 | Progress Note ---
Assessment and Plan Impression: * BHARTI with ATN * Metabolic acidosis * hyperkalemia * hyponatremia * acute liver failure * rhabdomyolysis * anemia * encephalopathy * microscopic hematuria * ingestion--admits to drinking febreze * septic knee Plan: * labs stable, reviewed 03/14, renal function WNL now * negative vasculitis workup * avoid nephrotoxins including NSAIDs * S/p CHIEF OF PLANNING for presumed ingestion and refractory hyperkalemia, no further HD is needed based on repeat labs and clinical scenario * Vasc cath removed, appreciated * replete lytes prn * avoid nephrotoxins * strict i/os * Daily lytes * Anemia workup per primary * Liver workup/management per primary * Abx per primary, s/p ortho procedure, recs appreciated * Renal will follow peripherally given stability, thank you for this consult Subjective Date of service: 03/14/20 Principal diagnosis: Hypertensive emergency, acute liver failure, acute renal renal failure, rha Interval history: no major changes noted Objective - Exam Narrative Exam: General appearance: no acute distress, well-nourished; sleeping Eyes: PERRL, EOM intact ENT: hearing intact Neck: supple Respiratory: CTA Heart: regular rate noted Extremities: No edema, Full ROM Gastrointestinal: soft, non-tender Integumentary: clear, warm, dry, normal turgor Musculoskeletal: strength equal bilaterally Psychiatric: appropriate mood/affect, intact judgment & insight, memory intact, cooperative Neurologic: CNII-XII intact, moves all extremities spontaneously - Vital Signs Vital signs: Vital Signs - 12hr 03/13/20 03/13/20 03/14/20 21:50 23:13 05:49 Temperature 98.7 F Pulse Rate 95 H 92 H Respiratory 20 Rate Blood Pressure 144/75 135/89 122/79 O2 Sat by Pulse 98 Oximetry 03/14/20 03/14/20 08:14 09:01 Temperature 98.8 F Pulse Rate 90 90 Respiratory 18 Rate Blood Pressure 143/76 143/76 O2 Sat by Pulse 99 Oximetry - Lab 03/14/20 03:50 03/14/20 03:50 Most recent lab results ABG pH 7.427 pH Units (7.350-7.450) 02/29/20 23:09 ABG pCO2 28.1 mm Hg 02/29/20 23:09 ABG pO2 96.3 mm Hg (80.0-90.0) H 02/29/20 23:09 ABG HCO3 18.1 mmol/L (20.0-26.0) L 02/29/20 23:09 ABG O2 Saturation 97.6 % (95.0-99.0) 02/29/20 23:09 Calcium 8.6 mg/dL (8.4-10.2) 03/14/20 03:50 Medications & Allergies - Medications Allergies/Adverse Reactions: Allergies No Known Allergies Allergy (Unverified 02/29/20 18:25) Home Medications: Home Medications Medication Instructions Recorded Confirmed Last Taken Type No Known Home Medications [No 03/01/20 03/01/20 Unknown History Reported Home Medications] Active Medications: Generic Name Dose Route Start Last Admin Trade Name Freq PRN Reason Stop Dose Admin Acetaminophen 650 mg 03/01/20 13:57 03/09/20 04:17 Tylenol PO 650 mg Q4H PRN Administration Pain MILD(1-3)/Fever >100.5/OLIVERA Albumin Human 25 gm 03/01/20 10:16 Alburx 25% (Albumin) IV NITZA PRN Hypotension Carvedilol 6.25 mg 03/01/20 15:00 03/14/20 09:01 Coreg PO 6.25 mg BID JOSE RAMON Administration Hydralazine HCl 50 mg 03/01/20 15:00 03/14/20 05:49 Apresoline PO 50 mg Q8HR JOSE RAMON Administration Hydromorphone HCl 0.5 mg 03/01/20 08:35 03/09/20 10:00 Dilaudid IV 0.5 mg Q3H PRN Administration Pain , Severe (7-10) Sodium Chloride 1,000 mls @ 100 mls/hr 03/08/20 13:30 03/13/20 09:57 Nacl 0.9% 1000 Ml IV 100 mls/hr DIRECT JOSE RAMON Administration Cefepime HCl 2 gm in 100 mls @ 200 mls/hr 03/08/20 22:00 03/14/20 05:50 Cefepime/Ns 2 Gm/100 Ml IV 200 mls/hr Q8HR JOSE RAMON Administration Protocol Vancomycin HCl 1,250 mg/ 275 mls @ 166.667 mls/hr 03/13/20 21:00 03/13/20 22:14 Sodium Chloride IV 166.667 mls/hr Q12H JOSE RAMON Administration Ibuprofen 400 mg 03/04/20 13:32 03/12/20 22:35 Ibuprofen PO 400 mg Q6H PRN Administration Non Cardiac Pain or Temp>100.5 Metoclopramide HCl 10 mg 03/01/20 13:57 Reglan IV Q6H PRN Nausea And Vomiting Ondansetron HCl 4 mg 03/01/20 13:57 Zofran IV Q8H PRN Nausea And Vomiting Oxycodone/Acetaminophen 1 tab 03/01/20 13:57 03/13/20 22:13 Percocet 5/325 PO 1 tab Q6H PRN Administration Pain, Moderate (4-6) Pantoprazole Sodium 40 mg 03/02/20 22:00 03/14/20 09:00 Protonix PO 40 mg BID JOSE RAMON Administration Sodium Chloride 10 ml 03/01/20 22:00 03/13/20 21:49 Sodium Chloride Flush Syringe 10 Ml IV 10 ml BID JOSE RAMON Administration Sodium Chloride 10 ml 03/01/20 13:57 03/09/20 20:26 Sodium Chloride Flush Syringe 10 Ml IV 10 ml PRN PRN Administration LINE FLUSH
[2020-03-14] MEDS: VANCOMYCIN 1,250 MG in SODIUM CHLORIDE 0.9% 250ML 250 ML IV SCH ×2 (09:28→21:38)
--- NOTE | 2020-03-14 10:56 | Progress Note ---
Assessment and Plan Cultures: Blood culture 02/29/2020 no growth. OR culture 03/08/2020 no growth today Assessment: 40 years old male without any medical history, admitted on 02/29/2020 due to 3-week history of intermittent fever and left leg edema, erythema and tenderness, associated with weakness, urine odor and syncope: #Severe sepsis: Resolved; secondary to severe left knee infection. Leukocytosis is better. #Left knee septic arthritis with extensive leg cellulitis, myositis? Necrotizing infection ?early femoral osteomyelitis: Patient was taken to the operating room underwent drainage knee washout on 03/08/2020, culture NO growth. 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 Yvette Das MD Infectious Diseases [employer] [facility] ([facility]) M [phone] [id number] [phone] Subjective Date of service: 03/14/20 Principal diagnosis: Hypertensive emergency, acute liver failure, acute renal renal failure, rha Interval history: Feels better no complaints Objective - Exam Narrative Exam: General appearance: Alert in NAD Eyes: anicteric sclerae, moist conjunctivae; no lid-lag; left corneal opacity HENT: Atraumatic; oropharynx clear with moist mucous membranes and no oral th eng; normal hard and soft palate. Lungs: CTA, with normal respiratory effort and no intercostal retractions CV: RRR no murmur Abdomen: Soft, non-tender; no masses or hepatosplenomegaly Extremities: left leg edema with dressings, left arm with dressings, edema improving Skin: No rash. Psych: no agitated Neuro: alert and oriented x 3. Moving all extermities - Constitutional Vitals: Vital Signs Temp Pulse Resp BP Pulse Ox 98.8 F 90 18 143/76 99 03/14/20 08:14 03/14/20 09:01 03/14/20 08:14 03/14/20 09:01 03/14/20 08:14 Temperature -Last 24 Hours Temperature 98.8 F Temperature 98.7 F Temperature 98.6 F Temperature 98.3 F Temperature 98.4 F - Labs CBC & Chem 7: 03/14/20 03:50 03/14/20 03:50 Labs: Abnormal lab results 03/14/20 03/14/20 Range/Units 03:50 03:50 RBC 2.78 L (3.65-5.03) M/mm3 Hgb 8.3 L (11.8-15.2) gm/dl Hct 24.6 L (35.5-45.6) % RDW 15.5 H (13.2-15.2) % Plt Count 829 H (140-440) K/mm3 Monocytes % (Manual) 10.0 H (0.0-7.3) % Monocytes # (Manual) 0.9 H (0.0-0.8) K/mm3 Carbon Dioxide 21 L (22-30) mmol/L Glucose 112 H (75-100) mg/dL
--- NOTE | 2020-03-14 11:33 | Progress Note ---
Assessment and Plan Assessment and plan: Self mutilation. Recall psychiatry for further evaluation. Severe sepsis. Present on admission with hypothermia, tachycardia, hypotension, leukocytosis, severely elevated lactate; secondary to severe left knee infection. Left knee septic arthritis with extensive leg cellulitis ? Necrotic site infection. Patient was taken to the operating room underwent drainage knee washout on 03/08/2020 Elevated LFTs. Likely due to sepsis, shock liver Anemia. Coagulopathy. Likely due to sepsis Hyponatremia.continue IV fluid hydration and follow-up BMP Acute kidney injury. Secondary to sepsis, resolved. Creatinine stable. 03/11/2020. Continue to monitor leukocytosis which has not improved. We will fo llow-up OR cultures and HIV testing. Continue vancomycin and cefepime per ID recommendations. Clindamycin has been stopped. Ortho to consider further debridement and wound VAC. 03/12/2020. Follow-up CBC today for worsening leukocytosis. Ortho to consider further debridement and wound VAC. Continue antibiotics per ID recommendations. 03/13/2020. Orthopedic's report Left septic joint with abscess formation anterior compartment appears to be improving with dressing changes and IV antibiotics. We will continue present management. ID following. 03/14/2020. Continue vancomycin with PK consult. Continue cefepime 2 g IV every 12 hours. Anticipate to d/c on vancomycin 1,250 mg IV q 12hour and ceftriaxone 2 g IV qday total 4 weeks until 04/05/2020 - orders sent to comp field case manager per ID recommendation. PICC line placement History Interval history: No new issues overnight. Hospitalist Physical - Constitutional Vitals: Temp Pulse Resp BP Pulse Ox 98.8 F 90 18 143/76 99 03/14/20 08:14 03/14/20 09:01 03/14/20 08:14 03/14/20 09:01 03/14/20 08:14 General appearance: Present: no acute distress - EENT Eyes: Present: PERRL, EOM intact ENT: hearing intact, clear oral mucosa, dentition normal - Neck Neck: Present: supple, normal ROM - Respiratory Respiratory effort: normal Respiratory: bilateral: CTA - Cardiovascular Rhythm: regular Heart Sounds: Present: S1 & S2. Absent: gallop, rub - Extremities Extremities: no ischemia, No edema, Full ROM - Abdominal General gastrointestinal: soft, non-tender, non-distended, normal bowel sounds - Integumentary Integumentary: Present: clear, warm, dry - Neurologic Neurologic: CNII-XII intact, moves all extremities HEART Score - HEART Score Troponin: Troponin T 0.010 ng/mL (0.00-0.029) 03/09/20 23:47 Results - Labs CBC & Chem 7: 03/14/20 03:50 03/14/20 03:50 Labs: Laboratory Last Values WBC 8.6 K/mm3 (4.5-11.0) 03/14/20 03:50 RBC 2.78 M/mm3 (3.65-5.03) L 03/14/20 03:50 Hgb 8.3 gm/dl (11.8-15.2) L 03/14/20 03:50 Hct 24.6 % (35.5-45.6) L 03/14/20 03:50 MCV 88 fl (84-94) 03/14/20 03:50 MCH 30 pg (28-32) 03/14/20 03:50 MCHC 34 % (32-34) 03/14/20 03:50 RDW 15.5 % (13.2-15.2) H 03/14/20 03:50 Plt Count 829 K/mm3 (140-440) H 03/14/20 03:50 Lymph % (Auto) 22.1 % (13.4-35.0) 03/13/20 05:42 [place] % (Auto) 14.4 % (0.0-7.3) H 03/13/20 05:42 Eos % (Auto) 2.7 % (0.0-4.3) 03/13/20 05:42 Baso % (Auto) 1.0 % (0.0-1.8) 03/13/20 05:42 Lymph # 1.8 K/mm3 (1.2-5.4) 03/13/20 05:42 [place] # 1.2 K/mm3 (0.0-0.8) H 03/13/20 05:42 Eos # 0.2 K/mm3 (0.0-0.4) 03/13/20 05:42 Baso # 0.1 K/mm3 (0.0-0.1) 03/13/20 05:42 Add Manual Diff Complete 03/14/20 03:50 Total Counted 100 03/14/20 03:50 Seg Neutrophils % 59.8 % (40.0-70.0) 03/13/20 05:42 Seg Neuts % (Manual) 69.0 % (40.0-70.0) 03/14/20 03:50 Band Neutrophils % 0 % 03/14/20 03:50 Lymphocytes % (Manual) 19.0 % (13.4-35.0) 03/14/20 03:50 Reactive Lymphs % (Man) 0 % 03/14/20 03:50 Monocytes % (Manual) 10.0 % (0.0-7.3) H 03/14/20 03:50 Eosinophils % (Manual) 2.0 % (0.0-4.3) 03/14/20 03:50 Basophils % (Manual) 0 % (0.0-1.8) 03/14/20 03:50 Metamyelocytes % 0 % 03/14/20 03:50 Myelocytes % 0 % 03/14/20 03:50 Promyelocytes % 0 % 03/14/20 03:50 Blast Cells % 0 % 03/14/20 03:50 Nucleated RBC % Not Reportable 03/14/20 03:50 Seg Neutrophils # 4.9 K/mm3 (1.8-7.7) 03/13/20 05:42 Seg Neutrophils # Man 5.9 K/mm3 (1.8-7.7) 03/14/20 03:50 Band Neutrophils # 0.0 K/mm3 03/14/20 03:50 Lymphocytes # (Manual) 1.6 K/mm3 (1.2-5.4) 03/14/20 03:50 Abs React Lymphs (Man) 0.0 K/mm3 03/14/20 03:50 Monocytes # (Manual) 0.9 K/mm3 (0.0-0.8) H 03/14/20 03:50 Eosinophils # (Manual) 0.2 K/mm3 (0.0-0.4) 03/14/20 03:50 Basophils # (Manual) 0.0 K/mm3 (0.0-0.1) 03/14/20 03:50 Metamyelocytes # 0.0 K/mm3 03/14/20 03:50 Myelocytes # 0.0 K/mm3 03/14/20 03:50 Promyelocytes # 0.0 K/mm3 03/14/20 03:50 Blast Cells # 0.0 K/mm3 03/14/20 03:50 WBC Morphology Not Reportable 03/14/20 03:50 Hypersegmented Neuts Not Reportable 03/14/20 03:50 Hyposegmented Neuts Not Reportable 03/14/20 03:50 Hypogranular Neuts Not Reportable 03/14/20 03:50 Smudge Cells Not Reportable 03/14/20 03:50 Toxic Granulation Not Reportable 03/14/20 03:50 Toxic Vacuolation Not Reportable 03/14/20 03:50 Dohle Bodies Not Reportable 03/14/20 03:50 Pelger-Huet Anomaly Not Reportable 03/14/20 03:50 Lizbeth Rods Not Reportable 03/14/20 03:50 Platelet Estimate Consistent w auto 03/14/20 03:50 Clumped Platelets Not Reportable 03/14/20 03:50 Plt Clumps, EDTA Not Reportable 03/14/20 03:50 Large Platelets Not Reportable 03/14/20 03:50 Giant Platelets Not Reportable 03/14/20 03:50 Platelet Satelliting Not Reportable 03/14/20 03:50 Plt Morphology Comment Not Reportable 03/14/20 03:50 RBC Morphology Not Reportable 03/14/20 03:50 Dimorphic RBCs Not Reportable 03/14/20 03:50 Polychromasia Not Reportable 03/14/20 03:50 Hypochromasia Not Reportable 03/14/20 03:50 Poikilocytosis Not Reportable 03/14/20 03:50 Anisocytosis 1+ 03/14/20 03:50 Microcytosis Not Reportable 03/14/20 03:50 Macrocytosis Not Reportable 03/14/20 03:50 Spherocytes Not Reportable 03/14/20 03:50 Pappenheimer Bodies Not Reportable 03/14/20 03:50 Sickle Cells Not Reportable 03/14/20 03:50 Target Cells Not Reportable 03/14/20 03:50 Tear Drop Cells Not Reportable 03/14/20 03:50 Ovalocytes Not Reportable 03/14/20 03:50 Helmet Cells Not Reportable 03/14/20 03:50 Garcia-[place] Bodies Not Reportable 03/14/20 03:50 [place] Rings Not Reportable 03/14/20 03:50 [place] Cells Not Reportable 03/14/20 03:50 Bite Cells Not Reportable 03/14/20 03:50 Crenated Cell Not Reportable 03/14/20 03:50 Elliptocytes Not Reportable 03/14/20 03:50 Acanthocytes (Spur) Not Reportable 03/14/20 03:50 Rouleaux Not Reportable 03/14/20 03:50 Hemoglobin C Crystals Not Reportable 03/14/20 03:50 Schistocytes Not Reportable 03/14/20 03:50 Malaria parasites Not Reportable 03/14/20 03:50 Hilario Bodies Not Reportable 03/14/20 03:50 Hem Pathologist Commnt No 03/14/20 03:50 PT 23.5 Sec. (12.2-14.9) H 03/01/20 05:49 INR 2.16 (0.87-1.13) H 03/01/20 05:49 APTT 44.0 Sec. (24.2-36.6) H 02/29/20 19:11 ABG pH 7.427 pH Units (7.350-7.450) 02/29/20 23:09 ABG pCO2 28.1 mm Hg 02/29/20 23:09 ABG pO2 96.3 mm Hg (80.0-90.0) H 02/29/20 23:09 ABG HCO3 18.1 mmol/L (20.0-26.0) L 02/29/20 23:09 ABG O2 Saturation 97.6 % (95.0-99.0) 02/29/20 23:09 ABG O2 Content 12.6 (0.0-44) 02/29/20 23:09 ABG Base Excess -5.3 mmol/L (-2.0-3.0) L 02/29/20 23:09 ABG Hemoglobin 9.2 gm/dl (14.0-18.0) L 02/29/20 23:09 ABG Carboxyhemoglobin 1.1 % (0.0-5.0) 02/29/20 23:09 ABG Methemoglobin 0.4 % (0.0-1.5) 02/29/20 23:09 Oxyhemoglobin 96.2 % (95.0-99.0) 02/29/20 23:09 FiO2 36 % 02/29/20 23:09 Sodium 140 mmol/L (137-145) 03/14/20 03:50 Potassium 4.1 mmol/L (3.6-5.0) 03/14/20 03:50 Chloride 106.5 mmol/L (98-107) 03/14/20 03:50 Carbon Dioxide 21 mmol/L (22-30) L 03/14/20 03:50 Anion Gap 17 mmol/L 03/14/20 03:50 BUN 16 mg/dL (9-20) 03/14/20 03:50 Creatinine 0.9 mg/dL (0.8-1.5) 03/14/20 03:50 Estimated GFR > 60 ml/min 03/14/20 03:50 BUN/Creatinine Ratio 18 % 03/14/20 03:50 Glucose 112 mg/dL (75-100) H 03/14/20 03:50 POC Glucose 122 (70-105) H 02/29/20 23:20 Hemoglobin A1c 4.7 % (4-6) 03/01/20 05:49 Osmolality 286 Mosm/kg 03/02/20 13:28 Lactic Acid 1.90 mmol/L (0.7-2.0) 03/01/20 21:23 Calcium 8.6 mg/dL (8.4-10.2) 03/14/20 03:50 Total Bilirubin 0.40 mg/dL (0.1-1.2) 03/09/20 04:40 Direct Bilirubin < 0.2 mg/dL (0-0.2) 03/01/20 05:49 Indirect Bilirubin 0.0 mg/dL 03/01/20 05:49 AST 88 units/L (5-40) H 03/09/20 04:40 ALT 150 units/L (7-56) H 03/09/20 04:40 Alkaline Phosphatase 154 units/L (35-129) H 03/09/20 04:40 Ammonia 43.0 umol/L (25-60) 03/01/20 01:09 Total Creatine Kinase 145 units/L (55-170) 03/10/20 09:20 Troponin T 0.010 ng/mL (0.00-0.029) 03/09/20 23:47 Serum Total Protein 5.2 g/dL (6.1-8.1) L 03/05/20 09:02 Total Protein 6.6 g/dL (6.3-8.2) 03/09/20 04:40 Albumin 1.9 g/dL (3.9-5) L 03/09/20 04:40 Albumin/Globulin Ratio 0.4 % 03/09/20 04:40 Fhdpc-8-Exuobgced 0.8 g/dL (0.2-0.3) H 03/05/20 09:02 Gqmpk-7-Pceiyxcqq 1.1 g/dL (0.5-0.9) H 03/05/20 09:02 Beta Globulins 0.4 g/dL (0.2-0.5) 03/05/20 09:02 Gamma Globulins 1.0 g/dL (0.8-1.7) 03/05/20 09:02 Abnorm Protein Band 1 see below 03/05/20 09:02 PEP Interpretation see below H 03/05/20 09:02 Urine Color Yellow (Yellow) 02/29/20 23:30 Urine Turbidity Slightly-cloudy (Clear) 02/29/20 23:30 Urine pH 5.0 (5.0-7.0) 02/29/20 23:30 Ur Specific [place] 1.016 (1.003-1.030) 02/29/20 23:30 Urine Protein 30 mg/dl mg/dL (Negative) 02/29/20 23:30 Urine Glucose (UA) 50 mg/dL (Negative) 02/29/20 23:30 Urine Ketones Neg mg/dL (Negative) 02/29/20 23:30 Urine Blood Lg (Negative) 02/29/20 23:30 Urine Nitrite Neg (Negative) 02/29/20 23:30 Urine Bilirubin Neg (Negative) 02/29/20 23:30 Urine Urobilinogen < 2.0 mg/dL (<2.0) 02/29/20 23:30 Ur Leukocyte Esterase Neg (Negative) 02/29/20 23:30 Urine WBC (Auto) 6.0 /HPF (0.0-6.0) 02/29/20 23:30 Urine RBC (Auto) 2.0 /HPF (0.0-6.0) 02/29/20 23:30 Urine Mucus 1+ /HPF 02/29/20 23:30 Vancomycin Trough 23.4 ug/mL (5.0-20.0) H 03/12/20 21:02 Salicylates 1.7 mg/dL (2.8-20.0) L 02/29/20 20:35 Urine Opiates Screen Presumptive negative 02/29/20 23:30 Urine Methadone Screen Presumptive negative 02/29/20 23:30 Acetaminophen < 5.0 ug/mL (10.0-30.0) L 02/29/20 20:35 Ur Barbiturates Screen Presumptive negative 02/29/20 23:30 Ur Phencyclidine Scrn Presumptive negative 02/29/20 23:30 Ur Amphetamines Screen Presumptive negative 02/29/20 23:30 U Benzodiazepines Scrn Presumptive negative 02/29/20 23:30 Urine Cocaine Screen Presumptive negative 02/29/20 23:30 U Marijuana (THC) Screen Presumptive negative 02/29/20 23:30 Drugs of Abuse Note Disclamer 02/29/20 23:30 Ethylene Glycol <10.0 mcg/mL (<10.0) 03/01/20 12:41 Plasma/Serum Alcohol < 0.01 % (0-0.07) 02/29/20 19:11 NORMA Screen Negative (Negative) 03/05/20 09:02 Proteinase 3 (PR3) Ab <1.0 AI (<1.0) 03/05/20 09:02 Myeloperoxidase Ab <1.0 AI (<1.0) 03/05/20 09:02 Complement C3 173 mg/dL (82-185) 03/05/20 09:02 Complement C4 27 mg/dL (15-53) 03/05/20 09:02 Hepatitis A IgM Ab Non-reactive (NonReactive) 03/01/20 09:42 Hep Bs Antigen Non-reactive (Negative) 03/01/20 09:42 Hep B Core IgM Ab Non-reactive (NonReactive) 03/01/20 09:42 Hepatitis C Antibody Non-reactive (NonReactive) 03/01/20 09:42 Blood Type O POSITIVE 03/08/20 12:18 Antibody Screen Negative 03/08/20 12:18 Crossmatch See Detail 03/08/20 12:18 - Diagnostic Impressions Diagnostic Impressions: Echocardiogram 06/24/20 10:46 Transthoracic Echocardiogram Indication: Chest pain BP: 124/72 HR: 93 Conclusions *The left ventricular chamber size is normal. *Global left ventricular wall motion and contractility are within normal limits. *The left atrial chamber size is normal. *Normal left ventricular diastolic filling is observed. Findings Left Ventricle: The left ventricular chamber size is normal. Global left ventricular wall motion and contractility are within normal limits. Global left ventricular systolic function is normal. The estimated ejection fraction is 55-60%. Normal left ventricular diastolic filling is observed. Left Atrium: The left atrial chamber size is normal. Right Ventricle: The right ventricular cavity size is normal. Right Atrium: The right atrial cavity size is normal. Aortic Valve: The aortic valve structure is normal. There is no evidence of aortic regurgitation. Mitral Valve: The mitral valve leaflets appear normal. There is trace of mitral regurgitation. Tricuspid Valve: The tricuspid valve leaflets are normal. There is trace tricuspid regurgitation. The right ventricular systolic pressure is calculated at 28 mmHg. Pulmonic Valve: The pulmonic valve appears normal. Pericardium: There is no pericardial effusion. Venous: The inferior vena cava appears normal. Measurements Chambers 2D Name Value Normal Range IVSd (2D) 1.08 cm (0.6 - 1.1) LVPWd (2D) 1.06 cm (0.6 - 1.1) LVIDd (2D) 4.16 cm (3.7 - 5.6) LVIDs (2D) 2.46 cm (2 - 3.8) LV FS (2D) 40.83 % - EF Teichholz (2D) 72.05 % - Ao root diameter (2D) 2.56 cm (2 - 3.7) Volumes/Mass Name Value Normal Range LA ESV SP 4CH (A/L) 25.95 ml - LA ESV SP 2CH (A/L) 43.57 ml - LA ESV BP (A/L) 34.1 ml - LA ESV BP (A/L) index 17.76 ml/m2 - LA ESV SP 4CH (MOD) 24.25 ml - LA ESV SP 2CH (MOD) 42.02 ml - LA ESV BP (MOD) 32.2 ml - LA ESV BP (MOD) index 16.77 ml/m2 - Diastolic/Systolic Function Name Value Normal Range MV E-wave Vmax 1.24 m/sec - MV deceleration time 187.68 msec - MV A-wave Vmax 0.93 m/sec - MV E:A ratio 1.33 ratio - Aortic Valve Name Value Normal Range AV Vmax 2.25 m/sec - AV VTI 35.51 cm - AV peak gradient 20.34 mmHg - AV mean gradient 11.33 mmHg - LVOT diameter 2.02 cm - LVOT Vmax 1.73 m/sec - LVOT VTI 29.56 cm - LVOT peak gradient 11.92 mmHg - LVOT mean gradient 7.59 mmHg - SV LVOT 94.78 ml - LINUS (continuity Vmax) 2.46 cm2 - LINUS (continuity VTI) 2.67 cm2 - Mitral Valve Name Value Normal Range MR Vmax 5.05 m/sec - Tricuspid Valve Name Value Normal Range TR Vmax 2.5 m/sec - TR peak gradient 25 mmHg - RAP 3 mmHg - RVSP 28 mmHg - Pulmonic Valve/Qp:Qs Name Value Normal Range PV Vmax 1.73 m/sec - PV peak gradient 11.91 mmHg - PV acceleration time 87.54 msec - Paredes/IV: Voiding Method Urinal IV Catheter Type [right inner INT / Saline Lock arm] IV Catheter Type [Right arm] Peripheral IV IV Catheter Type [Right Upper INT / Saline Lock arm] IV Catheter Type [Right Hand] INT / Saline Lock IV Catheter Type [Right INT / Saline Lock Antecubital] IV Catheter Type [Right INT / Saline Lock Forearm] IV Catheter Type [Left Hand] Peripheral IV Active Medications - Current Medications Current Medications: Generic Name Dose Route Start Last Admin Trade Name Braxton PRN Reason Stop Dose Admin Acetaminophen 650 mg 03/01/20 13:57 03/09/20 04:17 Tylenol PO 650 mg Q4H PRN Administration Pain MILD(1-3)/Fever >100.5/OLIVERA Albumin Human 25 gm 03/01/20 10:16 Alburx 25% (Albumin) IV NITZA PRN Hypotension Carvedilol 6.25 mg 03/01/20 15:00 03/14/20 09:01 Coreg PO 6.25 mg BID JOSE RAMON Administration Hydralazine HCl 50 mg 03/01/20 15:00 03/14/20 05:49 Apresoline PO 50 mg Q8HR JOSE RAMON Administration Hydromorphone HCl 0.5 mg 03/01/20 08:35 03/09/20 10:00 Dilaudid IV 0.5 mg Q3H PRN Administration Pain , Severe (7-10) Sodium Chloride 1,000 mls @ 100 mls/hr 03/08/20 13:30 03/13/20 09:57 Nacl 0.9% 1000 Ml IV 100 mls/hr DIRECT JOSE RAMON Administration Cefepime HCl 2 gm in 100 mls @ 200 mls/hr 03/08/20 22:00 03/14/20 05:50 Cefepime/Ns 2 Gm/100 Ml IV 200 mls/hr Q8HR JOSE RAMON Administration Protocol Vancomycin HCl 1,250 mg/ 275 mls @ 166.667 mls/hr 03/13/20 21:00 03/14/20 09:28 Sodium Chloride IV 166.667 mls/hr Q12H JOSE RAMON Administration Ibuprofen 400 mg 03/04/20 13:32 03/12/20 22:35 Ibuprofen PO 400 mg Q6H PRN Administration Non Cardiac Pain or Temp>100.5 Metoclopramide HCl 10 mg 03/01/20 13:57 Reglan IV Q6H PRN Nausea And Vomiting Ondansetron HCl 4 mg 03/01/20 13:57 Zofran IV Q8H PRN Nausea And Vomiting Oxycodone/Acetaminophen 1 tab 03/01/20 13:57 03/13/20 22:13 Percocet 5/325 PO 1 tab Q6H PRN Administration Pain, Moderate (4-6) Pantoprazole Sodium 40 mg 03/02/20 22:00 03/14/20 09:00 Protonix PO 40 mg BID JOSE RAMON Administration Sodium Chloride 10 ml 03/01/20 22:00 03/14/20 09:44 Sodium Chloride Flush Syringe 10 Ml IV 10 ml BID JOSE RAMON Administration Sodium Chloride 10 ml 03/01/20 13:57 03/09/20 20:26 Sodium Chloride Flush Syringe 10 Ml IV 10 ml PRN PRN Administration LINE FLUSH Nutrition/Malnutrition Assess - Dietary Evaluation Nutrition/Malnutrition Findings: Nutrition Notes Start: 03/01/20 08:14 Freq: Status: Active Protocol: Document 03/08/20 12:25 LM (Rec: 03/08/20 12:27 LM [id number]) Nutrition Notes Initial or Follow up Brief Note Current Diagnosis Acute Kidney Injury,Sepsis Other Pertinent Diagnosis Acute liver failure, Anemia Current Diet NPO Subjective/Other Information Pt stated he is eating well and has recently gained wt back to UBW of 160-163 lb. Nutrition Intervention Revisit per MD consult or patient Sign Off request:
[2020-03-14] MEDS: SODIUM CHLORIDE 0.9% 1000 ML 1,000 ML IV SCH (15:29)
[2020-03-14] MEDS: oxyCODONE /ACETAMINOPHEN 5-325MG TAB PO PRN (21:39)
[2020-03-15] MEDS: SODIUM CHLORIDE 0.9% 1000 ML 1,000 ML IV SCH ×2 (06:21→17:38)
[2020-03-15] MEDS: hydrALAZINE 25 MG TAB PO SCH ×3 (06:22→21:11)
--- NOTE | 2020-03-15 08:52 | Progress Note ---
History Interval history: I have seen and examined the patient at bedside this morning Patient's chart medications recommendations reviewed Patient feels slightly better, no new complaints Vital signs reviewed Hospitalist Physical - Constitutional Vitals: Temp Pulse Resp BP Pulse Ox 99.4 F 98 H 18 134/73 99 03/15/20 07:34 03/15/20 06:22 03/15/20 08:38 03/15/20 07:34 03/15/20 04:25 General appearance: Present: no acute distress HEART Score - HEART Score Troponin: Troponin T 0.010 ng/mL (0.00-0.029) 03/09/20 23:47 Results - Labs CBC & Chem 7: 03/14/20 03:50 03/14/20 03:50 Labs: Laboratory Last Values WBC 8.6 K/mm3 (4.5-11.0) 03/14/20 03:50 RBC 2.78 M/mm3 (3.65-5.03) L 03/14/20 03:50 Hgb 8.3 gm/dl (11.8-15.2) L 03/14/20 03:50 Hct 24.6 % (35.5-45.6) L 03/14/20 03:50 MCV 88 fl (84-94) 03/14/20 03:50 MCH 30 pg (28-32) 03/14/20 03:50 MCHC 34 % (32-34) 03/14/20 03:50 RDW 15.5 % (13.2-15.2) H 03/14/20 03:50 Plt Count 829 K/mm3 (140-440) H 03/14/20 03:50 Lymph % (Auto) 22.1 % (13.4-35.0) 03/13/20 05:42 [place] % (Auto) 14.4 % (0.0-7.3) H 03/13/20 05:42 Eos % (Auto) 2.7 % (0.0-4.3) 03/13/20 05:42 Baso % (Auto) 1.0 % (0.0-1.8) 03/13/20 05:42 Lymph # 1.8 K/mm3 (1.2-5.4) 03/13/20 05:42 [place] # 1.2 K/mm3 (0.0-0.8) H 03/13/20 05:42 Eos # 0.2 K/mm3 (0.0-0.4) 03/13/20 05:42 Baso # 0.1 K/mm3 (0.0-0.1) 03/13/20 05:42 Add Manual Diff Complete 03/14/20 03:50 Total Counted 100 03/14/20 03:50 Seg Neutrophils % 59.8 % (40.0-70.0) 03/13/20 05:42 Seg Neuts % (Manual) 69.0 % (40.0-70.0) 03/14/20 03:50 Band Neutrophils % 0 % 03/14/20 03:50 Lymphocytes % (Manual) 19.0 % (13.4-35.0) 03/14/20 03:50 Reactive Lymphs % (Man) 0 % 03/14/20 03:50 Monocytes % (Manual) 10.0 % (0.0-7.3) H 03/14/20 03:50 Eosinophils % (Manual) 2.0 % (0.0-4.3) 03/14/20 03:50 Basophils % (Manual) 0 % (0.0-1.8) 03/14/20 03:50 Metamyelocytes % 0 % 03/14/20 03:50 Myelocytes % 0 % 03/14/20 03:50 Promyelocytes % 0 % 03/14/20 03:50 Blast Cells % 0 % 03/14/20 03:50 Nucleated RBC % Not Reportable 03/14/20 03:50 Seg Neutrophils # 4.9 K/mm3 (1.8-7.7) 03/13/20 05:42 Seg Neutrophils # Man 5.9 K/mm3 (1.8-7.7) 03/14/20 03:50 Band Neutrophils # 0.0 K/mm3 03/14/20 03:50 Lymphocytes # (Manual) 1.6 K/mm3 (1.2-5.4) 03/14/20 03:50 Abs React Lymphs (Man) 0.0 K/mm3 03/14/20 03:50 Monocytes # (Manual) 0.9 K/mm3 (0.0-0.8) H 03/14/20 03:50 Eosinophils # (Manual) 0.2 K/mm3 (0.0-0.4) 03/14/20 03:50 Basophils # (Manual) 0.0 K/mm3 (0.0-0.1) 03/14/20 03:50 Metamyelocytes # 0.0 K/mm3 03/14/20 03:50 Myelocytes # 0.0 K/mm3 03/14/20 03:50 Promyelocytes # 0.0 K/mm3 03/14/20 03:50 Blast Cells # 0.0 K/mm3 03/14/20 03:50 WBC Morphology Not Reportable 03/14/20 03:50 Hypersegmented Neuts Not Reportable 03/14/20 03:50 Hyposegmented Neuts Not Reportable 03/14/20 03:50 Hypogranular Neuts Not Reportable 03/14/20 03:50 Smudge Cells Not Reportable 03/14/20 03:50 Toxic Granulation Not Reportable 03/14/20 03:50 Toxic Vacuolation Not Reportable 03/14/20 03:50 Dohle Bodies Not Reportable 03/14/20 03:50 Pelger-Huet Anomaly Not Reportable 03/14/20 03:50 Lizbeth Rods Not Reportable 03/14/20 03:50 Platelet Estimate Consistent w auto 03/14/20 03:50 Clumped Platelets Not Reportable 03/14/20 03:50 Plt Clumps, EDTA Not Reportable 03/14/20 03:50 Large Platelets Not Reportable 03/14/20 03:50 Giant Platelets Not Reportable 03/14/20 03:50 Platelet Satelliting Not Reportable 03/14/20 03:50 Plt Morphology Comment Not Reportable 03/14/20 03:50 RBC Morphology Not Reportable 03/14/20 03:50 Dimorphic RBCs Not Reportable 03/14/20 03:50 Polychromasia Not Reportable 03/14/20 03:50 Hypochromasia Not Reportable 03/14/20 03:50 Poikilocytosis Not Reportable 03/14/20 03:50 Anisocytosis 1+ 03/14/20 03:50 Microcytosis Not Reportable 03/14/20 03:50 Macrocytosis Not Reportable 03/14/20 03:50 Spherocytes Not Reportable 03/14/20 03:50 Pappenheimer Bodies Not Reportable 03/14/20 03:50 Sickle Cells Not Reportable 03/14/20 03:50 Target Cells Not Reportable 03/14/20 03:50 Tear Drop Cells Not Reportable 03/14/20 03:50 Ovalocytes Not Reportable 03/14/20 03:50 Helmet Cells Not Reportable 03/14/20 03:50 Garcia-Lacey Bodies Not Reportable 03/14/20 03:50 [place] Rings Not Reportable 03/14/20 03:50 Vinny Cells Not Reportable 03/14/20 03:50 Bite Cells Not Reportable 03/14/20 03:50 Crenated Cell Not Reportable 03/14/20 03:50 Elliptocytes Not Reportable 03/14/20 03:50 Acanthocytes (Spur) Not Reportable 03/14/20 03:50 Rouleaux Not Reportable 03/14/20 03:50 Hemoglobin C Crystals Not Reportable 03/14/20 03:50 Schistocytes Not Reportable 03/14/20 03:50 Malaria parasites Not Reportable 03/14/20 03:50 Hilario Bodies Not Reportable 03/14/20 03:50 Hem Pathologist Commnt No 03/14/20 03:50 PT 23.5 Sec. (12.2-14.9) H 03/01/20 05:49 INR 2.16 (0.87-1.13) H 03/01/20 05:49 APTT 44.0 Sec. (24.2-36.6) H 02/29/20 19:11 ABG pH 7.427 pH Units (7.350-7.450) 02/29/20 23:09 ABG pCO2 28.1 mm Hg 02/29/20 23:09 ABG pO2 96.3 mm Hg (80.0-90.0) H 02/29/20 23:09 ABG HCO3 18.1 mmol/L (20.0-26.0) L 02/29/20 23:09 ABG O2 Saturation 97.6 % (95.0-99.0) 02/29/20 23:09 ABG O2 Content 12.6 (0.0-44) 02/29/20 23:09 ABG Base Excess -5.3 mmol/L (-2.0-3.0) L 02/29/20 23:09 ABG Hemoglobin 9.2 gm/dl (14.0-18.0) L 02/29/20 23:09 ABG Carboxyhemoglobin 1.1 % (0.0-5.0) 02/29/20 23:09 ABG Methemoglobin 0.4 % (0.0-1.5) 02/29/20 23:09 Oxyhemoglobin 96.2 % (95.0-99.0) 02/29/20 23:09 FiO2 36 % 02/29/20 23:09 Sodium 140 mmol/L (137-145) 03/14/20 03:50 Potassium 4.1 mmol/L (3.6-5.0) 03/14/20 03:50 Chloride 106.5 mmol/L (98-107) 03/14/20 03:50 Carbon Dioxide 21 mmol/L (22-30) L 03/14/20 03:50 Anion Gap 17 mmol/L 03/14/20 03:50 BUN 16 mg/dL (9-20) 03/14/20 03:50 Creatinine 0.9 mg/dL (0.8-1.5) 03/14/20 03:50 Estimated GFR > 60 ml/min 03/14/20 03:50 BUN/Creatinine Ratio 18 % 03/14/20 03:50 Glucose 112 mg/dL (75-100) H 03/14/20 03:50 POC Glucose 122 (70-105) H 02/29/20 23:20 Hemoglobin A1c 4.7 % (4-6) 03/01/20 05:49 Osmolality 286 Mosm/kg 03/02/20 13:28 Lactic Acid 1.90 mmol/L (0.7-2.0) 03/01/20 21:23 Calcium 8.6 mg/dL (8.4-10.2) 03/14/20 03:50 Total Bilirubin 0.40 mg/dL (0.1-1.2) 03/09/20 04:40 Direct Bilirubin < 0.2 mg/dL (0-0.2) 03/01/20 05:49 Indirect Bilirubin 0.0 mg/dL 03/01/20 05:49 AST 88 units/L (5-40) H 03/09/20 04:40 ALT 150 units/L (7-56) H 03/09/20 04:40 Alkaline Phosphatase 154 units/L (35-129) H 03/09/20 04:40 Ammonia 43.0 umol/L (25-60) 03/01/20 01:09 Total Creatine Kinase 145 units/L (55-170) 03/10/20 09:20 Troponin T 0.010 ng/mL (0.00-0.029) 03/09/20 23:47 Serum Total Protein 5.2 g/dL (6.1-8.1) L 03/05/20 09:02 Total Protein 6.6 g/dL (6.3-8.2) 03/09/20 04:40 Albumin 1.9 g/dL (3.9-5) L 03/09/20 04:40 Albumin/Globulin Ratio 0.4 % 03/09/20 04:40 Eivwj-9-Niygyfdey 0.8 g/dL (0.2-0.3) H 03/05/20 09:02 Ckidp-0-Uwlvxggjy 1.1 g/dL (0.5-0.9) H 03/05/20 09:02 Beta Globulins 0.4 g/dL (0.2-0.5) 03/05/20 09:02 Gamma Globulins 1.0 g/dL (0.8-1.7) 03/05/20 09:02 Abnorm Protein Band 1 see below 03/05/20 09:02 PEP Interpretation see below H 03/05/20 09:02 Urine Color Yellow (Yellow) 02/29/20 23:30 Urine Turbidity Slightly-cloudy (Clear) 02/29/20 23:30 Urine pH 5.0 (5.0-7.0) 02/29/20 23:30 Ur Specific [place] 1.016 (1.003-1.030) 02/29/20 23:30 Urine Protein 30 mg/dl mg/dL (Negative) 02/29/20 23:30 Urine Glucose (UA) 50 mg/dL (Negative) 02/29/20 23:30 Urine Ketones Neg mg/dL (Negative) 02/29/20 23:30 Urine Blood Lg (Negative) 02/29/20 23:30 Urine Nitrite Neg (Negative) 02/29/20 23:30 Urine Bilirubin Neg (Negative) 02/29/20 23:30 Urine Urobilinogen < 2.0 mg/dL (<2.0) 02/29/20 23:30 Ur Leukocyte Esterase Neg (Negative) 02/29/20 23:30 Urine WBC (Auto) 6.0 /HPF (0.0-6.0) 02/29/20 23:30 Urine RBC (Auto) 2.0 /HPF (0.0-6.0) 02/29/20 23:30 Urine Mucus 1+ /HPF 02/29/20 23:30 Vancomycin Trough 23.4 ug/mL (5.0-20.0) H 03/12/20 21:02 Salicylates 1.7 mg/dL (2.8-20.0) L 02/29/20 20:35 Urine Opiates Screen Presumptive negative 02/29/20 23:30 Urine Methadone Screen Presumptive negative 02/29/20 23:30 Acetaminophen < 5.0 ug/mL (10.0-30.0) L 02/29/20 20:35 Ur Barbiturates Screen Presumptive negative 02/29/20 23:30 Ur Phencyclidine Scrn Presumptive negative 02/29/20 23:30 Ur Amphetamines Screen Presumptive negative 02/29/20 23:30 U Benzodiazepines Scrn Presumptive negative 02/29/20 23:30 Urine Cocaine Screen Presumptive negative 02/29/20 23:30 U Marijuana (THC) Screen Presumptive negative 02/29/20 23:30 Drugs of Abuse Note Disclamer 02/29/20 23:30 Ethylene Glycol <10.0 mcg/mL (<10.0) 03/01/20 12:41 Plasma/Serum Alcohol < 0.01 % (0-0.07) 02/29/20 19:11 NORMA Screen Negative (Negative) 03/05/20 09:02 Proteinase 3 (PR3) Ab <1.0 AI (<1.0) 03/05/20 09:02 Myeloperoxidase Ab <1.0 AI (<1.0) 03/05/20 09:02 Complement C3 173 mg/dL (82-185) 03/05/20 09:02 Complement C4 27 mg/dL (15-53) 03/05/20 09:02 Hepatitis A IgM Ab Non-reactive (NonReactive) 03/01/20 09:42 Hep Bs Antigen Non-reactive (Negative) 03/01/20 09:42 Hep B Core IgM Ab Non-reactive (NonReactive) 03/01/20 09:42 Hepatitis C Antibody Non-reactive (NonReactive) 03/01/20 09:42 Blood Type O POSITIVE 03/08/20 12:18 Antibody Screen Negative 03/08/20 12:18 Crossmatch See Detail 03/08/20 12:18 Microbiology: Microbiology 03/08/20 Unknown Knee - Left Anaerobic Culture - Final 03/08/20 Unknown Knee - Left Anaerobic Culture - Final - Diagnostic Impressions Diagnostic Impressions: Echocardiogram 03/09/20 10:46 Transthoracic Echocardiogram Indication: Chest pain BP: 124/72 HR: 93 Conclusions *The left ventricular chamber size is normal. *Global left ventricular wall motion and contractility are within normal limits. *The left atrial chamber size is normal. *Normal left ventricular diastolic filling is observed. Findings Left Ventricle: The left ventricular chamber size is normal. Global left ventricular wall motion and contractility are within normal limits. Global left ventricular systolic function is normal. The estimated ejection fraction is 55-60%. Normal left ventricular diastolic filling is observed. Left Atrium: The left atrial chamber size is normal. Right Ventricle: The right ventricular cavity size is normal. Right Atrium: The right atrial cavity size is normal. Aortic Valve: The aortic valve structure is normal. There is no evidence of aortic regurgitation. Mitral Valve: The mitral valve leaflets appear normal. There is trace of mitral regurgitation. Tricuspid Valve: The tricuspid valve leaflets are normal. There is trace tricuspid regurgitation. The right ventricular systolic pressure is calculated at 28 mmHg. Pulmonic Valve: The pulmonic valve appears normal. Pericardium: There is no pericardial effusion. Venous: The inferior vena cava appears normal. Measurements Chambers 2D Name Value Normal Range IVSd (2D) 1.08 cm (0.6 - 1.1) LVPWd (2D) 1.06 cm (0.6 - 1.1) LVIDd (2D) 4.16 cm (3.7 - 5.6) LVIDs (2D) 2.46 cm (2 - 3.8) LV FS (2D) 40.83 % - EF Teichholz (2D) 72.05 % - Ao root diameter (2D) 2.56 cm (2 - 3.7) Volumes/Mass Name Value Normal Range LA ESV SP 4CH (A/L) 25.95 ml - LA ESV SP 2CH (A/L) 43.57 ml - LA ESV BP (A/L) 34.1 ml - LA ESV BP (A/L) index 17.76 ml/m2 - LA ESV SP 4CH (MOD) 24.25 ml - LA ESV SP 2CH (MOD) 42.02 ml - LA ESV BP (MOD) 32.2 ml - LA ESV BP (MOD) index 16.77 ml/m2 - Diastolic/Systolic Function Name Value Normal Range MV E-wave Vmax 1.24 m/sec - MV deceleration time 187.68 msec - MV A-wave Vmax 0.93 m/sec - MV E:A ratio 1.33 ratio - Aortic Valve Name Value Normal Range AV Vmax 2.25 m/sec - AV VTI 35.51 cm - AV peak gradient 20.34 mmHg - AV mean gradient 11.33 mmHg - LVOT diameter 2.02 cm - LVOT Vmax 1.73 m/sec - LVOT VTI 29.56 cm - LVOT peak gradient 11.92 mmHg - LVOT mean gradient 7.59 mmHg - SV LVOT 94.78 ml - LINUS (continuity Vmax) 2.46 cm2 - LINUS (continuity VTI) 2.67 cm2 - Mitral Valve Name Value Normal Range MR Vmax 5.05 m/sec - Tricuspid Valve Name Value Normal Range TR Vmax 2.5 m/sec - TR peak gradient 25 mmHg - RAP 3 mmHg - RVSP 28 mmHg - Pulmonic Valve/Qp:Qs Name Value Normal Range PV Vmax 1.73 m/sec - PV peak gradient 11.91 mmHg - PV acceleration time 87.54 msec - Paredes/IV: Voiding Method Urinal IV Catheter Type [right inner INT / Saline Lock arm] IV Catheter Type [Right arm] Peripheral IV IV Catheter Type [Right] Peripheral IV IV Catheter Type [Right Upper Peripheral IV arm] IV Catheter Type [Right Hand] INT / Saline Lock IV Catheter Type [Right INT / Saline Lock Antecubital] IV Catheter Type [Right INT / Saline Lock Forearm] IV Catheter Type [Left Hand] Peripheral IV Active Medications - Current Medications Current Medications: Generic Name Dose Route Start Last Admin Trade Name Freq PRN Reason Stop Dose Admin Acetaminophen 650 mg 03/01/20 13:57 03/09/20 04:17 Tylenol PO 650 mg Q4H PRN Administration Pain MILD(1-3)/Fever >100.5/OLIVERA Albumin Human 25 gm 03/01/20 10:16 Alburx 25% (Albumin) IV NITZA PRN Hypotension Carvedilol 6.25 mg 03/01/20 15:00 03/14/20 21:39 Coreg PO 6.25 mg BID JOSE RAMON Administration Hydralazine HCl 50 mg 03/01/20 15:00 03/15/20 06:22 Apresoline PO 50 mg Q8HR JOSE RAMON Administration Hydromorphone HCl 0.5 mg 03/01/20 08:35 03/09/20 10:00 Dilaudid IV 0.5 mg Q3H PRN Administration Pain , Severe (7-10) Sodium Chloride 1,000 mls @ 100 mls/hr 03/08/20 13:30 03/15/20 06:21 Nacl 0.9% 1000 Ml IV 100 mls/hr DIRECT JOSE RAMON Administration Vancomycin HCl 1,250 mg/ 275 mls @ 166.667 mls/hr 03/13/20 21:00 03/14/20 21:38 Sodium Chloride IV 166.667 mls/hr Q12H JOSE RAMON Administration Ibuprofen 400 mg 03/04/20 13:32 03/12/20 22:35 Ibuprofen PO 400 mg Q6H PRN Administration Non Cardiac Pain or Temp>100.5 Metoclopramide HCl 10 mg 03/01/20 13:57 Reglan IV Q6H PRN Nausea And Vomiting Ondansetron HCl 4 mg 03/01/20 13:57 Zofran IV Q8H PRN Nausea And Vomiting Oxycodone/Acetaminophen 1 tab 03/01/20 13:57 03/14/20 21:39 Percocet 5/325 PO 1 tab Q6H PRN Administration Pain, Moderate (4-6) Pantoprazole Sodium 40 mg 03/02/20 22:00 03/14/20 21:39 Protonix PO 40 mg BID JOSE RAMON Administration Sodium Chloride 10 ml 03/01/20 22:00 03/14/20 21:43 Sodium Chloride Flush Syringe 10 Ml IV 10 ml BID JOSE RAMON Administration Sodium Chloride 10 ml 03/01/20 13:57 03/09/20 20:26 Sodium Chloride Flush Syringe 10 Ml IV 10 ml PRN PRN Administration LINE FLUSH Nutrition/Malnutrition Assess - Dietary Evaluation Nutrition/Malnutrition Findings: Nutrition Notes Start: 03/01/20 08:14 Freq: Status: Active Protocol: Document 03/08/20 12:25 LM (Rec: 03/08/20 12:27 LM [id number]) Nutrition Notes Initial or Follow up Brief Note Current Diagnosis Acute Kidney Injury,Sepsis Other Pertinent Diagnosis Acute liver failure, Anemia Current Diet NPO Subjective/Other Information Pt stated he is eating well and has recently gained wt back to UBW of 160-163 lb. Nutrition Intervention Revisit per MD consult or patient Sign Off request:
[2020-03-15 08:53] LABS: Hematocrit 24.3 % (35.5-45.6); Mean Corpuscular HGB Conc 33 % (32-34); Mean Corpuscular Volume 89 fl (84-94); Platelet Count 772 K/mm3 (140-440); Red Blood Count 2.74 M/mm3 (3.65-5.03); Red Cell Distribution Width 15.9 % (13.2-15.2)
[2020-03-15] MEDS: oxyCODONE /ACETAMINOPHEN 5-325MG TAB PO PRN ×3 (08:59→22:18)
[2020-03-15] MEDS: carvediloL 6.25 MG TAB PO SCH ×2 (08:59→21:10)
[2020-03-15] MEDS: PANTOPRAZOLE 40 MG TAB PO SCH ×2 (09:00→21:10)
[2020-03-15] MEDS: VANCOMYCIN 1,250 MG in SODIUM CHLORIDE 0.9% 250ML 250 ML IV SCH ×2 (09:00→22:19)
--- NOTE | 2020-03-15 09:01 | Progress Note ---
Assessment and Plan Assessment and plan: --Self mutilation. Recall psychiatry for further evaluation. --Severe sepsis. Present on admission with hypothermia, tachycardia, hypotension, leukocytosis, severely elevated lactate; secondary to severe left knee infection. --Left knee septic arthritis with extensive leg cellulitis ? Necrotic site i nfection. Patient was taken to the operating room underwent drainage knee washout on 03/08/2020 --Elevated LFTs. Likely due to sepsis, shock liver --Anemia. --Coagulopathy. Likely due to sepsis --Hyponatremia.continue IV fluid hydration and follow-up BMP --Acute kidney injury. Secondary to sepsis, resolved. Creatinine stable. 03/11/2020. Continue to monitor leukocytosis which has not improved. We will follow-up OR cultures and HIV testing. Continue vancomycin and cefepime per ID recommendations. Clindamycin has been stopped. Ortho to consider further debridement and wound VAC. 03/12/2020. Follow-up CBC today for worsening leukocytosis. Ortho to consider further debridement and wound VAC. Continue antibiotics per ID recommendations. 03/13/2020. Orthopedic's report Left septic joint with abscess formation anterior compartment appears to be improving with dressing changes and IV antibiotics. We will continue present management. ID following. 03/14/2020. Continue vancomycin with PK consult. Continue cefepime 2 g IV every 12 hours. Anticipate to d/c on vancomycin 1,250 mg IV q 12hour and ceftriaxone 2 g IV qday total 4 weeks until 04/05/2020 - orders sent to behavioral health case manager per ID recommendation. PICC line placement 03/15/20: Patient on multiple antibiotics recommended by ID, for total 4 weeks ending date 04/05/2020 PICC line placement, social issues notes resources DC planning per case management Closely monitor the patient and adjust the management as needed Plan of care reviewed with the patient, his nurse and the case management History Interval history: Patient seen and examined at the bedside this morning Patient's chart and medications recommendations of consultants reviewed Case of septic arthritis on long-term IV antibiotics total 4 weeks ending date 04/05/2020 Awaiting PICC line placement Patient feels slightly better no new complaints Vital signs reviewed Hospitalist Physical - Constitutional Vitals: Temp Pulse Resp BP Pulse Ox 99.4 F 98 H 18 134/73 99 03/15/20 07:34 03/15/20 06:22 03/15/20 08:38 03/15/20 07:34 03/15/20 04:25 General appearance: Present: no acute distress, well-nourished, cachectic - EENT Eyes: Present: PERRL, EOM intact - Neck Neck: Present: supple, normal ROM - Respiratory Respiratory effort: normal Respiratory: bilateral: diminished, negative: rales, rhonchi, wheezing - Cardiovascular Rhythm: regular Heart Sounds: Present: S1 & S2 - Extremities Extremities: no ischemia, No edema, abnormal (Surgical dressing the knee) - Abdominal General gastrointestinal: soft, non-tender, non-distended, normal bowel sounds - Integumentary Integumentary: Present: clear, warm - Psychiatric Psychiatric: appropriate mood/affect, cooperative - Neurologic Neurologic: moves all extremities HEART Score - HEART Score Troponin: Troponin T 0.010 ng/mL (0.00-0.029) 03/09/20 23:47 Results - Labs CBC & Chem 7: 03/15/20 07:08 03/15/20 07:08 Labs: Laboratory Last Values WBC 8.6 K/mm3 (4.5-11.0) 03/14/20 03:50 RBC 2.78 M/mm3 (3.65-5.03) L 03/14/20 03:50 Hgb 8.3 gm/dl (11.8-15.2) L 03/14/20 03:50 Hct 24.6 % (35.5-45.6) L 03/14/20 03:50 MCV 88 fl (84-94) 03/14/20 03:50 MCH 30 pg (28-32) 03/14/20 03:50 MCHC 34 % (32-34) 03/14/20 03:50 RDW 15.5 % (13.2-15.2) H 03/14/20 03:50 Plt Count 829 K/mm3 (140-440) H 03/14/20 03:50 Lymph % (Auto) 22.1 % (13.4-35.0) 03/13/20 05:42 Travis % (Auto) 14.4 % (0.0-7.3) H 03/13/20 05:42 Eos % (Auto) 2.7 % (0.0-4.3) 03/13/20 05:42 Baso % (Auto) 1.0 % (0.0-1.8) 03/13/20 05:42 Lymph # 1.8 K/mm3 (1.2-5.4) 03/13/20 05:42 Travis # 1.2 K/mm3 (0.0-0.8) H 03/13/20 05:42 Eos # 0.2 K/mm3 (0.0-0.4) 03/13/20 05:42 Baso # 0.1 K/mm3 (0.0-0.1) 03/13/20 05:42 Add Manual Diff Complete 03/14/20 03:50 Total Counted 100 03/14/20 03:50 Seg Neutrophils % 59.8 % (40.0-70.0) 03/13/20 05:42 Seg Neuts % (Manual) 69.0 % (40.0-70.0) 03/14/20 03:50 Band Neutrophils % 0 % 03/14/20 03:50 Lymphocytes % (Manual) 19.0 % (13.4-35.0) 03/14/20 03:50 Reactive Lymphs % (Man) 0 % 03/14/20 03:50 Monocytes % (Manual) 10.0 % (0.0-7.3) H 03/14/20 03:50 Eosinophils % (Manual) 2.0 % (0.0-4.3) 03/14/20 03:50 Basophils % (Manual) 0 % (0.0-1.8) 03/14/20 03:50 Metamyelocytes % 0 % 03/14/20 03:50 Myelocytes % 0 % 03/14/20 03:50 Promyelocytes % 0 % 03/14/20 03:50 Blast Cells % 0 % 03/14/20 03:50 Nucleated RBC % Not Reportable 03/14/20 03:50 Seg Neutrophils # 4.9 K/mm3 (1.8-7.7) 03/13/20 05:42 Seg Neutrophils # Man 5.9 K/mm3 (1.8-7.7) 03/14/20 03:50 Band Neutrophils # 0.0 K/mm3 03/14/20 03:50 Lymphocytes # (Manual) 1.6 K/mm3 (1.2-5.4) 03/14/20 03:50 Abs React Lymphs (Man) 0.0 K/mm3 03/14/20 03:50 Monocytes # (Manual) 0.9 K/mm3 (0.0-0.8) H 03/14/20 03:50 Eosinophils # (Manual) 0.2 K/mm3 (0.0-0.4) 03/14/20 03:50 Basophils # (Manual) 0.0 K/mm3 (0.0-0.1) 03/14/20 03:50 Metamyelocytes # 0.0 K/mm3 03/14/20 03:50 Myelocytes # 0.0 K/mm3 03/14/20 03:50 Promyelocytes # 0.0 K/mm3 03/14/20 03:50 Blast Cells # 0.0 K/mm3 03/14/20 03:50 WBC Morphology Not Reportable 03/14/20 03:50 Hypersegmented Neuts Not Reportable 03/14/20 03:50 Hyposegmented Neuts Not Reportable 03/14/20 03:50 Hypogranular Neuts Not Reportable 03/14/20 03:50 Smudge Cells Not Reportable 03/14/20 03:50 Toxic Granulation Not Reportable 03/14/20 03:50 Toxic Vacuolation Not Reportable 03/14/20 03:50 Dohle Bodies Not Reportable 03/14/20 03:50 Pelger-Huet Anomaly Not Reportable 03/14/20 03:50 Lizbeth Rods Not Reportable 03/14/20 03:50 Platelet Estimate Consistent w auto 03/14/20 03:50 Clumped Platelets Not Reportable 03/14/20 03:50 Plt Clumps, EDTA Not Reportable 03/14/20 03:50 Large Platelets Not Reportable 03/14/20 03:50 Giant Platelets Not Reportable 03/14/20 03:50 Platelet Satelliting Not Reportable 03/14/20 03:50 Plt Morphology Comment Not Reportable 03/14/20 03:50 RBC Morphology Not Reportable 03/14/20 03:50 Dimorphic RBCs Not Reportable 03/14/20 03:50 Polychromasia Not Reportable 03/14/20 03:50 Hypochromasia Not Reportable 03/14/20 03:50 Poikilocytosis Not Reportable 03/14/20 03:50 Anisocytosis 1+ 03/14/20 03:50 Microcytosis Not Reportable 03/14/20 03:50 Macrocytosis Not Reportable 03/14/20 03:50 Spherocytes Not Reportable 03/14/20 03:50 Pappenheimer Bodies Not Reportable 03/14/20 03:50 Sickle Cells Not Reportable 03/14/20 03:50 Target Cells Not Reportable 03/14/20 03:50 Tear Drop Cells Not Reportable 03/14/20 03:50 Ovalocytes Not Reportable 03/14/20 03:50 Helmet Cells Not Reportable 03/14/20 03:50 [place] Bodies Not Reportable 03/14/20 03:50 [place] Rings Not Reportable 03/14/20 03:50 Vinny Cells Not Reportable 03/14/20 03:50 Bite Cells Not Reportable 03/14/20 03:50 Crenated Cell Not Reportable 03/14/20 03:50 Elliptocytes Not Reportable 03/14/20 03:50 Acanthocytes (Spur) Not Reportable 03/14/20 03:50 Rouleaux Not Reportable 03/14/20 03:50 Hemoglobin C Crystals Not Reportable 03/14/20 03:50 Schistocytes Not Reportable 03/14/20 03:50 Malaria parasites Not Reportable 03/14/20 03:50 Hilario Bodies Not Reportable 03/14/20 03:50 Hem Pathologist Commnt No 03/14/20 03:50 PT 23.5 Sec. (12.2-14.9) H 03/01/20 05:49 INR 2.16 (0.87-1.13) H 03/01/20 05:49 APTT 44.0 Sec. (24.2-36.6) H 02/29/20 19:11 ABG pH 7.427 pH Units (7.350-7.450) 02/29/20 23:09 ABG pCO2 28.1 mm Hg 02/29/20 23:09 ABG pO2 96.3 mm Hg (80.0-90.0) H 02/29/20 23:09 ABG HCO3 18.1 mmol/L (20.0-26.0) L 02/29/20 23:09 ABG O2 Saturation 97.6 % (95.0-99.0) 02/29/20 23:09 ABG O2 Content 12.6 (0.0-44) 02/29/20 23:09 ABG Base Excess -5.3 mmol/L (-2.0-3.0) L 02/29/20 23:09 ABG Hemoglobin 9.2 gm/dl (14.0-18.0) L 02/29/20 23:09 ABG Carboxyhemoglobin 1.1 % (0.0-5.0) 02/29/20 23:09 ABG Methemoglobin 0.4 % (0.0-1.5) 02/29/20 23:09 Oxyhemoglobin 96.2 % (95.0-99.0) 02/29/20 23:09 FiO2 36 % 02/29/20 23:09 Sodium 140 mmol/L (137-145) 03/14/20 03:50 Potassium 4.1 mmol/L (3.6-5.0) 03/14/20 03:50 Chloride 106.5 mmol/L (98-107) 03/14/20 03:50 Carbon Dioxide 21 mmol/L (22-30) L 03/14/20 03:50 Anion Gap 17 mmol/L 03/14/20 03:50 BUN 16 mg/dL (9-20) 03/14/20 03:50 Creatinine 0.9 mg/dL (0.8-1.5) 03/14/20 03:50 Estimated GFR > 60 ml/min 03/14/20 03:50 BUN/Creatinine Ratio 18 % 03/14/20 03:50 Glucose 112 mg/dL (75-100) H 03/14/20 03:50 POC Glucose 122 (70-105) H 02/29/20 23:20 Hemoglobin A1c 4.7 % (4-6) 03/01/20 05:49 Osmolality 286 Mosm/kg 03/02/20 13:28 Lactic Acid 1.90 mmol/L (0.7-2.0) 03/01/20 21:23 Calcium 8.6 mg/dL (8.4-10.2) 03/14/20 03:50 Total Bilirubin 0.40 mg/dL (0.1-1.2) 03/09/20 04:40 Direct Bilirubin < 0.2 mg/dL (0-0.2) 03/01/20 05:49 Indirect Bilirubin 0.0 mg/dL 03/01/20 05:49 AST 88 units/L (5-40) H 03/09/20 04:40 ALT 150 units/L (7-56) H 03/09/20 04:40 Alkaline Phosphatase 154 units/L (35-129) H 03/09/20 04:40 Ammonia 43.0 umol/L (25-60) 03/01/20 01:09 Total Creatine Kinase 145 units/L (55-170) 03/10/20 09:20 Troponin T 0.010 ng/mL (0.00-0.029) 03/09/20 23:47 Serum Total Protein 5.2 g/dL (6.1-8.1) L 03/05/20 09:02 Total Protein 6.6 g/dL (6.3-8.2) 03/09/20 04:40 Albumin 1.9 g/dL (3.9-5) L 03/09/20 04:40 Albumin/Globulin Ratio 0.4 % 03/09/20 04:40 [id number] 0.8 g/dL (0.2-0.3) H 03/05/20 09:02 [id number] 1.1 g/dL (0.5-0.9) H 03/05/20 09:02 Beta Globulins 0.4 g/dL (0.2-0.5) 03/05/20 09:02 Gamma Globulins 1.0 g/dL (0.8-1.7) 03/05/20 09:02 Abnorm Protein Band 1 see below 03/05/20 09:02 PEP Interpretation see below H 03/05/20 09:02 Urine Color Yellow (Yellow) 02/29/20 23:30 Urine Turbidity Slightly-cloudy (Clear) 02/29/20 23:30 Urine pH 5.0 (5.0-7.0) 02/29/20 23:30 Ur Specific [place] 1.016 (1.003-1.030) 02/29/20 23:30 Urine Protein 30 mg/dl mg/dL (Negative) 02/29/20 23:30 Urine Glucose (UA) 50 mg/dL (Negative) 02/29/20 23:30 Urine Ketones Neg mg/dL (Negative) 02/29/20 23:30 Urine Blood Lg (Negative) 02/29/20 23:30 Urine Nitrite Neg (Negative) 02/29/20 23:30 Urine Bilirubin Neg (Negative) 02/29/20 23:30 Urine Urobilinogen < 2.0 mg/dL (<2.0) 02/29/20 23:30 Ur Leukocyte Esterase Neg (Negative) 02/29/20 23:30 Urine WBC (Auto) 6.0 /HPF (0.0-6.0) 02/29/20 23:30 Urine RBC (Auto) 2.0 /HPF (0.0-6.0) 02/29/20 23:30 Urine Mucus 1+ /HPF 02/29/20 23:30 Vancomycin Trough 23.4 ug/mL (5.0-20.0) H 03/12/20 21:02 Salicylates 1.7 mg/dL (2.8-20.0) L 02/29/20 20:35 Urine Opiates Screen Presumptive negative 02/29/20 23:30 Urine Methadone Screen Presumptive negative 02/29/20 23:30 Acetaminophen < 5.0 ug/mL (10.0-30.0) L 02/29/20 20:35 Ur Barbiturates Screen Presumptive negative 02/29/20 23:30 Ur Phencyclidine Scrn Presumptive negative 02/29/20 23:30 Ur Amphetamines Screen Presumptive negative 02/29/20 23:30 U Benzodiazepines Scrn Presumptive negative 02/29/20 23:30 Urine Cocaine Screen Presumptive negative 02/29/20 23:30 U Marijuana (THC) Screen Presumptive negative 02/29/20 23:30 Drugs of Abuse Note Disclamer 02/29/20 23:30 Ethylene Glycol <10.0 mcg/mL (<10.0) 03/01/20 12:41 Plasma/Serum Alcohol < 0.01 % (0-0.07) 02/29/20 19:11 NORMA Screen Negative (Negative) 03/05/20 09:02 Proteinase 3 (PR3) Ab <1.0 AI (<1.0) 03/05/20 09:02 Myeloperoxidase Ab <1.0 AI (<1.0) 03/05/20 09:02 Complement C3 173 mg/dL (82-185) 03/05/20 09:02 Complement C4 27 mg/dL (15-53) 03/05/20 09:02 Hepatitis A IgM Ab Non-reactive (NonReactive) 03/01/20 09:42 Hep Bs Antigen Non-reactive (Negative) 03/01/20 09:42 Hep B Core IgM Ab Non-reactive (NonReactive) 03/01/20 09:42 Hepatitis C Antibody Non-reactive (NonReactive) 03/01/20 09:42 Blood Type O POSITIVE 03/08/20 12:18 Antibody Screen Negative 03/08/20 12:18 Crossmatch See Detail 03/08/20 12:18 Microbiology: Microbiology 03/08/20 Unknown Knee - Left Anaerobic Culture - Final 03/08/20 Unknown Knee - Left Anaerobic Culture - Final - Diagnostic Impressions Diagnostic Impressions: Echocardiogram 03/09/20 10:46 Transthoracic Echocardiogram Indication: Chest pain BP: 124/72 HR: 93 Conclusions *The left ventricular chamber size is normal. *Global left ventricular wall motion and contractility are within normal limits. *The left atrial chamber size is normal. *Normal left ventricular diastolic filling is observed. Findings Left Ventricle: The left ventricular chamber size is normal. Global left ventricular wall motion and contractility are within normal limits. Global left ventricular systolic function is normal. The estimated ejection fraction is 55-60%. Normal left ventricular diastolic filling is observed. Left Atrium: The left atrial chamber size is normal. Right Ventricle: The right ventricular cavity size is normal. Right Atrium: The right atrial cavity size is normal. Aortic Valve: The aortic valve structure is normal. There is no evidence of aortic regurgitation. Mitral Valve: The mitral valve leaflets appear normal. There is trace of mitral regurgitation. Tricuspid Valve: The tricuspid valve leaflets are normal. There is trace tricuspid regurgitation. The right ventricular systolic pressure is calculated at 28 mmHg. Pulmonic Valve: The pulmonic valve appears normal. Pericardium: There is no pericardial effusion. Venous: The inferior vena cava appears normal. Measurements Chambers 2D Name Value Normal Range IVSd (2D) 1.08 cm (0.6 - 1.1) LVPWd (2D) 1.06 cm (0.6 - 1.1) LVIDd (2D) 4.16 cm (3.7 - 5.6) LVIDs (2D) 2.46 cm (2 - 3.8) LV FS (2D) 40.83 % - EF Teichholz (2D) 72.05 % - Ao root diameter (2D) 2.56 cm (2 - 3.7) Volumes/Mass Name Value Normal Range LA ESV SP 4CH (A/L) 25.95 ml - LA ESV SP 2CH (A/L) 43.57 ml - LA ESV BP (A/L) 34.1 ml - LA ESV BP (A/L) index 17.76 ml/m2 - LA ESV SP 4CH (MOD) 24.25 ml - LA ESV SP 2CH (MOD) 42.02 ml - LA ESV BP (MOD) 32.2 ml - LA ESV BP (MOD) index 16.77 ml/m2 - Diastolic/Systolic Function Name Value Normal Range MV E-wave Vmax 1.24 m/sec - MV deceleration time 187.68 msec - MV A-wave Vmax 0.93 m/sec - MV E:A ratio 1.33 ratio - Aortic Valve Name Value Normal Range AV Vmax 2.25 m/sec - AV VTI 35.51 cm - AV peak gradient 20.34 mmHg - AV mean gradient 11.33 mmHg - LVOT diameter 2.02 cm - LVOT Vmax 1.73 m/sec - LVOT VTI 29.56 cm - LVOT peak gradient 11.92 mmHg - LVOT mean gradient 7.59 mmHg - SV LVOT 94.78 ml - LINUS (continuity Vmax) 2.46 cm2 - LINUS (continuity VTI) 2.67 cm2 - Mitral Valve Name Value Normal Range MR Vmax 5.05 m/sec - Tricuspid Valve Name Value Normal Range TR Vmax 2.5 m/sec - TR peak gradient 25 mmHg - RAP 3 mmHg - RVSP 28 mmHg - Pulmonic Valve/Qp:Qs Name Value Normal Range PV Vmax 1.73 m/sec - PV peak gradient 11.91 mmHg - PV acceleration time 87.54 msec - Paredes/IV: Voiding Method Urinal IV Catheter Type [right inner INT / Saline Lock arm] IV Catheter Type [Right arm] Peripheral IV IV Catheter Type [Right] Peripheral IV IV Catheter Type [Right Upper Peripheral IV arm] IV Catheter Type [Right Hand] INT / Saline Lock IV Catheter Type [Right INT / Saline Lock Antecubital] IV Catheter Type [Right INT / Saline Lock Forearm] IV Catheter Type [Left Hand] Peripheral IV Active Medications - Current Medications Current Medications: Generic Name Dose Route Start Last Admin Trade Name Freq PRN Reason Stop Dose Admin Acetaminophen 650 mg 03/01/20 13:57 03/09/20 04:17 Tylenol PO 650 mg Q4H PRN Administration Pain MILD(1-3)/Fever >100.5/OLIVERA Albumin Human 25 gm 03/01/20 10:16 Alburx 25% (Albumin) IV NITZA PRN Hypotension Carvedilol 6.25 mg 03/01/20 15:00 03/14/20 21:39 Coreg PO 6.25 mg BID JOSE RAMON Administration Hydralazine HCl 50 mg 03/01/20 15:00 03/15/20 06:22 Apresoline PO 50 mg Q8HR JOSE RAMON Administration Hydromorphone HCl 0.5 mg 03/01/20 08:35 03/09/20 10:00 Dilaudid IV 0.5 mg Q3H PRN Administration Pain , Severe (7-10) Sodium Chloride 1,000 mls @ 100 mls/hr 03/08/20 13:30 03/15/20 06:21 Nacl 0.9% 1000 Ml IV 100 mls/hr DIRECT JOSE RAMON Administration Vancomycin HCl 1,250 mg/ 275 mls @ 166.667 mls/hr 03/13/20 21:00 03/14/20 21:38 Sodium Chloride IV 166.667 mls/hr Q12H JOSE RAMON Administration Ibuprofen 400 mg 03/04/20 13:32 03/12/20 22:35 Ibuprofen PO 400 mg Q6H PRN Administration Non Cardiac Pain or Temp>100.5 Metoclopramide HCl 10 mg 03/01/20 13:57 Reglan IV Q6H PRN Nausea And Vomiting Ondansetron HCl 4 mg 03/01/20 13:57 Zofran IV Q8H PRN Nausea And Vomiting Oxycodone/Acetaminophen 1 tab 03/01/20 13:57 03/14/20 21:39 Percocet 5/325 PO 1 tab Q6H PRN Administration Pain, Moderate (4-6) Pantoprazole Sodium 40 mg 03/02/20 22:00 03/14/20 21:39 Protonix PO 40 mg BID JOSE RAMON Administration Sodium Chloride 10 ml 03/01/20 22:00 03/14/20 21:43 Sodium Chloride Flush Syringe 10 Ml IV 10 ml BID JOSE RAMON Administration Sodium Chloride 10 ml 03/01/20 13:57 03/09/20 20:26 Sodium Chloride Flush Syringe 10 Ml IV 10 ml PRN PRN Administration LINE FLUSH Nutrition/Malnutrition Assess - Dietary Evaluation Nutrition/Malnutrition Findings: Nutrition Notes Start: 03/01/20 08:14 Freq: Status: Active Protocol: Document 03/08/20 12:25 LM (Rec: 03/08/20 12:27 LM [id number]) Nutrition Notes Initial or Follow up Brief Note Current Diagnosis Acute Kidney Injury,Sepsis Other Pertinent Diagnosis Acute liver failure, Anemia Current Diet NPO Subjective/Other Information Pt stated he is eating well and has recently gained wt back to UBW of 160-163 lb. Nutrition Intervention Revisit per MD consult or patient Sign Off request:
[2020-03-15 11:17] LABS: BUN/Creatinine Ratio 16; Blood Urea Nitrogen 14 mg/dL (9-20); Calcium 8.9 mg/dL (8.4-10.2)
[2020-03-15 11:18] LABS: Hemolysis Index 3
[2020-03-15] MEDS: HYDROmorphone 1 MG/1 ML INJ IV PRN ×2 (12:07→21:11)
[2020-03-15] MEDS: CEFEPIME/NS 2 GM/100 ML 2 GM/100 ML BAG IV SCH ×2 (12:07→21:10)
[2020-03-15 15:21] LABS: Anisocytosis Few; Hypochromasia 1+; Platelet Estimate Consistent w Auto; Stomatocytes Few; Total Cells Counted 100
--- NOTE | 2020-03-15 21:38 | Progress Note ---
Assessment and Plan Cultures: Blood culture 02/29/2020 no growth. OR culture 03/08/2020 no growth today Assessment: 40 years old male without any medical history, admitted on 02/29/2020 due to 3-week history of intermittent fever and left leg edema, erythema and tenderness, associated with weakness, urine odor and syncope: #Severe sepsis: Resolved; secondary to severe left knee infection. Leukocytosis is better. #Left knee septic arthritis with extensive leg cellulitis, myositis? Necrotizing infection ?early femoral osteomyelitis: Patient was taken to the operating room underwent drainage knee washout on 03/08/2020, culture NO growth. #Elevated LFTs: Likely due to sepsis, shock liver, resolved #Anemia: Per primary team #Coagulopathy: Likely due to sepsis #Hyponatremia: Per primary team #Acute kidney injury: Secondary to sepsis, resolved #Chest pain and tachycardia: unclear source resolved Recommendations: Obtain HIV - pending Continue vancomycin with PK consult Continue cefepime 2 g IV every 12 hours IV abx requested cannot be arranged as there is concern about patient keeping a PICC line, has pulled out 2 Anticipate to d/c on augmentin 875 mg po bid and doxycycline 100 mg po bid total 4 weeks until 04/05/2020 cancel PICC line Will follow. Yvette Das MD Infectious Diseases [facility] ([facility]) M [phone] O [phone] Subjective Date of service: 03/15/20 Principal diagnosis: Hypertensive emergency, acute liver failure, acute renal renal failure, rha Interval history: Feels better no complaints Objective - Exam Narrative Exam: General appearance: Alert in NAD Eyes: anicteric sclerae, moist conjunctivae; no lid-lag; left corneal opacity HENT: Atraumatic; oropharynx clear with moist mucous membranes and no oral thrush; normal hard and soft palate. Lungs: CTA, with normal respiratory effort and no intercostal retractions CV: RRR no murmur Abdomen: Soft, non-tender; no masses or hepatosplenomegaly Extremities: left leg edema with dressings, left arm with dressings, edema improving Skin: No rash. Psych: no agitated Neuro: alert and oriented x 3. Moving all extermities - Constitutional Vitals: Vital Signs Temp Pulse Resp BP Pulse Ox 99.4 F 91 H 18 141/72 99 03/15/20 07:34 03/15/20 21:11 03/15/20 08:38 03/15/20 21:11 03/15/20 04:25 Temperature -Last 24 Hours Temperature 99.4 F Temperature 98.6 F Temperature 98.7 F - Labs CBC & Chem 7: 03/15/20 07:08 03/15/20 07:08 Labs: Abnormal lab results 03/15/20 03/15/20 Range/Units 07:08 07:08 RBC 2.74 L (3.65-5.03) M/mm3 Hgb 8.0 L (11.8-15.2) gm/dl Hct 24.3 L (35.5-45.6) % RDW 15.9 H (13.2-15.2) % Plt Count 772 H (140-440) K/mm3 Monocytes % (Manual) 8.0 H (0.0-7.3) % Carbon Dioxide 20 L (22-30) mmol/L
[2020-03-16] MEDS: hydrALAZINE 25 MG TAB PO SCH ×3 (05:13→21:15)
[2020-03-16] MEDS: SODIUM CHLORIDE 0.9% 1000 ML 1,000 ML IV SCH (06:17)
[2020-03-16 06:22] LABS: BUN/Creatinine Ratio 10; Blood Urea Nitrogen 8 mg/dL (9-20); Calcium 8.6 mg/dL (8.4-10.2); Hemolysis Index 0
[2020-03-16 06:25] LABS: Hematocrit 24.2 % (35.5-45.6); Hemoglobin 8.1 gm/dl (11.8-15.2); Mean Corpuscular HGB Conc 34 % (32-34); Mean Corpuscular Volume 89 fl (84-94); Platelet Count 641 K/mm3 (140-440); Red Blood Count 2.72 M/mm3 (3.65-5.03); Red Cell Distribution Width 15.9 % (13.2-15.2)
[2020-03-16 08:13] LABS: Anisocytosis 1+; Band Neutrophils # (Manual) 0.1 K/mm3; Basophils % (Manual) 0 % (0.0-1.8); Platelet Estimate Consistent w Auto; Total Cells Counted 100
[2020-03-16] MEDS: PANTOPRAZOLE 40 MG TAB PO SCH ×2 (09:48→21:16)
[2020-03-16] MEDS: carvediloL 6.25 MG TAB PO SCH ×2 (09:48→21:16)
[2020-03-16] MEDS: VANCOMYCIN 1,250 MG in SODIUM CHLORIDE 0.9% 250ML 250 ML IV SCH ×2 (11:15→21:48)
[2020-03-16] MEDS: CEFEPIME/NS 2 GM/100 ML 2 GM/100 ML BAG IV SCH ×2 (11:15→21:48)
--- NOTE | 2020-03-16 12:57 | Progress Note ---
Subjective - Reason for Consult Consult date: 03/16/20 Reason for consult: MHE Requesting physician: RODRIGUEZ PRIETO - Chief Complaint Chief complaint: PSYCH HPI Patient seen by me before, today patient acknowledges seeing me in the past and Im with the mental Health team. Patient reports being in physical discomfort, when asked why he keeps taking out IV and what he thinks they were, patient reported that its because he has been stuck so many times and now it hurts and he does not feel like his concerns are being addressed. MINI MENTAL STATUS EXAM CONDUCTED TO DETERMINE MENTAL CAPACITY REVIEW OF SYSTEMS Constitutional: Negative for weight loss ENT: Negative for stridor Respiratory: Negative for cough or hemoptysis All other systems reviewed and are negative MENTAL STATUS EXAMINATION General Appearance and Behavior: Age appropriate, fair hygiene, wearing appropriate clothes, good eye contact, lying in bed, cooperative with questioning and polite Cooperation: Participating and cooperative Psychomotor Behavior: No Psychomotor agitation Mood: "good but in pain" Affect and affective range: congruent with mood Thought Process: logical Thought Content: Within reality Speech: normal volume, soft volume Suicidal Ideation: Denies SI Homicidal Ideation: Denies HI Impulse Control: Unimpaired Insight and Judgment: Good insight and judgment Memory: Intact Attention: normal Orientation: Alert, oriented RECOMMENDATIONS PATIENT SCORED 25 on MMSE, which interprets as no cognitive impairment at the time exam was performed. Patient understands the benefit of getting antibiotics and risk of not getting antibiotics. Nurse reports patient sometimes say things that are confusing, at time of exam, patient mental capacity is not impaired, mild concern for delirium with a prolong lucidity and brief period of confusion. Patient currently understand what the IV lines are used for, and acknowledge why he didnt want an IV line MEDICATIONS:Continue your home meds Risks, benefits and alternatives of medications discussed with the patient, questions answered and consent obtained from patient. PSYCHOTHERAPY: Supportive psychotherapy provided MEDICAL: Per primary team DELIRIUM PRECAUTIONS: Please re-orient patient frequently, keep lights on during the day, and minimize benzodiazepines and opiates as these medications could worsen patient's confusion. 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 Thank you for the consult. Please contact with any questions and/or concerns. Mental Status Exam - Vital signs Last Vital Signs Temp 98.4 F 03/16/20 08:08 Pulse 85 07/01/20 05:13 Resp 18 03/16/20 08:42 BP 128/73 03/16/20 08:08 Pulse Ox 97 03/16/20 08:42 Assessment and Plan - Patient Problems (1) Metabolic encephalopathy Current Visit: Yes Status: Acute
[2020-03-16] MEDS: oxyCODONE /ACETAMINOPHEN 5-325MG TAB PO PRN ×2 (13:41→21:39)
--- NOTE | 2020-03-16 17:25 | Progress Note ---
Assessment and Plan Left septic joint with abscess formation anterior compartment appears to be improving with dressing changes and IV antibiotics Continue present management Subjective Date of service: 03/16/20 Principal diagnosis: Hypertensive emergency, acute liver failure, acute renal renal failure, rha Interval history: no c/o's noted from patient, encouraged to perform ROM exercises left knee Objective Vital signs: Vital Signs - 12hr 03/16/20 03/16/20 03/16/20 08:08 08:42 11:49 Temperature 98.4 F 98.5 F Pulse Rate Respiratory 18 18 18 Rate Blood Pressure 128/73 133/76 O2 Sat by Pulse 97 Oximetry 03/16/20 03/16/20 13:41 16:18 Temperature 98.1 F Pulse Rate 82 Respiratory 18 18 Rate Blood Pressure 133/76 139/73 O2 Sat by Pulse Oximetry Incision: healing Weight bearing status: as tolerated - Labs CBC & BMP: 03/16/20 05:11 03/16/20 05:11 Labs: Abnormal lab results 03/16/20 03/16/20 Range/Units 05:11 05:11 RBC 2.72 L (3.65-5.03) M/mm3 Hgb 8.1 L (11.8-15.2) gm/dl Hct 24.2 L (35.5-45.6) % RDW 15.9 H (13.2-15.2) % Plt Count 641 H (140-440) K/mm3 Monocytes % (Manual) 11.0 H (0.0-7.3) % Carbon Dioxide 21 L (22-30) mmol/L BUN 8 L (9-20) mg/dL
--- NOTE | 2020-03-16 21:44 | Progress Note ---
Assessment and Plan Assessment and plan: --Self mutilation. Recall psychiatry for further evaluation. --Severe sepsis. Present on admission with hypothermia, tachycardia, hypotension, leukocytosis, severely elevated lactate; secondary to severe left knee infection. --Left knee septic arthritis with extensive leg cellulitis ? Necrotic site i nfection. Patient was taken to the operating room underwent drainage knee washout on 03/08/2020 --Elevated LFTs. Likely due to sepsis, shock liver --Anemia. --Coagulopathy. Likely due to sepsis --Hyponatremia.continue IV fluid hydration and follow-up BMP --Acute kidney injury. Secondary to sepsis, resolved. Creatinine stable. 03/11/2020. Continue to monitor leukocytosis which has not improved. We will follow-up OR cultures and HIV testing. Continue vancomycin and cefepime per ID recommendations. Clindamycin has been stopped. Ortho to consider further debridement and wound VAC. 03/12/2020. Follow-up CBC today for worsening leukocytosis. Ortho to consider further debridement and wound VAC. Continue antibiotics per ID recommendations. 03/13/2020. Orthopedic's report Left septic joint with abscess formation anterior compartment appears to be improving with dressing changes and IV antibiotics. We will continue present management. ID following. 03/14/2020. Continue vancomycin with PK consult. Continue cefepime 2 g IV every 12 hours. Anticipate to d/c on vancomycin 1,250 mg IV q 12hour and ceftriaxone 2 g IV qday total 4 weeks until 04/05/2020 - orders sent to human services case manager per ID recommendation. PICC line placement 03/15/20: Patient on multiple antibiotics recommended by ID, for total 4 weeks ending date 04/05/2020 PICC line placement, social issues notes resources DC planning per case management Closely monitor the patient and adjust the management as needed Plan of care reviewed with the patient, his nurse and the case management History Interval history: Patient seen and examined at the bedside Patient's chart and medications reviewed And cooperative Vital signs reviewed Hospitalist Physical - Constitutional Vitals: Temp Pulse Resp BP Pulse Ox 98.0 F 98 H 18 149/77 100 03/16/20 19:07 03/16/20 21:16 03/16/20 21:39 03/16/20 21:16 03/16/20 19:07 General appearance: Present: no acute distress, well-nourished, cachectic HEART Score - HEART Score Troponin: Troponin T 0.010 ng/mL (0.00-0.029) 03/09/20 23:47 Results - Labs CBC & Chem 7: 03/16/20 05:11 03/16/20 05:11 Labs: Laboratory Last Values WBC 7.5 K/mm3 (4.5-11.0) 03/16/20 05:11 RBC 2.72 M/mm3 (3.65-5.03) L 03/16/20 05:11 Hgb 8.1 gm/dl (11.8-15.2) L 03/16/20 05:11 Hct 24.2 % (35.5-45.6) L 03/16/20 05:11 MCV 89 fl (84-94) 03/16/20 05:11 MCH 30 pg (28-32) 03/16/20 05:11 MCHC 34 % (32-34) 03/16/20 05:11 RDW 15.9 % (13.2-15.2) H 03/16/20 05:11 Plt Count 641 K/mm3 (140-440) H 03/16/20 05:11 Lymph % (Auto) 22.1 % (13.4-35.0) 03/13/20 05:42 Bremer % (Auto) 14.4 % (0.0-7.3) H 03/13/20 05:42 Eos % (Auto) 2.7 % (0.0-4.3) 03/13/20 05:42 Baso % (Auto) 1.0 % (0.0-1.8) 03/13/20 05:42 Lymph # 1.8 K/mm3 (1.2-5.4) 03/13/20 05:42 Bremer # 1.2 K/mm3 (0.0-0.8) H 03/13/20 05:42 Eos # 0.2 K/mm3 (0.0-0.4) 03/13/20 05:42 Baso # 0.1 K/mm3 (0.0-0.1) 03/13/20 05:42 Add Manual Diff Complete 03/16/20 05:11 Total Counted 100 03/16/20 05:11 Seg Neutrophils % 59.8 % (40.0-70.0) 03/13/20 05:42 Seg Neuts % (Manual) 64.0 % (40.0-70.0) 03/16/20 05:11 Band Neutrophils % 1.0 % 03/16/20 05:11 Lymphocytes % (Manual) 22.0 % (13.4-35.0) 03/16/20 05:11 Reactive Lymphs % (Man) 0 % 03/16/20 05:11 Monocytes % (Manual) 11.0 % (0.0-7.3) H 03/16/20 05:11 Eosinophils % (Manual) 2.0 % (0.0-4.3) 03/16/20 05:11 Basophils % (Manual) 0 % (0.0-1.8) 03/16/20 05:11 Metamyelocytes % 0 % 03/16/20 05:11 Myelocytes % 0 % 03/16/20 05:11 Promyelocytes % 0 % 03/16/20 05:11 Blast Cells % 0 % 03/16/20 05:11 Nucleated RBC % Not Reportable 03/16/20 05:11 Seg Neutrophils # 4.9 K/mm3 (1.8-7.7) 03/13/20 05:42 Seg Neutrophils # Man 4.8 K/mm3 (1.8-7.7) 03/16/20 05:11 Band Neutrophils # 0.1 K/mm3 03/16/20 05:11 Lymphocytes # (Manual) 1.7 K/mm3 (1.2-5.4) 03/16/20 05:11 Abs React Lymphs (Man) 0.0 K/mm3 03/16/20 05:11 Monocytes # (Manual) 0.8 K/mm3 (0.0-0.8) 03/16/20 05:11 Eosinophils # (Manual) 0.2 K/mm3 (0.0-0.4) 03/16/20 05:11 Basophils # (Manual) 0.0 K/mm3 (0.0-0.1) 03/16/20 05:11 Metamyelocytes # 0.0 K/mm3 03/16/20 05:11 Myelocytes # 0.0 K/mm3 03/16/20 05:11 Promyelocytes # 0.0 K/mm3 03/16/20 05:11 Blast Cells # 0.0 K/mm3 03/16/20 05:11 WBC Morphology Not Reportable 03/16/20 05:11 Hypersegmented Neuts Not Reportable 03/16/20 05:11 Hyposegmented Neuts Not Reportable 03/16/20 05:11 Hypogranular Neuts Not Reportable 03/16/20 05:11 Smudge Cells Not Reportable 03/16/20 05:11 Toxic Granulation Not Reportable 03/16/20 05:11 Toxic Vacuolation Not Reportable 03/16/20 05:11 Dohle Bodies Not Reportable 03/16/20 05:11 Pelger-Huet Anomaly Not Reportable 03/16/20 05:11 Lizbeth Rods Not Reportable 03/16/20 05:11 Platelet Estimate Consistent w auto 03/16/20 05:11 Clumped Platelets Not Reportable 03/16/20 05:11 Plt Clumps, EDTA Not Reportable 03/16/20 05:11 Large Platelets Not Reportable 03/16/20 05:11 Giant Platelets Not Reportable 03/16/20 05:11 Platelet Satelliting Not Reportable 03/16/20 05:11 Plt Morphology Comment Not Reportable 03/16/20 05:11 RBC Morphology Not Reportable 03/16/20 05:11 Dimorphic RBCs Not Reportable 03/16/20 05:11 Polychromasia Not Reportable 03/16/20 05:11 Hypochromasia Not Reportable 03/16/20 05:11 Poikilocytosis Not Reportable 03/16/20 05:11 Anisocytosis 1+ 03/16/20 05:11 Microcytosis Not Reportable 03/16/20 05:11 Macrocytosis Not Reportable 03/16/20 05:11 Spherocytes Not Reportable 03/16/20 05:11 Pappenheimer Bodies Not Reportable 03/16/20 05:11 Sickle Cells Not Reportable 03/16/20 05:11 Target Cells Not Reportable 03/16/20 05:11 Tear Drop Cells Not Reportable 03/16/20 05:11 Ovalocytes Not Reportable 03/16/20 05:11 Stomatocytes Few 03/15/20 07:08 Helmet Cells Not Reportable 03/16/20 05:11 [place] Bodies Not Reportable 03/16/20 05:11 Moclips Rings Not Reportable 03/16/20 05:11 Creola Cells Not Reportable 03/16/20 05:11 Bite Cells Not Reportable 03/16/20 05:11 Crenated Cell Not Reportable 03/16/20 05:11 Elliptocytes Not Reportable 03/16/20 05:11 Acanthocytes (Spur) Not Reportable 03/16/20 05:11 Rouleaux Not Reportable 03/16/20 05:11 Hemoglobin C Crystals Not Reportable 03/16/20 05:11 Schistocytes Not Reportable 03/16/20 05:11 Malaria parasites Not Reportable 03/16/20 05:11 Hilario Bodies Not Reportable 03/16/20 05:11 Hem Pathologist Commnt No 03/16/20 05:11 PT 23.5 Sec. (12.2-14.9) H 03/01/20 05:49 INR 2.16 (0.87-1.13) H 03/01/20 05:49 APTT 44.0 Sec. (24.2-36.6) H 02/29/20 19:11 ABG pH 7.427 pH Units (7.350-7.450) 02/29/20 23:09 ABG pCO2 28.1 mm Hg 02/29/20 23:09 ABG pO2 96.3 mm Hg (80.0-90.0) H 02/29/20 23:09 ABG HCO3 18.1 mmol/L (20.0-26.0) L 02/29/20 23:09 ABG O2 Saturation 97.6 % (95.0-99.0) 02/29/20 23:09 ABG O2 Content 12.6 (0.0-44) 02/29/20 23:09 ABG Base Excess -5.3 mmol/L (-2.0-3.0) L 02/29/20 23:09 ABG Hemoglobin 9.2 gm/dl (14.0-18.0) L 02/29/20 23:09 ABG Carboxyhemoglobin 1.1 % (0.0-5.0) 02/29/20 23:09 ABG Methemoglobin 0.4 % (0.0-1.5) 02/29/20 23:09 Oxyhemoglobin 96.2 % (95.0-99.0) 02/29/20 23:09 FiO2 36 % 02/29/20 23:09 Sodium 139 mmol/L (137-145) 03/16/20 05:11 Potassium 4.0 mmol/L (3.6-5.0) 03/16/20 05:11 Chloride 104.7 mmol/L (98-107) 03/16/20 05:11 Carbon Dioxide 21 mmol/L (22-30) L 03/16/20 05:11 Anion Gap 17 mmol/L 03/16/20 05:11 BUN 8 mg/dL (9-20) L 03/16/20 05:11 Creatinine 0.8 mg/dL (0.8-1.5) 03/16/20 05:11 Estimated GFR > 60 ml/min 03/16/20 05:11 BUN/Creatinine Ratio 10 % 03/16/20 05:11 Glucose 98 mg/dL (75-100) 03/16/20 05:11 POC Glucose 122 (70-105) H 02/29/20 23:20 Hemoglobin A1c 4.7 % (4-6) 03/01/20 05:49 Osmolality 286 Mosm/kg 03/02/20 13:28 Lactic Acid 1.90 mmol/L (0.7-2.0) 03/01/20 21:23 Calcium 8.6 mg/dL (8.4-10.2) 03/16/20 05:11 Total Bilirubin 0.40 mg/dL (0.1-1.2) 03/09/20 04:40 Direct Bilirubin < 0.2 mg/dL (0-0.2) 03/01/20 05:49 Indirect Bilirubin 0.0 mg/dL 03/01/20 05:49 AST 88 units/L (5-40) H 03/09/20 04:40 ALT 150 units/L (7-56) H 03/09/20 04:40 Alkaline Phosphatase 154 units/L (35-129) H 03/09/20 04:40 Ammonia 43.0 umol/L (25-60) 03/01/20 01:09 Total Creatine Kinase 145 units/L (55-170) 03/10/20 09:20 Troponin T 0.010 ng/mL (0.00-0.029) 03/09/20 23:47 Serum Total Protein 5.2 g/dL (6.1-8.1) L 03/05/20 09:02 Total Protein 6.6 g/dL (6.3-8.2) 03/09/20 04:40 Albumin 1.9 g/dL (3.9-5) L 03/09/20 04:40 Albumin/Globulin Ratio 0.4 % 03/09/20 04:40 Cgzhm-0-Jtvaazewj 0.8 g/dL (0.2-0.3) H 03/05/20 09:02 Pnxko-1-Xxdubbami 1.1 g/dL (0.5-0.9) H 03/05/20 09:02 Beta Globulins 0.4 g/dL (0.2-0.5) 03/05/20 09:02 Gamma Globulins 1.0 g/dL (0.8-1.7) 03/05/20 09:02 Abnorm Protein Band 1 see below 03/05/20 09:02 PEP Interpretation see below H 03/05/20 09:02 Urine Color Yellow (Yellow) 02/29/20 23:30 Urine Turbidity Slightly-cloudy (Clear) 02/29/20 23:30 Urine pH 5.0 (5.0-7.0) 02/29/20 23:30 Ur Specific [place] 1.016 (1.003-1.030) 02/29/20 23:30 Urine Protein 30 mg/dl mg/dL (Negative) 02/29/20 23:30 Urine Glucose (UA) 50 mg/dL (Negative) 02/29/20 23:30 Urine Ketones Neg mg/dL (Negative) 02/29/20 23:30 Urine Blood Lg (Negative) 02/29/20 23:30 Urine Nitrite Neg (Negative) 02/29/20 23:30 Urine Bilirubin Neg (Negative) 02/29/20 23:30 Urine Urobilinogen < 2.0 mg/dL (<2.0) 02/29/20 23:30 Ur Leukocyte Esterase Neg (Negative) 02/29/20 23:30 Urine WBC (Auto) 6.0 /HPF (0.0-6.0) 02/29/20 23:30 Urine RBC (Auto) 2.0 /HPF (0.0-6.0) 02/29/20 23:30 Urine Mucus 1+ /HPF 02/29/20 23:30 Vancomycin Trough 11.8 ug/mL (5.0-20.0) 03/15/20 19:36 Salicylates 1.7 mg/dL (2.8-20.0) L 02/29/20 20:35 Urine Opiates Screen Presumptive negative 02/29/20 23:30 Urine Methadone Screen Presumptive negative 02/29/20 23:30 Acetaminophen < 5.0 ug/mL (10.0-30.0) L 02/29/20 20:35 Ur Barbiturates Screen Presumptive negative 02/29/20 23:30 Ur Phencyclidine Scrn Presumptive negative 02/29/20 23:30 Ur Amphetamines Screen Presumptive negative 02/29/20 23:30 U Benzodiazepines Scrn Presumptive negative 02/29/20 23:30 Urine Cocaine Screen Presumptive negative 02/29/20 23:30 U Marijuana (THC) Screen Presumptive negative 02/29/20 23:30 Drugs of Abuse Note Disclamer 02/29/20 23:30 Ethylene Glycol <10.0 mcg/mL (<10.0) 03/01/20 12:41 Plasma/Serum Alcohol < 0.01 % (0-0.07) 02/29/20 19:11 NORMA Screen Negative (Negative) 03/05/20 09:02 Proteinase 3 (PR3) Ab <1.0 AI (<1.0) 03/05/20 09:02 Myeloperoxidase Ab <1.0 AI (<1.0) 03/05/20 09:02 Complement C3 173 mg/dL (82-185) 03/05/20 09:02 Complement C4 27 mg/dL (15-53) 03/05/20 09:02 Hepatitis A IgM Ab Non-reactive (NonReactive) 03/01/20 09:42 Hep Bs Antigen Non-reactive (Negative) 03/01/20 09:42 Hep B Core IgM Ab Non-reactive (NonReactive) 03/01/20 09:42 Hepatitis C Antibody Non-reactive (NonReactive) 03/01/20 09:42 Blood Type O POSITIVE 03/08/20 12:18 Antibody Screen Negative 03/08/20 12:18 Crossmatch See Detail 03/08/20 12:18 - Diagnostic Impressions Diagnostic Impressions: Echocardiogram 03/09/20 10:46 Transthoracic Echocardiogram Indication: Chest pain BP: 124/72 HR: 93 Conclusions *The left ventricular chamber size is normal. *Global left ventricular wall motion and contractility are within normal limits. *The left atrial chamber size is normal. *Normal left ventricular diastolic filling is observed. Findings Left Ventricle: The left ventricular chamber size is normal. Global left ventricular wall motion and contractility are within normal limits. Global left ventricular systolic function is normal. The estimated ejection fraction is 55-60%. Normal left ventricular diastolic filling is observed. Left Atrium: The left atrial chamber size is normal. Right Ventricle: The right ventricular cavity size is normal. Right Atrium: The right atrial cavity size is normal. Aortic Valve: The aortic valve structure is normal. There is no evidence of aortic regurgitation. Mitral Valve: The mitral valve leaflets appear normal. There is trace of mitral regurgitation. Tricuspid Valve: The tricuspid valve leaflets are normal. There is trace tricuspid regurgitation. The right ventricular systolic pressure is calculated at 28 mmHg. Pulmonic Valve: The pulmonic valve appears normal. Pericardium: There is no pericardial effusion. Venous: The inferior vena cava appears normal. Measurements Chambers 2D Name Value Normal Range IVSd (2D) 1.08 cm (0.6 - 1.1) LVPWd (2D) 1.06 cm (0.6 - 1.1) LVIDd (2D) 4.16 cm (3.7 - 5.6) LVIDs (2D) 2.46 cm (2 - 3.8) LV FS (2D) 40.83 % - EF Teichholz (2D) 72.05 % - Ao root diameter (2D) 2.56 cm (2 - 3.7) Volumes/Mass Name Value Normal Range LA ESV SP 4CH (A/L) 25.95 ml - LA ESV SP 2CH (A/L) 43.57 ml - LA ESV BP (A/L) 34.1 ml - LA ESV BP (A/L) index 17.76 ml/m2 - LA ESV SP 4CH (MOD) 24.25 ml - LA ESV SP 2CH (MOD) 42.02 ml - LA ESV BP (MOD) 32.2 ml - LA ESV BP (MOD) index 16.77 ml/m2 - Diastolic/Systolic Function Name Value Normal Range MV E-wave Vmax 1.24 m/sec - MV deceleration time 187.68 msec - MV A-wave Vmax 0.93 m/sec - MV E:A ratio 1.33 ratio - Aortic Valve Name Value Normal Range AV Vmax 2.25 m/sec - AV VTI 35.51 cm - AV peak gradient 20.34 mmHg - AV mean gradient 11.33 mmHg - LVOT diameter 2.02 cm - LVOT Vmax 1.73 m/sec - LVOT VTI 29.56 cm - LVOT peak gradient 11.92 mmHg - LVOT mean gradient 7.59 mmHg - SV LVOT 94.78 ml - LINUS (continuity Vmax) 2.46 cm2 - LINUS (continuity VTI) 2.67 cm2 - Mitral Valve Name Value Normal Range MR Vmax 5.05 m/sec - Tricuspid Valve Name Value Normal Range TR Vmax 2.5 m/sec - TR peak gradient 25 mmHg - RAP 3 mmHg - RVSP 28 mmHg - Pulmonic Valve/Qp:Qs Name Value Normal Range PV Vmax 1.73 m/sec - PV peak gradient 11.91 mmHg - PV acceleration time 87.54 msec - Paredes/IV: Voiding Method Urinal IV Catheter Type [right inner INT / Saline Lock arm] IV Catheter Type [Right arm] Peripheral IV IV Catheter Type [Right] Peripheral IV IV Catheter Type [Right Upper Peripheral IV arm] IV Catheter Type [Right Hand] INT / Saline Lock IV Catheter Type [Right INT / Saline Lock Antecubital] IV Catheter Type [Right INT / Saline Lock Forearm] IV Catheter Type [Left Hand] Peripheral IV Active Medications - Current Medications Current Medications: Generic Name Dose Route Start Last Admin Trade Name Jorgeq PRN Reason Stop Dose Admin Acetaminophen 650 mg 03/01/20 13:57 03/09/20 04:17 Tylenol PO 650 mg Q4H PRN Administration Pain MILD(1-3)/Fever >100.5/OLIVERA Carvedilol 6.25 mg 03/01/20 15:00 03/16/20 21:16 Coreg PO 6.25 mg BID JOSE RAMON Administration Hydralazine HCl 50 mg 03/01/20 15:00 03/16/20 21:15 Apresoline PO 50 mg Q8HR JOSE RAMON Administration Hydromorphone HCl 0.5 mg 03/01/20 08:35 03/15/20 12:07 Dilaudid IV 0.5 mg Q3H PRN Administration Pain , Severe (7-10) Sodium Chloride 1,000 mls @ 100 mls/hr 03/08/20 13:30 03/16/20 06:17 Nacl 0.9% 1000 Ml IV 100 mls/hr DIRECT JOSE RAMON Administration Vancomycin HCl 1,250 mg/ 275 mls @ 166.667 mls/hr 03/13/20 21:00 03/16/20 11:15 Sodium Chloride IV 04/05/20 23:59 Not Given Q12H JOSE RAMON Cefepime HCl 2 gm in 100 mls @ 200 mls/hr 03/15/20 11:00 03/16/20 11:15 Cefepime/Ns 2 Gm/100 Ml IV 04/05/20 23:59 Not Given Q12HR JOSE RAMON Protocol Ibuprofen 400 mg 03/04/20 13:32 03/12/20 22:35 Ibuprofen PO 400 mg Q6H PRN Administration Non Cardiac Pain or Temp>100.5 Metoclopramide HCl 10 mg 03/01/20 13:57 Reglan IV Q6H PRN Nausea And Vomiting Ondansetron HCl 4 mg 03/01/20 13:57 Zofran IV Q8H PRN Nausea And Vomiting Oxycodone/Acetaminophen 1 tab 03/01/20 13:57 03/16/20 21:39 Percocet 5/325 PO 1 tab Q6H PRN Administration Pain, Moderate (4-6) Pantoprazole Sodium 40 mg 03/02/20 22:00 03/16/20 21:16 Protonix PO 40 mg BID JOSE RAMON Administration Sodium Chloride 10 ml 03/01/20 22:00 03/16/20 09:49 Sodium Chloride Flush Syringe 10 Ml IV Not Given BID JOSE RAMON Sodium Chloride 10 ml 03/01/20 13:57 03/09/20 20:26 Sodium Chloride Flush Syringe 10 Ml IV 10 ml PRN PRN Administration LINE FLUSH Nutrition/Malnutrition Assess - Dietary Evaluation Nutrition/Malnutrition Findings: Nutrition Notes Start: 03/01/20 08:14 Freq: Status: Active Protocol: Document 03/08/20 12:25 LM (Rec: 03/08/20 12:27 LM [id number]) Nutrition Notes Initial or Follow up Brief Note Current Diagnosis Acute Kidney Injury,Sepsis Other Pertinent Diagnosis Acute liver failure, Anemia Current Diet NPO Subjective/Other Information Pt stated he is eating well and has recently gained wt back to UBW of 160-163 lb. Nutrition Intervention Revisit per MD consult or patient Sign Off request:
[2020-03-17] MEDS: hydrALAZINE 25 MG TAB PO SCH ×2 (05:46→13:10)
[2020-03-17] MEDS: oxyCODONE /ACETAMINOPHEN 5-325MG TAB PO PRN ×2 (08:20→15:00)
[2020-03-17] MEDS: carvediloL 6.25 MG TAB PO SCH ×2 (08:50→10:11)
[2020-03-17] MEDS: PANTOPRAZOLE 40 MG TAB PO SCH ×2 (08:50→10:11)
[2020-03-17] MEDS: HYDROmorphone 1 MG/1 ML INJ IV PRN ×2 (09:10→13:10)
--- NOTE | 2020-03-17 09:45 | Progress Note ---
Assessment and Plan Cultures: Blood culture 02/29/2020 no growth. OR culture 03/08/2020 no growth today Assessment: 40 years old male without any medical history, admitted on 02/29/2020 due to 3-week history of intermittent fever and left leg edema, erythema and tenderness, associated with weakness, urine odor and syncope: #Severe sepsis: Resolved; secondary to severe left knee infection. Leukocytosis is better. #Left knee septic arthritis with extensive leg cellulitis, myositis? Necrotizing infection ?early femoral osteomyelitis: Patient was taken to the operating room underwent drainage knee washout on 03/08/2020, culture NO growth. #Elevated LFTs: Likely due to sepsis, shock liver, resolved #Anemia: Per primary team #Coagulopathy: Likely due to sepsis, resolved #Hyponatremia: Per primary team #Acute kidney injury: Secondary to sepsis, resolved #Chest pain and tachycardia: unclear source resolved Recommendations: Obtain HIV - pending Continue vancomycin with PK consult Continue cefepime 2 g IV every 12 hours IV abx requested cannot be arranged as there is concern about patient keeping a PICC line, has pulled out 2 Anticipate to d/c on augmentin 875 mg po bid and doxycycline 100 mg po bid total 4 weeks until 04/05/2020 cancel PICC line Will sign off Yvette Das MD Infectious Diseases Factory Manager [facility] M [phone] Subjective Date of service: 03/17/20 Principal diagnosis: Hypertensive emergency, acute liver failure, acute renal renal failure, rha Interval history: Feels better no complaints Objective - Exam Narrative Exam: General appearance: Alert in NAD Eyes: anicteric sclerae, moist conjunctivae; no lid-lag; left corneal opacity HENT: Atraumatic; oropharynx clear with moist mucous membranes and no oral thrush; normal hard and soft palate. Lungs: CTA, with normal respiratory effort and no intercostal retractions CV: RRR no murmur Abdomen: Soft, non-tender; no masses or hepatosplenomegaly Extremities: left leg edema with dressings, left arm with dressings, edema improving Skin: No rash. Psych: no agitated Neuro: alert and oriented x 3. Moving all extermities - Constitutional Vitals: Vital Signs Temp Pulse Resp BP Pulse Ox 98.3 F 91 H 18 127/74 99 03/17/20 07:57 03/17/20 07:57 03/17/20 07:57 03/17/20 07:57 03/17/20 07:57 Temperature -Last 24 Hours Temperature 98.3 F Temperature 98.0 F Temperature 98.0 F Temperature 98.0 F Temperature 98.1 F Temperature 98.5 F - Labs CBC & Chem 7: 03/16/20 05:11 03/16/20 05:11
[2020-03-17] MEDS: AMOXICILLIN/K CLAV 875/125MG TAB PO SCH (10:05)
[2020-03-17] MEDS: DOXYCYCLINE 100 MG CAP PO SCH (10:05)
--- NOTE | 2020-03-17 11:11 | Progress Note ---
Assessment and Plan Assessment and plan: --Self mutilation. Recall psychiatry for further evaluation. --Severe sepsis. Present on admission with hypothermia, tachycardia, hypotension, leukocytosis, severely elevated lactate; secondary to severe left knee infection. --Left knee septic arthritis with extensive leg cellulitis ? Necrotic site i nfection. Patient was taken to the operating room underwent drainage knee washout on 03/08/2020 Initially ID recommended IV antibiotics for total 4 weeks However patient is noncompliant removing all IV lines unable to do PICC line ID recommended oral antibiotics Augmentin 875 p.o. twice daily, Doxy 100 p.o. twice daily for total 4 weeks end date 04/05/2020 We canceled the PICC line as patient is noncompliant and pulling out IV access --Elevated LFTs. Likely due to sepsis, shock liver --Anemia. --Coagulopathy. Likely due to sepsis --Hyponatremia.continue IV fluid hydration and follow-up BMP --Acute kidney injury. Secondary to sepsis, resolved. Creatinine stable. --DC planning per case management; 03/11/2020. Continue to monitor leukocytosis which has not improved. We will follow-up OR cultures and HIV testing. Continue vancomycin and cefepime per ID recommendations. Clindamycin has been stopped. Ortho to consider further debridement and wound VAC. 03/12/2020. Follow-up CBC today for worsening leukocytosis. Ortho to consider further debridement and wound VAC. Continue antibiotics per ID recommendations. 03/13/2020. Orthopedic's report Left septic joint with abscess formation anterior compartment appears to be improving with dressing changes and IV antibiotics. We will continue present management. ID following. 03/14/2020. Continue vancomycin with PK consult. Continue cefepime 2 g IV every 12 hours. Anticipate to d/c on vancomycin 1,250 mg IV q 12hour and ceftriaxone 2 g IV qday total 4 weeks until 04/05/2020 - orders sent to corrections caseworker per ID recommendation. PICC line placement 03/15/20: Patient on multiple antibiotics recommended by ID, for total 4 weeks ending date 04/05/2020 PICC line placement, social issues notes resources DC planning per case management Closely monitor the patient and adjust the management as needed Plan of care reviewed with the patient, his nurse and the case management Hospitalist Physical - Constitutional Vitals: Temp Pulse Resp BP Pulse Ox 98.3 F 91 H 18 127/74 99 03/17/20 07:57 03/17/20 07:57 03/17/20 07:57 03/17/20 07:57 03/17/20 07:57 General appearance: Present: no acute distress, well-nourished, cachectic HEART Score - HEART Score Troponin: Troponin T 0.010 ng/mL (0.00-0.029) 03/09/20 23:47 Results - Labs CBC & Chem 7: 03/16/20 05:11 03/16/20 05:11 Labs: Laboratory Last Values WBC 7.5 K/mm3 (4.5-11.0) 03/16/20 05:11 RBC 2.72 M/mm3 (3.65-5.03) L 03/16/20 05:11 Hgb 8.1 gm/dl (11.8-15.2) L 03/16/20 05:11 Hct 24.2 % (35.5-45.6) L 03/16/20 05:11 MCV 89 fl (84-94) 03/16/20 05:11 MCH 30 pg (28-32) 03/16/20 05:11 MCHC 34 % (32-34) 03/16/20 05:11 RDW 15.9 % (13.2-15.2) H 03/16/20 05:11 Plt Count 641 K/mm3 (140-440) H 03/16/20 05:11 Lymph % (Auto) 22.1 % (13.4-35.0) 03/13/20 05:42 Sargent % (Auto) 14.4 % (0.0-7.3) H 03/13/20 05:42 Eos % (Auto) 2.7 % (0.0-4.3) 03/13/20 05:42 Baso % (Auto) 1.0 % (0.0-1.8) 03/13/20 05:42 Lymph # 1.8 K/mm3 (1.2-5.4) 03/13/20 05:42 Sargent # 1.2 K/mm3 (0.0-0.8) H 03/13/20 05:42 Eos # 0.2 K/mm3 (0.0-0.4) 03/13/20 05:42 Baso # 0.1 K/mm3 (0.0-0.1) 03/13/20 05:42 Add Manual Diff Complete 03/16/20 05:11 Total Counted 100 03/16/20 05:11 Seg Neutrophils % 59.8 % (40.0-70.0) 03/13/20 05:42 Seg Neuts % (Manual) 64.0 % (40.0-70.0) 03/16/20 05:11 Band Neutrophils % 1.0 % 03/16/20 05:11 Lymphocytes % (Manual) 22.0 % (13.4-35.0) 03/16/20 05:11 Reactive Lymphs % (Man) 0 % 03/16/20 05:11 Monocytes % (Manual) 11.0 % (0.0-7.3) H 03/16/20 05:11 Eosinophils % (Manual) 2.0 % (0.0-4.3) 03/16/20 05:11 Basophils % (Manual) 0 % (0.0-1.8) 03/16/20 05:11 Metamyelocytes % 0 % 03/16/20 05:11 Myelocytes % 0 % 03/16/20 05:11 Promyelocytes % 0 % 03/16/20 05:11 Blast Cells % 0 % 03/16/20 05:11 Nucleated RBC % Not Reportable 03/16/20 05:11 Seg Neutrophils # 4.9 K/mm3 (1.8-7.7) 03/13/20 05:42 Seg Neutrophils # Man 4.8 K/mm3 (1.8-7.7) 03/16/20 05:11 Band Neutrophils # 0.1 K/mm3 03/16/20 05:11 Lymphocytes # (Manual) 1.7 K/mm3 (1.2-5.4) 03/16/20 05:11 Abs React Lymphs (Man) 0.0 K/mm3 03/16/20 05:11 Monocytes # (Manual) 0.8 K/mm3 (0.0-0.8) 03/16/20 05:11 Eosinophils # (Manual) 0.2 K/mm3 (0.0-0.4) 03/16/20 05:11 Basophils # (Manual) 0.0 K/mm3 (0.0-0.1) 03/16/20 05:11 Metamyelocytes # 0.0 K/mm3 03/16/20 05:11 Myelocytes # 0.0 K/mm3 03/16/20 05:11 Promyelocytes # 0.0 K/mm3 03/16/20 05:11 Blast Cells # 0.0 K/mm3 03/16/20 05:11 WBC Morphology Not Reportable 03/16/20 05:11 Hypersegmented Neuts Not Reportable 03/16/20 05:11 Hyposegmented Neuts Not Reportable 03/16/20 05:11 Hypogranular Neuts Not Reportable 03/16/20 05:11 Smudge Cells Not Reportable 03/16/20 05:11 Toxic Granulation Not Reportable 03/16/20 05:11 Toxic Vacuolation Not Reportable 03/16/20 05:11 Dohle Bodies Not Reportable 03/16/20 05:11 Pelger-Huet Anomaly Not Reportable 03/16/20 05:11 Lizbeth Rods Not Reportable 03/16/20 05:11 Platelet Estimate Consistent w auto 03/16/20 05:11 Clumped Platelets Not Reportable 03/16/20 05:11 Plt Clumps, EDTA Not Reportable 03/16/20 05:11 Large Platelets Not Reportable 03/16/20 05:11 Giant Platelets Not Reportable 03/16/20 05:11 Platelet Satelliting Not Reportable 03/16/20 05:11 Plt Morphology Comment Not Reportable 03/16/20 05:11 RBC Morphology Not Reportable 03/16/20 05:11 Dimorphic RBCs Not Reportable 03/16/20 05:11 Polychromasia Not Reportable 03/16/20 05:11 Hypochromasia Not Reportable 03/16/20 05:11 Poikilocytosis Not Reportable 03/16/20 05:11 Anisocytosis 1+ 03/16/20 05:11 Microcytosis Not Reportable 03/16/20 05:11 Macrocytosis Not Reportable 03/16/20 05:11 Spherocytes Not Reportable 03/16/20 05:11 Pappenheimer Bodies Not Reportable 03/16/20 05:11 Sickle Cells Not Reportable 03/16/20 05:11 Target Cells Not Reportable 03/16/20 05:11 Tear Drop Cells Not Reportable 03/16/20 05:11 Ovalocytes Not Reportable 03/16/20 05:11 Stomatocytes Few 03/15/20 07:08 Helmet Cells Not Reportable 03/16/20 05:11 [place] Bodies Not Reportable 03/16/20 05:11 Purvis Rings Not Reportable 03/16/20 05:11 Vniny Cells Not Reportable 03/16/20 05:11 Bite Cells Not Reportable 03/16/20 05:11 Crenated Cell Not Reportable 03/16/20 05:11 Elliptocytes Not Reportable 03/16/20 05:11 Acanthocytes (Spur) Not Reportable 03/16/20 05:11 Rouleaux Not Reportable 03/16/20 05:11 Hemoglobin C Crystals Not Reportable 03/16/20 05:11 Schistocytes Not Reportable 03/16/20 05:11 Malaria parasites Not Reportable 03/16/20 05:11 Hilario Bodies Not Reportable 03/16/20 05:11 Hem Pathologist Commnt No 03/16/20 05:11 PT 23.5 Sec. (12.2-14.9) H 03/01/20 05:49 INR 2.16 (0.87-1.13) H 03/01/20 05:49 APTT 44.0 Sec. (24.2-36.6) H 02/29/20 19:11 ABG pH 7.427 pH Units (7.350-7.450) 02/29/20 23:09 ABG pCO2 28.1 mm Hg 02/29/20 23:09 ABG pO2 96.3 mm Hg (80.0-90.0) H 02/29/20 23:09 ABG HCO3 18.1 mmol/L (20.0-26.0) L 02/29/20 23:09 ABG O2 Saturation 97.6 % (95.0-99.0) 02/29/20 23:09 ABG O2 Content 12.6 (0.0-44) 02/29/20 23:09 ABG Base Excess -5.3 mmol/L (-2.0-3.0) L 02/29/20 23:09 ABG Hemoglobin 9.2 gm/dl (14.0-18.0) L 02/29/20 23:09 ABG Carboxyhemoglobin 1.1 % (0.0-5.0) 02/29/20 23:09 ABG Methemoglobin 0.4 % (0.0-1.5) 02/29/20 23:09 Oxyhemoglobin 96.2 % (95.0-99.0) 02/29/20 23:09 FiO2 36 % 02/29/20 23:09 Sodium 139 mmol/L (137-145) 03/16/20 05:11 Potassium 4.0 mmol/L (3.6-5.0) 03/16/20 05:11 Chloride 104.7 mmol/L (98-107) 03/16/20 05:11 Carbon Dioxide 21 mmol/L (22-30) L 03/16/20 05:11 Anion Gap 17 mmol/L 03/16/20 05:11 BUN 8 mg/dL (9-20) L 03/16/20 05:11 Creatinine 0.8 mg/dL (0.8-1.5) 03/16/20 05:11 Estimated GFR > 60 ml/min 03/16/20 05:11 BUN/Creatinine Ratio 10 % 03/16/20 05:11 Glucose 98 mg/dL (75-100) 03/16/20 05:11 POC Glucose 122 (70-105) H 02/29/20 23:20 Hemoglobin A1c 4.7 % (4-6) 03/01/20 05:49 Osmolality 286 Mosm/kg 03/02/20 13:28 Lactic Acid 1.90 mmol/L (0.7-2.0) 03/01/20 21:23 Calcium 8.6 mg/dL (8.4-10.2) 03/16/20 05:11 Total Bilirubin 0.40 mg/dL (0.1-1.2) 03/09/20 04:40 Direct Bilirubin < 0.2 mg/dL (0-0.2) 03/01/20 05:49 Indirect Bilirubin 0.0 mg/dL 03/01/20 05:49 AST 88 units/L (5-40) H 03/09/20 04:40 ALT 150 units/L (7-56) H 03/09/20 04:40 Alkaline Phosphatase 154 units/L (35-129) H 03/09/20 04:40 Ammonia 43.0 umol/L (25-60) 03/01/20 01:09 Total Creatine Kinase 145 units/L (55-170) 03/10/20 09:20 Troponin T 0.010 ng/mL (0.00-0.029) 03/09/20 23:47 Serum Total Protein 5.2 g/dL (6.1-8.1) L 03/05/20 09:02 Total Protein 6.6 g/dL (6.3-8.2) 03/09/20 04:40 Albumin 1.9 g/dL (3.9-5) L 03/09/20 04:40 Albumin/Globulin Ratio 0.4 % 03/09/20 04:40 Ogaxg-4-Azdjlfuyj 0.8 g/dL (0.2-0.3) H 03/05/20 09:02 Sxlxd-2-Wjnfgfejm 1.1 g/dL (0.5-0.9) H 03/05/20 09:02 Beta Globulins 0.4 g/dL (0.2-0.5) 03/05/20 09:02 Gamma Globulins 1.0 g/dL (0.8-1.7) 03/05/20 09:02 Abnorm Protein Band 1 see below 03/05/20 09:02 PEP Interpretation see below H 03/05/20 09:02 Urine Color Yellow (Yellow) 02/29/20 23:30 Urine Turbidity Slightly-cloudy (Clear) 02/29/20 23:30 Urine pH 5.0 (5.0-7.0) 02/29/20 23:30 Ur Specific Grayson 1.016 (1.003-1.030) 02/29/20 23:30 Urine Protein 30 mg/dl mg/dL (Negative) 02/29/20 23:30 Urine Glucose (UA) 50 mg/dL (Negative) 02/29/20 23:30 Urine Ketones Neg mg/dL (Negative) 02/29/20 23:30 Urine Blood Lg (Negative) 02/29/20 23:30 Urine Nitrite Neg (Negative) 02/29/20 23:30 Urine Bilirubin Neg (Negative) 02/29/20 23:30 Urine Urobilinogen < 2.0 mg/dL (<2.0) 02/29/20 23:30 Ur Leukocyte Esterase Neg (Negative) 02/29/20 23:30 Urine WBC (Auto) 6.0 /HPF (0.0-6.0) 02/29/20 23:30 Urine RBC (Auto) 2.0 /HPF (0.0-6.0) 02/29/20 23:30 Urine Mucus 1+ /HPF 02/29/20 23:30 Vancomycin Trough 11.8 ug/mL (5.0-20.0) 03/15/20 19:36 Salicylates 1.7 mg/dL (2.8-20.0) L 02/29/20 20:35 Urine Opiates Screen Presumptive negative 02/29/20 23:30 Urine Methadone Screen Presumptive negative 02/29/20 23:30 Acetaminophen < 5.0 ug/mL (10.0-30.0) L 02/29/20 20:35 Ur Barbiturates Screen Presumptive negative 02/29/20 23:30 Ur Phencyclidine Scrn Presumptive negative 02/29/20 23:30 Ur Amphetamines Screen Presumptive negative 02/29/20 23:30 U Benzodiazepines Scrn Presumptive negative 02/29/20 23:30 Urine Cocaine Screen Presumptive negative 02/29/20 23:30 U Marijuana (THC) Screen Presumptive negative 02/29/20 23:30 Drugs of Abuse Note Disclamer 02/29/20 23:30 Ethylene Glycol <10.0 mcg/mL (<10.0) 03/01/20 12:41 Plasma/Serum Alcohol < 0.01 % (0-0.07) 02/29/20 19:11 NORMA Screen Negative (Negative) 03/05/20 09:02 Proteinase 3 (PR3) Ab <1.0 AI (<1.0) 03/05/20 09:02 Myeloperoxidase Ab <1.0 AI (<1.0) 03/05/20 09:02 Complement C3 173 mg/dL (82-185) 03/05/20 09:02 Complement C4 27 mg/dL (15-53) 03/05/20 09:02 Hepatitis A IgM Ab Non-reactive (NonReactive) 03/01/20 09:42 Hep Bs Antigen Non-reactive (Negative) 03/01/20 09:42 Hep B Core IgM Ab Non-reactive (NonReactive) 03/01/20 09:42 Hepatitis C Antibody Non-reactive (NonReactive) 03/01/20 09:42 Blood Type O POSITIVE 03/08/20 12:18 Antibody Screen Negative 03/08/20 12:18 Crossmatch See Detail 03/08/20 12:18 - Diagnostic Impressions Diagnostic Impressions: Echocardiogram 03/09/20 10:46 Transthoracic Echocardiogram Indication: Chest pain BP: 124/72 HR: 93 Conclusions *The left ventricular chamber size is normal. *Global left ventricular wall motion and contractility are within normal limits. *The left atrial chamber size is normal. *Normal left ventricular diastolic filling is observed. Findings Left Ventricle: The left ventricular chamber size is normal. Global left ventricular wall motion and contractility are within normal limits. Global left ventricular systolic function is normal. The estimated ejection fraction is 55-60%. Normal left ventricular diastolic filling is observed. Left Atrium: The left atrial chamber size is normal. Right Ventricle: The right ventricular cavity size is normal. Right Atrium: The right atrial cavity size is normal. Aortic Valve: The aortic valve structure is normal. There is no evidence of aortic regurgitation. Mitral Valve: The mitral valve leaflets appear normal. There is trace of mitral regurgitation. Tricuspid Valve: The tricuspid valve leaflets are normal. There is trace tricuspid regurgitation. The right ventricular systolic pressure is calculated at 28 mmHg. Pulmonic Valve: The pulmonic valve appears normal. Pericardium: There is no pericardial effusion. Venous: The inferior vena cava appears normal. Measurements Chambers 2D Name Value Normal Range IVSd (2D) 1.08 cm (0.6 - 1.1) LVPWd (2D) 1.06 cm (0.6 - 1.1) LVIDd (2D) 4.16 cm (3.7 - 5.6) LVIDs (2D) 2.46 cm (2 - 3.8) LV FS (2D) 40.83 % - EF Teichholz (2D) 72.05 % - Ao root diameter (2D) 2.56 cm (2 - 3.7) Volumes/Mass Name Value Normal Range LA ESV SP 4CH (A/L) 25.95 ml - LA ESV SP 2CH (A/L) 43.57 ml - LA ESV BP (A/L) 34.1 ml - LA ESV BP (A/L) index 17.76 ml/m2 - LA ESV SP 4CH (MOD) 24.25 ml - LA ESV SP 2CH (MOD) 42.02 ml - LA ESV BP (MOD) 32.2 ml - LA ESV BP (MOD) index 16.77 ml/m2 - Diastolic/Systolic Function Name Value Normal Range MV E-wave Vmax 1.24 m/sec - MV deceleration time 187.68 msec - MV A-wave Vmax 0.93 m/sec - MV E:A ratio 1.33 ratio - Aortic Valve Name Value Normal Range AV Vmax 2.25 m/sec - AV VTI 35.51 cm - AV peak gradient 20.34 mmHg - AV mean gradient 11.33 mmHg - LVOT diameter 2.02 cm - LVOT Vmax 1.73 m/sec - LVOT VTI 29.56 cm - LVOT peak gradient 11.92 mmHg - LVOT mean gradient 7.59 mmHg - SV LVOT 94.78 ml - LINUS (continuity Vmax) 2.46 cm2 - LINUS (continuity VTI) 2.67 cm2 - Mitral Valve Name Value Normal Range MR Vmax 5.05 m/sec - Tricuspid Valve Name Value Normal Range TR Vmax 2.5 m/sec - TR peak gradient 25 mmHg - RAP 3 mmHg - RVSP 28 mmHg - Pulmonic Valve/Qp:Qs Name Value Normal Range PV Vmax 1.73 m/sec - PV peak gradient 11.91 mmHg - PV acceleration time 87.54 msec - Apredes/IV: Voiding Method Urinal IV Catheter Type [right inner INT / Saline Lock arm] IV Catheter Type [Right arm] Peripheral IV IV Catheter Type [Right] Peripheral IV IV Catheter Type [Right Upper Peripheral IV arm] IV Catheter Type [Right Hand] INT / Saline Lock IV Catheter Type [Right INT / Saline Lock Antecubital] IV Catheter Type [Right INT / Saline Lock Forearm] IV Catheter Type [Left Hand] Peripheral IV Active Medications - Current Medications Current Medications: Generic Name Dose Route Start Last Admin Trade Name Freq PRN Reason Stop Dose Admin Acetaminophen 650 mg 03/01/20 13:57 03/09/20 04:17 Tylenol PO 650 mg Q4H PRN Administration Pain MILD(1-3)/Fever >100.5/OLIVERA Amoxicillin/Clavulanate Potassium 1 each 03/17/20 10:00 03/17/20 10:05 Augmentin 875 Mg PO 04/05/20 23:59 1 each Q12HR JOSE RAMON Administration Carvedilol 6.25 mg 03/01/20 15:00 03/17/20 10:11 Coreg PO Not Given BID JOSE RAMON Doxycycline Hyclate 100 mg 03/17/20 10:00 03/17/20 10:05 Vibramycin PO 04/05/20 23:59 100 mg Q12HR JOSE RAMON Administration Hydralazine HCl 50 mg 03/01/20 15:00 03/17/20 05:46 Apresoline PO 50 mg Q8HR JOSE RAMON Administration Hydromorphone HCl 0.5 mg 03/01/20 08:35 03/17/20 09:10 Dilaudid IV 0.5 mg Q3H PRN Administration Pain , Severe (7-10) Sodium Chloride 1,000 mls @ 100 mls/hr 03/08/20 13:30 03/16/20 06:17 Nacl 0.9% 1000 Ml IV 100 mls/hr DIRECT JOSE RAMON Administration Ibuprofen 400 mg 03/04/20 13:32 03/12/20 22:35 Ibuprofen PO 400 mg Q6H PRN Administration Non Cardiac Pain or Temp>100.5 Metoclopramide HCl 10 mg 03/01/20 13:57 Reglan IV Q6H PRN Nausea And Vomiting Ondansetron HCl 4 mg 03/01/20 13:57 Zofran IV Q8H PRN Nausea And Vomiting Oxycodone/Acetaminophen 1 tab 03/01/20 13:57 03/17/20 08:20 Percocet 5/325 PO 1 tab Q6H PRN Administration Pain, Moderate (4-6) Pantoprazole Sodium 40 mg 03/02/20 22:00 03/17/20 10:11 Protonix PO Not Given BID JOSE RAMON Sodium Chloride 10 ml 03/01/20 22:00 03/17/20 10:11 Sodium Chloride Flush Syringe 10 Ml IV Not Given BID JOSE RAMON Sodium Chloride 10 ml 03/01/20 13:57 03/09/20 20:26 Sodium Chloride Flush Syringe 10 Ml IV 10 ml PRN PRN Administration LINE FLUSH Nutrition/Malnutrition Assess - Dietary Evaluation Nutrition/Malnutrition Findings: Nutrition Notes Start: 03/01/20 08:14 Freq: Status: Active Protocol: Document 03/08/20 12:25 LM (Rec: 03/08/20 12:27 LM [id number]) Nutrition Notes Initial or Follow up Brief Note Current Diagnosis Acute Kidney Injury,Sepsis Other Pertinent Diagnosis Acute liver failure, Anemia Current Diet NPO Subjective/Other Information Pt stated he is eating well and has recently gained wt back to UBW of 160-163 lb. Nutrition Intervention Revisit per MD consult or patient Sign Off request:
--- NOTE | 2020-03-17 16:07 | Discharge Summary ---
Providers - Providers Date of Admission: 02/29/20 23:27 Date of discharge: 03/17/20 Attending physician: DILCIA COBB 02/29/20 20:26 Consult to Physician [CONS] Routine Comment: Consulting Provider: APARNA SHANNON Physician Instructions: Reason For Exam: hyperkalemia, acute renal failure 02/29/20 23:24 Consult to Physician [CONS] Routine Comment: Consulting Provider: VIMAL LAZO Physician Instructions: Reason For Exam: acute liver failure 02/29/20 23:57 Consult to Dietitian/Nutrition [CONS] Routine Physician Instructions: Reason For Exam: Reason for Consult: Diet education 03/01/20 10:09 Consult to Physician [CONS] Routine Comment: Consulting Provider: AISHWARYA GIRON Physician Instructions: Reason For Exam: vasc cath, refractory hyperkalemia with injestion 03/01/20 19:25 Consult to Wound/ET Nurse [CONS] Routine Reason For Exam: wound eval/left forearm lacerations 03/04/20 15:04 Consult to Mental Health [CONS] Routine Reason For Exam: psych clearance 03/06/20 09:06 Consult to Physician [CONS] Routine Comment: Consulting Provider: DANIEL HANNA Physician Instructions: Reason For Exam: L knee effusion-r/oSeptic Arthritis 03/08/20 08:10 Consult to Physician [CONS] Routine Comment: Consulting Provider: EMILY ECHAVARRIA Physician Instructions: Reason For Exam: persistent leukocytosis 03/08/20 16:21 Physical Therapy Evaluation and Treat [CONS] Routine Comment: Reason For Exam: Postop evaluation Weight bearing status?: Full wt bearing Assistive devices?: Yes If so list: Crutches 03/09/20 Consult to Cardiac Rehabilitation [CONS] Routine Reason For Exam: Phase I 03/10/20 11:48 Consult to Wound/ET Nurse [CONS] Urgent Reason For Exam: Wound evaluation and wound VAC treatment 03/14/20 11:00 Consult to Case Management [CONS] Stat Services Needed at Discharge: Other Notified:: vocational psychologist Additional Physician Instructions: [facility] ([facility]) [address] [place] [address] OUTPATIENT PARENTERAL ANTIBIOTIC THERAPY (OPAT) ORDERS Diagnoses: left knee septic arthritis, femoral osteomyelitis Administer: vancomycin 1,250 mg IV q 12hour and ceftriaxone 2 g IV qday total 4 weeks until 04/05/2020. Remove PICC line after last dose unless otherwise instructed. Line: Maintain IV access with weekly dressing changes and locks per protocol. Labs: Every Saturday CBC, AST, ALT, Creat inine, vancomcyin trough. Please fax results to [phone] and call [phone] for critical lab results. Yvette Guthrie MD Infectious Diseases Licensed Retail Supervisor [facility] ([facility]) O: [phone] F: [phone] 03/14/20 11:01 Consult to PICC Line RN [CONS] Stat Reason For Exam: IV antibiotics Type Line:: PICC 03/15/20 18:58 psychiatry consult [Consult to Mental Health] [CONS] Routine Reason For Exam: Reconsult/stabilization Primary care physician: CONTAINER MAKER Hospitalization Condition: Fair Disposition: DC/TX-06 HOME UNDER HOME [facility] Time spent for discharge: 32 min Core Measure Documentation - Palliative Care Palliative Care/ Comfort Measures: Not Applicable - Core Measures Any of the following diagnoses?: none Exam - Constitutional Vitals: Temp Pulse Resp BP Pulse Ox 98.3 F 91 H 18 127/74 98 03/17/20 07:57 03/17/20 07:57 03/17/20 07:57 03/17/20 07:57 03/17/20 10:00 Plan Activity: advance as tolerated, fall precautions Diet: regular Wound: per wound nurse instructions Special Instructions: smoking cessation Additional Instructions: Wound care per instructions. Advised to comply with medications. If the symptoms become worse contact MD or go to emergency room as needed Follow up with: PRIMARY PHILIP, [Primary Care Provider] - 7 Days YVETTE BISHOP MD [Staff Physician] - 7 Days DANIEL HANNA MD [Staff Physician] - 7 Days JANNA IZAGUIRRE MD [Staff Physician] - 7 Days Prescriptions: hydrALAZINE [Apresoline TAB] 50 mg PO Q8HR #90 tablet Amoxicillin/K Clav Tab [Augmentin 875MG TAB] 1 each PO Q12HR #20 tablet carvediloL [Coreg] 6.25 mg PO BID #60 tablet Ibuprofen [Motrin 400 MG tab] 400 mg PO Q6H PRN #20 tablet PRN Reason: Non Cardiac Pain Or Temp>100.5 DOXYCYCLINE Hyclate [Vibramycin CAP] 100 mg PO Q12HR #20 tab
[2020-03-17 18:10] LABS: HIV-1 RNA QN PCR <1.30 Log cps/mL; HIV-1 RNA QN PCR <20 Copies/mL
[2020-03-18] MEDS: carvediloL 6.25 MG TAB PO SCH (03:25)
[2020-03-18] MEDS: hydrALAZINE 25 MG TAB PO SCH ×2 (03:25→06:58)
[2020-03-18] MEDS: AMOXICILLIN/K CLAV 875/125MG TAB PO SCH (03:25)
[2020-03-18] MEDS: DOXYCYCLINE 100 MG CAP PO SCH (03:26)
[2020-03-18] MEDS: PANTOPRAZOLE 40 MG TAB PO SCH (03:26)
[2020-03-18 08:54] VITALS: BP 135/79
== END 2020-03-18 15:04 | disposition home or self-care (01) | DRG 853 ==
LOC: ED 18:09 → IMCU 23:27 → 4A 03-01 14:54
PROVIDERS: ADMIT Internal Medicine Geriatric Medicine; ATTEND Internal Medicine
PROC: 4A033R1 Measurement of Arterial Saturation, Peripheral, Percutaneous Approach (ICD-10-PCS; 2020-02-29)
PROC: 5A1D70Z Performance of Urinary Filtration, Intermittent, Less than 6 Hours Per Day (ICD-10-PCS; 2020-03-01)
PROC: 0JH63XZ Insertion of Tunneled Vascular Access Device into Chest Subcutaneous Tissue and Fascia, Percutaneous Approach (ICD-10-PCS; 2020-03-01)
PROC: 02H633Z Insertion of Infusion Device into Right Atrium, Percutaneous Approach (ICD-10-PCS; 2020-03-01)
PROC: B5181ZA Fluoroscopy of Superior Vena Cava using Low Osmolar Contrast, Guidance (ICD-10-PCS; 2020-03-01)
PROC: B548ZZA Ultrasonography of Superior Vena Cava, Guidance (ICD-10-PCS; 2020-03-01)
PROC: 30233N1 Transfusion of Nonautologous Red Blood Cells into Peripheral Vein, Percutaneous Approach (ICD-10-PCS; principal; 2020-03-03)
PROC: 0SBD4ZZ Excision of Left Knee Joint, Percutaneous Endoscopic Approach (ICD-10-PCS; 2020-03-08)
PROC: 3E1U48Z Irrigation of Joints using Irrigating Substance, Percutaneous Endoscopic Approach (ICD-10-PCS; 2020-03-08)
PROC: 0Q9 Lower Bones, Drainage (ICD-10-PCS; 2020-03-08)
DX: A41.9 Sepsis, unspecified organism (principal); K72.00 Acute and subacute hepatic failure without coma; G93.41 Metabolic encephalopathy; N17.0 Acute kidney failure with tubular necrosis; E87.2 Acidosis; D62 Acute posthemorrhagic anemia; E87.1 Hypo-osmolality and hyponatremia; M62.82 Rhabdomyolysis; M00.9 Pyogenic arthritis, unspecified; D68.9 Coagulation defect, unspecified; L03.116 Cellulitis of left lower limb; E87.5 Hyperkalemia; F17.210 Nicotine dependence, cigarettes, uncomplicated; I95.9 Hypotension, unspecified; R65.20 Severe sepsis without septic shock; R68.0 Hypothermia, not associated with low environmental temperature
CPT/HCPCS: 36415; 36430; 36556; 71045; 73721; 74176; 76705; 76770; 76937; 77001; 80048; 80053; 80074; 80076; 80202; 80307; 80320; 81001; 82140; 82550; 82693; 82803; 82962; 83036; 83930; 84165; 84484; 85007; 85025; 85027; 85610; 85730; 86021; 86038; 86160; 86689; 86850; 86900; 86901; 86920; 87040; 87075; 87116; 87536; 90686; 93005; 93306; 94644; G0378; A4217; C1752; C9113; G0480; J0295; J0610; J0690; J0692; J0885; J1030; J1170; J1644; J1815; J1956; J2270; J2405; J2543; J2704; J3370; J3480; J7030; J7040; J7050; J7070; P9016

== ENCOUNTER 2020-04-04 16:09 | Emergency (ER) | payer SELFPAY ==
[2020-04-04] MEDS ORDERED: SODIUM CHLORIDE 0.9% 1000 ML 1,000 ML IV ONE (16:40)
--- NOTE | 2020-04-04 16:46 | Emergency Department Report ---
ED Syncope HPI - General Chief Complaint: Syncope Stated Complaint: CODE MET Time Seen by Provider: 04/04/20 16:36 - History of Present Illness Initial Comments: 40-year-old male, history of hypertension, presents to ED following near syncopal episode. Patient states he was at Dr. Lay's office for a follow-up appointment. Patient states the office was hot, he began to feel overheated, became sweaty, and felt as though he was going to pass out. Patient denies any chest pain, shortness of breath, fever, vomiting or diarrhea. Patient reports having knee surgery last month and has some residual swelling to the left knee and lower leg from the surgery. Timing/Prior Episodes: no prior history Precipitating Factors: Positive: diaphoresis, lightheadedness, nausea Context: sitting Loss of Consciousness: no loss of consciousness Current Symptoms: back to normal. denies: chest pain, dizziness, headache - Related Data Allergies/Adverse Reactions: Allergies No Known Allergies Allergy (Unverified 02/29/20 18:25) Home Medications: Ambulatory Orders Amoxicillin/K Clav Tab [Augmentin 875MG TAB] 1 each PO Q12HR #20 tablet 03/17/20 DOXYCYCLINE Hyclate [Vibramycin CAP] 100 mg PO Q12HR #20 tab 03/17/20 Ibuprofen [Motrin 400 MG tab] 400 mg PO Q6H PRN #20 tablet 03/17/20 carvediloL [Coreg] 6.25 mg PO BID #60 tablet 03/17/20 hydrALAZINE [Apresoline TAB] 50 mg PO Q8HR #90 tablet 03/17/20 oxyCODONE /ACETAMINOPHEN [Percocet 5/325] 1 tab PO BID PRN #10 tablet 03/17/20 ED Review of Systems ROS: Stated complaint: CODE MET Other details as noted in HPI Comment: All other systems reviewed and negative Constitutional: denies: chills, fever Respiratory: denies: shortness of breath Cardiovascular: denies: chest pain Gastrointestinal: nausea. denies: abdominal pain, vomiting, diarrhea Musculoskeletal: joint swelling Neurological: denies: headache ED Past Medical Hx - Past Medical History Previous Medical History?: Yes Hx Hypertension: No Hx Heart Attack/AMI: No Hx Congestive Heart Failure: No Hx Diabetes: No Hx Liver Disease: Yes (acute liver failure on admission; improving) Hx Renal Disease: Yes (acute renal failure on admission now improved) Hx Asthma: No Hx COPD: No - Social History Smoking Status: Current Every Day Smoker - Medications Home Medications: Home Medications Medication Instructions Recorded Confirmed Last Taken Type Amoxicillin/K Clav Tab [Augmentin 1 each PO Q12HR #20 tablet 03/17/20 Unknown Rx 875MG TAB] DOXYCYCLINE Hyclate [Vibramycin 100 mg PO Q12HR #20 tab 03/17/20 Unknown Rx CAP] Ibuprofen [Motrin 400 MG tab] 400 mg PO Q6H PRN #20 tablet 03/17/20 Unknown Rx carvediloL [Coreg] 6.25 mg PO BID #60 tablet 03/17/20 Unknown Rx hydrALAZINE [Apresoline TAB] 50 mg PO Q8HR #90 tablet 03/17/20 Unknown Rx oxyCODONE /ACETAMINOPHEN [Percocet 1 tab PO BID PRN #10 tablet 03/17/20 Unknown Rx 5/325] ED Physical Exam - General Limitations: No Limitations General appearance: alert, in no apparent distress - Head Head exam: Present: atraumatic, normocephalic - Eye Eye exam: Present: normal appearance, EOMI - ENT ENT exam: Present: mucous membranes moist - Neck Neck exam: Present: normal inspection - Respiratory Respiratory exam: Present: normal lung sounds bilaterally. Absent: respiratory distress - Cardiovascular Cardiovascular Exam: Present: regular rate, normal rhythm - GI/Abdominal GI/Abdominal exam: Present: soft. Absent: distended, tenderness - Extremities Exam Extremities exam: Present: other (Swelling to left knee with some additional swelling to the left lower leg) - Neurological Exam Neurological exam: Present: alert, oriented X3, CN II-XII intact. Absent: motor sensory deficit - Psychiatric Psychiatric exam: Present: normal affect, normal mood - Skin Skin exam: Present: warm, dry, intact, normal color ED Course Vital Signs 04/04/20 04/04/20 16:20 17:03 Temperature 97.5 F L Pulse Rate 66 63 Respiratory 18 16 Rate Blood Pressure 97/55 Blood Pressure 105/62 [Left] O2 Sat by Pulse 100 98 Oximetry - Reevaluation(s) Reevaluation #1: 04/04/20 17:13 Despite our efforts, Mr. Mccullough has decided to leave AGAINST MEDICAL ADVICE. He has a normal mental status and full decisional capacity. Patient understands his condition, that he had a near syncopal event, and risks of leaving AMA, including but not limited to permanent disability, , cardiac disease, etc., and has had an opportunity ask questions about his medical condition. The patient has been informed that he may return for care anytime and has been referred to primary physician for follow-up JULIEN. ED Medical Decision Making - Medical Decision Making 40-year-old male presents to ED as a Code Met from his doctor's office after having a near syncopal event. Patient refused care. Left AMA. Risks and benefits explained to the patient. Return precautions given. - Differential Diagnosis Heat exhaustion, arrhythmia, dehydration, PE, ACS Critical care attestation.: If time is entered above; I have spent that time in minutes in the direct care of this critically ill patient, excluding procedure time. ED Disposition Clinical Impression: Near syncope Disposition: [id number]-07 LEFT AGAINST MED ADVICE Is pt being admited?: No Condition: Stable Referrals: PRIMARY CARE, [Primary Care Provider] - 3-5 Days Forms: AMA Form Time of Disposition: 17:08
[2020-04-04 17:04] VITALS: BP 105/62
== END 2020-04-04 17:17 | disposition left against medical advice (07) ==
LOC: ED 16:09
DX: R55 Syncope and collapse (principal); F17.200 Nicotine dependence, unspecified, uncomplicated; Z79.1 Long term (current) use of non-steroidal anti-inflammatories (NSAID); Z79.2 Long term (current) use of antibiotics; Z79.899 Other long term (current) drug therapy
CPT/HCPCS: 82962; 99282; J7030; 96360